=== PATIENT | female | born 1940 | race Caucasian/White ===

== ENCOUNTER 2019-05-05 15:11 | Observation (INO) | payer MEDICARE, SELFPAY ==
[2019-04-01 08:41] VITALS: BP 157/87; PULSE 54; RESP 18; TEMP 36.7; O2SAT 98; BMI 26.6
--- NOTE | 2019-04-07 17:22 | HP_ITS ---
DATE OF SERVICE: HISTORY: The patient is an 79-year-old female who sees Dr. Wall regarding her left knee. The patient has a chronic ongoing history of pain localized left knee. This is due to primary osteoarthritis. The patient has pain with ambulation. She has startup pain, rest pain, and night pain. She gets occasional swelling and mechanical symptoms. Cannot stand or walk for long periods and is limited in her daily activities. Despite conservative measures including cortisone therapy and anti-inflammatories, her symptoms continue. The patient had x-rays which show advanced primary osteoarthritis in the left knee joint. At this point, the patient has discussed further treatment options in detail with Dr. Wall. She would now like to proceed with a total knee arthroplasty, left knee. PAST SURGICAL HISTORY: The patient has undergone a previous hysterectomy in 1970, left breast biopsy in 1972, right leg vein stripping in 1991, hemorrhoidectomy 2009. Varicose vein surgery again in 2018, multiple D and Cs over the years and cholecystectomy 2001. ALLERGIES: PATIENT REPORTS ALLERGIES TO TYLENOL, ADVIL AND ALEVE, WHICH CAUSED TONGUE SWELLING AND THROAT SWELLING. CURRENT MEDICATIONS: Include, 1. Levothyroxine 88 mcg daily. 2. Diazepam 2 mg b.i.d. 3. Triamterene half tab in the morning. 4. Pantoprazole 40 mg daily. 5. PreserVision daily. 6. Atorvastatin once in the evening. 7. Full dose aspirin enteric-coated daily. 8. Calcium with vitamin D daily. 9. Flecainide 100 mg b.i.d. 10. Metoprolol 25 mg daily. 11. [place]-3 fish oil 1000 mg daily. SOCIAL HISTORY: Negative for tobacco or alcohol use. REVIEW OF SYSTEMS: 10-point review of systems otherwise negative. PHYSICAL EXAMINATION: Per Dr. Wall, HEENT: Exam within normal limits. HEART: Regular rate and rhythm. LUNGS: Clear to auscultation. ABDOMEN: Benign. Bowel sounds positive 4 quads. EXTREMITIES: Show the patient's left knee to be painful with manipulation range of motion. The patient has tenderness on the joint lines and pain with extremes of motion with subpatellar crepitation mild effusion and swelling. Hips move well with negative Stinchfield, negative Lisandra. X-rays show advanced primary osteoarthritis in the left knee joint. NEUROVASCULAR: The patient is otherwise intact. SKIN: Intact. CENTRAL NERVOUS SYSTEM exam: Within normal limits. ASSESSMENT AND PLAN: By history and exam, the patient is noted to have advanced primary osteoarthritis, left knee joint. The patient has discussed risks, benefits, limitations, alternatives of surgery in great detail with Dr. Wall. She has noted to proceed with a left total knee arthroplasty. Ms. Oates is scheduled to undergo surgery 04/13/[address] at [facility] with Dr. Wall. Rodrigo I MT: Diogo
--- NOTE | 2019-04-21 15:00 | PCDIET ---
PT STATES ON 04/07/19 HAD EPISOIDE AFIB- SAW DR SCOTT PLACED ON HEART MONITOR AND STARTED ELIQUIS. STATES NO OTHER CHANGE IN HEALTH HX.
--- NOTE | 2019-04-29 12:58 | HP_ITS ---
DATE OF SERVICE: 05/04/2019 HISTORY OF PRESENT ILLNESS: The patient is an 79-year-old female who sees Dr. Wlal regarding her left knee. The patient has a chronic ongoing history of pain, localized left knee. This is due to primary osteoarthritis. The patient has pain with ambulation. She has mechanical symptoms, cannot stand or walk for long period. She has startup pain, rest pain, and night pain. She notes increasingly worsening pain over time despite conservative measures including cortisone therapy and anti-inflammatories. Her symptoms continue to interfere with daily activities. X-rays show advanced primary osteoarthritis in the left knee joint. At this point, the patient has discussed further treatment options in detail with Dr. Wall. She would now like to proceed with left total knee arthroplasty. PAST MEDICAL HISTORY: The patient has undergone a previous hysterectomy in 1970, right leg vein stripping in 1991, left breast biopsy in 1972, hemorrhoidectomy surgery in 2009, varicose vein stripping again in 2018, multiple D and Cs over the years, and a cholecystectomy in 2001. ALLERGIES: THE PATIENT REPORTS ALLERGIES TO TYLENOL, ADVIL, AND ALEVE, WHICH CAUSED TONGUE SWELLING AND THROAT SWELLING. SOCIAL HISTORY: Negative for tobacco or alcohol use. CURRENT MEDICATIONS: Include, 1. Levothyroxine 88 mcg daily. 2. Diazepam 2 mg b.i.d. 3. Triamterene half-tab in the morning. 4. Pantoprazole 40 mg daily. 5. PreserVision daily. 6. Atorvastatin in the evening. 7. Full dose 325 mg aspirin enteric-coated daily. 8. Calcium with vitamin D daily. 9. Flecainide 100 mg b.i.d. 10. Metoprolol 25 mg daily. 11. [place]-3 fish oil 1 g daily. REVIEW OF SYSTEMS: Ten-point review of systems is otherwise negative. PHYSICAL EXAMINATION: Per Dr. Wall, SUSIE EXAM: Within normal limits. HEART: Regular rate and rhythm. LUNGS: Clear to auscultation. Bowel sounds positive 4 quads. EXTREMITIES: Show the patient's left knee to be painful with manipulation, range of motion. She has subpatellar crepitation, pain with extremes of motion with tenderness along joint lines. Mild effusion and swelling. Hips move well with negative Stinchfield. Negative TANNER. Knee joint is otherwise stable. Strength is 5/5. NEUROVASCULARLY: She is intact. SKIN: Intact. CENTRAL NERVOUS SYSTEM: Exam within normal limits. IMAGING DATA: X-rays showed advanced primary osteoarthritis in the left knee joint. ASSESSMENT AND PLAN: By history and exam, the patient is noted to have advanced primary osteoarthritis, left knee joint. The patient has discussed risks, benefits, limitations, and alternatives of surgery in great detail with Dr. Wall. She is noted to proceed with left total knee arthroplasty. The patient is scheduled to go surgery on May 04, 2019 at [facility]. D I MT: Dioog
[2019-05-04] VITALS (15 sets, daily range): BP systolic 128–174; BP diastolic 64–87; PULSE 54–76; RESP 6–20; TEMP 36.1–36.8; O2SAT 94–100
[2019-05-04] MEDS: LACTATED RINGERS 1,000 ML 30 ML IV CONT ×2 (06:50→09:17)
--- NOTE | 2019-05-04 07:04 | WPDANESEPPF ---
Anes - Initial Pre Proc Eval Procedure: Operation Date: 05/04/19 07:30 Proposed Procedures p Left Total Knee Arthroplasty - Solis Wall MD Date/Time: 05/04/19 07:04 Surgeon: Solis Wall MD Pre Op Diagnosis: OA Left Knee Patient Data Age: 79 Gender: F Height: 1.64 m Weight: 71.5 kg Last Vital Signs Temp 36.7 C 04/01/19 08:41 Pulse 54 L 04/01/19 08:41 Resp 18 04/01/19 08:41 BP 157/87 H 04/01/19 08:41 Pulse Ox 98 04/01/19 08:41 Allergies Allergy/AdvReac Type Severity Reaction Status Date / Time acetaminophen [From Tylenol] Allergy Severe Swelling Verified 05/04/19 07:08 NSAIDS (Non-Steroidal Allergy Severe Swelling Verified 05/04/19 07:08 Anti-Inflamma adhesive Allergy Mild Rash Verified 05/04/19 07:08 latex Allergy Mild Rash Verified 05/04/19 07:08 strawberry Allergy Unknown LIP Verified 05/04/19 07:08 SWELLING,RASH influenza virus vaccine tv AdvReac Severe very sick Verified 05/04/19 07:08 2012-(18-49 yrs),rcmb with fever [From Flublok] and myalgia Home Medications Medication Instructions Recorded Confirmed Type ferrous gluconate 324 mg (37.5 mg 324 mg PO DAILY 02/23/19 04/21/19 History iron) tablet flecainide 100 mg tablet 100 mg PO Q12H 02/23/19 04/21/19 History levothyroxine 88 mcg tablet 88 mcg PO DAILY 02/23/19 04/21/19 History metoprolol tartrate 25 mg tablet 25 mg PO BID 02/23/19 04/21/19 History pantoprazole 40 mg tablet,delayed 40 mg PO QAM #30 tablet 03/02/19 04/21/19 Rx release amitriptyline 25 mg PO HS 04/01/19 04/21/19 History atorvastatin 40 mg PO HS 04/01/19 04/21/19 History diazepam 2 mg PO BID PRN 04/01/19 04/21/19 History diclofenac sodium 50 mg PO BID 04/01/19 04/21/19 History omega 9-pix-eow-fish oil [Fish Oil] 1 cap PO DAILY 04/01/19 04/21/19 History vitamin B complex 1 tablet PO DAILY 04/01/19 04/21/19 History vitamins A,C,Y-xzfo-hgbicg 1 tablet PO HS 04/01/19 04/21/19 History [PreserVision AREDS] lisinopril 10 2 tablet PO DAILY #60 tablet 04/04/19 04/21/19 Rx mg-hydrochlorothiazide 12.5 mg tablet apixaban [Eliquis] 5 mg PO BID 04/21/19 04/21/19 History ECG: Date of Service: 04/01/19 Procedure(s): CA 12 lead EKG Accession Number(s): [id number] cc: ~ Measurements Intervals [place] Rate: 53 P: 37 OK: 177 QRS: -7 QRSD: 126 T: -1 QT: 444 QTc: 419 Interpretive Statements SINUS BRADYCARDIA INTRAVENTRICULAR CONDUCTION DELAY POSSIBLE LEFT VENTRICULAR HYPERTROPHY NONSPECIFIC ST & T-WAVE ABNORMALITY- ANT/INF LEADS BASELINE ARTIFACT- I, II, AVR, AVL BORDERLINE ECG Electronically Signed On 04-01-2019 10:11:34 EXTENSION WORK INSTRUCTOR by Ryan De La Vega D.O. Dictated By: Ryan De La Vega DO 04/01/19 0945 Other Studies: cleared by dr gaming 04/13/19 Patient hx anesthesia problems: post op nausea/vomiting Family hx anesthesia problems: none PMFSH Past Medical History Medical History (Updated 05/04/19 @ 07:08 by Kevyn Richardson MD) Anemia Anemia, chronic disease Anxiety Arthritis Atrial fibrillation DX 199004/07/19 EPISOIDE OF AFIB-SAW DR GAMING- PLACED ON HEART MONITOR Essential (primary) hypertension History of postoperative nausea and vomiting HX: benign breast biopsy Hypothyroidism Phobic anxiety disorder, unspecified Unspecified atrial fibrillation Surgical History Surgical History (Updated 05/04/19 @ 07:08 by Kevyn Richardson MD) H/O hemorrhoidectomy H/O: hysterectomy Hx of cardiac catheterization 2014-NEGATIVE Hx of cataract extraction Hx of cholecystectomy Social History Social History Smoking status: Never smoker Alcohol intake: never Anes - Eval Fi
--- NOTE | 2019-05-04 07:08 | WPDHPUPDATE1 ---
History and Physical Update Update Date/Time: 05/04/19 07:08 History and Physical has been reviewed, including an updated exam of the patient. There are NO changes in the patient's condition. Risks, benefits, and alternatives have been discussed and questions answered. Patient agrees to proceed with procedure.
[2019-05-04] MEDS: ceFAZolin 2 GM/D5W 50 ML 2 GM/50 ML BAG IVPB (07:32)
[2019-05-04] MEDS: GENTAMICIN BONE CEMENT REFOBACIN 1 EACH TOPICAL (07:57)
--- NOTE | 2019-05-04 08:43 | P.OP_ITS ---
Procedure Note - Detailed Date of procedure: 05/04/19 Pre-op diagnosis: OA Left Knee Post-op diagnosis: same Procedure performed: [Left] total knee arthroplasty Description of procedure: The patient was brought to the operating room. General anesthetic was administered. Placed on the operating table and sterilely prepped and draped in usual manner. A longitudinal incision was made. Tourniquet inflated to 300 mmHg for a total of [time] minutes. Dissection carried down to the fascia. Medial parapatellar incision was made and the patella subluxated laterally. Patella cut from [23] to [14] mm and sized for a [34] mm button. The tibia cut perpendicular to the long axis and femur cut in 7 degrees of valgus, a [62.5] femur trialed. [67] tibia was felt to fit the best. The soft tissue balanced, hemostasis obtained. All [address], [67] tibia, [62.5] femur, [34] mm patella, and [12] mm poly. Motion was 0-125 degrees with good stablility and flexion and extension. The wound was closed with #2 vicryl, 2-0 Vicryl and tyson. Anesthesia: GETA Surgeon: Solis Wall MD Materials Planner/Production Planner: Juan Skaggs Estimated blood loss (mL): 200 Drains: No Packing: No Pathology: none sent Complications: No immediate complications Condition: stable Disposition: PACU Findings: arthritis
--- NOTE | 2019-05-04 09:32 | SUR.PHASEI ---
0930 radiology at bedside to do xrays of lt knee
--- NOTE | 2019-05-04 10:13 | SUR.PHASEI ---
1013 family updated sbar faxed floor notified
[2019-05-04] MEDS: DIAZEPAM 2 MG TABLET PO (12:16)
[2019-05-04] MEDS: MORPHINE SULFATE 4 MG/ML INJ IV PUSH ×2 (12:27→17:42)
--- NOTE | 2019-05-04 13:56 | PCAUD ---
Attempted to see pt for PT eval. Pt refuses stating she's in 10/10 pain and nauseous. Will try again in the morning.
--- NOTE | 2019-05-04 14:04 | PCPTNOTE ---
Attempted to see pt for PT eval. Pt refuses stating she's in 10/10 pain and nauseous. Will try again tomorrow.
[2019-05-04] MEDS: FERROUS GLUCONATE 324 MG TABLET PO (14:35)
[2019-05-04] MEDS: PANTOPRAZOLE 40 MG TABLET PO (14:35)
[2019-05-04] MEDS: hydroCHLOROthiazide 25 MG TABLET PO (14:39)
[2019-05-04] MEDS: lisinopriL 20 MG TABLET PO (14:40)
[2019-05-04] MEDS: DICLOFENAC SOD 25 MG TABLET.EC 50 MG PO (17:44)
[2019-05-04] MEDS: APIXABAN 5 MG TABLET PO (17:44)
[2019-05-04] MEDS: SODIUM CHLORIDE 0.9% IV 1,000 ML 80 ML IV CONT (18:46)
[2019-05-04] MEDS: ONDANSETRON INJ 4 MG/2 ML VIAL IV PUSH (18:46)
--- NOTE | 2019-05-04 20:33 | ADMGEN ---
This patient, Shantel Oates, was admitted to 3 Med Surg Room 331-01. Patient/family oriented to hospital policies and general routines including ID bracelet, bed and alarms, visiting hours, pain management, procedures, bathroom and other care routines, personal items, smoking policy, room service/diet, and visiting hours. Valuables list has been completed. Information on how to activate the Rapid Response Team has been discussed. Patient/Family are encouraged to report perceived risks to care and to ask questions if they do not understand what they are told or what they should do.
[2019-05-04] MEDS: AMITRIPTYLINE HCL 25 MG TABLET PO (21:09)
[2019-05-04] MEDS: METOPROLOL TARTRATE 25 MG TABLET PO (21:09)
[2019-05-04] MEDS: FLECAINIDE ACETATE 100 MG TABLET PO (21:09)
[2019-05-04] MEDS: ATORVASTATIN 40 MG TABLET PO (21:09)
--- NOTE | 2019-05-04 22:10 | WPDCN ---
Assessment and Plan Assessment and plan (1) Primary osteoarthritis of left knee: Code(s): M17.12 - Unilateral primary osteoarthritis, left knee Status: Acute Assessment and Plan: Wound care and pain control will be deferred to Dr. Wall. DVT prophylaxis also deferred to Dr. Wall. Check baseline labs in a.m. (2) Atrial fibrillation: Code(s): I48.91 - Unspecified atrial fibrillation Status: Acute Assessment and Plan: She has had paroxysmal atrial fibrillation since 1990. Over the past months, she has had increasing frequency of atrial fibrillation and is currently on Holter monitor. That was not reapplied after surgery, thus will monitor on telemetry. Continue flecainide and metoprolol. Resume Eliquis per Dr. Wall. (3) Hypertension: Code(s): I10 - Essential (primary) hypertension Status: Acute Assessment and Plan: Blood pressures were reviewed and they are stable. Continue antihypertensives and monitor closely. (4) Chronic anticoagulation: Code(s): Z79.01 - FPC (current) use of anticoagulants Status: Acute Assessment and Plan: Patient on Eliquis for paroxysmal atrial fibrillation. This will be resumed per Dr. Wall, I believe scheduled for tomorrow. (5) Postoperative nausea and vomiting: Code(s): R11.2 - Nausea with vomiting, unspecified; Z98.890 - Other specified postprocedural states Status: Acute Assessment and Plan: Zofran has not been much help. Will try Phenergan x1. Continue IV fluid rehydration. KUB is been ordered and is pending as bowel sounds are quite hypoactive. HPI Data of Consult Date/Time: 05/04/19 13:22 Requesting Physician: Solis Wall MD Primary Care Provider: Anthony Awad MD Consult Narrative Narrative: Shantel Oates is a 79 year old female whom the hospitalist service has been consulted for postoperative medical management status post left total knee arthroplasty. Her medical history is significant for osteoarthritis, paroxysmal atrial fibrillation, hypothyroidism, hypertension, diet-controlled diabetes, and chronic kidney disease. She is very active for her age, in fact still works 6 days a week. She has had longstanding pain in her left knee, not amenable to conservative outpatient treatment, and thus she elected for replacement today. Her surgery was performed under general anesthesia with no immediate complications documented and an estimated blood loss of 200 milliliters. She is pretty miserable at the time my evaluation, with unrelenting nausea and vomiting. She also complains of significant discomfort behind the knee, extending to the left calf, almost a spasming pain. She has chills but denies fever and sweats. No chest pain or shortness of breath. No paresthesias, skin color, or temperature changes distal to the surgical site. Review of Systems Review of Systems: Narrative: Twelve systems were reviewed with pertinent positives and negatives as per HPI. No recent cold or flu symptoms. She has been having an increase in episodes of atrial fibrillation, and fact is currently on a Holter monitor per Dr. Newby. She states compliance with her flecainide and metoprolol. She is not certain as to what is precipitating this. She has no history of venous thromboembolism. Except as documented, all other systems were reviewed and are negative. [facility] Past Medical History Medical History (Updated 05/04/19 @ 22:32 by Tania Bernard PA-C) Anemia Anxiety Arthritis Atrial fibrillation Chronic anticoagulation Chronic kidney disease, stage 3 Baseline creatinine 1.20. Diet-controlled diabetes mellitus Hemoglobin A1c was 5.5 on March 25, 2019. GERD (gastroesophageal reflux disease) History of Clostridioides difficile infection History of postoperative nausea and vomiting Hyperlipidemia Hypertension Hypothyroidism Brooke
[2019-05-05] VITALS (16 sets, daily range): BP systolic 119–146; BP diastolic 59–65; PULSE 71–88; RESP 16–20; TEMP 36.4–37.1; O2SAT 92–100
--- NOTE | ~2019-05-05 | XR_ITS ---
EXAMINATION: XR knee LT 2V DATE: 05/04/2019 09:31 INDICATION: Total left knee arthroplasty. Postop. TECHNIQUE: 2 views of left knee were obtained. COMPARISON: None. FINDINGS: There is a total left knee arthroplasty in near-anatomic alignment with patellar resurfacin g. No fracture. There is gas in the knee joint and soft tissues, consistent with recent surgery. Ther e are small fragments of heterotopic ossification at the periphery of the joint space. Anterior skin tyson are noted. IMPRESSION: 1. Total left knee arthroplasty in near-anatomic alignment. Reviewed, dictated and finalized at location A. 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
--- NOTE | ~2019-05-05 | US_ITS ---
EXAMINATION: US venous doppler [facility] EXAM DATE: 05/05/2019 14:57 INDICATION: Left leg swelling, pain, redness. TECHNIQUE: Multiple grayscale, color flow and Doppler images of the left lower extremity deep venous system were obtained and reviewed. There is no prior study for comparison. FINDINGS: The left common femoral, femoral and profunda veins demonstrate normal color flow, respirat ory variation, augmentation and compressibility. Compressibility, color flow confirmed within the le ft popliteal, posterior tibial, peroneal, and greater saphenous veins. IMPRESSION: 1. No left lower extremity deep venous thrombosis. Reviewed, dictated and finalized at location B. T CASTER
--- NOTE | ~2019-05-05 | XR_ITS ---
EXAMINATION: XR abdomen obstructive series DATE: 05/07/2019 11:18 INDICATION: Constipation. TECHNIQUE: Upright and supine views of the abdomen on 3 radiographs were obtained. COMPARISON: Abdomen radiograph 05/04/2019, CT abdomen and pelvis 03/25/2012 FINDINGS: There are no dilated loops of bowel. There is a large alignment stool in the colon. No free intraperitoneal gas. Surgical clips in the right upper quadrant are likely from cholecystectomy. The re are phleboliths in the pelvis. IMPRESSION: 1. Nonobstructive bowel gas pattern. Reviewed, dictated and finalized at location A. 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
--- NOTE | ~2019-05-05 | XR_ITS ---
XR abdomen/kub 1V 05/04/2019 22:36 INDICATION: Persistent nausea and vomiting after surgery TECHNIQUE: KUB COMPARISON: None FINDINGS: Bowel gas pattern is nonobstructive. There is a large amount of retained fecal material thr oughout the colon. There is no evidence of free air, mass, organomegaly, ascites or obstruction. Ther e are probable right renal stones. There is scoliosis. IMPRESSION: 1: Fecal impaction of the colon. 2: Probable right nephrolithiasis. Reviewed, dictated and finalized at location A. NG AGENT
[2019-05-05] MEDS: LEVOTHYROXINE SODIUM 88 MCG TABLET PO (05:58)
[2019-05-05] MEDS: SODIUM CHLORIDE 0.9% IV 1,000 ML 80 ML IV CONT ×2 (05:59→18:25)
[2019-05-05 06:27] LABS: Basophils Percent Auto 0.2 % (0.2-1.2); Hematocrit 28.3 % (37.0-47.0); Hemoglobin 9.6 g/dL (12.0-15.0); Immature Granulocyte Absolute 0.03 K/mm3 (0.00-0.031); Immature Granulocyte Percent A 0.3 % (0-0.5); Lymphocytes Absolute Auto 0.75 K/mm3 (0.9-3.2); Lymphocytes Percent Auto 8.5 % (18.3-44.2); Mean Corpuscular HGB Conc 33.9 g/dl (32-36); Mean Corpuscular Hemoglobin 30.7 pg (26-34); Mean Corpuscular Volume 90.4 fl (80-100); Mean Platelet Volume 12.5 fl (7.4-10.4); Monocytes Absolute Auto 1.1 K/mm3 (0.1-0.6); Monocytes Percent Auto 12.5 % (2.6-8.5); Neutrophils Absolute Auto 6.9 K/mm3 (1.3-6.7); Neutrophils Percent Auto 78.5 % (45.5-73.1); Platelet Count Result 169 k/mm3 (150-375); Red Blood Count 3.13 M/mm3 (4.2-5.4); Red Cell Distribution Width 13.2 % (11.5-14.5); White Blood Count 8.8 K/mm3 (4.5-10.0)
[2019-05-05 06:36] LABS: Blood Urea Nitrogen 20 mg/dL (7-17); Calcium 8.5 mg/dL (8.4-10.2); Carbon Dioxide 30 mmol/L (22-30); Chloride 96 mmol/L (98-107); Estimated CRCL calculation 35 ml/min; Estimated Glomerular Filt Rate 53; Glucose 125 mg/dL (65-105); Sodium 132 mmol/L (137-145)
[2019-05-05] MEDS: DICLOFENAC SOD 25 MG TABLET.EC 50 MG PO ×2 (08:52→18:27)
[2019-05-05] MEDS: lisinopriL 20 MG TABLET PO (08:52)
[2019-05-05] MEDS: FLECAINIDE ACETATE 100 MG TABLET PO ×2 (08:52→21:31)
[2019-05-05] MEDS: FERROUS GLUCONATE 324 MG TABLET PO (08:53)
[2019-05-05] MEDS: METOPROLOL TARTRATE 25 MG TABLET PO ×2 (08:54→21:30)
[2019-05-05] MEDS: hydroCHLOROthiazide 25 MG TABLET PO (08:54)
[2019-05-05] MEDS: APIXABAN 5 MG TABLET PO ×2 (08:54→18:28)
[2019-05-05] MEDS: PANTOPRAZOLE 40 MG TABLET PO (08:55)
[2019-05-05] MEDS: LACTULOSE ENEMA 200 GM/1,000 ML ENEMA RECTAL (09:07)
--- NOTE | 2019-05-05 10:10 | P.PNAN_ITS ---
Anes - Prog Note Post-Op Date/Time: 05/05/19 10:10 Vital Signs: Last Vital Signs Temp 98.1 F 05/05/19 06:00 Pulse 80 05/05/19 08:54 Resp 16 05/05/19 06:00 BP 128/59 L 05/05/19 06:00 Pulse Ox 98 05/05/19 06:00 I/O: Intake & Output 05/04/19 05/05/19 05/05/19 23:59 07:59 15:59 Intake Total 650 1350 Output Total 2700 1400 Balance -2049 Laboratory Tests 05/05/19 05:46 05/05/19 05:46 05/05/19 05/05/19 05:46 05:46 WBC 8.8 RBC 3.13 L Hgb 9.6 L Hct 28.3 L MCV 90.4 MCH 30.7 MCHC 33.9 RDW 13.2 Plt Count 169 MPV 12.5 H Immature Gran % (Auto) 0.3 Neut % (Auto) 78.5 H Lymph % (Auto) 8.5 L [place] % (Auto) 12.5 H Eos % (Auto) 0.0 Baso % (Auto) 0.2 Lymph # (Auto) 0.75 L [place] # (Auto) 1.1 H Eos # (Auto) 0.0 Baso # (Auto) 0.0 Abs Immat Gran (auto) 0.03 Absolute Neuts (auto) 6.9 H Absolute Nucleated RBC 0.0 Nucleated RBC % 0.0 Sodium 132 L Potassium 4.0 Chloride 96 L Carbon Dioxide 30 BUN 20 H Creatinine 1.00 Estim Creat Clear Calc 35 Estimated GFR 53 L Glucose 125 H Calcium 8.5 Patient Feedback: Patient satisfied with anesthetic care.
--- NOTE | 2019-05-05 10:19 | P.PNIM_ITS ---
Progress Note: A&P Assessment and Plan (1) Primary osteoarthritis of left knee: Code(s): M17.12 - Unilateral primary osteoarthritis, left knee Status: Acute Assessment and Plan: * Patient is POD#1 s/p left total knee arthroplasty with Dr. Wall. * Wound care, pain control, and DVT prophylaxis per Dr. Wall. * PT/OT. (2) Postoperative nausea and vomiting: Code(s): R11.2 - Nausea with vomiting, unspecified; Z98.890 - Other specified postprocedural states Status: Acute Assessment and Plan: * Improved today. Zofran was not helping much yesterday. She had some relief after Phenergan. * Continue Phenergan PRN. Continue IV hydration she is tolerating more oral intake. (3) Constipation: Qualifiers: Constipation type: unspecified constipation type Qualified Code(s): K59.00 - Constipation, unspecified Code(s): K59.00 - Constipation, unspecified Status: Acute Assessment and Plan: * KUB obtained last evening shows large volume of colonic stool and fecal impaction. * Lactulose enema and MiraLax ordered. Milk of magnesia PRN if no relief from the enema. (4) Urinary retention: Code(s): R33.9 - Retention of urine, unspecified Status: Acute Assessment and Plan: * Patient notes that she has had difficulty urinating for ?months?. She denies burning with urination, but reports voiding small amounts for at least the last several weeks. She tells me she has seen Dr. Mendenhall is office in the past. * She was noted to have large volume of urine in the bladder last evening and Wiggins catheter was placed. * Could either keep Wiggins catheter in or try voiding trial tomorrow. Either way, recommend following up with Dr. Mendenhall after discharge as an outpatient. (5) Atrial fibrillation: Qualifiers: Atrial fibrillation type: paroxysmal Qualified Code(s): I48.0 - Paroxysmal atrial fibrillation Code(s): I48.91 - Unspecified atrial fibrillation Status: Acute Assessment and Plan: * Patient is known to have paroxysmal atrial fibrillation for many years. Over the last few months she has had increasing frequency of AFib and was currently on Holter monitor. She was wearing the Holter monitor up until surgery yest erday and Holter was not reapplied after surgery. * RN contacting [facility] for help in getting her Holter back on. She has seen Dr. Baez. * Telemetry review this morning shows normal sinus rhythm. * Continue flecainide and metoprolol, Eliquis. (6) Hypertension: Qualifiers: Hypertension type: essential hypertension Qualified Code(s): I10 - Essential (primary) hypertension Code(s): I10 - Essential (primary) hypertension Status: Acute Assessment and Plan: * BPs elevated yesterday but stable today. Continue her home antihypertensives and monitor BP. (7) Chronic anticoagulation: Code(s): Z79.01 - intermediate teacher (current) use of anticoagulants Status: Acute Assessment and Plan: * Patient on Eliquis for paroxysmal atrial fibrillation. Additional Plan Thank you for allowing me to participate in this patient's care. Call for any questions. Subjective Date/time seen: 05/05/19 0930 Interval history: Ms. Oates is an 79yo F seen in follow up this morning POD#1 s/p left total knee arthroplasty with Dr Wall. She reports a headache this
--- NOTE | 2019-05-05 10:19 | PM.IMPN ---
Progress Note: A&P Assessment and Plan (1) Primary osteoarthritis of left knee: Code(s): M17.12 - Unilateral primary osteoarthritis, left knee Status: Acute Assessment and Plan: Patient is POD#1 s/p left total knee arthroplasty with Dr. Wall. Wound care, pain control, and DVT prophylaxis per Dr. Wall. PT/OT. (2) Postoperative nausea and vomiting: Code(s): R11.2 - Nausea with vomiting, unspecified; Z98.890 - Other specified postprocedural states Status: Acute Assessment and Plan: Improved today. Zofran was not helping much yesterday. She had some relief after Phenergan. Continue Phenergan PRN. Continue IV hydration she is tolerating more oral intake. (3) Constipation: Qualifiers: Constipation type: unspecified constipation type Qualified Code(s): K59.00 - Constipation, unspecified Code(s): K59.00 - Constipation, unspecified Status: Acute Assessment and Plan: KUB obtained last evening shows large volume of colonic stool and fecal impaction. Lactulose enema and MiraLax ordered. Milk of magnesia PRN if no relief from the enema. (4) Urinary retention: Code(s): R33.9 - Retention of urine, unspecified Status: Acute Assessment and Plan: Patient notes that she has had difficulty urinating for ?months?. She denies burning with urination, but reports voiding small amounts for at least the last several weeks. She tells me she has seen Dr. Mendenhall is office in the past. She was noted to have large volume of urine in the bladder last evening and Wiggins catheter was placed. Could either keep Wiggins catheter in or try voiding trial tomorrow. Either way, recommend following up with Dr. Mendenhall after discharge as an outpatient. (5) Atrial fibrillation: Qualifiers: Atrial fibrillation type: paroxysmal Qualified Code(s): I48.0 - Paroxysmal atrial fibrillation Code(s): I48.91 - Unspecified atrial fibrillation Status: Acute Assessment and Plan: Patient is known to have paroxysmal atrial fibrillation for many years. Over the last few months she has had increasing frequency of AFib and was currently on Holter monitor. She was wearing the Holter monitor up until surgery yesterday and Holter was not reapplied after surgery. RN contacting [facility] for help in getting her Holter back on. She has seen Dr. Baez. Telemetry review this morning shows normal sinus rhythm. Continue flecainide and metoprolol, Eliquis. (6) Hypertension: Qualifiers: Hypertension type: essential hypertension Qualified Code(s): I10 - Essential (primary) hypertension Code(s): I10 - Essential (primary) hypertension Status: Acute Assessment and Plan: BPs elevated yesterday but stable today. Continue her home antihypertensives and monitor BP. (7) Chronic anticoagulation: Code(s): Z79.01 - care home (current) use of anticoagulants Status: Acute Assessment and Plan: Patient on Eliquis for paroxysmal atrial fibrillation. Additional Plan Thank you for allowing me to participate in this patient's care. Call for any questions. Subjective Date/time seen: 05/05/19 0930 Interval history: Ms. Oates is an 79yo F seen in follow up this morning POD#1 s/p left total knee arthroplasty with Dr Wall. She reports a headache this morning and some discomfort behind her left knee. She reports she normally takes benadryl for sinus headaches. She had quite a bit of nausea and vomiting yesterday postoperatively. She denies nausea at time of my exam, however I am notified by nursing shortly after that the patient sat up in bed slightly and became nauseated without emesis so far. KUB from last night shows large volume colonic stool
[2019-05-05] MEDS: PROMETHAZINE HCL 25 MG/ML AMPUL 12.5 MG IV PUSH (10:28)
[2019-05-05] MEDS: DIAZEPAM 2 MG TABLET PO (11:09)
--- NOTE | 2019-05-05 11:12 | PM.PNORT ---
Progress Note: A&P Additional Plan cont PT OT and pain control measures, gettiing tx for urinary retention and fecal impaction, check duplex scan to r/o DVT, likely just post op pain and swelling, will observe for another night, will follow Time Spent With Patient Time with patient: less than 15 minutes Subjective Subjective Date/Time Seen: 05/05/19 11:12 Pt having troubles with N/V, constipation and urinary retention, pain is restricting her participation in PT as well. Has a lundy, KUB shows fecal impaction and this is being treated as well. Some calf tenderness and L LE swelling, will get duplex scan, otherwise stable Exam Narrative: Exam Narrative: VSS afebrile NV intact wound dressing clean and dry left calf tender, mildly swollen Objective Data Vital Signs Vital Signs: Vital Signs - 24 hr 05/04/19 11:20 05/04/19 11:50 05/04/19 12:50 Temperature 36.6 C Pulse Rate 58 L 58 L 70 Respiratory Rate 16 16 16 Blood Pressure 147/79 H 159/76 H 149/64 H Pulse Oximetry 100 99 100 05/04/19 14:00 05/04/19 21:09 05/04/19 22:00 Temperature 36.7 C 36.8 C Pulse Rate 70 70 76 Respiratory Rate 16 20 Blood Pressure 149/64 H 155/70 H Pulse Oximetry 100 94 05/04/19 23:15 05/05/19 00:00 05/05/19 02:20 Temperature 36.4 C Pulse Rate 70 71 84 Respiratory Rate 16 20 Blood Pressure 119/65 Pulse Oximetry 100 96 05/05/19 04:00 05/05/19 06:00 05/05/19 08:52 Temperature 36.7 C Pulse Rate 80 82 88 Respiratory Rate 16 Blood Pressure 128/59 L Pulse Oximetry 98 05/05/19 08:54 05/05/19 10:08 Temperature Pulse Rate 80 Respiratory Rate Blood Pressure Pulse Oximetry 92 Intake/Output Intake/Output: Intake & Output 05/02/19 05/03/19 05/04/19 05/05/19 23:59 23:59 23:59 23:59 Intake Total 1500 1350 Output Total 2700 1400 Balance -1200 -50 Meds/Results Medications: Active Medications Generic Name Dose Route Start Last Admin Trade Name Freq PRN Reason Stop Dose Admin Amitriptyline HCl 25 mg 05/04/19 21:00 05/04/19 21:09 Elavil PO 25 mg HS NICOL Administration Apixaban 5 mg 05/04/19 17:00 05/05/19 08:54 Eliquis PO 5 mg BID NICOL Administration Atorvastatin Calcium 40 mg 05/04/19 21:00 05/04/19 21:09 Lipitor PO 40 mg HS NICOL Administration Diazepam 2 mg 05/04/19 10:58 05/04/19 12:16 Valium Po PO 2 mg BID PRN Administration Anxiety Diclofenac Sodium 50 mg 05/04/19 17:00 05/05/19 08:52 Voltaren Ec Tab PO 50 mg BIDWM NICOL Administration Diphenhydramine HCl 25 mg 05/05/19 08:50 05/05/19 09:17 Benadryl Cap PO 25 mg Q6H PRN Administration Itching Ferrous Gluconate 324 mg 05/04/19 10:58 05/05/19 08:53 Ferrous Gluconate PO 324 mg DAILY@0800 NICOL Administration Flecainide Acetate 100 mg 05/04/19 21:00 05/05/19 08:52 Tambocor PO 100 mg Q12HR NICOL Administration Hydrochlorothiazide 25 mg 05/04/19 09:00 05/05/19 08:54 Hydrochlorothiazide PO 25 mg QAM NICOL Administration Sodium Chloride 1,000 mls @ 100 mls/hr 05/04/19 18:20 05/05/19 05:59 Normal Saline Iv IV CONT 80 mls/hr .Q10H NICOL Administration Levothyroxine Sodium 88 mcg 05/04/19 11:40 05/05/19 05:58 Synthroid PO 88 mcg DAILY@0630 NICOL Administration Lisinopril 20 mg 05/04/19 09:00 05/05/19 08:52 Prinivil PO 20 mg QAM NICOL Administration Magnesium Hydroxide 30 ml 05/05/19 12:00 Milk Of Magnesia PO QAM PRN Constipation Metoprolol Tartrate 25 mg 05/04/19 10:58 05/05/19 08:54 Lopressor PO 25 mg Q12HR NICOL Administration Morphine Sulfate 4 mg 05/04/19 12:01 05/04/19 17:42 Morphine Sulfate Inj IV PUSH 4 mg Q4H PRN Administration Pain Rated 7-10 Oxycodone HCl 5 mg 05/04/19 12:55 Roxicodone Ir Tablet PO Q4H PRN Pain Rated 4-6 Oxycodone HCl 10 mg 05/04/19 12:55 05/04/19 18:46 Roxicodone Ir Tablet PO 10 mg Q4H PRN Administrati
--- NOTE | 2019-05-05 11:33 | PCOTNOTE ---
Pt deferred therapy this AM due to nausea and muscle spasms in surgical leg. Will attempt OT evaluation at later time.
[2019-05-05] MEDS: polyethylene glycoL 3350 17 GM POWD.PACK PO (15:35)
[2019-05-05] MEDS: ATORVASTATIN 40 MG TABLET PO (21:31)
[2019-05-05] MEDS: AMITRIPTYLINE HCL 25 MG TABLET PO (21:31)
[2019-05-06] VITALS (14 sets, daily range): BP systolic 115–134; BP diastolic 53–66; PULSE 62–80; RESP 16–18; TEMP 36.6–37.1; O2SAT 93–100
[2019-05-06] MEDS: SODIUM CHLORIDE 0.9% IV 1,000 ML 80 ML IV CONT (04:48)
[2019-05-06] MEDS: LEVOTHYROXINE SODIUM 88 MCG TABLET PO (06:00)
[2019-05-06 06:08] LABS: Hemoglobin 7.3 g/dL (12.0-15.0); Immature Platelet Fraction Pct 8.3 % (0.9-11.2); Mean Corpuscular HGB Conc 33.2 g/dl (32-36); Mean Corpuscular Hemoglobin 30.3 pg (26-34); Mean Corpuscular Volume 91.3 fl (80-100); Mean Platelet Volume 12.6 fl (7.4-10.4); Platelet Count Result 124 k/mm3 (150-375); Red Blood Count 2.41 M/mm3 (4.2-5.4); Red Cell Distribution Width 13.5 % (11.5-14.5); White Blood Count 6.6 K/mm3 (4.5-10.0)
[2019-05-06] MEDS: PANTOPRAZOLE 40 MG TABLET PO (09:16)
[2019-05-06] MEDS: METOPROLOL TARTRATE 25 MG TABLET PO ×2 (09:16→21:25)
[2019-05-06] MEDS: lisinopriL 20 MG TABLET PO (09:19)
[2019-05-06] MEDS: hydroCHLOROthiazide 25 MG TABLET PO (09:19)
[2019-05-06] MEDS: polyethylene glycoL 3350 17 GM POWD.PACK PO ×2 (09:19→12:37)
[2019-05-06] MEDS: FERROUS GLUCONATE 324 MG TABLET PO (09:19)
[2019-05-06] MEDS: DICLOFENAC SOD 25 MG TABLET.EC 50 MG PO ×2 (09:19→17:23)
[2019-05-06] MEDS: FLECAINIDE ACETATE 100 MG TABLET PO ×2 (09:20→21:24)
[2019-05-06] MEDS: APIXABAN 5 MG TABLET PO ×2 (09:20→17:23)
[2019-05-06] MEDS: TAMSULOSIN HCL 0.4 MG CAPSULE PO (11:31)
[2019-05-06] MEDS: BISACODYL 5 MG TABLET EC PO (12:32)
--- NOTE | 2019-05-06 14:21 | PM.IMPN ---
Progress Note: A&P Assessment and Plan (1) Primary osteoarthritis of left knee: Code(s): M17.12 - Unilateral primary osteoarthritis, left knee Status: Acute Assessment and Plan: Patient is POD#2 s/p left total knee arthroplasty with Dr. Wall. Wound care, pain control, and DVT prophylaxis per Dr. Wall. PT/OT. (2) Postoperative nausea and vomiting: Code(s): R11.2 - Nausea with vomiting, unspecified; Z98.890 - Other specified postprocedural states Status: Acute Assessment and Plan: Resolved. (3) Constipation: Qualifiers: Constipation type: unspecified constipation type Qualified Code(s): K59.00 - Constipation, unspecified Code(s): K59.00 - Constipation, unspecified Status: Acute Assessment and Plan: KUB showed large volume of colonic stool and fecal impaction. Continue bowel regimen and added an additional dose of miralax and dulcolax this afternoon. (4) Urinary retention: Code(s): R33.9 - Retention of urine, unspecified Status: Acute Assessment and Plan: Patient notes that she has had difficulty urinating for ?months?. She denies burning with urination, but reports voiding small amounts for at least the last several weeks. Old note in her chart from 2013 shows an office visit with Dr Stephens for similar symptoms. Started Flomax this morning. Wiggins catheter discontinued this morning. I am notified by nursing late this afternoon that she has not been able to void still. Bladder scan showed around 330mL. Will hold off on straight cath or replacing Wiggins catheter for now and encourage oral intake. If still no void this evening, bladder scan and replace Wiggins if postvoid residual is > 600 mL. Recommend outpatient follow-up with Dr. Kitchen after discharge. (5) Atrial fibrillation: Qualifiers: Atrial fibrillation type: paroxysmal Qualified Code(s): I48.0 - Paroxysmal atrial fibrillation Code(s): I48.91 - Unspecified atrial fibrillation Status: Acute Assessment and Plan: Patient is known to have paroxysmal atrial fibrillation for many years. Over the last few months she has had increasing frequency of AFib and was currently on Holter monitor. She was wearing the Holter monitor up until surgery yesterday and Holter was not reapplied after surgery. RN [facility] for help in getting her Holter back on. Patient says she has seen Dr. Baez for this. Telemetry review this still shows normal sinus rhythm without any events of atrial fibrillation. Continue flecainide and metoprolol, Eliquis. (6) Hypertension: Qualifiers: Hypertension type: essential hypertension Qualified Code(s): I10 - Essential (primary) hypertension Code(s): I10 - Essential (primary) hypertension Status: Acute Assessment and Plan: BPs stable. Continue her home antihypertensives and monitor BP. (7) Chronic anticoagulation: Code(s): Z79.01 - residential (current) use of anticoagulants Status: Acute Assessment and Plan: Patient on Eliquis for paroxysmal atrial fibrillation. Additional Plan Thank you for allowing me to participate in this patient's care. Call for any questions. Subjective Date/time seen: 05/06/19 1200 Interval history: Ms. Oates is an 79yo F seen in follow up this morning POD#2 s/p left total knee arthroplasty with Dr Wall. No nausea or vomiting today and she is tolerating some PO intake. Still no BM today. She is passing flatus. Tells me her abdomen feels a bit bloated, but better than yesterday. left knee pain is reasonably controlled at time of my exam. No chest pain or shortness of breath. Review of Systems Review of Systems: Narrative: Twelve systems
--- NOTE | 2019-05-06 16:15 | PM.PNORT ---
Progress Note: A&P Additional Plan Pt will DC home in am if able to urinate and does well overnight, pt agrees with plan, see orders, looks good otherwise POD #2 Time Spent With Patient Time with patient: 15 - 25 minutes Subjective Subjective Date/Time Seen: 05/06/19 16:15 Pt still having urinary retention, will need another night of observation, may need to reinsert lundy, otherwise did well in PT, pain well controlled and was able to have a BM today Exam Narrative: Exam Narrative: VSS afebrile NV intact wound clean and dry calves benign, some swelling and tenderness on L side but venous duplex was negative Objective Data Vital Signs Vital Signs: Vital Signs - 24 hr 05/05/19 20:00 05/05/19 21:30 05/05/19 21:31 Temperature Pulse Rate 81 79 79 Respiratory Rate Blood Pressure Pulse Oximetry 05/05/19 22:00 05/05/19 22:37 05/06/19 00:31 Temperature 37.1 C Pulse Rate 80 79 80 Respiratory Rate 20 16 Blood Pressure 140/61 Pulse Oximetry 100 92 05/06/19 04:00 05/06/19 07:02 05/06/19 09:16 Temperature 36.6 C Pulse Rate 72 76 71 Respiratory Rate 16 Blood Pressure 129/66 Pulse Oximetry 97 05/06/19 09:20 Temperature Pulse Rate 71 Respiratory Rate Blood Pressure Pulse Oximetry Intake/Output Intake/Output: Intake & Output 05/03/19 05/04/19 05/05/19 05/06/19 23:59 23:59 23:59 23:59 Intake Total 1500 3200 1400 Output Total 2700 2850 1200 Balance -1200 350 200 Meds/Results Medications: Active Medications Generic Name Dose Route Start Last Admin Trade Name Freq PRN Reason Stop Dose Admin Amitriptyline HCl 25 mg 05/04/19 21:00 05/05/19 21:31 Elavil PO 25 mg HS NICOL Administration Apixaban 5 mg 05/04/19 17:00 05/06/19 09:20 Eliquis PO 5 mg BID NICOL Administration Atorvastatin Calcium 40 mg 05/04/19 21:00 05/05/19 21:31 Lipitor PO 40 mg HS NICOL Administration Diazepam 2 mg 05/04/19 10:58 05/05/19 11:09 Valium Po PO 2 mg BID PRN Administration Anxiety Diclofenac Sodium 50 mg 05/04/19 17:00 05/06/19 09:19 Voltaren Ec Tab PO 50 mg BIDWM [facility] Administration Diphenhydramine HCl 25 mg 05/05/19 08:50 05/05/19 18:23 Benadryl Cap PO 25 mg Q6H PRN Administration Itching Ferrous Gluconate 324 mg 05/04/19 10:58 05/06/19 09:19 Ferrous Gluconate PO 324 mg DAILY@0800 [facility] Administration Flecainide Acetate 100 mg 05/04/19 21:00 05/06/19 09:20 Tambocor PO 100 mg Q12HR [facility] Administration Hydrochlorothiazide 25 mg 05/04/19 09:00 05/06/19 09:19 Hydrochlorothiazide PO 25 mg QAM [facility] Administration Levothyroxine Sodium 88 mcg 05/04/19 11:40 05/06/19 06:00 Synthroid PO 88 mcg DAILY@0630 [facility] Administration Lisinopril 20 mg 05/04/19 09:00 05/06/19 09:19 Prinivil PO 20 mg QAM [facility] Administration Magnesium Hydroxide 30 ml 05/05/19 12:00 Milk Of Magnesia PO QAM PRN Constipation Metoprolol Tartrate 25 mg 05/04/19 10:58 05/06/19 09:16 Lopressor PO 25 mg Q12HR [facility] Administration Morphine Sulfate 4 mg 05/04/19 12:01 05/04/19 17:42 Morphine Sulfate Inj IV PUSH 4 mg Q4H PRN Administration Pain Rated 7-10 Oxycodone HCl 5 mg 05/04/19 12:55 05/06/19 11:32 Roxicodone Ir Tablet PO 5 mg Q4H PRN Administration Pain Rated 4-6 Oxycodone HCl 10 mg 05/04/19 12:55 05/05/19 15:34 Roxicodone Ir Tablet PO 10 mg Q4H PRN Administration Pain Rated 7-10 Pantoprazole Sodium 40 mg 05/04/19 10:58 05/06/19 09:16 Protonix PO 40 mg QAM [facility] Administration Polyethylene Glycol 17 gm 05/05/19 09:00 05/06/19 09:19 Miralax PO 17 gm QAM [facility] Administration Promethazine HCl 12.5 mg 05/05/19 09:36 05/05/19 10:28 Phenergan Inj IV PUSH 12.5 mg Q4H PRN Administration Nausea And Vomiting Tamsulosin HCl 0.4 mg 05/06/19 09:30 05/06/19 11:31 Flomax PO 0.4 mg [facility] A
--- NOTE | 2019-05-06 19:06 | DS_ITS ---
DATE OF DISCHARGE: HISTORY: The patient is an 79-year-old female who underwent a left total knee arthroplasty performed by Dr. Wall on 05/04/2019. The patient has some difficulties with urinary retention postoperatively. Wiggins was placed. After this was removed, she still experienced some urinary retention. Urology was consulted. The patient was treated and evaluated. She is going to follow up with the Urology service when she is discharged. In the meantime, the patient was doing well with pain control. Postop day 2, she was up ambulating well in therapy. Vital signs are stable. She is afebrile. Neurovascularly, she is intact. Wound is clean and dry. Calves were benign. However, the left side did have a little swelling and tenderness, so a venous duplex scan was ordered and this demonstrated no evidence of DVT. The patient was then deemed stable for discharge to home. DISCHARGE INSTRUCTIONS: The patient is to be up ambulating independently with a walker, weightbearing as tolerated left lower extremity. She will have outpatient physical therapy beginning early next week for total knee protocol as well. She is instructed to keep the wound dry, change dressing daily, watch for evidence of drainage or infection. Call the office immediately if it appears there is any problem with the wound. She has resumed her outpatient Eliquis for and she will continue with this for DVT prophylaxis. She was also discharged with tramadol 50 mg 1-2 tablets every 4-6 hours p.r.n. severe pain. The patient was to be on a general diet, add fiber or stool softener. She did have a little bit of constipation postoperatively as well. The patient will follow up at 2 weeks postop for staple removal and wound recheck. The patient is instructed to call the office immediately for any problems, difficulties, or questions regarding the treatment course. The patient and daughter voiced understanding and agree with above plan. D I MT: Diogo
[2019-05-06] MEDS: AMITRIPTYLINE HCL 25 MG TABLET PO (21:23)
[2019-05-06] MEDS: ATORVASTATIN 40 MG TABLET PO (21:23)
[2019-05-06] MEDS: DIAZEPAM 2 MG TABLET PO (21:26)
[2019-05-07] VITALS (20 sets, daily range): BP systolic 92–134; BP diastolic 38–76; PULSE 53–76; RESP 16–20; TEMP 36.5–37.5; O2SAT 95–99
[2019-05-07 06:30] LABS: Basophils Percent Auto 0.3 % (0.2-1.2); Eosinophils Absolute Auto 0.6 K/mm3 (0-0.3); Eosinophils Percent Auto 8.4 % (0-4.4); Immature Granulocyte Absolute 0.02 K/mm3 (0.00-0.031); Immature Granulocyte Percent A 0.3 % (0-0.5); Lymphocytes Absolute Auto 0.94 K/mm3 (0.9-3.2); Lymphocytes Percent Auto 14.3 % (18.3-44.2); Mean Corpuscular HGB Conc 33.8 g/dl (32-36); Mean Corpuscular Hemoglobin 30.8 pg (26-34); Mean Corpuscular Volume 91.1 fl (80-100); Mean Platelet Volume 12.4 fl (7.4-10.4); Monocytes Absolute Auto 0.7 K/mm3 (0.1-0.6); Monocytes Percent Auto 10.6 % (2.6-8.5); Neutrophils Absolute Auto 4.4 K/mm3 (1.3-6.7); Neutrophils Percent Auto 66.1 % (45.5-73.1); Platelet Count Result 117 k/mm3 (150-375); Red Blood Count 2.14 M/mm3 (4.2-5.4); Red Cell Distribution Width 13.2 % (11.5-14.5); White Blood Count 6.6 K/mm3 (4.5-10.0)
[2019-05-07 06:37] LABS: Hematocrit 19.5 % (37.0-47.0); Hemoglobin 6.6 g/dL (12.0-15.0)
[2019-05-07 06:46] LABS: Blood Urea Nitrogen 21 mg/dL (7-17); Calcium 7.8 mg/dL (8.4-10.2); Carbon Dioxide 29 mmol/L (22-30); Chloride 93 mmol/L (98-107); Estimated CRCL calculation 32 ml/min; Estimated Glomerular Filt Rate 48; Glucose 95 mg/dL (65-105); Magnesium 1.7 mg/dL (1.6-2.3); Potassium 3.6 mmol/L (3.4-5.0); Sodium 127 mmol/L (137-145)
[2019-05-07] MEDS: LEVOTHYROXINE SODIUM 88 MCG TABLET PO (06:51)
[2019-05-07] MEDS: TAMSULOSIN HCL 0.4 MG CAPSULE PO (07:04)
[2019-05-07] MEDS: PANTOPRAZOLE 40 MG TABLET PO (09:22)
[2019-05-07] MEDS: METOPROLOL TARTRATE 25 MG TABLET PO ×2 (09:22→21:29)
[2019-05-07] MEDS: APIXABAN 5 MG TABLET PO ×2 (09:23→19:07)
[2019-05-07] MEDS: lisinopriL 20 MG TABLET PO (09:23)
[2019-05-07] MEDS: hydroCHLOROthiazide 25 MG TABLET PO (09:23)
[2019-05-07] MEDS: DICLOFENAC SOD 25 MG TABLET.EC 50 MG PO ×2 (09:23→19:06)
[2019-05-07] MEDS: FLECAINIDE ACETATE 100 MG TABLET PO ×2 (09:24→21:29)
[2019-05-07] MEDS: polyethylene glycoL 3350 17 GM POWD.PACK PO ×2 (09:28→13:44)
--- NOTE | 2019-05-07 10:15 | PM.PNORT ---
Subjective Subjective Date/Time Seen: 05/07/19 10:15 Objective Data Vital Signs Vital Signs: Vital Signs - 24 hr 05/06/19 12:00 05/06/19 14:00 05/06/19 16:00 Temperature 37.1 C Pulse Rate 66 62 74 Respiratory Rate 18 Blood Pressure 115/53 L Pulse Oximetry 98 05/06/19 20:00 05/06/19 21:09 05/06/19 21:24 Temperature Pulse Rate 76 78 Respiratory Rate Blood Pressure Pulse Oximetry 93 05/06/19 21:25 05/06/19 22:00 05/07/19 00:00 Temperature 37.1 C Pulse Rate 78 73 73 Respiratory Rate 18 Blood Pressure 134/55 L Pulse Oximetry 100 05/07/19 04:00 05/07/19 06:00 05/07/19 09:22 Temperature 37.5 C Pulse Rate 67 66 66 Respiratory Rate 18 Blood Pressure 100/50 L Pulse Oximetry 95 05/07/19 09:24 Temperature Pulse Rate 66 Respiratory Rate Blood Pressure Pulse Oximetry Intake/Output Intake/Output: Intake & Output 05/04/19 05/05/19 05/06/19 05/07/19 23:59 23:59 23:59 23:59 Intake Total 1500 3200 1880 550 Output Total 2700 2850 1200 200 Balance -1200 350 680 350 Meds/Results Medications: Active Medications Generic Name Dose Route Start Last Admin Trade Name Freq PRN Reason Stop Dose Admin Amitriptyline HCl 25 mg 05/04/19 21:00 05/06/19 21:23 Elavil PO 25 mg HS NICOL Administration Apixaban 5 mg 05/04/19 17:00 05/07/19 09:23 Eliquis PO 5 mg BID NICOL Administration Atorvastatin Calcium 40 mg 05/04/19 21:00 05/06/19 21:23 Lipitor PO 40 mg HS NICOL Administration Diazepam 2 mg 05/04/19 10:58 05/06/19 21:26 Valium Po PO 2 mg BID PRN Administration Anxiety Diclofenac Sodium 50 mg 05/04/19 17:00 05/07/19 09:23 Voltaren Ec Tab PO 50 mg BIDWM NICOL Administration Diphenhydramine HCl 25 mg 05/05/19 08:50 05/05/19 18:23 Benadryl Cap PO 25 mg Q6H PRN Administration Itching Ferrous Gluconate 324 mg 05/04/19 10:58 05/06/19 09:19 Ferrous Gluconate PO 324 mg DAILY@0800 NICOL Administration Flecainide Acetate 100 mg 05/04/19 21:00 05/07/19 09:24 Tambocor PO 100 mg Q12HR NICOL Administration Hydrochlorothiazide 25 mg 05/04/19 09:00 05/07/19 09:23 Hydrochlorothiazide PO 25 mg QAM NICOL Administration Sodium Chloride 250 mls @ 30 mls/hr 05/07/19 06:54 Normal Saline Iv IV CONT 05/07/19 15:13 .Q8H20M STA Sodium Chloride 250 mls @ 30 mls/hr 05/07/19 07:03 Normal Saline Iv IV CONT 05/07/19 15:22 .Q8H20M STA Levothyroxine Sodium 88 mcg 05/04/19 11:40 05/07/19 06:51 Synthroid PO 88 mcg DAILY@0630 NICOL Administration Lisinopril 20 mg 05/04/19 09:00 05/07/19 09:23 Prinivil PO 20 mg QAM NICOL Administration Magnesium Hydroxide 30 ml 05/05/19 12:00 Milk Of Magnesia PO QAM PRN Constipation Metoprolol Tartrate 25 mg 05/04/19 10:58 05/07/19 09:22 Lopressor PO 25 mg Q12HR NICOL Administration Morphine Sulfate 4 mg 05/04/19 12:01 05/04/19 17:42 Morphine Sulfate Inj IV PUSH 4 mg Q4H PRN Administration Pain Rated 7-10 Oxycodone HCl 5 mg 05/04/19 12:55 05/07/19 07:03 Roxicodone Ir Tablet PO 5 mg Q4H PRN Administration Pain Rated 4-6 Oxycodone HCl 10 mg 05/04/19 12:55 05/05/19 15:34 Roxicodone Ir Tablet PO 10 mg Q4H PRN Administration Pain Rated 7-10 Pantoprazole Sodium 40 mg 05/04/19 10:58 05/07/19 09:22 Protonix PO 40 mg QAM NICOL Administration Polyethylene Glycol 17 gm 05/05/19 09:00 05/07/19 09:28 Miralax PO 17 gm QAM NICOL Administration Promethazine HCl 12.5 mg 05/05/19 09:36 05/05/19 10:28 Phenergan Inj IV PUSH 12.5 mg Q4H PRN Administration Nausea And Vomiting Tamsulosin HCl 0.4 mg 05/06/19 09:30 05/07/19 07:04 Flomax PO 0.4 mg QAM NICOL Administration Tramadol HCl 50 mg 05/04/19 11:59 Ultram PO Q4H PRN Pain Rated 4-6 Radiology Results: ITS Impressions Knee X-Ray 05/04/19
[2019-05-07] MEDS: MAGNESIUM HYDROXIDE SUSP 30 ML UDC PO (10:51)
[2019-05-07] MEDS: FERROUS GLUCONATE 324 MG TABLET PO (11:40)
--- NOTE | 2019-05-07 12:41 | PM.IMPN ---
Progress Note: A&P Assessment and Plan (1) Primary osteoarthritis of left knee: Code(s): M17.12 - Unilateral primary osteoarthritis, left knee Status: Acute Assessment and Plan: Patient is POD#3 s/p left total knee arthroplasty with Dr. Wall. Wound care, pain control, and DVT prophylaxis per Dr. Wall. PT/OT. (2) Anemia: Code(s): D64.9 - Anemia, unspecified Status: Acute Assessment and Plan: H&H 6.6, 19.5% and 2 units packed RBC have been ordered. Recheck post transfusion H&H this afternoon. Has been drifting down postoperatively. She tells me she has been on iron supplementation in the past suggesting she may have a history of iron deficiency anemia which is worsening postoperatively. She denies any hematochezia or melena previously or at present. In fact she is constipated postoperatively. Can check stool occult blood with next BM and iron studies with AM labs. She has no evidence of acute bleeding today. Will defer Eliquis dosing to the primary service for DVT prophylaxis. She has no identified source of bleeding at this time and holding the Eliquis would put her at greater risk for VTE given her surgery and AFib. Dr. Wall has requested GI consultation. (3) Constipation: Qualifiers: Constipation type: unspecified constipation type Qualified Code(s): K59.00 - Constipation, unspecified Code(s): K59.00 - Constipation, unspecified Status: Acute Assessment and Plan: KUB showed large volume of colonic stool and fecal impaction. Continue bowel regimen with MiraLax daily and PRN milk of Mag; and added an additional dose of miralax and dulcolax yesterday and can try this again today. Still no BM today. Passing flatus and no N/V, but have ordered for obstructive series XR. Postoperative narcotics may be contributing. Edit: XR shows large amount of stool in colon and no dilated loops of bowel, nonobstructive bowel gas pattern. (4) Postoperative nausea and vomiting: Code(s): R11.2 - Nausea with vomiting, unspecified; Z98.890 - Other specified postprocedural states Status: Acute Assessment and Plan: Resolved. (5) Urinary retention: Code(s): R33.9 - Retention of urine, unspecified Status: Acute Assessment and Plan: Patient notes that she has had difficulty urinating for years She denies burning with urination, but reports voiding small amounts. Old note in her chart from 2013 shows an office visit with Dr Stephens for similar symptoms. Started Flomax yesterday. Failed voiding trial after Wiggins d/c'd yesterday. Urology consulted - appreciate recommendations. (6) Atrial fibrillation: Qualifiers: Atrial fibrillation type: paroxysmal Qualified Code(s): I48.0 - Paroxysmal atrial fibrillation Code(s): I48.91 - Unspecified atrial fibrillation Status: Acute Assessment and Plan: Patient is known to have paroxysmal atrial fibrillation for many years. Over the last few months she has had increasing frequency of AFib and was currently on Holter monitor. She was wearing the Holter monitor up until surgery yesterday and Holter was not reapplied after surgery. RN [facility] for help in getting her Holter back on. Patient says she has seen Dr. Baez for this. Telemetry review this morning still shows normal sinus rhythm without any events of atrial fibrillation. Continue flecainide and metoprolol, Eliquis. (7) Hypertension: Qualifiers: Hypertension type: essential hypertension Qualified Code(s): I10 - Essential (primary) hypertension Code(s): I10 - Essential (primary) hypertension Status: Acute Assessment and Plan: BP on lower end this AM. Monitor. Consider holding
[2019-05-07] MEDS: BISACODYL 5 MG TABLET EC PO (13:44)
--- NOTE | 2019-05-07 14:31 | PCOTNOTE ---
Per RN pt cannot be seen due to blood transfusion
--- NOTE | 2019-05-07 16:29 | WPDGICN ---
Assessment and Plan Additional Plan This is an 79-year-old white female patient seen in evaluation at the request of the hospitalist. Patient underwent left total knee arthroplasty on Thursday. She subsequently has been in the hospital with decreased mobility. She has become somewhat constipated. During this interval of time. Because of constipation she underwent an enema on . She has had no evidence of GI blood loss. She has had no bruises or other sources of bleeding. Postoperatively a decline in her hemoglobin has been identified. On 05/05 hemoglobin 9.1 on, on 05/06 hemoglobin 7.3, this morning hemoglobin 6.6. Patient's past medical history is significant for atrial fibrillation. She recently was changed to Eliquis anticoagulation. Her past medical history is significant for irritable bowel syndrome. She has a previous cholecystectomy. Previous hemorrhoidectomy. Previous hysterectomy. Family history is significant for colon cancer and colon polyps. She also has a family history of breast cancer. Home medications include amitriptyline. Eliquis. Atorvastatin. Diazepam. Diclofenac. Ferrous gluconate. Flecainide. Lisinopril. Levothyroxine. Metoprolol. Pantoprazole. Fish oil. She reports allergies to Tylenol, adhesive, latex, strawberry Physical exam reveals her to be in bed. Vital signs stable. HEENT exam unremarkable. She is anicteric. Lungs are clear to auscultation and percussion. Heart is without murmur or extra sounds. Abdominal exam bowel sounds are present soft nontender with no organomegaly. Rectal reveals no lesions. Left knee is in a brace and bandaged. Laboratory work reveals CBC with a WBC 6.6, hemoglobin 6.6, hematocrit 19.5, MCV 91. Impression 1. Anemia. This may be postoperative. There is no signs of obvious GI blood loss. 2. Eliquis anticoagulation. Concern is that she may bleed easily from various sites. Suggest holding Eliquis until this is clarified. 3. Atrial fibrillation. 4. Status post left total knee arthroplasty. 5. Constipation. Suggest starting a bowel regime. Initially with MiraLax daily and adjust as needed. Plan is to follow hemoglobin. And anticoagulate only with caution. GI Consult Note Consult date/time: 05/07/19 16:29 HPI: Shantel Oates is a 79 year old female [facility] Past Medical History Medical History (Updated 05/07/19 @ 12:49 by Renetta Rehman PA-C) Anemia Anxiety Arthritis Atrial fibrillation Chronic anticoagulation Chronic kidney disease, stage 3 Baseline creatinine 1.20. Diet-controlled diabetes mellitus Hemoglobin A1c was 5.5 on March 25, 2019. GERD (gastroesophageal reflux disease) History of Clostridioides difficile infection History of postoperative nausea and vomiting Hyperlipidemia Hypertension Hypothyroidism Mitral valve prolapse Osteoarthritis Surgical History Surgical History (Updated 05/04/19 @ 14:54 by Tania Bernard PA-C) History of bladder suspension procedure History of varicose vein ligation and stripping Status post arthroscopy of left knee Status post breast biopsy Left breast biopsy with benign histology. Status post cardiac catheterization Coronary angiogram March 2014 showed normal coronary arteries. Status post cataract extraction Status post cholecystectomy Status post hemorrhoidectomy Status post hysterectomy Status post total left knee replacement Family History Family History Father Family history of aortic aneurysm Family history of cardiovascular disease Family history of kidney disease Mother Family history of dementia Diabetes mellitus Family history of Alzheimer's disease Family history of malignant neoplasm of brain Other Carcinoma of colon Colon polyp Family history of malignant neoplasm of breast in first degree relative Social History Social History (Updated 05/04/19 @ 22:30 by Tania
--- NOTE | 2019-05-07 18:45 | PC.NURSE ---
Pt complaining of severe pain in lower abdomen and having bladder spasms. Wiggins removed at this time. Pt states, instant relief.
[2019-05-07] MEDS: DIAZEPAM 2 MG TABLET PO (19:09)
[2019-05-07] MEDS: ATORVASTATIN 40 MG TABLET PO (21:29)
[2019-05-07] MEDS: AMITRIPTYLINE HCL 25 MG TABLET PO (21:29)
[2019-05-07 22:01] LABS: IFOB Positive Control Positive; Immunochemical Fecal Occult Bl Negative (N)
[2019-05-07 23:34] LABS: Hematocrit 27.7 % (37.0-47.0); Hemoglobin 9.4 g/dL (12.0-15.0)
[2019-05-08] VITALS: PULSE 69
[2019-05-08 04:00] VITALS: PULSE 68
[2019-05-08 06:00] VITALS: BP 128/53; PULSE 66; RESP 18; TEMP 36.7; O2SAT 94
[2019-05-08 06:15] LABS: Basophils Percent Auto 0.4 % (0.2-1.2); Eosinophils Absolute Auto 0.5 K/mm3 (0-0.3); Eosinophils Percent Auto 8.5 % (0-4.4); Hematocrit 27.3 % (37.0-47.0); Hemoglobin 9.1 g/dL (12.0-15.0); Immature Granulocyte Absolute 0.02 K/mm3 (0.00-0.031); Immature Granulocyte Percent A 0.4 % (0-0.5); Lymphocytes Absolute Auto 0.81 K/mm3 (0.9-3.2); Lymphocytes Percent Auto 14.4 % (18.3-44.2); Mean Corpuscular HGB Conc 33.3 g/dl (32-36); Mean Corpuscular Hemoglobin 29.9 pg (26-34); Mean Corpuscular Volume 89.8 fl (80-100); Mean Platelet Volume 12.2 fl (7.4-10.4); Monocytes Absolute Auto 0.6 K/mm3 (0.1-0.6); Monocytes Percent Auto 10.5 % (2.6-8.5); Neutrophils Absolute Auto 3.7 K/mm3 (1.3-6.7); Neutrophils Percent Auto 65.8 % (45.5-73.1); Platelet Count Result 132 k/mm3 (150-375); Red Blood Count 3.04 M/mm3 (4.2-5.4); Red Cell Distribution Width 13.8 % (11.5-14.5); White Blood Count 5.6 K/mm3 (4.5-10.0)
[2019-05-08] MEDS: LEVOTHYROXINE SODIUM 88 MCG TABLET PO (06:39)
[2019-05-08 06:44] LABS: Blood Urea Nitrogen 23 mg/dL (7-17); Calcium 7.8 mg/dL (8.4-10.2); Carbon Dioxide 30 mmol/L (22-30); Chloride 95 mmol/L (98-107); Estimated CRCL calculation 29 ml/min; Estimated Glomerular Filt Rate 43; Glucose 93 mg/dL (65-105); Magnesium 2.1 mg/dL (1.6-2.3); Potassium 3.7 mmol/L (3.4-5.0); Sodium 130 mmol/L (137-145)
[2019-05-08 06:48] LABS: Transferrin 180 mg/dL (206-381)
[2019-05-08 07:06] LABS: Iron 31 ug/dL (37-170)
[2019-05-08 07:15] LABS: Percent Iron Saturation 12 % (20-50)
[2019-05-08 08:00] VITALS: PULSE 76
[2019-05-08 08:44] VITALS: PULSE 66
[2019-05-08] MEDS: FLECAINIDE ACETATE 100 MG TABLET PO (08:44)
[2019-05-08] MEDS: DICLOFENAC SOD 25 MG TABLET.EC 50 MG PO (08:44)
[2019-05-08] MEDS: METOPROLOL TARTRATE 25 MG TABLET PO (08:44)
[2019-05-08] MEDS: TAMSULOSIN HCL 0.4 MG CAPSULE PO (08:44)
[2019-05-08] MEDS: FERROUS GLUCONATE 324 MG TABLET PO (08:44)
[2019-05-08] MEDS: APIXABAN 5 MG TABLET PO (08:44)
[2019-05-08] MEDS: PANTOPRAZOLE 40 MG TABLET PO (08:44)
[2019-05-08] MEDS: polyethylene glycoL 3350 17 GM POWD.PACK PO (08:52)
[2019-05-08 12:00] VITALS: PULSE 72
--- NOTE | 2019-05-08 12:02 | PM.IMPN ---
Progress Note: A&P Assessment and Plan (1) Primary osteoarthritis of left knee: Code(s): M17.12 - Unilateral primary osteoarthritis, left knee Status: Acute Assessment and Plan: Patient is POD#4 s/p left total knee arthroplasty with Dr. Wall. Wound care, pain control, and DVT prophylaxis per Dr. Wall. PT/OT. * Patient is medically stable for discharge today from hospitalist standpoint pending possible urology evaluation. If urology is not able to see her today, could consider discharge with Wiggins catheter with teaching from nursing, can switch to leg bag, and follow up with Dr Cisse or Dr Kitchen in the office after discharge, continue Flomax. If urology has plans to see her today, would consider waiting for their evaluation and recommendations. Feel it is reasonable to continue her Eliquis given that she has no signs or symptoms of acute bleeding, GI or elsewhere, and responded well to pRBC but ultimately defer final decision for postoperative DVT prophylaxis to the primary service. (2) Anemia: Code(s): D64.9 - Anemia, unspecified Status: Acute Assessment and Plan: Improved after 2 units pRBC yesterday. The patient has history of iron deficiency anemia which is worsening postoperatively. She denies any hematochezia or melena previously or at present. Stool occult blood is negative. She has no evidence of acute bleeding today. Will defer Eliquis dosing to the primary service for DVT prophylaxis. She has no identified source of bleeding at this time and holding the Eliquis would put her at greater risk for VTE given her surgery and AFib. Dr. Wall has requested GI consultation. Appreciate Dr Russell's input. (3) Constipation: Qualifiers: Constipation type: unspecified constipation type Qualified Code(s): K59.00 - Constipation, unspecified Code(s): K59.00 - Constipation, unspecified Status: Acute Assessment and Plan: Improved, large BM last night. Continue bowel regimen with MiraLax and Dulcolax. (4) Postoperative nausea and vomiting: Code(s): R11.2 - Nausea with vomiting, unspecified; Z98.890 - Other specified postprocedural states Status: Acute Assessment and Plan: Resolved. (5) Urinary retention: Code(s): R33.9 - Retention of urine, unspecified Status: Acute Assessment and Plan: Patient notes that she has had difficulty urinating for years She denies burning with urination, but reports voiding small amounts. Old note in her chart from 2013 shows an office visit with Dr Stephens for similar symptoms. Started Flomax yesterday. Failed voiding trial after Wiggins d/c'd yesterday. Urology consulted - appreciate recommendations. (6) Atrial fibrillation: Qualifiers: Atrial fibrillation type: paroxysmal Qualified Code(s): I48.0 - Paroxysmal atrial fibrillation Code(s): I48.91 - Unspecified atrial fibrillation Status: Acute Assessment and Plan: Patient is known to have paroxysmal atrial fibrillation for many years. Over the last few months she has had increasing frequency of AFib and was currently on Holter monitor. She was wearing the Holter monitor up until surgery yesterday and Holter was not reapplied after surgery. RN contacted [facility] for help in getting her Holter back on. Patient says she has seen Dr. Baez for this. Telemetry review this morning still shows normal sinus rhythm without any events of atrial fibrillation. Continue flecainide and metoprolol, Eliquis. (7) Hypertension: Qualifiers: Hypertension type: essential hypertension Qualified Code(s): I10 - Essential (primary) hypertension Code(s): I10 - Essential (primary) hypertension Status: Acute Ass
--- NOTE | 2019-05-08 14:43 | WPDGIPROGNO ---
Progress Note: A&P Additional Plan Patient alert and comfortable this morning. She states she had a very good bowel movement last evening. No signs of bleeding have been noted. She has much less abdominal pain. Physical exam reveals her to be alert. Vital signs stable. She is anicteric. Lungs are clear. Abdomen is soft nontender with no abdominal distention. No tenderness appreciated. Laboratory tests revealed hemoglobin 9.1 this morning. No signs of GI blood loss have been reported. No other signs of bleeding either. Impression 1. Postoperative anemia. Likely related to recent knee surgery. No evidence for GI blood loss. Plan is to continue laxatives for her constipation. Subjective Date/time seen: 05/08/19 14:43 Objective Data Vital Signs Vital Signs: Vital Signs - 24 hr 05/07/19 14:46 05/07/19 15:46 05/07/19 16:00 Temperature 36.5 C 36.6 C Pulse Rate 62 60 62 Respiratory Rate 18 18 Blood Pressure 92/49 L 96/38 L Pulse Oximetry 97 96 05/07/19 16:46 05/07/19 18:58 05/07/19 19:18 Temperature 36.6 C 36.6 C 36.6 C Pulse Rate 66 69 74 Respiratory Rate 18 20 18 Blood Pressure 124/49 L 112/58 L 134/76 Pulse Oximetry 98 98 97 05/07/19 20:00 05/07/19 20:18 05/07/19 21:24 Temperature 36.7 C 36.7 C Pulse Rate 72 76 73 Respiratory Rate 18 18 Blood Pressure 124/44 L 129/53 L Pulse Oximetry 99 98 05/07/19 21:29 05/07/19 22:00 05/08/19 00:00 Temperature 36.7 C Pulse Rate 73 73 69 Respiratory Rate 18 Blood Pressure 129/53 L Pulse Oximetry 99 05/08/19 04:00 05/08/19 06:00 05/08/19 08:00 Temperature 36.7 C Pulse Rate 68 66 76 Respiratory Rate 18 Blood Pressure 128/53 L Pulse Oximetry 94 05/08/19 08:44 05/08/19 12:00 Temperature Pulse Rate 66 72 Respiratory Rate Blood Pressure Pulse Oximetry Intake/Output Intake/Output: Intake & Output 05/05/19 05/06/19 05/07/19 05/08/19 23:59 23:59 23:59 23:59 Intake Total 3200 1880 1930 670 Output Total 2850 1200 1010 400 Balance 350 680 920 270 Meds/Results Medications: Active Medications Generic Name Dose Route Start Last Admin Trade Name Freq PRN Reason Stop Dose Admin Amitriptyline HCl 25 mg 05/04/19 21:00 05/07/19 21:29 Elavil PO 25 mg HS NICOL Administration Apixaban 5 mg 05/04/19 17:00 05/08/19 08:44 Eliquis PO 5 mg BID NICOL Administration Atorvastatin Calcium 40 mg 05/04/19 21:00 05/07/19 21:29 Lipitor PO 40 mg HS NICOL Administration Diazepam 2 mg 05/04/19 10:58 05/07/19 19:09 Valium Po PO 2 mg BID PRN Administration Anxiety Diclofenac Sodium 50 mg 05/04/19 17:00 05/08/19 08:44 Voltaren Ec Tab PO 50 mg BIDWM NICOL Administration Diphenhydramine HCl 25 mg 05/05/19 08:50 05/07/19 21:30 Benadryl Cap PO 25 mg Q6H PRN Administration Itching Ferrous Gluconate 324 mg 05/04/19 10:58 05/08/19 08:44 Ferrous Gluconate PO 324 mg DAILY@0800 [facility] Administration Flecainide Acetate 100 mg 05/04/19 21:00 05/08/19 08:44 Tambocor PO 100 mg Q12HR NICOL Administration Hydrochlorothiazide 25 mg 05/04/19 09:00 05/07/19 09:23 Hydrochlorothiazide PO 25 mg QAM NICOL Administration Levothyroxine Sodium 88 mcg 05/04/19 11:40 05/08/19 06:39 Synthroid PO 88 mcg DAILY@0630 NICOL Administration Lisinopril 20 mg 05/04/19 09:00 05/07/19 09:23 Prinivil PO 20 mg QAM NICOL Administration Magnesium Hydroxide 30 ml 05/05/19 12:00 05/07/19 10:51 Milk Of Magnesia PO 30 ml QAM PRN Administration Constipation Metoprolol Tartrate 25 mg 05/04/19 10:58 05/08/19 08:44 Lopressor PO 25 mg Q12HR NICOL Administration Morphine Sulfate 4 mg 05/04/19 12:01 05/04/19 17:42 Morphine Sulfate Inj IV PUSH 4 mg Q4H PRN Administration Pain Rated 7-10 Oxycodone HCl 5 mg 05/04/19 12:55 05/07/19 07:03 Roxicodone Ir Tablet PO 5 mg Q4H PRN Administration Pain Rated 4-6
== END 2019-05-08 13:00 | disposition home or self-care (01) ==
LOC: ANHSURGERY 15:47 → ANH3MEDSUR 15:47
PROVIDERS: Physician Assistant; Admitting Provider Orthopaedic Surgery; PCP Family Medicine; Visit Provider Orthopaedic Surgery
PROC: (CPT 27447; principal; 2019-05-04 07:30)
DX: M17.12 Unilateral primary osteoarthritis, left knee (principal); R33.9 Retention of urine, unspecified; K56.41 Fecal impaction; R11.2 Nausea with vomiting, unspecified; Z98.890 Other specified postprocedural states; I48.0 Paroxysmal atrial fibrillation; M79.89 Other specified soft tissue disorders; E11.22 Type 2 diabetes mellitus with diabetic chronic kidney disease; I12.9 Hypertensive chronic kidney disease with stage 1 through stage 4 chronic kidney disease, or unspecified chronic kidney disease; N18.3 Chronic kidney disease, stage 3 (moderate); E78.5 Hyperlipidemia, unspecified; I34.1 Nonrheumatic mitral (valve) prolapse; E03.9 Hypothyroidism, unspecified; F40.9 Phobic anxiety disorder, unspecified; Z79.01 Long term (current) use of anticoagulants; Z79.899 Other long term (current) drug therapy; D64.9 Anemia, unspecified; K58.9 Irritable bowel syndrome, unspecified; Z88.8 Allergy status to other drugs, medicaments and biological substances
CPT/HCPCS: 27447; 36415; 36430; 73560; 74018; 74019; 80048; 82274; 82728; 83540; 83550; 83735; 84466; 85014; 85018; 85025; 85027; 85055; 86850; 86900; 86901; 86923; 93971; 97110; 97116; 97161; 97165; 97530; 97535; A9270; C1713; C1776; C9290; G0378; J0171; J0690; J1100; J2270; J2370; J2405; J2550; J2704; J2795; J3010; J3370; J7030; J7120; P9016

== ENCOUNTER 2019-06-05 18:34 | Inpatient (IN) | payer MEDICARE, SELFPAY ==
--- NOTE | ~2019-06-05 | XR_ITS ---
EXAMINATION: XR hip LT 2V w AP pelvis DATE: 06/05/2019 19:50 INDICATION: Left hip pain and/or rotation of the left leg post fall TECHNIQUE: Anteroposterior view of the pelvis and anteroposterior and cross-table lateral views of th e left hip were obtained. COMPARISON: None. FINDINGS: Transcervical fracture of the proximal left femur. There is approximately 2 cm proximal migration res ulting in mild varus angulation as well as 2.5 cm anterior displacement and slight external rotation. The femoral head remains normally located in the left acetabulum. No other fractures identified. Micheal ateral hip joint spaces are normal and symmetric. Severe lower lumbar spondylosis. Left supra-acetabu lar bone island. Phleboliths in the pelvis. IMPRESSION: 1. Displaced transcervical fracture of the proximal left femur. Reviewed, dictated and finalized at location A. R BUS DRIVER
--- NOTE | ~2019-06-05 | CT_ITS ---
EXAMINATION: CT cervical spine wo con DATE: 06/05/2019 19:20 INDICATION: Neck pain post fall with head injury TECHNIQUE: Computed tomography (CT) of the cervical spine was performed without intravenous contrast. Automated exposure control and iterative reconstruction technique were employed. The dose-length pro duct was 605.33 mGy-cm. COMPARISON: 01/23/2007 FINDINGS: Mild cervical levocurvature. Sagittal alignment is normal. Vertebral body heights are normal. No frac ture. Mild disc height loss at C4-C5 and moderate disc height loss at C5-C6 and C6-C7. Mild atheroscl erotic calcific a cyst along the bilateral carotid bulbs. Cervical soft tissues are otherwise unremar kable. Crazy paving pattern at the bilateral apices with groundglass opacities and intervening smooth septal line thickening consistent with pulmonary edema. The following disc levels are specifically d iscussed: C2-C3: The disc does not extend beyond the endplate margin. There is no uncovertebral joint osteoarth ritis. There is mild bilateral facet joint osteoarthritis. There is no neural foraminal stenosis. The re is no central canal stenosis. C3-C4: Disc is bulging. There is mild left uncovertebral joint osteoarthritis. There is mild bilatera l facet joint osteoarthritis. There is no neural foraminal stenosis. There is mild central canal sten osis. C4-C5: Prominent disc extrusion which extends cephalad to the level of the inferior endplate of C4. T here is mild bilateral uncovertebral joint osteoarthritis. There is altered left and moderate right f acet joint osteoarthritis. There is no neural foraminal stenosis. There is mild to moderate central c anal stenosis. C5-C6: Disc is bulging. There is moderate bilateral uncovertebral joint osteoarthritis. There is mild bilateral facet joint osteoarthritis. There is mild bilateral neural foraminal stenosis. There is mi ld central canal stenosis. C6-C7: Disc is bulging. There is moderate bilateral uncovertebral joint osteoarthritis. There is mild bilateral facet joint osteoarthritis. There is mild bilateral neural foraminal stenosis. There is mi ld central canal stenosis. C7-T1: The disc does not extend beyond the endplate margin. There is no uncovertebral joint osteoarth ritis. There is severe bilateral facet joint osteoarthritis. There is no neural foraminal stenosis. T here is no central canal stenosis. IMPRESSION: 1. Moderate cervical spondylosis. No acute osseous abnormality. 2. Pulmonary edema at the apices of the lungs. Reviewed, dictated and finalized at location A. SUPPLIER
--- NOTE | ~2019-06-05 | XR_ITS ---
EXAMINATION: XR chest 1V portable DATE: 06/05/2019 19:50 INDICATION: Fall. Hypertension. TECHNIQUE: frontal view of the chest was obtained. COMPARISON: Chest radiograph dated 11/14/2016 FINDINGS: Pulmonary vascular congestion and mild increased interstitial pattern consistent with mild pulmonary edema. Streaky bibasilar atelectasis. Small calcified nodule in the right lower lung zone consistent with old granulomatous disease. No pleural effusion or pneumothorax. Cardiomegaly. Cholecystectomy cl ips in the right upper quadrant. Moderate disc height loss at T11-T12. Otherwise mild thoracic spondy losis. IMPRESSION: 1. Likely congestive heart failure with cardiomegaly and mild pulmonary edema. Reviewed, dictated and finalized at location A. BATIC DANCER
--- NOTE | ~2019-06-05 | XR_ITS ---
EXAMINATION: XR surgery orthopedic DATE: 06/06/2019 13:57 INDICATION: Left bipolar hip arthroplasty TECHNIQUE: 2 views left hip FINDINGS: There is a left bipolar hip arthroplasty in expected position. Subcutaneous gas with soft tissue swelling are consistent with recent surgery. IMPRESSION: 1. Recent left bipolar hip arthroplasty. Reviewed, dictated and finalized at location B. RONMENTAL HEALTH AND SAFETY MANAGER
--- NOTE | ~2019-06-05 | CT_ITS ---
EXAMINATION: CT brain wo con DATE: 06/05/2019 19:20 INDICATION: Fall with posterior head injury TECHNIQUE: Computed tomography (CT) of the head was performed without intravenous contrast. Sagittal and coronal reconstructions were performed. The mA was adjusted according to patient size. Iterative reconstruction technique was employed. The dose-length product was 605.33 mGy-cm. COMPARISON: head CT dated 01/23/2007 FINDINGS: No fracture. No acute intracranial hemorrhage, acute infarction or abnormal extra axial fluid collect ion. There is mild scattered white matter hypoattenuation consistent with chronic small vessel ischem ic disease. Symmetric prominence of the sulci and subarachnoid spaces overlying the convexities consi stent with mild to moderate age-appropriate diffuse cerebral volume loss. Ventricles are normal and s ymmetric. No mass/mass effect. Changes of bilateral intraocular lens replacement. The orbits and mast oid air cells are normal. Mucosal thickening in the frontal ethmoidal recesses and bilateral ethmoid air cells. Dependently layering mucus in the left sphenoid sinus. Intracranial calcified cerebral ath erosclerosis is noted. IMPRESSION: 1. No fracture or acute intracranial process. 2. Layering mucus in the left sphenoid sinus. Correlate clinically for acute sinusitis. 3. Age-related changes in the brain including mild to moderate diffuse volume loss and mild scattered white matter hypoattenuation consistent with chronic small vessel ischemic disease. Reviewed, dictated and finalized at location A. D CORNER CUTTER OPERATOR IMPRESSION: 1. No fracture or acute intracranial process. 2. Layering mucus in the left sphenoid sinus. Correlate clinically for acute si nusitis. 3. Age-related changes in the brain including mild to moderate diffuse volume l oss and mild scattered white matter hypoattenuation consistent with chronic sma ll vessel ischemic disease.
--- NOTE | ~2019-06-05 | XR_ITS ---
EXAMINATION: XR knee LT min 4V DATE: 06/05/2019 19:50 INDICATION: Left knee pain post fall TECHNIQUE: Anteroposterior, 2 oblique and crosstable lateral views of the left knee were obtained COMPARISON: 05/04/2019 FINDINGS: Left total knee arthroplasty with patellar resurfacing which remains in near-anatomic alignment. No f racture or periprosthetic lucency to suggest loosening or infection. Moderate-sized left knee joint e ffusion. A small ossific fragment likely related to prior arthroplasty placement which projected jimmy g the superior margin of the femoral component on the prior radiographs has shifted into the more cep halad aspect of the suprapatellar pouch. A second small bone fragment/heterotopic ossicle at the medi al side of the joint line is unchanged. Prepatellar soft tissue swelling. IMPRESSION: 1. Left total knee arthroplasty which remains in near-anatomic alignment with no acute osseous abnorm ality. 2. Moderate sized left knee joint effusion. Reviewed, dictated and finalized at location A. LIST LIBRARIAN IMPRESSION: 1. Left total knee arthroplasty which remains in near-anatomic alignment with n o acute osseous abnormality. 2. Moderate sized left knee joint effusion.
[2019-06-05 18:48] VITALS: BP 199/98; PULSE 81; RESP 18; TEMP 36.8; O2SAT 100
--- NOTE | 2019-06-05 18:52 | WPDEDEXPGENP ---
HPI - General Ped General Chief complaint: Extremity Injury, Lower Stated complaint: fall hip pain deformity Time Seen by Provider: 06/05/19 18:40 Source: RN notes reviewed History of Present Illness HPI narrative: Patient presents emergency department from home for a fall. Patient states just prior to arrival she slipped on a rug falling there is a story about. Patient states she injured her left hip as well as struck her head denies any loss of consciousness. States that she also has some knee pain had knee replacement done approximately [address] Wall. Patient was given fentanyl 25 mcg in route with no relief. She denies any loss of consciousness and denies any blood thinner use. Patient denies any chest pain shortness of breath abdominal pain nausea vomiting or any other symptoms Related Data Home Medications Medication Instructions Recorded Confirmed ferrous gluconate 324 mg (37.5 mg 324 mg PO DAILY 02/23/19 05/04/19 iron) tablet flecainide 100 mg tablet 100 mg PO Q12H 02/23/19 05/04/19 levothyroxine 88 mcg tablet 88 mcg PO DAILY 02/23/19 05/04/19 metoprolol tartrate 25 mg tablet 25 mg PO BID 02/23/19 05/04/19 PreserVision AREDS 1 tablet PO HS 04/01/19 05/04/19 atorvastatin 40 mg PO HS 04/01/19 04/21/19 diazepam 2 mg PO BID PRN 04/01/19 05/04/19 omega 4-[id number]-tnv-fish oil [Fish Oil] 1 cap PO DAILY 04/01/19 05/04/19 vitamin B complex 1 tablet PO DAILY 04/01/19 05/04/19 Eliquis 5 mg PO BID 04/21/19 05/04/19 Allergies Allergy/AdvReac Type Severity Reaction Status Date / Time acetaminophen [From Tylenol] Allergy Severe Swelling Verified 05/10/19 16:08 NSAIDS (Non-Steroidal Allergy Severe Swelling Verified 05/10/19 16:08 Anti-Inflamma adhesive Allergy Mild Rash Verified 05/10/19 16:08 latex Allergy Mild Rash Verified 05/10/19 16:08 strawberry Allergy Unknown LIP Verified 05/10/19 16:08 SWELLING,RASH influenza virus vaccine tv AdvReac Severe very sick Verified 05/10/19 16:08 2012-14(18-49 yrs),[facility] with fever [From Flublok] and myalgia Pediatric Review of Systems : Review of Systems: Gen.: Denies fevers or chills Eyes: Denies eye pain or visual change ENT: Denies congestion Respiratory: Denies shortness of breath or cough CV: Denies chest pain or palpitations GI: Denies abdominal pain nausea, emesis or diarrhea Musculoskeletal: See HPI Neuro: Denies numbness, tingling, weakness or focal weakness Skin: Denies rash Except as documented, all other systems reviewed and negative PMFSH Past Medical History Medical History Anemia Anxiety Arthritis Atrial fibrillation Chronic anticoagulation Chronic kidney disease, stage 3 Baseline creatinine 1.20. Diet-controlled diabetes mellitus Hemoglobin A1c was 5.5 on March 25, 2019. GERD (gastroesophageal reflux disease) History of Clostridioides difficile infection History of postoperative nausea and vomiting Hyperlipidemia Hypertension Hypothyroidism Mitral valve prolapse Osteoarthritis Social History Social History Social History: The patient is [place] outside of [place]. She is a lifelong nonsmoker and denies alcohol and drug use. Children live nearby. She still works 6 days a week at [employer]. She denies alcohol, tobacco, and drug use. Gender identity (if verbalized by the patient): Female Spiritual care concerns: No Agree to blood products: Yes Pediatric Exam Narrative: Physical exam: APPEARANCE: Well appearing, no apparent distress, well-nourished. HEENT: normocephalic atraumtaic. . Oral mucosa moist. No tenderness over bilateral zygomatic arch. Full range of motion of jaw without pain. EYES: PERRL NECK: Supple. No midline tenderness to palpation. Full range of motion without pain RESPIRATORY: No respiratory distress. Clear to auscultation bilaterally CARDIOVASCULAR: Regular rate and
--- NOTE | 2019-06-05 18:53 | ECG_ITS ---
Measurements Intervals [place] Rate: 91 P: 41 SC: 156 QRS: 1 QRSD: 129 T: 55 QT: 371 QTc: 458 Interpretive Statements SINUS RHYTHM VENTRICULAR PREMATURE COMPLEX INTRAVENTRICULAR CONDUCTION DELAY NONSPECIFIC ST & T-WAVE ABNORMALITY- INF/LAT LEADS BASELINE ARTIFACT- I, III, AVR, AVL, AVF, V1 BORDERLINE ECG Electronically Signed On 06-06-2019 6:56:06 [employer]ILROAD CON[employer]CTOR by Ryan De La Vega D.O.
[2019-06-05] MEDS: MORPHINE SULFATE 2 MG/ML INJ IV PUSH ×2 (19:06→19:57)
[2019-06-05 19:58] VITALS: BP 187/78; PULSE 82; RESP 18; O2SAT 98
--- NOTE | 2019-06-05 19:58 | PC.NURSE ---
Feliciano placed at [address] order [address] Copeland. 16FR enedina lundy placed.
[2019-06-05 20:16] LABS: Basophils Percent Auto 0.3 % (0.2-1.2); Eosinophils Absolute Auto 0.3 K/mm3 (0-0.3); Eosinophils Percent Auto 2.8 % (0-4.4); Hematocrit 33.8 % (37.0-47.0); Hemoglobin 11.2 g/dL (12.0-15.0); Immature Granulocyte Absolute 0.07 K/mm3 (0.00-0.031); Immature Granulocyte Percent A 0.7 % (0-0.5); Lymphocytes Absolute Auto 0.82 K/mm3 (0.9-3.2); Lymphocytes Percent Auto 7.8 % (18.3-44.2); Mean Corpuscular HGB Conc 33.1 g/dl (32-36); Mean Corpuscular Hemoglobin 30.1 pg (26-34); Mean Corpuscular Volume 90.9 fl (80-100); Mean Platelet Volume 11.4 fl (7.4-10.4); Monocytes Absolute Auto 0.5 K/mm3 (0.1-0.6); Neutrophils Absolute Auto 8.8 K/mm3 (1.3-6.7); Neutrophils Percent Auto 83.4 % (45.5-73.1); Platelet Count Result 185 k/mm3 (150-375); Red Blood Count 3.72 M/mm3 (4.2-5.4); Red Cell Distribution Width 13.6 % (11.5-14.5); White Blood Count 10.5 K/mm3 (4.5-10.0)
[2019-06-05 20:26] LABS: INR 1.1; Partial Thromboplastin Time 32.9 SECONDS (22.3-36.8); Prothrombin Time 13.9 Seconds (11.1-14.7)
[2019-06-05 20:28] LABS: Alanine Aminotransferase 19 U/L (4-35); Albumin Level 4.3 g/dL (3.5-5.1); Alkaline Phosphatase 116 U/L (38-126); Aspartate Amino Transferase 30 U/L (14-36); Bilirubin,Total 0.3 mg/dL (0.2-1.3); Blood Urea Nitrogen 30 mg/dL (7-17); Calcium 9.3 mg/dL (8.4-10.2); Carbon Dioxide 27 mmol/L (22-30); Chloride 97 mmol/L (98-107); Estimated Glomerular Filt Rate 33; Glucose 117 mg/dL (65-105); Potassium 4.6 mmol/L (3.4-5.0); Sodium 137 mmol/L (137-145)
[2019-06-05 20:32] LABS: Add Urine Microscopic? YES; Appearance Urine Clear (Clear); Bacteria Urine 1+ /hpf; Bilirubin Urine Negative (Negative); Color Urine Yellow (Yellow); Glucose Urine UA Negative (Negative); Ketones Urine Negative (Negative); Leukocyte Esterase Ur Trace LEU/UL (Negative); Mucus Urine Rare /lpf; Nitrate Urine Positive (Negative); Protein Urine 3+ mg/dL (Negative); Specific Grav Ur 1.013 (1.001-1.035); Squamous Epithelial Cell Urine Rare /hpf (Few); Urobilinogen Urine Negative mg/dL (<2.0)
[2019-06-05 20:33] LABS: Blood Urine Negative (Negative)
[2019-06-05 20:40] LABS: NT Pro B Type Natriuretic Pept 714 PG/ML (5-100)
[2019-06-05] MEDS: ONDANSETRON INJ 4 MG/2 ML VIAL (21:08)
--- NOTE | 2019-06-05 21:09 | PC.NURSE ---
Patient's daughter out to desk, states her mother feels like she is going to vomit. 4mg IVP zofran given per verbal order from Dr Copeland. Emesis bag given.
--- NOTE | 2019-06-05 21:26 | PC.NURSE ---
EDP notified of patient's pain, reports she due to age and multiple doses of IV pain medications patient should not have an additional dose at this time.
[2019-06-05 21:35] VITALS: BP 137/61; PULSE 69; RESP 18; O2SAT 97
[2019-06-05 21:40] VITALS: BP 189/86; PULSE 84; RESP 18; TEMP 37.5; O2SAT 98; BMI 28.8
--- NOTE | 2019-06-05 21:41 | ADMGEN ---
This patient, Shantel Oates, was admitted to 3 Med Surg Room 324-01. Patient/family oriented to hospital policies and general routines including ID bracelet, bed and alarms, visiting hours, pain management, procedures, bathroom and other care routines, personal items, smoking policy, room service/diet, and visiting hours. Valuables list has been completed. Information on how to activate the Rapid Response Team has been discussed. Patient/Family are encouraged to report perceived risks to care and to ask questions if they do not understand what they are told or what they should do.
[2019-06-05 22:00] VITALS: BP 189/86; PULSE 84; RESP 18; TEMP 37.5; O2SAT 98
--- NOTE | 2019-06-05 22:02 | PM.IMHP ---
H&P: HPI History of Present Illness Chief complaint: acute fall at home today+ Narrative: This is a pleasant 79 year old female with history of atrial fibrillation on chronic Eliquis therapy, DM, HTN who presented to the hospital [facility] after suffering an acute fall at home today. The patient just recently had a left knee replacement. Tonight the patient was at home and was standing on a rug in the kitchen when she turned to put something on the table and lost her balance and fell. She did hit her head on the door in the kitchen as she fell. She did not lose consciousness. The patient was evaluated in the ER [facility] and found to have a displaced transcervical fracture of the proximal left femur. The patient currently is only complaining of severe left hip pain. She denies any headache, fevers, chills, chest pain, shortness of breath, abdominal pain, dysuria, hematuria, diarrhea or other symptoms. Ortho has been consulted by ER provider. No other complaints. Review of Systems Review of Systems: All systems reviewed & are unremarkable except as noted in HPI and below PMFSH Past Medical History Medical History Anemia Anxiety Arthritis Atrial fibrillation Chronic anticoagulation Chronic kidney disease, stage 3 Baseline creatinine 1.20. Diet-controlled diabetes mellitus Hemoglobin A1c was 5.5 on March 25, 2019. GERD (gastroesophageal reflux disease) History of Clostridioides difficile infection History of postoperative nausea and vomiting Hyperlipidemia Hypertension Hypothyroidism Mitral valve prolapse Osteoarthritis Surgical History Surgical History History of bladder suspension procedure History of varicose vein ligation and stripping Status post arthroscopy of left knee Status post breast biopsy Left breast biopsy with benign histology. Status post cardiac catheterization Coronary angiogram March 2014 showed normal coronary arteries. Status post cataract extraction Status post cholecystectomy Status post hemorrhoidectomy Status post hysterectomy Status post total left knee replacement Family History Family History Father Family history of cardiovascular disease Family history of kidney disease Family history of aortic aneurysm Mother Diabetes mellitus Family history of Alzheimer's disease Family history of malignant neoplasm of brain Grandparent Cerebrovascular accident Social History Social History Social History: The patient is and lives on a farm outside of [place]. She is a lifelong nonsmoker and denies alcohol and drug use. Children live nearby. She still works 6 days a week at [employer]. She denies alcohol, tobacco, and drug use. Smoking status: Never smoker Second hand tobacco smoke exposure: No Alcohol intake: never Substance use: never Gender identity (if verbalized by the patient): Female Spiritual care concerns: No Agree to blood products: Yes Meds Home Medications and Allergies Home Medications Medication Instructions Recorded Confirmed Type ferrous gluconate 324 mg (37.5 mg 324 mg PO HS 02/23/19 06/05/19 History iron) tablet flecainide 100 mg tablet 100 mg PO BID 02/23/19 06/05/19 History levothyroxine 88 mcg tablet 88 mcg PO DAILY 02/23/19 06/05/19 History metoprolol tartrate 25 mg tablet 25 mg PO BID 02/23/19 06/05/19 History PreserVision AREDS 1 tablet PO HS 04/01/19 06/05/19 History atorvastatin 40 mg PO HS 04/01/19 06/05/19 History diazepam 2 mg PO BID 04/01/19 06/05/19 History omega 3-qoe-yag-fish oil [Fish Oil] 1 cap PO DAILY 04/01/19 06/05/19 History Eliquis 5 mg PO BID 04/21/19 06/05/19 History omeprazole 40 mg capsule,delayed 40 mg PO DAILY #30 cap 06/01/19 06/05/19 Rx release amitriptyline 25 mg PO HS 06/05/19
[2019-06-05 22:50] VITALS: BP 177/77
[2019-06-05] MEDS: hydrALAZINE HCL 20 MG/ML VIAL 10 MG IV PUSH (23:14)
[2019-06-06] VITALS (20 sets, daily range): BP systolic 113–180; BP diastolic 47–85; PULSE 64–96; RESP 10–18; TEMP 36.3–37.9; O2SAT 93–100
[2019-06-06 00:07] LABS: Glucose Point of Care 101 (65-105)
[2019-06-06] MEDS: MORPHINE SULFATE 4 MG/ML INJ IV PUSH ×2 (00:11→09:00)
[2019-06-06 05:38] LABS: Glucose Point of Care 137 (65-105)
[2019-06-06 06:22] LABS: Basophils Percent Auto 0.2 % (0.2-1.2); Eosinophils Absolute Auto 0.1 K/mm3 (0-0.3); Eosinophils Percent Auto 0.4 % (0-4.4); Hematocrit 31.8 % (37.0-47.0); Hemoglobin 10.4 g/dL (12.0-15.0); Immature Granulocyte Absolute 0.06 K/mm3 (0.00-0.031); Immature Granulocyte Percent A 0.5 % (0-0.5); Lymphocytes Absolute Auto 0.55 K/mm3 (0.9-3.2); Lymphocytes Percent Auto 4.9 % (18.3-44.2); Mean Corpuscular HGB Conc 32.7 g/dl (32-36); Mean Corpuscular Hemoglobin 29.5 pg (26-34); Mean Corpuscular Volume 90.3 fl (80-100); Mean Platelet Volume 11.7 fl (7.4-10.4); Monocytes Absolute Auto 0.6 K/mm3 (0.1-0.6); Monocytes Percent Auto 5.3 % (2.6-8.5); Neutrophils Absolute Auto 9.9 K/mm3 (1.3-6.7); Neutrophils Percent Auto 88.7 % (45.5-73.1); Platelet Count Result 186 k/mm3 (150-375); Red Blood Count 3.52 M/mm3 (4.2-5.4); Red Cell Distribution Width 13.8 % (11.5-14.5); White Blood Count 11.2 K/mm3 (4.5-10.0)
[2019-06-06 06:35] LABS: Alanine Aminotransferase 24 U/L (4-35); Albumin Level 3.5 g/dL (3.5-5.1); Alkaline Phosphatase 88 U/L (38-126); Aspartate Amino Transferase 35 U/L (14-36); Bilirubin,Total 0.2 mg/dL (0.2-1.3); Blood Urea Nitrogen 27 mg/dL (7-17); Calcium 8.5 mg/dL (8.4-10.2); Carbon Dioxide 27 mmol/L (22-30); Chloride 98 mmol/L (98-107); Estimated CRCL calculation 33 ml/min; Estimated Glomerular Filt Rate 43; Glucose 125 mg/dL (65-105); Potassium 4.1 mmol/L (3.4-5.0); Sodium 136 mmol/L (137-145)
[2019-06-06] MEDS: METOPROLOL TARTRATE 25 MG TABLET PO ×2 (10:16→18:18)
[2019-06-06] MEDS: FLECAINIDE ACETATE 100 MG TABLET PO ×2 (10:16→18:18)
[2019-06-06] MEDS: SODIUM CHLORIDE 0.9% IV 1,000 ML 125 ML IV CONT ×2 (11:15→20:56)
--- NOTE | 2019-06-06 11:47 | PM.IMHP ---
H&P: HPI History of Present Illness Chief complaint: acute fall at home today+ Narrative: Shantel Oates is a 79 year old female who slipped on a rug yesterday suffering an injury to her left hip. She had immediate pain in the left groin and thigh was unable to get up and bear weight. Patient came [facility] where she had x-rays performed. X-rays demonstrated displaced femoral neck fracture of her left hip. Patient denies any other trauma or injury, she has recently undergone a left total hip arthroplasty performed by Dr. Wall about a month ago was doing well with this with no problems until she fell and injured her left hip. Today she denies any neurovascular deficits, had no head trauma or injury did not suffer any loss of consciousness. Patient is now admitted for surgical intervention for her left hip fracture. Review of Systems Review of Systems: All systems reviewed & are unremarkable except as noted in HPI and below PMFSH Past Medical History Medical History Anemia Anxiety Arthritis Atrial fibrillation Chronic anticoagulation Chronic kidney disease, stage 3 Baseline creatinine 1.20. Diet-controlled diabetes mellitus Hemoglobin A1c was 5.5 on March 25, 2019. GERD (gastroesophageal reflux disease) History of Clostridioides difficile infection History of postoperative nausea and vomiting Hyperlipidemia Hypertension Hypothyroidism Mitral valve prolapse Osteoarthritis Surgical History Surgical History History of bladder suspension procedure History of varicose vein ligation and stripping Status post arthroscopy of left knee Status post breast biopsy Left breast biopsy with benign histology. Status post cardiac catheterization Coronary angiogram March 2014 showed normal coronary arteries. Status post cataract extraction Status post cholecystectomy Status post hemorrhoidectomy Status post hysterectomy Status post total left knee replacement Family History Family History Father Family history of cardiovascular disease Family history of kidney disease Family history of aortic aneurysm Mother Diabetes mellitus Family history of Alzheimer's disease Family history of malignant neoplasm of brain Grandparent Cerebrovascular accident Social History Social History Social History: The patient is [place] outside of [place]. She is a lifelong nonsmoker and denies alcohol and drug use. Children live nearby. She still works 6 days a week at [employer]. She denies alcohol, tobacco, and drug use. Smoking status: Never smoker Second hand tobacco smoke exposure: No Alcohol intake: never Substance use: never Gender identity (if verbalized by the patient): Female Spiritual care concerns: No Agree to blood products: Yes Meds Home Medications and Allergies Home Medications Medication Instructions Recorded Confirmed Type ferrous gluconate 324 mg (37.5 mg 324 mg PO HS 02/23/19 06/05/19 History iron) tablet flecainide 100 mg tablet 100 mg PO BID 02/23/19 06/05/19 History levothyroxine 88 mcg tablet 88 mcg PO DAILY 02/23/19 06/05/19 History metoprolol tartrate 25 mg tablet 25 mg PO BID 02/23/19 06/05/19 History PreserVision AREDS 1 tablet PO HS 04/01/19 06/05/19 History atorvastatin 40 mg PO HS 04/01/19 06/05/19 History diazepam 2 mg PO BID 04/01/19 06/05/19 History omega 3-jij-bxy-fish oil [Fish Oil] 1 cap PO DAILY 04/01/19 06/05/19 History Eliquis 5 mg PO BID 04/21/19 06/05/19 History omeprazole 40 mg capsule,delayed 40 mg PO DAILY #30 cap 06/01/19 06/05/19 Rx release amitriptyline 25 mg PO HS 06/05/19 06/05/19 History diclofenac sodium 50 mg PO BID 06/05/19 06/05/19 History lisinopril-hydrochlorothiazide 1 tablet PO BID 06/05/19 06/05/19 Histor
--- NOTE | 2019-06-06 12:02 | PC.NURSE ---
To OR per bed at 1210. Family at bedside.
--- NOTE | 2019-06-06 12:06 | WPDANESEPPF ---
Anes - Initial Pre Proc Eval Procedure: Operation Date: 06/06/19 13:00 Proposed Procedures p Left Bipolar Hip Replacement - Solis Wall MD Date/Time: 06/06/19 12:06 Surgeon: Raimundo Anne MD Pre Op Diagnosis: acute fall at home today+ Patient Data Age: 79 Gender: F Height: 1.63 m Weight: 76.3 kg Last Vital Signs Temp 37.4 C 06/06/19 08:57 Pulse 95 06/06/19 10:16 Resp 16 06/06/19 08:57 BP 141/59 H 06/06/19 08:57 Pulse Ox 95 06/06/19 08:57 Allergies Allergy/AdvReac Type Severity Reaction Status Date / Time acetaminophen [From Tylenol] Allergy Severe Swelling Verified 06/05/19 22:03 ibuprofen Allergy Severe Swelling Verified 06/05/19 22:42 of Lip/Tongue/Throat naproxen [From Aleve] Allergy Severe Swelling Verified 06/05/19 22:42 of Lip/Tongue/Throat strawberry Allergy Severe Swelling Verified 06/05/19 22:03 of Lip/Tongue/Throat adhesive Allergy Mild Rash Verified 06/05/19 22:03 latex Allergy Mild Rash Verified 06/05/19 22:03 influenza virus vaccine tv AdvReac Severe very sick Verified 06/05/19 22:03 2013-14(18-49 yrs),rcmb with fever [From Flublok] and myalgia Home Medications Medication Instructions Recorded Confirmed Type ferrous gluconate 324 mg (37.5 mg 324 mg PO HS 02/23/19 06/05/19 History iron) tablet flecainide 100 mg tablet 100 mg PO BID 02/23/19 06/05/19 History levothyroxine 88 mcg tablet 88 mcg PO DAILY 02/23/19 06/05/19 History metoprolol tartrate 25 mg tablet 25 mg PO BID 02/23/19 06/05/19 History PreserVision AREDS 1 tablet PO HS 04/01/19 06/05/19 History atorvastatin 40 mg PO HS 04/01/19 06/05/19 History diazepam 2 mg PO BID 04/01/19 06/05/19 History omega 9-lbv-qjg-fish oil [Fish Oil] 1 cap PO DAILY 04/01/19 06/05/19 History Eliquis 5 mg PO BID 04/21/19 06/05/19 History omeprazole 40 mg capsule,delayed 40 mg PO DAILY #30 cap 06/01/19 06/05/19 Rx release amitriptyline 25 mg PO HS 06/05/19 06/05/19 History diclofenac sodium 50 mg PO BID 06/05/19 06/05/19 History lisinopril-hydrochlorothiazide 1 tablet PO BID 06/05/19 06/05/19 History Laboratory Tests 06/05/19 06/05/19 06/05/19 20:10 20:10 20:10 WBC 10.5 K/mm3 H K/mm3 (4.5-10.0) RBC 3.72 M/mm3 L M/mm3 (4.2-5.4) Hgb 11.2 g/dL L g/dL (12.0-15.0) Hct 33.8 % L % (37.0-47.0) MCV 90.9 fl fl (80-100) MCH 30.1 pg pg (26-34) MCHC 33.1 g/dl g/dl (32-36) RDW 13.6 % % (11.5-14.5) Plt Count 185 k/mm3 k/mm3 (150-375) MPV 11.4 fl H fl (7.4-10.4) Immature Gran % (Auto) 0.7 % H % (0-0.5) Neut % (Auto) 83.4 % H % (45.5-73.1) Lymph % (Auto) 7.8 % L % (18.3-44.2) Dukes % (Auto) 5.0 % % (2.6-8.5) Eos % (Auto) 2.8 % % (0-4.4) Baso % (Auto) 0.3 % % (0.2-1.2) Lymph # (Auto) 0.82 K/mm3 L K/mm3 (0.9-3.2) Dukes # (Auto) 0.5 K/mm3 K/mm3 (0.1-0.6) Eos # (Auto) 0.3 K/mm3 K/mm3 (0-0.3) Baso # (Auto) 0.0 K/mm3 K/mm3 (0.0-0.1) Abs Immat Gran (auto) 0.07 K/mm3 H K/mm3 (0.00-0.031) Absolute Neuts (auto) 8.8 K/mm3 H K/mm3 (1.3-6.7) Absolute Nucleated RBC 0.0 K/mm3 K/mm3 (0.0-0.012) Nucleated RBC % 0.0 % % (0.0-0.2) PT 13.9 Seconds Seconds (11.1-14.7) INR 1.1 APTT 32.9 SECONDS SECONDS (22.3-36.8) Sodium 137 mmol/L mmol/L (137-145) Potassium 4.6 mmol/L mmol/L (3.4-5.0) Chloride 97 mmol/L L mmol/L (98-107) Carbon Dioxide 27 mmol/L mmol/L (22-30) BUN 30 mg/dL H mg/dL (7-17) Creatinine 1.50 mg/dL H mg/dL (0.7-1.0) Estim Creat Clear Calc Not Reportable Estimated GFR 33 L (59 - ) Glucose 117 mg/dL H mg/dL (65-105) POC Capillary Glucose Calcium 9.3 mg/dL mg/dL (8
--- NOTE | 2019-06-06 12:24 | WPDHPUPDATE1 ---
History and Physical Update Update Date/Time: 06/06/19 12:24 History and Physical has been reviewed, including an updated exam of the patient. There are NO changes in the patient's condition. Risks, benefits, and alternatives have been discussed and questions answered. Patient agrees to proceed with procedure.
--- NOTE | 2019-06-06 13:10 | SUR.OPER ---
BROUGHT TO DR. NEFF'S ATTENTION THAT PT STATES THAT HE IS LATEX ALLERGY AND SHE HAS LATEX BELL INDWELLING
--- NOTE | 2019-06-06 13:57 | P.OP_ITS ---
Procedure Note - Detailed Date of procedure: 06/06/19 Pre-op diagnosis: acute fall at home today+ Post-op diagnosis: same Procedure performed: [Left] Bipolar hip arthroplasty Description of procedure: Patient was brought to the operating room and anesthetic was administered. The patient was placed with the [side] up and steriley prepped and draped in the usual manner. Longitudinal incision was done, dissection carried down to the fascia. A Hardinge type approach was used and the femoral head was dislocated anteriorly. Femoral head was removed a finger breath above the lesser trochanter. The acetabulum was measure witht he femoral head to 43mm. The femur was reamed and broached to accept a [11] component which was impacted into place. A plus [+0] ball and neck with the 43mm Bipolaar were placed and the hip was put through full range of motion. The hip was noted to be stable. The wounds were then closed in a layer fashion using #5 ethibond, 2 vicryl, 2-0 vicryl and tyson. Patient left the operating room in satisfactory condition. Anesthesia: GETA Surgeon: Solis Wall MD Conservation Engineer: Juan Skaggs Estimated blood loss (mL): 600 Drains: No Packing: No Pathology: none sent Complications: No immediate complications Condition: stable Disposition: PACU Findings: Arthritis
--- NOTE | 2019-06-06 14:25 | SUR.OPER ---
EBL:[id number]
[2019-06-06] MEDS: LACTATED RINGERS 1,000 ML 30 ML IV CONT ×2 (14:34)
--- NOTE | 2019-06-06 14:36 | SUR.OPER ---
WHEN DR. NEFF WAS REMINDED AGAIN ABOUT THE LATEX BELL HE INSTRUCTED THE BELL BE LEFT IN AND NOT CHANGED
--- NOTE | 2019-06-06 14:51 | PCCCNOTE ---
On 06/06/19, the student, [Sharri Sandy ], provided care and completed [email or web address] documentation on this patient. I have reviewed the student's documentation and agree with the findings.
[2019-06-06] MEDS: MORPHINE SULFATE 2 MG/ML INJ IV PUSH (16:54)
[2019-06-06 16:58] LABS: Hematocrit 32.7 % (37.0-47.0); Hemoglobin 10.6 g/dL (12.0-15.0)
--- NOTE | 2019-06-06 17:37 | PM.IMPN ---
Progress Note: A&P Assessment and Plan (1) Closed displaced midcervical fracture of femur: Code(s): S72.033A - Displaced midcervical fracture of unspecified femur, initial encounter for closed fracture Status: Acute Assessment and Plan: Status post left total hip today. Eliquis is on hold and follow-up hemoglobin is stable Activity per Ortho (2) Atrial fibrillation: Qualifiers: Atrial fibrillation type: paroxysmal Qualified Code(s): I48.0 - Paroxysmal atrial fibrillation Code(s): I48.91 - Unspecified atrial fibrillation Status: Chronic Assessment and Plan: Paroxysmal. Sinus rhythm at present time will continue flecainide and beta-naya E and hold her Eliquis (3) Diet-controlled diabetes mellitus: Code(s): E11.9 - Type 2 diabetes mellitus without complications Status: Chronic Assessment and Plan: Follow-up with daily blood sugars (4) Hypertension: Qualifiers: Hypertension type: essential hypertension Qualified Code(s): I10 - Essential (primary) hypertension Code(s): I10 - Essential (primary) hypertension Status: Chronic Assessment and Plan: Blood pressure adequate with KAILEY-inhibitor and diuretic on hold initially Continue beta-naya (5) UTI (urinary tract infection): Code(s): N39.0 - Urinary tract infection, site not specified Status: Acute Assessment and Plan: Pyuria on admission giving empiric ceftriaxone pending results of culture (6) DVT prophylaxis: Code(s): Z29.9 - Encounter for prophylactic measures, unspecified Status: Acute Assessment and Plan: Per surgery (7) Anemia: Qualifiers: Anemia type: unspecified type Qualified Code(s): D64.9 - Anemia, unspecified Code(s): D64.9 - Anemia, unspecified Status: Chronic Assessment and Plan: Blood loss secondary to traumatic hip fracture. Continue to monitor with her history of anticoagulation Subjective Date/time seen: 06/06/19 17:37 Interval history: Date of visit 06/05. 79-year-old white female with hypertension and paroxysmal AFib fell and fractured her left hip some 2 months post left total knee replacement surgery.. Did have some head trauma with no loss of consciousness and CT scan was unremarkable. Approximately 36 hours post so last Eliquis dose. Some pain in the hip preop otherwise unremarkable and some headache still Exam Narrative: Exam Narrative: Blood pressure 146/66 pulse 72 Pupils equal reactive light sclera anicteric Lungs clear CV regular rate rhythm no murmurs Abdomen is soft nontender Extremities without edema distal pulse 2 +and symmetrical left leg rotated laterally preop Neuro alert pleasant cooperative no focal deficits Objective Data Vital Signs Vital Signs: Vital Signs - 24 hr 06/05/19 18:48 06/05/19 19:58 06/05/19 21:35 Temperature 36.8 C Pulse Rate 81 82 69 Respiratory Rate 18 18 18 Blood Pressure 199/98 H 187/78 H 137/61 Pulse Oximetry 100 98 97 06/05/19 21:40 06/05/19 22:00 06/05/19 22:50 Temperature 37.5 C 37.5 C Pulse Rate 84 84 Respiratory Rate 18 18 Blood Pressure 189/86 H 189/86 H 177/77 H Pulse Oximetry 98 98 06/06/19 00:03 06/06/19 06:00 06/06/19 08:57 Temperature 37.3 C 37.4 C Pulse Rate 96 95 Respiratory Rate 16 16 Blood Pressure 147/58 H 113/47 L 141/59 H Pulse Oximetry 93 95 06/06/19 10:16 06/06/19 12:15 06/06/19 14:34 Temperature 37.9 C H 36.8 C Pulse Rate 95 77 64 Respiratory Rate 18 11 L Blood Pressure 135/61 124/58 L Pulse Oximetry 95 96 06/06/19 14:45 06/06/19 15:00 06/06/19 15:15 Temperature Pulse Rate 66 68 71 Respiratory Rate 14 16 14 Blood Pressure 151/68 H 172/78 H 180/85 H Pulse Oximetry 100 100 95 06/06/19 15:30 06/06/19 15:45 06/06/19 16:00 Temperature Pulse Rate 67 68 67 Respiratory Rate 10 L 14 13 Blood Pressure 160/77 H 146/65 H 146/72 H Pulse Oximetry 94 95 94 03
[2019-06-06] MEDS: PANTOPRAZOLE 40 MG TABLET PO (18:19)
[2019-06-06] MEDS: DOCUSATE SODIUM 100 MG CAPSULE PO (18:21)
--- NOTE | 2019-06-06 19:56 | PC.NURSE ---
Returned from OR at 1645.
[2019-06-06] MEDS: ATORVASTATIN 40 MG TABLET PO (21:32)
[2019-06-06] MEDS: AMITRIPTYLINE HCL 25 MG TABLET PO (21:32)
[2019-06-06] MEDS: FERROUS GLUCONATE 324 MG TABLET PO (21:32)
[2019-06-06] MEDS: OPTI-GEN TAB 1 TABLET PO (21:32)
[2019-06-07] VITALS (9 sets, daily range): BP systolic 138–161; BP diastolic 53–70; PULSE 80–98; RESP 16–20; TEMP 36.8–39; O2SAT 93–98
[2019-06-07] MEDS: SODIUM CHLORIDE 0.9% IV 1,000 ML 125 ML IV CONT ×2 (01:52→15:48)
[2019-06-07] MEDS: MORPHINE SULFATE 2 MG/ML INJ IV PUSH (01:52)
[2019-06-07] MEDS: LEVOTHYROXINE SODIUM 88 MCG TABLET PO (05:44)
[2019-06-07 06:03] LABS: Basophils Percent Auto 0.3 % (0.2-1.2); Eosinophils Absolute Auto 0.1 K/mm3 (0-0.3); Eosinophils Percent Auto 1.1 % (0-4.4); Hematocrit 27.1 % (37.0-47.0); Hemoglobin 8.9 g/dL (12.0-15.0); Immature Granulocyte Absolute 0.04 K/mm3 (0.00-0.031); Immature Granulocyte Percent A 0.4 % (0-0.5); Lymphocytes Absolute Auto 0.98 K/mm3 (0.9-3.2); Lymphocytes Percent Auto 10.5 % (18.3-44.2); Mean Corpuscular HGB Conc 32.8 g/dl (32-36); Mean Corpuscular Hemoglobin 30.2 pg (26-34); Mean Corpuscular Volume 91.9 fl (80-100); Mean Platelet Volume 12.1 fl (7.4-10.4); Monocytes Absolute Auto 1.1 K/mm3 (0.1-0.6); Monocytes Percent Auto 11.3 % (2.6-8.5); Neutrophils Absolute Auto 7.1 K/mm3 (1.3-6.7); Neutrophils Percent Auto 76.4 % (45.5-73.1); Platelet Count Result 158 k/mm3 (150-375); Red Blood Count 2.95 M/mm3 (4.2-5.4); Red Cell Distribution Width 14.2 % (11.5-14.5); White Blood Count 9.3 K/mm3 (4.5-10.0)
[2019-06-07 06:59] LABS: Blood Urea Nitrogen 18 mg/dL (7-17); Carbon Dioxide 28 mmol/L (22-30); Chloride 100 mmol/L (98-107); Estimated CRCL calculation 49 ml/min; Estimated Glomerular Filt Rate > 60; Glucose 114 mg/dL (65-105); Potassium 3.9 mmol/L (3.4-5.0); Sodium 133 mmol/L (137-145)
--- NOTE | 2019-06-07 07:40 | WPDANESPN ---
Anes - Prog Note Post-Op Date/Time: 06/07/19 07:40 Cardiovascular status: normal Respiratory status: normal Airway patency: baseline Mental status: baseline Post-Op hydration status: normal Vital Signs: Last Vital Signs Temp 37.8 C H 06/07/19 06:48 Pulse 98 06/07/19 06:00 Resp 18 06/07/19 06:00 BP 161/65 H 06/07/19 06:00 Pulse Ox 98 06/07/19 06:00 I/O: Intake & Output 06/06/19 06/06/19 06/07/19 15:59 23:59 07:59 Intake Total 875 237 1976 Output Total 950 750 Balance 400 -550 986 Laboratory Tests 06/07/19 05:44 06/07/19 05:44 06/06/19 06/06/19 06/07/19 06:04 16:53 05:44 WBC 11.2 H 9.3 RBC 3.52 L 2.95 L Hgb 10.4 L 10.6 L 8.9 L Hct 31.8 L 32.7 L 27.1 L MCV 90.3 91.9 MCH 29.5 30.2 MCHC 32.7 32.8 RDW 13.8 14.2 Plt Count 186 158 MPV 11.7 H 12.1 H Immature Gran % (Auto) 0.5 0.4 Neut % (Auto) 88.7 H 76.4 H Lymph % (Auto) 4.9 L 10.5 L Austin % (Auto) 5.3 11.3 H Eos % (Auto) 0.4 1.1 Baso % (Auto) 0.2 0.3 Lymph # (Auto) 0.55 L 0.98 Austin # (Auto) 0.6 1.1 H Eos # (Auto) 0.1 0.1 Baso # (Auto) 0.0 0.0 Abs Immat Gran (auto) 0.06 H 0.04 H Absolute Neuts (auto) 9.9 H 7.1 H Absolute Nucleated RBC 0.0 0.0 Nucleated RBC % 0.0 0.0 Sodium Potassium Chloride Carbon Dioxide BUN Creatinine Estim Creat Clear Calc Estimated GFR Glucose Calcium 06/07/19 05:44 WBC RBC Hgb Hct MCV MCH MCHC RDW Plt Count MPV Immature Gran % (Auto) Neut % (Auto) Lymph % (Auto) Austin % (Auto) Eos % (Auto) Baso % (Auto) Lymph # (Auto) [place] # (Auto) Eos # (Auto) Baso # (Auto) Abs Immat Gran (auto) Absolute Neuts (auto) Absolute Nucleated RBC Nucleated RBC % Sodium 133 L Potassium 3.9 Chloride 100 Carbon Dioxide 28 BUN 18 H Creatinine 0.80 Estim Creat Clear Calc 49 Estimated GFR > 60 Glucose 114 H Calcium 8.0 L Post-procedural complaints: none Patient Feedback: Patient satisfied with anesthetic care.
[2019-06-07] MEDS: PANTOPRAZOLE 40 MG TABLET PO ×2 (08:25→18:06)
[2019-06-07] MEDS: METOPROLOL TARTRATE 25 MG TABLET PO ×2 (08:25→18:06)
[2019-06-07] MEDS: DOCUSATE SODIUM 100 MG CAPSULE PO ×2 (08:25→18:07)
[2019-06-07] MEDS: FLECAINIDE ACETATE 100 MG TABLET PO ×2 (08:26→18:07)
--- NOTE | 2019-06-07 10:16 | PCOTNOTE ---
Unable to see patient this AM for OT evaluation. Patient had just completed PT and refusing to participate in further therapy at this time due to pain, nausea, and fatigue. Will attempt OT evaluation at later time.
--- NOTE | 2019-06-07 11:36 | P.CDI_ITS ---
CDI Query Clarification Request - 3 H&H 11.2/33/8 -EBL 600cc during OR documented -06/06 H&H 8.9/ .1 -Anemia documented and Blood loss secondary to traumatic hip fracture documented. Please further specify acuity of blood loss/ acuity of anemia. * Acute blood loss anemia * Chronic blood loss anemia * Acute blood loss anemia on chronic anemia * Other * Unable to determine
--- NOTE | 2019-06-07 11:36 | WPDCDIQUERY2 ---
CDI Query Clarification Request - 3 H&H 11.2/33/8 -EBL 600cc during OR documented -06/06 H&H 8.9/ 27.1 -Anemia documented and Blood loss secondary to traumatic hip fracture documented. Please further specify acuity of blood loss/ acuity of anemia. Acute blood loss anemia Chronic blood loss anemia Acute blood loss anemia on chronic anemia Other Unable to determine
[2019-06-07] MEDS: MAGNESIUM HYDROXIDE SUSP 30 ML UDC PO (15:48)
--- NOTE | 2019-06-07 16:28 | PM.PNORT ---
Progress Note: A&P Additional Plan Postop day 1 patient is doing well. Hemoglobin postop was 8.9 due to intraoperative blood loss. Will monitor, the patient is asymptomatic. She has some constipation will get her a duplex suppository and encourage fluid intake. She will be up in the chair this evening and start ambulation in therapy tomorrow as tolerated. Will discharge to home when progressing in therapy in medically stable. Patient and daughter voiced understanding with the above plan. Time Spent With Patient Time with patient: less than 15 minutes Subjective Subjective Date/Time Seen: 06/07/19 16:28 Patient doing well postop day 1 status post bipolar hip prosthesis to treat a femoral neck fracture displaced. Pain is fairly well controlled she was able to get up in the chair today has not walked in physical therapy yet. She is complaining of some constipation she tried milk of magnesia this did not work she prefers a Dulcolax suppository will get this for her. Otherwise she states she has got no significant complaints. She is going to start ambulating in therapy tomorrow if tolerated. Exam Narrative: Exam Narrative: Vital signs stable, afebrile. Neurovascular she is intact. Wound dressing is clean and dry and intact. Calves are benign. She has no significant swelling in the left thigh. Objective Data Vital Signs Vital Signs: Vital Signs - 24 hr 06/06/19 16:40 06/06/19 16:44 06/06/19 17:25 Temperature 36.3 C L 36.3 C L 36.7 C Pulse Rate 78 76 80 Respiratory Rate 14 14 16 Blood Pressure 156/75 H 153/72 H 156/69 H Pulse Oximetry 95 94 97 06/06/19 18:18 06/06/19 18:25 06/06/19 22:00 Temperature 36.6 C 37.7 C H Pulse Rate 80 85 79 Respiratory Rate 16 18 Blood Pressure 150/75 H 144/64 H Pulse Oximetry 100 100 06/06/19 22:17 06/07/19 02:00 06/07/19 06:00 Temperature 37.1 C 37.2 C 39.0 C H Pulse Rate 80 98 Respiratory Rate 18 18 Blood Pressure 154/70 H 161/65 H Pulse Oximetry 98 98 06/07/19 06:48 06/07/19 08:25 06/07/19 08:26 Temperature 37.8 C H Pulse Rate 97 97 Respiratory Rate Blood Pressure Pulse Oximetry 06/07/19 09:34 Temperature Pulse Rate Respiratory Rate Blood Pressure Pulse Oximetry 95 Intake/Output Intake/Output: Intake & Output 06/04/19 06/05/19 06/06/19 06/07/19 23:59 23:59 23:59 23:59 Intake Total 50 800 2470 Output Total 2050 750 Balance 50 -1250 1720 Meds/Results Medications: Active Medications Generic Name Dose Route Start Last Admin Trade Name Freq PRN Reason Stop Dose Admin Amitriptyline HCl 25 mg 06/06/19 21:00 06/06/19 21:32 Elavil PO 25 mg HS NICOL Administration Atorvastatin Calcium 40 mg 06/06/19 21:00 06/06/19 21:32 Lipitor PO 40 mg HS NICOL Administration Docusate Sodium 100 mg 06/06/19 17:00 06/07/19 08:25 Colace Capsule PO 100 mg BID NICOL Administration Ferrous Gluconate 324 mg 06/06/19 21:00 06/06/19 21:32 Ferrous Gluconate PO 324 mg HS NICOL Administration Flecainide Acetate 100 mg 06/06/19 09:00 06/07/19 08:26 Tambocor PO 100 mg BID NICOL Administration Ceftriaxone Sodium/Dextrose 1 gm in 50 mls @ 100 mls/hr 06/06/19 21:00 06/06/19 22:01 Rocephin 1 Gm/D5w 50 Ml IVPB Infused Q24H NICOL Infusion Sodium Chloride 1,000 mls @ 125 mls/hr 06/06/19 20:29 06/07/19 15:48 Normal Saline Iv IV CONT 125 mls/hr .Q8H NICOL Administration Levothyroxine Sodium 88 mcg 06/06/19 06:30 06/07/19 05:44 Synthroid PO 88 mcg DAILY@0630 NICOL Administration Magnesium Hydroxide 30 ml 06/06/19 16:29 06/07/19 15:48 Milk Of Magnesia PO 30 ml BID PRN Administration Constipation Metoprolol Tartrate 25 mg 06/06/19 09:00 06/07/19 08:25 Lopressor PO 25 mg BID NICOL Administration Morphine Sulfate 2 mg 06/06/19 16:29 06/07/19 01:52 Morphine Sulfate Inj IV PUSH 2 mg Q3H PRN Administration Pain Rated 7-10 Multivitamins/Minerals
--- NOTE | 2019-06-07 17:29 | PM.IMPN ---
Progress Note: A&P Assessment and Plan (1) Closed displaced midcervical fracture of femur: Qualifiers: Encounter type: subsequent encounter Laterality: left Fracture healing: with routine healing Qualified Code(s): S72.032D - Displaced midcervical fracture of left femur, subsequent encounter for closed fracture with routine healing Code(s): S72.033A - Displaced midcervical fracture of unspecified femur, initial encounter for closed fracture Status: Acute Assessment and Plan: Status post left total hip 3/ Doing well with therapy (2) Atrial fibrillation: Qualifiers: Atrial fibrillation type: paroxysmal Qualified Code(s): I48.0 - Paroxysmal atrial fibrillation Code(s): I48.91 - Unspecified atrial fibrillation Status: Chronic Assessment and Plan: Paroxysmal. Sinus rhythm at present time will continue flecainide and beta-naya E and hold her Eliquis, pending ortho recommendations (3) Diet-controlled diabetes mellitus: Code(s): E11.9 - Type 2 diabetes mellitus without complications Status: Chronic Assessment and Plan: Follow-up with daily blood sugars (4) Hypertension: Qualifiers: Hypertension type: essential hypertension Qualified Code(s): I10 - Essential (primary) hypertension Code(s): I10 - Essential (primary) hypertension Status: Chronic Assessment and Plan: Blood pressure adequate with KAILEY-inhibitor and diuretic on hold initially Continue beta-naya (5) UTI (urinary tract infection): Qualifiers: Urinary tract infection type: site unspecified Hematuria presence: without hematuria Qualified Code(s): N39.0 - Urinary tract infection, site not specified Code(s): N39.0 - Urinary tract infection, site not specified Status: Acute Assessment and Plan: Pyuria on admission Culture with e coli Ceftriaxone day 3 (6) Anemia: Qualifiers: Anemia type: other cause Other causes of anemia: acute posthemorrhagic Qualified Code(s): D62 - Acute posthemorrhagic anemia Code(s): D64.9 - Anemia, unspecified Status: Chronic Assessment and Plan: Blood loss secondary to traumatic hip fracture. / hgb 8.9 f/u lab Subjective Date/time seen: 06/07/19 17:29 Interval history: Tolerated PT/OT. Sat in chair. Ate part of her breakfast and no lunch. No BM yet. Mild incisional pain. No pain elsewhere. No bleeding. Review of Systems Review of Systems: All systems reviewed & are unremarkable except as noted in HPI and below Exam Narrative: Exam Narrative: Pupils equal reactive light sclera anicteric Lungs clear CV regular rate rhythm no murmurs Abdomen is soft nontender Extremities without edema distal pulse 2 +and symmetrical left leg rotated laterally preop Neuro alert pleasant cooperative no focal deficits Objective Data Vital Signs Vital Signs: Vital Signs - 24 hr 06/06/19 18:18 06/06/19 18:25 06/06/19 22:00 Temperature 97.9 F 99.8 F H Pulse Rate 80 85 79 Respiratory Rate 16 18 Blood Pressure 150/75 H 144/64 H Pulse Oximetry 100 100 06/06/19 22:17 06/07/19 02:00 06/07/19 06:00 Temperature 98.8 F 99.0 F 102.2 F H Pulse Rate 80 98 Respiratory Rate 18 18 Blood Pressure 154/70 H 161/65 H Pulse Oximetry 98 98 06/07/19 06:48 06/07/19 08:25 06/07/19 08:26 Temperature 100.1 F H Pulse Rate 97 97 Respiratory Rate Blood Pressure Pulse Oximetry 06/07/19 09:34 Temperature Pulse Rate Respiratory Rate Blood Pressure Pulse Oximetry 95 Intake/Output Intake/Output: Intake & Output 06/04/19 06/05/19 06/06/19 06/07/19 23:59 23:59 23:59 23:59 Intake Total 50 800 2470 Output Total 2050 750 Balance 50 -1250 1720 Meds/Results Medications: Active Medications Generic Name Dose Route Start Last Admin Trade Name Freq PRN Reason Stop Dose Admin Amitriptyline HCl 25 mg 06/06/19 21:00 06/06/19 21:32
[2019-06-07] MEDS: OPTI-GEN TAB 1 TABLET PO (21:20)
[2019-06-07] MEDS: AMITRIPTYLINE HCL 25 MG TABLET PO (21:20)
[2019-06-07] MEDS: FERROUS GLUCONATE 324 MG TABLET PO (21:20)
[2019-06-07] MEDS: ATORVASTATIN 40 MG TABLET PO (21:20)
[2019-06-08] MEDS: SODIUM CHLORIDE 0.9% IV 1,000 ML 125 ML IV CONT ×2 (01:53→12:08)
[2019-06-08 06:00] VITALS: BP 151/62; PULSE 99; RESP 18; TEMP 37.1; O2SAT 94
[2019-06-08 06:12] LABS: Mean Corpuscular HGB Conc 33.3 g/dl (32-36); Mean Corpuscular Hemoglobin 30.1 pg (26-34); Mean Corpuscular Volume 90.2 fl (80-100); Mean Platelet Volume 11.9 fl (7.4-10.4); Platelet Count Result 141 k/mm3 (150-375); Red Blood Count 2.66 M/mm3 (4.2-5.4); Red Cell Distribution Width 14.1 % (11.5-14.5); White Blood Count 9.1 K/mm3 (4.5-10.0)
[2019-06-08] MEDS: LEVOTHYROXINE SODIUM 88 MCG TABLET PO (06:33)
[2019-06-08 06:38] LABS: Blood Urea Nitrogen 13 mg/dL (7-17); Calcium 7.8 mg/dL (8.4-10.2); Carbon Dioxide 29 mmol/L (22-30); Chloride 100 mmol/L (98-107); Estimated CRCL calculation 44 ml/min; Estimated Glomerular Filt Rate 60; Glucose 106 mg/dL (65-105); Potassium 3.2 mmol/L (3.4-5.0); Sodium 132 mmol/L (137-145)
[2019-06-08] MEDS: DOCUSATE SODIUM 100 MG CAPSULE PO ×2 (09:11→16:55)
[2019-06-08] MEDS: PANTOPRAZOLE 40 MG TABLET PO ×2 (09:11→18:06)
[2019-06-08] MEDS: METOPROLOL TARTRATE 25 MG TABLET PO ×2 (09:11→16:58)
[2019-06-08] MEDS: FLECAINIDE ACETATE 100 MG TABLET PO ×2 (09:12→16:58)
[2019-06-08] MEDS: BISACODYL 10 MG SUPPOSITORY RECTAL (12:08)
[2019-06-08] MEDS: POTASSIUM CHLORIDE 20 MEQ TABLET 40 MEQ PO ×2 (12:59→16:10)
--- NOTE | 2019-06-08 13:12 | PM.PNORT ---
Progress Note: A&P Additional Plan Patient is awaiting transfer to rehab for placement. Patient with postoperative anemia hemoglobin is 8.0 today we will monitor and follow this. Patient is otherwise asymptomatic no weakness or dizziness. Patient okay to be transferred to rehab at any time when medically cleared and a bed is available. We will see her back at the office 2 weeks postop for staple removal and wound recheck. The patient voiced understanding agrees above plan. Time Spent With Patient Time with patient: less than 15 minutes Subjective Subjective Date/Time Seen: 06/08/19 13:12 Patient looks good sitting up in a chair today has no significant complaints other than constipation and is awaiting the results of a duplex suppository. Has some postoperative anemia but is asymptomatic, going slowly in therapy was able to walk about 8 ft today in the room with a walker. She is up sitting in the chair now comfortable in no acute distress. Patient is awaiting discharge to rehab. Exam Narrative: Exam Narrative: Vital signs stable afebrile. Neurovascularly she is intact. Left thigh shows [id number] swelling compartments are soft, wound is clean and dry. Calves are benign. Slow to ambulate therapy today. Sitting in a chair and comfortable. Abdomen is benign but reports some constipation. Objective Data Vital Signs Vital Signs: Vital Signs - 24 hr 06/07/19 14:00 06/07/19 18:21 06/07/19 23:40 Temperature 36.8 C 36.8 C 36.9 C Pulse Rate 97 97 84 Respiratory Rate 16 16 20 Blood Pressure 151/67 H 151/67 H 138/53 L Pulse Oximetry 93 93 93 06/08/19 06:00 Temperature 37.1 C Pulse Rate 99 Respiratory Rate 18 Blood Pressure 151/62 H Pulse Oximetry 94 Intake/Output Intake/Output: Intake & Output 06/05/19 06/06/19 06/07/19 06/08/19 23:59 23:59 23:59 23:59 Intake Total 50 800 4340 1220 Output Total 2049 1999 999 Balance 50 -1250 2340 220 Meds/Results Medications: Active Medications Generic Name Dose Route Start Last Admin Trade Name Freq PRN Reason Stop Dose Admin Amitriptyline HCl 25 mg 06/06/19 21:00 06/07/19 21:20 Elavil PO 25 mg HS NICOL Administration Atorvastatin Calcium 40 mg 06/06/19 21:00 06/07/19 21:20 Lipitor PO 40 mg HS [facility] Administration Docusate Sodium 100 mg 06/06/19 17:00 06/08/19 09:11 Colace Capsule PO 100 mg BID NICOL Administration Ferrous Gluconate 324 mg 06/06/19 21:00 06/07/19 21:20 Ferrous Gluconate PO 324 mg HS NICOL Administration Flecainide Acetate 100 mg 06/06/19 09:00 06/08/19 09:12 Tambocor PO 100 mg BID NICOL Administration Ceftriaxone Sodium/Dextrose 1 gm in 50 mls @ 100 mls/hr 06/06/19 21:00 06/07/19 22:35 Rocephin 1 Gm/D5w 50 Ml IVPB Infused Q24H NICOL Infusion Sodium Chloride 1,000 mls @ 125 mls/hr 06/06/19 20:29 06/08/19 12:08 Normal Saline Iv IV CONT 125 mls/hr .Q8H NICOL Administration Levothyroxine Sodium 88 mcg 06/06/19 06:30 06/08/19 06:33 Synthroid PO 88 mcg DAILY@0630 [facility] Administration Magnesium Hydroxide 30 ml 06/06/19 16:29 06/07/19 15:48 Milk Of Magnesia PO 30 ml BID PRN Administration Constipation Metoprolol Tartrate 25 mg 06/06/19 09:00 06/08/19 09:11 Lopressor PO 25 mg BID NICOL Administration Morphine Sulfate 2 mg 06/06/19 16:29 06/07/19 01:52 Morphine Sulfate Inj IV PUSH 2 mg Q3H PRN Administration Pain Rated 7-10 Multivitamins/Minerals 1 tablet 06/06/19 21:00 06/07/19 21:20 Ocuvite PO 1 tablet HS [facility] Administration Naloxone HCl 0.1 mg 06/06/19 16:29 Narcan IV PUSH Q2M PRN Opiate Reversal Ondansetron HCl 4 mg 06/06/19 17:58 Zofran Inj IV PUSH Q4H PRN Nausea And Vomiting Oxycodone HCl 5 mg 06/06/19 20:30 06/07/19 13:41 Roxicodone Ir Tablet PO 5 mg Q4H PRN Administration Pain Rated 7-10 Pantoprazole Sodium 40 mg 06/06/19 09:00 06/08/19 09:11 Protonix
[2019-06-08 14:00] VITALS: BP 107/50; PULSE 90; RESP 16; TEMP 36.7; O2SAT 96
--- NOTE | 2019-06-08 14:27 | PCCCNOTE ---
On 06/08/19, the student, [Sharri Sandy ], provided care and completed [facility] documentation on this patient. I have reviewed the student's documentation and agree with the findings.
--- NOTE | 2019-06-08 15:10 | PM.IMPN ---
Progress Note: A&P Assessment and Plan (1) Closed displaced midcervical fracture of femur: Qualifiers: Encounter type: subsequent encounter Fracture healing: with routine healing Laterality: left Qualified Code(s): S72.032D - Displaced midcervical fracture of left femur, subsequent encounter for closed fracture with routine healing Code(s): S72.033A - Displaced midcervical fracture of unspecified femur, initial encounter for closed fracture Status: Acute Assessment and Plan: Status post left total hip 3/2 Doing well with therapy (2) Atrial fibrillation: Qualifiers: Atrial fibrillation type: paroxysmal Qualified Code(s): I48.0 - Paroxysmal atrial fibrillation Code(s): I48.91 - Unspecified atrial fibrillation Status: Chronic Assessment and Plan: Paroxysmal. Sinus rhythm at present time will continue flecainide and beta-naya 3/4 Resume apixaban (3) Diet-controlled diabetes mellitus: Code(s): E11.9 - Type 2 diabetes mellitus without complications Status: Chronic Assessment and Plan: Follow-up with daily blood sugars (4) Hypertension: Qualifiers: Hypertension type: essential hypertension Qualified Code(s): I10 - Essential (primary) hypertension Code(s): I10 - Essential (primary) hypertension Status: Chronic Assessment and Plan: Blood pressure adequate with KAILEY-inhibitor and diuretic on hold initially Continue beta-naya (5) UTI (urinary tract infection): Qualifiers: Hematuria presence: without hematuria Urinary tract infection type: site unspecified Qualified Code(s): N39.0 - Urinary tract infection, site not specified Code(s): N39.0 - Urinary tract infection, site not specified Status: Acute Assessment and Plan: Culture with sensitive e coli Ceftriaxone day 4 (6) Anemia: Qualifiers: Anemia type: other cause Other causes of anemia: acute posthemorrhagic Qualified Code(s): D62 - Acute posthemorrhagic anemia Code(s): D64.9 - Anemia, unspecified Status: Chronic Assessment and Plan: Blood loss secondary to traumatic hip fracture. 06/06 hgb 8.9 / hgb 8.0 f/u lab Subjective Date/time seen: 06/08/19 15:10 Interval history: Tolerated PT/OT. Sat in chair. Ate better. BM this AM. Mild incisional pain. No pain elsewhere. No bleeding. Review of Systems Review of Systems: All systems reviewed & are unremarkable except as noted in HPI and below Exam Narrative: Exam Narrative: Pupils equal reactive light sclera anicteric Lungs clear CV regular rate rhythm no murmurs Abdomen is soft nontender Extremities without edema distal pulse 2 +and symmetrical left leg rotated laterally preop Neuro alert pleasant cooperative no focal deficits Objective Data Vital Signs Vital Signs: Vital Signs - 24 hr 06/07/19 18:21 06/07/19 23:40 06/08/19 06:00 Temperature 98.3 F 98.4 F 98.7 F Pulse Rate 97 84 99 Respiratory Rate 16 20 18 Blood Pressure 151/67 H 138/53 L 151/62 H Pulse Oximetry 93 93 94 Intake/Output Intake/Output: Intake & Output 06/05/19 06/06/19 06/07/19 06/08/19 23:59 23:59 23:59 23:59 Intake Total 50 800 4340 1220 Output Total 2050 2000 1000 Balance 50 -1250 2340 220 Meds/Results Medications: Active Medications Generic Name Dose Route Start Last Admin Trade Name Henri PRN Reason Stop Dose Admin Amitriptyline HCl 25 mg 06/06/19 21:00 06/07/19 21:20 Elavil PO 25 mg HS NICOL Administration Atorvastatin Calcium 40 mg 06/06/19 21:00 06/07/19 21:20 Lipitor PO 40 mg HS NICOL Administration Docusate Sodium 100 mg 06/06/19 17:00 06/08/19 09:11 Colace Capsule PO 100 mg BID NICOL Administration Ferrous Gluconate 324 mg 06/06/19 21:00 06/07/19 21:20 Ferrous Gluconate PO 324 mg HS NICOL Administration Flecainide Acetate 100 mg 06/06/19 09:00 06/08/19 09:12 Tambocor PO 100 mg
[2019-06-08 16:58] VITALS: PULSE 100
[2019-06-08] MEDS: APIXABAN 5 MG TABLET PO (18:05)
--- NOTE | 2019-06-08 18:52 | PC.NURSE ---
Pt urinated this afternoon but no output this evening. [employer] bladder scanned pt and got 146-150 cc.
[2019-06-08 22:00] VITALS: BP 124/66; PULSE 89; RESP 16; TEMP 37.2; O2SAT 94
[2019-06-08] MEDS: FERROUS GLUCONATE 324 MG TABLET PO (22:22)
[2019-06-08] MEDS: ATORVASTATIN 40 MG TABLET PO (22:22)
[2019-06-08] MEDS: AMITRIPTYLINE HCL 25 MG TABLET PO (22:22)
[2019-06-08] MEDS: OPTI-GEN TAB 1 TABLET PO (22:22)
[2019-06-09 06:00] VITALS: BP 116/64; PULSE 60; RESP 18; TEMP 36.7; O2SAT 98
[2019-06-09] MEDS: LEVOTHYROXINE SODIUM 88 MCG TABLET PO (06:35)
[2019-06-09 06:55] LABS: Hematocrit 22.5 % (37.0-47.0); Hemoglobin 7.5 g/dL (12.0-15.0); Mean Corpuscular HGB Conc 33.3 g/dl (32-36); Mean Corpuscular Hemoglobin 30.6 pg (26-34); Mean Corpuscular Volume 91.8 fl (80-100); Mean Platelet Volume 11.9 fl (7.4-10.4); Platelet Count Result 161 k/mm3 (150-375); Red Blood Count 2.45 M/mm3 (4.2-5.4); Red Cell Distribution Width 14.3 % (11.5-14.5)
[2019-06-09 07:00] LABS: Blood Urea Nitrogen 15 mg/dL (7-17); Calcium 7.6 mg/dL (8.4-10.2); Carbon Dioxide 27 mmol/L (22-30); Chloride 99 mmol/L (98-107); Estimated CRCL calculation 36 ml/min; Estimated Glomerular Filt Rate 48; Glucose 99 mg/dL (65-105); Potassium 3.4 mmol/L (3.4-5.0); Sodium 135 mmol/L (137-145)
[2019-06-09] MEDS: POTASSIUM CHLORIDE 20 MEQ TABLET 40 MEQ PO (08:20)
[2019-06-09 08:22] VITALS: PULSE 60
[2019-06-09] MEDS: PANTOPRAZOLE 40 MG TABLET PO ×2 (08:22→17:44)
[2019-06-09] MEDS: METOPROLOL TARTRATE 25 MG TABLET PO ×2 (08:22→17:45)
[2019-06-09] MEDS: FLECAINIDE ACETATE 100 MG TABLET PO ×2 (08:22→17:45)
[2019-06-09] MEDS: DOCUSATE SODIUM 100 MG CAPSULE PO ×2 (08:23→17:44)
[2019-06-09] MEDS: APIXABAN 5 MG TABLET PO ×2 (08:24→17:44)
[2019-06-09 11:47] LABS: Hematocrit 22.7 % (37.0-47.0); Hemoglobin 7.4 g/dL (12.0-15.0)
--- NOTE | 2019-06-09 12:25 | PM.IMPN ---
Progress Note: A&P Assessment and Plan (1) Closed displaced midcervical fracture of femur: Qualifiers: Encounter type: subsequent encounter Fracture healing: with routine healing Laterality: left Qualified Code(s): S72.032D - Displaced midcervical fracture of left femur, subsequent encounter for closed fracture with routine healing Code(s): S72.033A - Displaced midcervical fracture of unspecified femur, initial encounter for closed fracture Status: Acute Assessment and Plan: Status post left total hip 3/ Doing well with therapy (2) Atrial fibrillation: Qualifiers: Atrial fibrillation type: paroxysmal Qualified Code(s): I48.0 - Paroxysmal atrial fibrillation Code(s): I48.91 - Unspecified atrial fibrillation Status: Chronic Assessment and Plan: Paroxysmal. Sinus rhythm at present time will continue flecainide and beta-naya 3/4 Resumed apixaban (3) Diet-controlled diabetes mellitus: Code(s): E11.9 - Type 2 diabetes mellitus without complications Status: Chronic Assessment and Plan: Follow-up with daily blood sugars (4) Hypertension: Qualifiers: Hypertension type: essential hypertension Qualified Code(s): I10 - Essential (primary) hypertension Code(s): I10 - Essential (primary) hypertension Status: Chronic Assessment and Plan: Blood pressure adequate with KAILEY-inhibitor and diuretic on hold initially Continue beta-naya (5) UTI (urinary tract infection): Qualifiers: Hematuria presence: without hematuria Urinary tract infection type: site unspecified Qualified Code(s): N39.0 - Urinary tract infection, site not specified Code(s): N39.0 - Urinary tract infection, site not specified Status: Acute Assessment and Plan: Culture with sensitive e coli Ceftriaxone day 4 (6) Anemia: Qualifiers: Anemia type: other cause Other causes of anemia: acute posthemorrhagic Qualified Code(s): D62 - Acute posthemorrhagic anemia Code(s): D64.9 - Anemia, unspecified Status: Chronic Assessment and Plan: Blood loss secondary to traumatic hip fracture. 06/06 hgb 8.9 / hgb 8.0 06/08 7.5, 7.4, IV iron sucrose 300mg x 1 f/u lab (7) Acute urinary retention: Code(s): R33.8 - Other retention of urine Status: Acute Assessment and Plan: 3/5 Likely due to narcotics, bedrest 3/5 Bladder scan, straight cath prn Subjective Date/time seen: 06/09/19 12:25 Interval history: Difficulty urinating. Some discomfort. Pain in left hip as well. Mild to moderate. Worse with noted. Tolerating diet. Bowels moved. No chest pain shortness of breath. No fevers or chills. Review of Systems Review of Systems: All systems reviewed & are unremarkable except as noted in HPI and below Exam Narrative: Exam Narrative: Pupils equal reactive light sclera anicteric Lungs clear CV regular rate rhythm no murmurs Abdomen is soft with mild tenderness over distended bladder Extremities without edema distal pulse 2 +and symmetrical Neuro alert pleasant cooperative no focal deficits Objective Data Vital Signs Vital Signs: Vital Signs - 24 hr 06/08/19 14:00 06/08/19 16:58 06/08/19 22:00 Temperature 98.1 F 99 F Pulse Rate 90 100 89 Respiratory Rate 16 16 Blood Pressure 107/50 L 124/66 Pulse Oximetry 96 94 06/09/19 06:00 06/09/19 08:22 Temperature 98.1 F Pulse Rate 60 60 Respiratory Rate 18 Blood Pressure 116/64 Pulse Oximetry 98 Intake/Output Intake/Output: Intake & Output 06/06/19 06/07/19 06/08/19 06/09/19 23:59 23:59 23:59 23:59 Intake Total 800 4340 1980 720 Output Total 2050 2000 1000 400 Balance -1250 2340 980 320 Meds/Results Medications: Active Medications Generic Name Dose Route Start Last Admin Trade Name Freq PRN Reason Stop Dose Admin Amitriptyline HCl 25 mg 06/06/19 21:00 06/08/19 22:22 Elavil PO 25 m
--- NOTE | 2019-06-09 13:44 | PC.NURSE ---
Bladder scan done pts urine volume less than 100mls at this time.
[2019-06-09 14:00] VITALS: BP 117/61; PULSE 89; RESP 17; TEMP 36.9; O2SAT 95
[2019-06-09 17:45] VITALS: PULSE 89
[2019-06-09] MEDS: FERROUS GLUCONATE 324 MG TABLET PO (20:50)
[2019-06-09] MEDS: ATORVASTATIN 40 MG TABLET PO (20:50)
[2019-06-09] MEDS: AMITRIPTYLINE HCL 25 MG TABLET PO (20:50)
[2019-06-09] MEDS: OPTI-GEN TAB 1 TABLET PO (20:50)
[2019-06-09 22:00] VITALS: BP 128/45; PULSE 89; RESP 18; TEMP 37.3; O2SAT 98
[2019-06-10] VITALS (14 sets, daily range): BP systolic 139–182; BP diastolic 55–80; PULSE 77–117; RESP 16–20; TEMP 36.6–37.7; O2SAT 92–100
[2019-06-10] MEDS: LEVOTHYROXINE SODIUM 88 MCG TABLET PO (06:04)
[2019-06-10 08:07] LABS: Hematocrit 21.6 % (37.0-47.0); Hemoglobin 7.1 g/dL (12.0-15.0); Mean Corpuscular HGB Conc 32.9 g/dl (32-36); Mean Corpuscular Hemoglobin 30.2 pg (26-34); Mean Corpuscular Volume 91.9 fl (80-100); Mean Platelet Volume 11.3 fl (7.4-10.4); Platelet Count Result 204 k/mm3 (150-375); Red Blood Count 2.35 M/mm3 (4.2-5.4); Red Cell Distribution Width 14.5 % (11.5-14.5); White Blood Count 7.2 K/mm3 (4.5-10.0)
[2019-06-10] MEDS: DOCUSATE SODIUM 100 MG CAPSULE PO ×2 (08:20→18:35)
[2019-06-10] MEDS: METOPROLOL TARTRATE 25 MG TABLET PO ×2 (08:20→18:35)
[2019-06-10] MEDS: PANTOPRAZOLE 40 MG TABLET PO ×2 (08:20→18:34)
[2019-06-10] MEDS: FLECAINIDE ACETATE 100 MG TABLET PO ×2 (08:20→18:34)
[2019-06-10] MEDS: APIXABAN 5 MG TABLET PO ×2 (08:20→18:36)
[2019-06-10 08:24] LABS: Blood Urea Nitrogen 16 mg/dL (7-17); Calcium 7.9 mg/dL (8.4-10.2); Carbon Dioxide 29 mmol/L (22-30); Chloride 105 mmol/L (98-107); Estimated CRCL calculation 44 ml/min; Estimated Glomerular Filt Rate 60; Glucose 102 mg/dL (65-105); Potassium 3.5 mmol/L (3.4-5.0); Sodium 135 mmol/L (137-145)
--- NOTE | 2019-06-10 08:49 | PC.NURSE ---
Notified phlebotomy of lab orders on this patient for type and screen @1498.
--- NOTE | 2019-06-10 13:39 | PM.DS ---
DS: Diagnosis Admitting Diagnosis Admitting Diagnosis: Displaced midcervical fracture of unspecified femur, initial encounter for closed fracture Discharge Diagnosis (1) Closed displaced midcervical fracture of femur: Qualifiers: Encounter type: subsequent encounter Fracture healing: with routine healing Laterality: left Qualified Code(s): S72.032D - Displaced midcervical fracture of left femur, subsequent encounter for closed fracture with routine healing Code(s): S72.033A - Displaced midcervical fracture of unspecified femur, initial encounter for closed fracture Status: Acute Assessment and Plan: Status post left total hip 3/2 Doing well with therapy TR denied. Home with (2) Atrial fibrillation: Qualifiers: Atrial fibrillation type: paroxysmal Qualified Code(s): I48.0 - Paroxysmal atrial fibrillation Code(s): I48.91 - Unspecified atrial fibrillation Status: Chronic Assessment and Plan: Paroxysmal. Sinus rhythm at present time will continue flecainide and beta-naya 3/4 Resumed apixaban (3) Diet-controlled diabetes mellitus: Code(s): E11.9 - Type 2 diabetes mellitus without complications Status: Chronic Assessment and Plan: Follow-up with daily blood sugars (4) Hypertension: Qualifiers: Hypertension type: essential hypertension Qualified Code(s): I10 - Essential (primary) hypertension Code(s): I10 - Essential (primary) hypertension Status: Chronic Assessment and Plan: Blood pressure adequate with KAILEY-inhibitor and diuretic on hold initially Continue beta-naya (5) UTI (urinary tract infection): Qualifiers: Hematuria presence: without hematuria Urinary tract infection type: site unspecified Qualified Code(s): N39.0 - Urinary tract infection, site not specified Code(s): N39.0 - Urinary tract infection, site not specified Status: Acute Assessment and Plan: Culture with sensitive e coli Ceftriaxone day 5, should be adequate (6) Anemia: Qualifiers: Anemia type: other cause Other causes of anemia: acute posthemorrhagic Qualified Code(s): D62 - Acute posthemorrhagic anemia Code(s): D64.9 - Anemia, unspecified Status: Chronic Assessment and Plan: Blood loss secondary to traumatic hip fracture. 3/3 hgb 8.9 3/4 hgb 8.0 3/5 7.5, 7.4, IV iron sucrose 300mg x 1 3/6 hgb 7.1, 1 U PRBC prior to discharge F/u H/H as outpatient (7) Acute urinary retention: Code(s): R33.8 - Other retention of urine Status: Acute Assessment and Plan: 3/ Likely due to narcotics, bedrest / Bladder scan, straight cath prn / urinating better DS: Summary Hospital Course Reason for hospitalization: Left hip fracture Hospital Course: June 05 at fall from standing height at home resulting left hip fracture. She underwent a left bipolar arthroplasty without incident. She did have slight decrease in H&H postop. Received 1 unit packed red cells on day of discharge. Tolerated therapy well. Tolerated diet well. Received ceftriaxone for 5 days for sensitive E coli urinary tract infection Time Spent with Patient Time attestation: Total time spent providing and/or coordinating discharge services:37 min Exam Narrative: Exam Narrative: Pupils equal reactive light sclera anicteric Lungs clear CV regular rate rhythm no murmurs Abdomen is soft with mild tenderness over distended bladder Extremities without edema distal pulse 2 +and symmetrical Neuro alert pleasant cooperative no focal deficits DS: Data Data Completed and Pending Labs on day of discharge: Labs from last 24 hours 06/10/19 06/10/19 06/10/19 09:48 07:42 07:42 WBC 7.2 RBC 2.35 L Hgb 7.1 L Hct 21.6 L MCV 91.9 MCH 30.2 MCHC 32.9 RDW 14.5 Plt Count 204 MPV 11.3 H Sodium 135 L Potassium 3.5 Chloride 105 Carbon Dioxide 29 BU
[2019-06-10] MEDS: SODIUM CHLORIDE 0.9% IV 250 ML 30 ML IV CONT (14:52)
--- NOTE | 2019-06-10 16:22 | PCPTNOTE ---
Pt did not ambulate this afternoon due to patient receiving blood. IV site for blood is in (L) wrist and occludes when wrist is bent.
[2019-06-10] MEDS: AMITRIPTYLINE HCL 25 MG TABLET PO (20:20)
[2019-06-10] MEDS: ATORVASTATIN 40 MG TABLET PO (20:20)
[2019-06-10] MEDS: FUROSEMIDE INJ 40 MG/4 ML VIAL 10 MG IV PUSH (20:20)
[2019-06-10] MEDS: OPTI-GEN TAB 1 TABLET PO (20:22)
[2019-06-10] MEDS: FERROUS GLUCONATE 324 MG TABLET PO (20:43)
[2019-06-11] MEDS: LEVOTHYROXINE SODIUM 88 MCG TABLET PO (05:57)
[2019-06-11 06:00] VITALS: BP 139/63; PULSE 87; RESP 16; TEMP 37.1; O2SAT 95
--- NOTE | 2019-06-11 08:01 | PM.IMPN ---
Progress Note: A&P Assessment and Plan (1) Closed displaced midcervical fracture of femur: Qualifiers: Encounter type: subsequent encounter Fracture healing: with routine healing Laterality: left Qualified Code(s): S72.032D - Displaced midcervical fracture of left femur, subsequent encounter for closed fracture with routine healing Code(s): S72.033A - Displaced midcervical fracture of unspecified femur, initial encounter for closed fracture Status: Acute Assessment and Plan: Status post left total hip 3/2 Doing well with therapy TRC denied. Home with after transfusion (2) Atrial fibrillation: Qualifiers: Atrial fibrillation type: paroxysmal Qualified Code(s): I48.0 - Paroxysmal atrial fibrillation Code(s): I48.91 - Unspecified atrial fibrillation Status: Chronic Assessment and Plan: Paroxysmal. Sinus rhythm at present time will continue flecainide and beta-naya 3/4 Resumed apixaban (3) Diet-controlled diabetes mellitus: Code(s): E11.9 - Type 2 diabetes mellitus without complications Status: Chronic Assessment and Plan: Follow-up with daily blood sugars (4) Hypertension: Qualifiers: Hypertension type: essential hypertension Qualified Code(s): I10 - Essential (primary) hypertension Code(s): I10 - Essential (primary) hypertension Status: Chronic Assessment and Plan: Blood pressure adequate with KAILEY-inhibitor and diuretic on hold initially Continue beta-naya (5) UTI (urinary tract infection): Qualifiers: Hematuria presence: without hematuria Urinary tract infection type: site unspecified Qualified Code(s): N39.0 - Urinary tract infection, site not specified Code(s): N39.0 - Urinary tract infection, site not specified Status: Acute Assessment and Plan: Culture with sensitive e coli Ceftriaxone day 5, should be adequate (6) Anemia: Qualifiers: Anemia type: other cause Other causes of anemia: acute posthemorrhagic Qualified Code(s): D62 - Acute posthemorrhagic anemia Code(s): D64.9 - Anemia, unspecified Status: Chronic Assessment and Plan: Blood loss secondary to traumatic hip fracture. 3/3 hgb 8.9 3/4 hgb 8.0 3/5 7.5, 7.4, IV iron sucrose 300mg x 1 3/6 hgb 7.1, 1 U PRBC prior to discharge F/u H/H as outpatient (7) Acute urinary retention: Code(s): R33.8 - Other retention of urine Status: Acute Assessment and Plan: 3/5 Likely due to narcotics, bedrest 3/5 Bladder scan, straight cath prn 3/6 urinating better Subjective Date/time seen: 06/10/19 13:15 Interval history: Tired and achy. Tolerated diet. Did better with PT/OT today. Denied TRC and refuses SNF, so wants to go home with home health. However, Dr. Wall would first like to give her 1 U PRBC. Review of Systems Review of Systems: All systems reviewed & are unremarkable except as noted in HPI and below Exam Narrative: Exam Narrative: Pupils equal reactive light sclera anicteric Lungs clear CV regular rate rhythm no murmurs Abdomen is soft with mild tenderness over distended bladder Extremities without edema distal pulse 2 +and symmetrical Neuro alert pleasant cooperative no focal deficits Objective Data Vital Signs Vital Signs: Vital Signs - 24 hr 06/10/19 08:13 06/10/19 08:20 06/10/19 14:00 Temperature 98.3 F Pulse Rate 90 90 95 Respiratory Rate 18 16 Blood Pressure 144/56 H 153/73 H Pulse Oximetry 94 99 06/10/19 14:53 06/10/19 15:11 06/10/19 16:15 Temperature 98.0 F 98.2 F 98.1 F Pulse Rate 100 97 99 Respiratory Rate 18 18 16 Blood Pressure 139/55 L 150/62 H 168/67 H Pulse Oximetry 100 99 100 06/10/19 17:15 06/10/19 18:15 06/10/19 18:34 Temperature 97.8 F 98.3 F Pulse Rate 101 H 108 H 108 H Respiratory Rate 16 16 Blood Pressure 154/63 H 156/74 H Pulse Oximetry 97 95 06/10/19 18:35 06/10/19 20:10
[2019-06-11 08:18] VITALS: BP 166/70; PULSE 91; RESP 18; O2SAT 94
[2019-06-11 08:26] VITALS: PULSE 91
[2019-06-11] MEDS: DOCUSATE SODIUM 100 MG CAPSULE PO (08:26)
[2019-06-11] MEDS: FLECAINIDE ACETATE 100 MG TABLET PO (08:26)
[2019-06-11] MEDS: APIXABAN 5 MG TABLET PO (08:26)
[2019-06-11] MEDS: METOPROLOL TARTRATE 25 MG TABLET PO (08:26)
[2019-06-11] MEDS: PANTOPRAZOLE 40 MG TABLET PO (08:28)
[2019-06-11 08:38] LABS: Hematocrit 24.4 % (37.0-47.0); Hemoglobin 8.3 g/dL (12.0-15.0)
[2019-06-11 08:55] LABS: Blood Urea Nitrogen 11 mg/dL (7-17); Calcium 8.2 mg/dL (8.4-10.2); Carbon Dioxide 28 mmol/L (22-30); Chloride 103 mmol/L (98-107); Estimated CRCL calculation 49 ml/min; Estimated Glomerular Filt Rate > 60; Glucose 99 mg/dL (65-105); Potassium 3.4 mmol/L (3.4-5.0); Sodium 134 mmol/L (137-145)
--- NOTE | 2019-06-11 13:18 | PC.NURSE ---
Patient left via wheel chair and POV with home health. Patient IV line discontinued, dressing supplies sent with patient, the daughter requested that she change the dressing at home since her mother was going to have a bath at home. Discharge papers reviewed and patient verbalized understanding, printed prescription sent with patient.
== END 2019-06-11 12:05 | disposition home health service (06) | DRG 470 ==
LOC: ANHED 21:11 → ANH3MEDSUR 21:25
PROVIDERS: Orthopaedic Surgery; Admitting Provider Family Medicine; Emergency Provider Emergency Medicine; PCP Family Medicine; Visit Provider Internal Medicine
PROC: 0SRS01Z Replacement of Left Hip Joint, Femoral Surface with Metal Synthetic Substitute, Open Approach (ICD-10-PCS; CPT 27125; principal; 2019-06-06 13:00)
DX: S72.032A Displaced midcervical fracture of left femur, initial encounter for closed fracture (principal); N39.0 Urinary tract infection, site not specified; D62 Acute posthemorrhagic anemia; N17.9 Acute kidney failure, unspecified; I48.0 Paroxysmal atrial fibrillation; B96.20 Unspecified Escherichia coli [E. coli] as the cause of diseases classified elsewhere; E11.22 Type 2 diabetes mellitus with diabetic chronic kidney disease; I12.9 Hypertensive chronic kidney disease with stage 1 through stage 4 chronic kidney disease, or unspecified chronic kidney disease; N18.3 Chronic kidney disease, stage 3 (moderate); R33.8 Other retention of urine; T40.605A Adverse effect of unspecified narcotics, initial encounter; W01.198A Fall on same level from slipping, tripping and stumbling with subsequent striking against other object, initial encounter; E78.5 Hyperlipidemia, unspecified; F41.9 Anxiety disorder, unspecified; D64.9 Anemia, unspecified; M19.90 Unspecified osteoarthritis, unspecified site; K21.9 Gastro-esophageal reflux disease without esophagitis; E03.9 Hypothyroidism, unspecified; Z96.652 Presence of left artificial knee joint; Z79.01 Long term (current) use of anticoagulants; Z98.42 Cataract extraction status, left eye; Z98.41 Cataract extraction status, right eye; Z90.49 Acquired absence of other specified parts of digestive tract; Z90.710 Acquired absence of both cervix and uterus
CPT/HCPCS: 36415; 36430; 70450; 71045; 72125; 73502; 73521; 73564; 80048; 80053; 81001; 83880; 85014; 85018; 85025; 85027; 85610; 85730; 86850; 86900; 86901; 86923; 87077; 87086; 87088; 87186; 93005; 96365; 96375; 96376; 97110; 97116; 97162; 97165; 97530; 97535; 99285; A9270; C1776; G0378; J0171; J0360; J0690; J0696; J1100; J1170; J1756; J1940; J2270; J2405; J2704; J2710; J3010; J7030; J7050; J7120; P9016

== ENCOUNTER 2020-01-12 08:10 | Outpatient (CLI) | payer MEDICARE, SELFPAY ==
--- NOTE | ~2020-01-12 | MM_ITS ---
EXAMINATION: MM screening feliberto BI w rafal HISTORY: Screening TECHNIQUE: Craniocaudal and mediolateral oblique 3-D tomosynthesis images were obtained and synthetic 2-D images were generated. CAD analysis was submitted and interpreted. COMPARISON: Comparison to multiple prior studies sequentially, with oldest reviewed study dated 07/2012. BREAST PARENCHYMAL COMPOSITION: There are scattered areas of fibroglandular density. FINDINGS: There is no evidence of suspicious mass, calcification, or architectural distortion to sugg est malignancy in either breast. There has been no suspicious interval change. IMPRESSION: 1. No mammographic evidence of malignancy. 2. Recommend routine screening mammography in one year. BI-RADS Category 1: Negative Reviewed, dictated and finalized at location A.
== END 2020-01-12 08:11 | disposition home or self-care (01) ==
PROVIDERS: PCP Family Medicine; Visit Provider Family Medicine
DX: Z12.31 Encounter for screening mammogram for malignant neoplasm of breast (principal)
CPT/HCPCS: 77063; 77067

== ENCOUNTER 2020-03-09 10:55 | Observation (INO) | payer MEDICARE, SELFPAY ==
[2020-03-09] VITALS (8 sets, daily range): BP systolic 134–187; BP diastolic 63–88; PULSE 58–78; RESP 14–20; TEMP 36.4–37.2; O2SAT 98–100; BMI 25.7
--- NOTE | ~2020-03-09 | CT_ITS ---
EXAMINATION: CT chest abdomen pelvis wo con DATE: 03/09/2020 14:49 INDICATION: Vomiting. Diarrhea. Blood in stool. TECHNIQUE: Computed tomography (CT) of the chest, abdomen, and pelvis was performed without intraveno us contrast. Automated exposure control and iterative reconstruction technique were employed. The dos e-length product was 523.57 mGy-cm. COMPARISON: Chest CT 11/15/2016, CT abdomen and pelvis 03/25/2012 FINDINGS: CHEST CT: The lung volumes are small. There is septal thickening with groundglass opacities throughout the lung s with a peripheral predominance. No bronchiectasis or honeycombing. No pleural effusion. Cardiomegal y is noted. No pericardial effusion. The central pulmonary arteries are enlarged, consistent with pul monary arterial hypertension. There is thoracolumbar levoscoliosis and severe spondylosis. ABDOMEN/PELVIS CT: There is an 8 mm cyst in the liver. There are changes of cholecystectomy. The spleen, pancreas, and a drenal glands are normal. There is a 13 mm mass of right kidney upper pole measuring soft tissue atte nuation. There is a 6.7 cm cyst in left kidney. There is no urolithiasis. There are no dilated loops of bowel. There is wall thickening of descending colon. The appendix is not visualized. There are no pathologically enlarged lymph nodes. There is no free intraperitoneal fluid. There are bilateral ingu inal hernias containing fat. There is a left hip arthroplasty. There is severe lumbar spondylosis. IMPRESSION: 1. Wall thickening of descending colon, consistent with colitis. 2. Diffuse lung disease, likely chronic interstitial lung disease in a pattern of nonspecific interst itial pneumonia (NSIP). 3. 13 mm right kidney mass which may be a hemorrhagic cyst or solid neoplasm. Abdomen CT without and with contrast is recommended. Reviewed, dictated and finalized at location A. STARTER IMPRESSION: 1. Wall thickening of descending colon, consistent with colitis. 2. Diffuse lung disease, likely chronic interstitial lung disease in a pattern of nonspecific interstitial pneumonia (NSIP). 3. 13 mm right kidney mass which may be a hemorrhagic cyst or solid neoplasm. A bdomen CT without and with contrast is recommended.
--- NOTE | ~2020-03-09 | US_ITS ---
US renal BI 03/10/2020 10:34 Procedure: Realtime transabdominal ultrasound of the kidneys and bladder. Indication: Hemorrhagic cysts Comparison: CT dated 03/09/2020 Findings: At the upper pole of the right kidney there is a complex hypoechoic mass measuring 13 mm wi th internal septation and low-level internal echoes. There is a left renal cyst measuring 7.2 x 5.7 x 6 cm. No hydronephrosis or stone identified. The right kidney measures 9.6 cm and left kidney measur es 11.4 cm. Bladder within normal limits. Impression: 1: Complex hypoechoic right renal mass measuring 13 mm maximum dimension. This cannot be definitively characterized as a cyst. Further evaluation with contrast-enhanced CT or MRI is commended. Reviewed, dictated and finalized at location A. UGRAPH OPERATOR Impression: 1: Complex hypoechoic right renal mass measuring 13 mm maximum dimension. This cannot be definitively characterized as a cyst. Further evaluation with contras t-enhanced CT or MRI is commended.
--- NOTE | ~2020-03-09 | CT_ITS ---
EXAMINATION: CT brain wo con DATE: 03/12/2020 12:29 INDICATION: Headache. TECHNIQUE: Computed tomography (CT) of the head was performed without intravenous contrast. The mA wa s adjusted according to patient size. Iterative reconstruction technique was employed. The dose-lengt h product was 529.67 mGy-cm. COMPARISON: Chest CT 06/05/2019 FINDINGS: There is diffuse brain volume loss. There are scattered areas of low attenuation in the cer ebral white matter. There is no intracranial hemorrhage, acute infarction, or abnormal intracranial m ass lesion. The ventricles are normal in size. There is mucosal thickening in the paranasal sinuses. There are likely changes of ocular lens replacement surgeries. The mastoid air cells are normal. IMPRESSION: 1. Stable mild nonspecific cerebral white matter disease, which likely represents chronic small vesse l ischemic disease. Reviewed, dictated and finalized at location B. EGNATING HELPER IMPRESSION: 1. Stable mild nonspecific cerebral white matter disease, which likely represen ts chronic small vessel ischemic disease.
[2020-03-09 11:36] LABS: Basophils Percent Auto 0.4 % (0.2-1.2); Eosinophils Absolute Auto 0.2 K/mm3 (0-0.3); Eosinophils Percent Auto 1.6 % (0-4.4); Hematocrit 32.2 % (37.0-47.0); Immature Granulocyte Absolute 0.03 K/mm3 (0.00-0.031); Immature Granulocyte Percent A 0.3 % (0-0.5); Lymphocytes Absolute Auto 0.51 K/mm3 (0.9-3.2); Lymphocytes Percent Auto 4.9 % (18.3-44.2); Mean Corpuscular HGB Conc 34.2 g/dl (32-36); Mean Corpuscular Hemoglobin 31.9 pg (26-34); Mean Corpuscular Volume 93.3 fl (80-100); Mean Platelet Volume 11.5 fl (7.4-10.4); Monocytes Absolute Auto 0.7 K/mm3 (0.1-0.6); Monocytes Percent Auto 6.3 % (2.6-8.5); Neutrophils Absolute Auto 9.1 K/mm3 (1.3-6.7); Neutrophils Percent Auto 86.5 % (45.5-73.1); Platelet Count Result 198 k/mm3 (150-375); Red Blood Count 3.45 M/mm3 (4.2-5.4); White Blood Count 10.5 K/mm3 (4.5-10.0)
[2020-03-09 11:48] LABS: Alanine Aminotransferase 35 U/L (4-35); Albumin Level 3.7 g/dL (3.5-5.1); Alkaline Phosphatase 129 U/L (38-126); Anion Gap 7 mmol/L (8-16); Aspartate Amino Transferase 53 U/L (14-36); Bilirubin,Total 0.5 mg/dL (0.2-1.3); Blood Urea Nitrogen 46 mg/dL (7-17); Calcium 9.4 mg/dL (8.4-10.2); Carbon Dioxide 28 mmol/L (22-30); Chloride 102 mmol/L (98-107); Estimated CRCL calculation 16 ml/min; Estimated Glomerular Filt Rate 21; Glucose 106 mg/dL (65-105); Lipase 96 U/L (23-300); Potassium 4.3 mmol/L (3.4-5.0); Sodium 137 mmol/L (137-145)
--- NOTE | 2020-03-09 12:28 | ED.NAVMDI ---
HPI - Nausea/Vomiting/Diarrhea General Chief complaint: Nausea/Vomiting/Diarrhea Stated complaint: diarrhea, blood in stool, sent for Covid test Time Seen by Provider: 03/09/20 12:16 Source: patient Mode of arrival: ambulatory Limitations: no limitations History of Present Illness HPI Narrative: Patient is a 80-year-old female complaining of nausea vomiting diarrhea that started early this morning. Patient describes her vomitus as nonbilious nonbloody. Patient states that her diarrhea is loose watery with blood. Patient denies any abdominal pain, hematemesis, fever or chills. Patient denies any chest pain or shortness of breath Related Data Home Medications Medication Instructions Recorded Confirmed ferrous gluconate 324 mg (37.5 mg 324 mg PO HS 02/23/19 02/17/20 iron) tablet PreserVision AREDS 1 tablet PO HS 04/01/19 02/17/20 atorvastatin 40 mg PO HS 04/01/19 02/17/20 biotin 5 mg tablet 5 mg PO DAILY tablet 06/24/19 02/17/20 calcium citrate-ergocalciferol 2 tablet PO .qd tablet 06/24/19 02/17/20 (vitamin D2) 315 mg-200 unit tablet vitamin B complex 1 tablet PO DAILY 06/24/19 02/17/20 diclofenac sodium 50 mg 50 mg PO DAILY 08/22/19 02/17/20 tablet,delayed release Allergies Allergy/AdvReac Type Severity Reaction Status Date / Time acetaminophen [From Tylenol] Allergy Severe Swelling Verified 03/09/20 12:17 ibuprofen Allergy Severe Swelling Verified 03/09/20 12:17 of Lip/Tongue/Throat naproxen [From Aleve] Allergy Severe Swelling Verified 03/09/20 12:17 of Lip/Tongue/Throat strawberry Allergy Severe Swelling Verified 03/09/20 12:17 of Lip/Tongue/Throat adhesive Allergy Mild Rash Verified 03/09/20 12:17 latex Allergy Mild Rash Verified 03/09/20 12:17 influenza virus vaccine tv AdvReac Severe very sick Verified 03/09/20 12:17 2012-(18-49 yrs),rcmb with fever [From Flublok] and myalgia Review of Systems Review of Systems: All systems reviewed & are unremarkable except as noted in HPI and below Constitutional: Constitutional: Denies body ache(s), Denies chills, Denies excessive sweating, Denies fatigue, Denies fever(s), Denies headache(s), Denies lethargy, Denies malaise, Denies weakness and Denies weight loss Eyes: Eyes: Denies blurry vision, Denies change in vision and Denies loss of vision ENT: Denies dizziness, Denies ear discharge, Denies headache(s), Denies lip swelling, Denies epistaxis, Denies nasal congestion, Denies neck pain, Denies throat swelling and Denies tongue swelling Cardiovascular: Cardiovascular: Denies chest pain, Denies chest pain at rest, Denies chest pain with activity, Denies diaphoresis, Denies rapid heart rate, Denies edema, Denies irregular heart rhythm, Denies lightheadedness, Denies palpitations, Denies dyspnea and Denies dyspnea on exertion Respiratory: Respiratory: Denies chest congestion, Denies cough, Denies hemoptysis, Denies dyspnea and Denies dyspnea on exertion Gastrointestinal: Gastrointestinal: Denies abdominal pain and Denies hematemesis Musculoskeletal: Musculoskeletal: Denies abnormal gait, Denies deformity, Denies joint swelling, Denies limited range of motion, Denies neck pain and Denies numbness Neurologic: Denies Abnormal speech present, Denies abnormal gait, Denies confusion, Denies dizziness, Denies headache(s), Denies focal weakness, Denies loss of vision, Denies numbness, Denies Other visual disturbances, Denies Sensory deficit (Neuro) and Denies weakness Psychiatric: Psychiatric: Denies confusion, Denies depression, Denies auditory hallucinations, Denies homicidal ideation and Denies suicidal ideation Endocrine: Endocrine: Denies cold intolerance, Denies excessive sweating, Denies fatigue, Denies heat intolerance and Denies palpitations Hematologic/Lymphatic: Hematologic/Lymphatic: Denies easy bleeding and Denies easy bruising Allergic/Immunologic: Allergic/Immunologic: Denies lip swelling, Denies throat swelling and Denies
[2020-03-09 12:41] LABS: Add Urine Microscopic? YES; Appearance Urine Clear (Clear); Bacteria Urine Trace /hpf; Bilirubin Urine Negative (Negative); Blood Urine Negative (Negative); Color Urine Yellow (Yellow); Glucose Urine UA Negative (Negative); Ketones Urine Negative (Negative); Leukocyte Esterase Ur Negative LEU/UL (Negative); Mucus Urine Rare /lpf; Nitrate Urine Negative (Negative); Protein Urine 2+ mg/dL (Negative); RBC Urine 0-2 /hpf (0-2); Specific Grav Ur 1.017 (1.001-1.035); Squamous Epithelial Cell Urine Rare /hpf (Few); Urobilinogen Urine Negative mg/dL (<2.0); WBC Urine 0-3 /hpf
[2020-03-09] MEDS: SODIUM CHLORIDE 0.9% IV 1,000 ML 999 ML IV CONT (12:52)
[2020-03-09 14:05] LABS: INR 1.4; Prothrombin Time 18.2 Seconds (11.1-14.7)
[2020-03-09 14:06] LABS: Partial Thromboplastin Time 36.5 SECONDS (22.3-36.8)
--- NOTE | 2020-03-09 16:07 | PC.NURSE ---
pt reports having a BM, spoke of blood in her stool reported to provider.
[2020-03-09] MEDS: metroNIDAZOLE 500 MG/ISO 100ML 500 MG/100 ML BAG 100 MG IVPB ×2 (17:50→23:21)
[2020-03-09] MEDS: LACTATED RINGERS 1,000 ML 100 ML IV CONT (19:14)
--- NOTE | 2020-03-09 19:32 | ADMGEN ---
This patient, Shantel Oates, was admitted to [facility]. Patient/family oriented to hospital policies and general routines including ID bracelet, bed and alarms, visiting hours, pain management, procedures, bathroom and other care routines, personal items, smoking policy, room service/diet, and visiting hours. Information on how to activate the Rapid Response Team has been discussed. Patient/Family are encouraged to report perceived risks to care and to ask questions if they do not understand what they are told or what they should do.
--- NOTE | 2020-03-09 21:47 | PM.IMHP ---
H&P: HPI History of Present Illness Date/Time: 03/09/20 21:47 Chief complaint: gi bleed,acute colitis Narrative: Shantel Oates is a 80 year old female who has a history of atrial fibrillation and has been on Eliquis for the last several months. The patient does not take any NSAIDs and has not changed anything in her medication. 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 She stated that she ate a regular meal and then in the mill a night she woke up and was nauseated. The patient stated that she vomited several times but never noticed any blood in it. She said she was not turning on the lights when she was going to the bathroom. She said from 7:00 to 9:00 a.m. she was having loose stools at least 4 of them and they were all bloody at that time. She has had 2 loose stools since she has been here on the floor. She has bright red blood. Patient stated she had colonoscopy many years ago and had hemorrhoids removed which was probably about 10 years ago performed by Dr. Russell. She denies having any polyps. She has not had any GI problems until last night. She is complaining of having some abdominal cramping. She did notice any blood in her emesis. She has not recently been on any antibiotics. She did call her primary care doctor this morning who told her to go to the emergency room to be evaluated. The patient stated that she feels like she has a stomach bug. The patient lives with her daughter. The patient has had a blood transfusion in the past when she had her hip replaced other than that she has not had any blood transfusions. H&H was noted to be 11.0 in 32.2. Previous H&H from last month was 11.5 and 34.7. The patient is not short of breath and is on room air. She denies any dizziness. It was noted that Dr. Russell had been consulted. Patient tolerated a clear liquid diet tonight. Patient's CT scan was was read as wall thickening of descending colon, consistent with colitis. The patient was started on Rocephin and Flagyl. Diffuse lung disease likely chronic interstitial lung disease. 13 mm right kidney mass which may be a hemorrhagic cyst or solid neoplasm. I did discuss this with the patient and she stated that she was aware that she has a renal cyst. She did not follow up because it was not causing her any problems. Patient was admitted into observation status on the date of service 03/09/2020. Review of Systems Review of Systems: All systems reviewed & are unremarkable except as noted in HPI and below Constitutional: Constitutional: Reports as per HPI and Reports no additional constitutional complaints Eyes: Eyes: Reports as per HPI and Reports no additional eye complaints ENT: Reports system reviewed and no additional complaints, except as documented and Reports Normal hearing present Cardiovascular: Cardiovascular: Reports no additional cardiovascular complaints Respiratory: Respiratory: Reports no additional respiratory complaints and Reports no additional respiratory complaints Gastrointestinal: Gastrointestinal: Reports as per HPI and Reports no additional gastrointestinal complaints Musculoskeletal: Musculoskeletal: Reports no additional musculoskeletal complaints Integumentary/Breasts: Skin/Breast: Reports system reviewed and no additional complaints, except as docu and Reports as per HPI Neurologic: Reports system reviewed and no additional complaints, except as documented, Reports as per HPI and Reports Normal hearing present Psychiatric: Psychiatric: Reports no additional psychiatric complaints and Reports as per HPI Endocrine: Endocrine: Reports no additional endocrine complaints Hematologic/Lymphatic: Hematologic/Lymphatic: Reports no additional hematologic/lymphatic complaints Allergic/Immunologic: Allergic/Immunologic: Reports no additional allergic/immunologic complaints [facility] Past Medical History Medical History (Updated
[2020-03-09 21:59] LABS: Hematocrit 29.5 % (37.0-47.0); Hemoglobin 10.1 g/dL (12.0-15.0)
[2020-03-09] MEDS: PANTOPRAZOLE SODIUM IV 40 MG VIAL IV PUSH (23:20)
[2020-03-09] MEDS: METOPROLOL TARTRATE 25 MG TABLET PO (23:22)
[2020-03-09] MEDS: ATORVASTATIN 40 MG TABLET PO (23:22)
[2020-03-09] MEDS: FLECAINIDE ACETATE 100 MG TABLET PO (23:22)
[2020-03-09] MEDS: AMITRIPTYLINE HCL 25 MG TABLET PO (23:23)
[2020-03-09] MEDS: FERROUS GLUCONATE 324 MG TABLET PO (23:23)
[2020-03-09] MEDS: diazePAM (*CRX) 2 MG TABLET PO (23:24)
[2020-03-10 03:31] LABS: Basophils Percent Auto 0.4 % (0.2-1.2); Eosinophils Absolute Auto 0.5 K/mm3 (0-0.3); Eosinophils Percent Auto 4.9 % (0-4.4); Hematocrit 28.4 % (37.0-47.0); Hemoglobin 9.8 g/dL (12.0-15.0); Immature Granulocyte Absolute 0.03 K/mm3 (0.00-0.031); Immature Granulocyte Percent A 0.3 % (0-0.5); Lymphocytes Absolute Auto 0.96 K/mm3 (0.9-3.2); Lymphocytes Percent Auto 10.1 % (18.3-44.2); Mean Corpuscular HGB Conc 34.5 g/dl (32-36); Mean Corpuscular Hemoglobin 31.9 pg (26-34); Mean Corpuscular Volume 92.5 fl (80-100); Mean Platelet Volume 11.6 fl (7.4-10.4); Monocytes Absolute Auto 0.8 K/mm3 (0.1-0.6); Monocytes Percent Auto 8.3 % (2.6-8.5); Neutrophils Absolute Auto 7.3 K/mm3 (1.3-6.7); Platelet Count Result 155 k/mm3 (150-375); Red Blood Count 3.07 M/mm3 (4.2-5.4); Red Cell Distribution Width 13.1 % (11.5-14.5); White Blood Count 9.6 K/mm3 (4.5-10.0)
[2020-03-10 04:04] LABS: Alanine Aminotransferase 26 U/L (4-35); Albumin Level 2.8 g/dL (3.5-5.1); Alkaline Phosphatase 93 U/L (38-126); Anion Gap 3 mmol/L (8-16); Aspartate Amino Transferase 38 U/L (14-36); Bilirubin,Total 0.4 mg/dL (0.2-1.3); Blood Urea Nitrogen 30 mg/dL (7-17); CRP 3.2 mg/dL (<1.0); Calcium 8.7 mg/dL (8.4-10.2); Carbon Dioxide 27 mmol/L (22-30); Chloride 106 mmol/L (98-107); Estimated CRCL calculation 22 ml/min; Estimated Glomerular Filt Rate 31; Glucose 100 mg/dL (65-105); Lactate Dehydrogenase 497 U/L (313-618); Lipase 57 U/L (23-300); Magnesium 1.6 mg/dL (1.6-2.3); Potassium 3.4 mmol/L (3.4-5.0); Sodium 136 mmol/L (137-145)
[2020-03-10 04:32] LABS: Lactic Acid Reflex < 0.5 mmol/L (0.7-2.1)
[2020-03-10 05:30] LABS: Thyroid Stimulating Hormone Reflex 0.323 uIU/mL (0.465-4.68)
[2020-03-10] MEDS: LEVOTHYROXINE SODIUM 88 MCG TABLET PO (05:51)
[2020-03-10] MEDS: metroNIDAZOLE 500 MG/ISO 100ML 500 MG/100 ML BAG 100 MG IVPB ×3 (05:52→17:48)
[2020-03-10] MEDS: LACTATED RINGERS 1,000 ML 100 ML IV CONT ×2 (05:52→17:48)
[2020-03-10 05:59] VITALS: BP 172/76; PULSE 74; RESP 18; TEMP 37.5; O2SAT 95
[2020-03-10 08:17] VITALS: BP 165/73; PULSE 74; RESP 18; TEMP 37; O2SAT 100
[2020-03-10 08:19] VITALS: PULSE 74
[2020-03-10] MEDS: OPTI-GEN TAB 1 TABLET PO (08:19)
[2020-03-10] MEDS: PANTOPRAZOLE SODIUM IV 40 MG VIAL IV PUSH ×2 (08:19→20:13)
[2020-03-10] MEDS: FLECAINIDE ACETATE 100 MG TABLET PO ×2 (08:19→20:13)
[2020-03-10] MEDS: METOPROLOL TARTRATE 25 MG TABLET PO ×2 (08:19→20:13)
[2020-03-10] MEDS: VITAMIN B COMPLEX CAPSULE 1 CAP PO (08:19)
[2020-03-10 09:10] LABS: Hematocrit 29.9 % (37.0-47.0); Hemoglobin 10.2 g/dL (12.0-15.0)
[2020-03-10 10:30] LABS: Free T4 Free Thyroxine Reflex 1.26 ng/dL (0.78-2.19)
[2020-03-10] MEDS: MAGNESIUM SULF 2 GM/WATER 50ML 2 GM/50 ML BAG IVPB (10:45)
--- NOTE | 2020-03-10 11:55 | WPDURCON ---
Assessment and Plan Assessment and plan (1) Renal cyst: Code(s): N28.1 - Cyst of kidney, acquired Status: Chronic Assessment and Plan: 80 yo female admitted with GI bleed found to have an incidental renal mass on imaging Plan to watch serial Cr and obtain CT renal mass protocol when Cr stabilizes/allows. pt understands risk of underlying kidney cyst vs cancer and need for further evaluation. Thank you for the consultation, if any questions or concerns arise please don't hesitate to contact me. Urology Consult Note HPI Date Seen: 03/10/20 Requesting Physician: Fuad Perez MD Primary Care Provider: Calvin Awad MD Consult Narrative Narrative: Shantel Oates is a 80 year old female admitted for GI bleed. She was found to have an incidental complex renal cyst 13mm. She denies hematuria or dysuria. She has had 2 UTI in past 1 year. Denies smoking history. She had seen a urologist years ago for kidney stones. She is being seen by GI for her GI complaints. Review of Systems Review of Systems: All systems reviewed & are unremarkable except as noted in HPI and below Constitutional: Constitutional: Reports as per HPI Eyes: Eyes: Reports no additional eye complaints Cardiovascular: Cardiovascular: Reports no additional cardiovascular complaints Gastrointestinal: Gastrointestinal: Reports change in bowel habits and Reports change in stool character Musculoskeletal: Musculoskeletal: Reports no additional musculoskeletal complaints Integumentary/Breasts: Skin/Breast: Reports as per HPI Psychiatric: Psychiatric: Reports no additional psychiatric complaints Endocrine: Endocrine: Reports no additional endocrine complaints Hematologic/Lymphatic: Hematologic/Lymphatic: Reports no additional hematologic/lymphatic complaints Allergic/Immunologic: Allergic/Immunologic: Reports no additional allergic/immunologic complaints [facility] Past Medical History Medical History Anemia Anxiety Arthritis Atrial fibrillation Paroxysmal Chronic anticoagulation Chronic kidney disease, stage 3 Baseline creatinine 1.20. Diet-controlled diabetes mellitus Hemoglobin A1c was 5.5 on March 25, 2019. GERD (gastroesophageal reflux disease) History of Clostridioides difficile infection History of postoperative nausea and vomiting Hyperlipidemia Hypertension Hypothyroidism Mitral valve prolapse Osteoarthritis Renal cyst Surgical History Surgical History H/O hemorrhoidectomy History of bladder suspension procedure History of hip replacement (~06/06/19) left History of varicose vein ligation and stripping (~1991) right leg Status post arthroscopy of left knee (~05/04/19) Status post breast biopsy (~1972) Left breast biopsy with benign histology. Status post cardiac catheterization Coronary angiogram March 2014 showed normal coronary arteries. Status post cataract extraction (~05/20/16) right Status post cholecystectomy (~2001) Status post hemorrhoidectomy (~1999) Status post hysterectomy (~1970) Status post total left knee replacement (~05/04/19) Family History Family History Father Family history of cardiovascular disease Family history of kidney disease Family history of aortic aneurysm Mother Diabetes mellitus Family history of Alzheimer's disease Family history of malignant neoplasm of brain Grandparent Cerebrovascular accident Social History Social History Social History: The patient is and [place] outside of [place]. She is a lifelong nonsmoker and denies alcohol and drug use. Children live nearby. She still works 6 days a week at [employer]. She denies alcohol, tobacco, and drug use. The patient's daughter lives with her now. She has 3 children.
--- NOTE | 2020-03-10 12:26 | PM.IMPN ---
Progress Note: A&P Assessment and Plan (1) Colitis: Code(s): K52.9 - Noninfective gastroenteritis and colitis, unspecified Status: Acute Assessment and Plan: Patient presents with vomiting and bloody diarrhea. CT demonstrates wall thickening of descending colon, consistent with colitis. Continue IV antibiotics with flagyl and rocephin. Stool studies are ordered. Advance diet. GI following - appreciate recommendations. (2) Acute GI bleeding: Code(s): K92.2 - Gastrointestinal hemorrhage, unspecified Status: Acute Assessment and Plan: Suspect secondary to colitis noted on imaging. GI following - appreciate input. Continue PPI and treatment for colitis. Hgb low but stable today, last 11.3. Monitor H&H and transfuse as needed. (3) Acute on chronic renal failure: Qualifiers: Acute renal failure type: unspecified Chronic kidney disease stage: unspecified stage Qualified Code(s): N17.9 - Acute kidney failure, unspecified; N18.9 - Chronic kidney disease, unspecified Code(s): N17.9 - Acute kidney failure, unspecified; N18.9 - Chronic kidney disease, unspecified Status: Acute Assessment and Plan: Cr improved to 1.6 from 2.2 yesterday. Continue IV fluids and monitor urine output, renal function. Avoid nephrotoxic agents. (4) Renal cyst: Code(s): N28.1 - Cyst of kidney, acquired Status: Chronic Assessment and Plan: CT demonstrated 6.7 cm cyst in the left kidney, she was aware of this. So demonstrated 13 mm mass of right kidney upper pole cyst vs. Neoplasm. Urology was consulted in this setting. Radiology recommends abdomen CT with and without contrast for further evaluation, however ideally this could be deferred until her renal function is improved. Discussed that she may need to follow-up with her PCP to get this study on an outpatient basis. (5) Atrial fibrillation: Qualifiers: Atrial fibrillation type: paroxysmal Qualified Code(s): I48.0 - Paroxysmal atrial fibrillation Code(s): I48.91 - Unspecified atrial fibrillation Status: Chronic Assessment and Plan: Rate controlled on her home metoprolol. On long-term anticoagulation with Eliquis which is on hold secondary to GI bleeding. (6) Hypertension: Qualifiers: Hypertension type: essential hypertension Qualified Code(s): I10 - Essential (primary) hypertension Code(s): I10 - Essential (primary) hypertension Status: Chronic Assessment and Plan: Blood pressures are elevated, may be secondary to pain. She is maintained on her home Lopressor, flecainide. Monitor BP and adjust treatment as needed. (7) Hypothyroidism: Qualifiers: Hypothyroidism type: unspecified Qualified Code(s): E03.9 - Hypothyroidism, unspecified Code(s): E03.9 - Hypothyroidism, unspecified Status: Chronic Assessment and Plan: Maintained on home levothyroxine. (8) Anxiety: Code(s): F41.9 - Anxiety disorder, unspecified Status: Acute Assessment and Plan: Stable. Continue home medications. Subjective Date/time seen: 03/10/20 1130 Interval history: Ms. Oates is an 80yo F admitted for GI bleeding and colitis. Her abdominal pain is a little improved. She has had one very small dark red bowel movement so far this morning. She denies nausea or vomiting. Review of Systems Review of Systems: All systems reviewed & are unremarkable except as noted in HPI and below Exam Narrative: Exam Narrative: General: Female resting comfortably supine in bed in no acute distress.
[2020-03-10 12:53] LABS: Total Triiodothyronine (T3) 0.86 NG/ML (0.97-1.69)
--- NOTE | 2020-03-10 13:46 | WPDGIPROGNO ---
Progress Note: A&P Additional Plan [facility] ABLA, hematochezia, abnormal imaging Observe for now #[id number] AB Oleg [phone] Subjective Date/time seen: 03/10/20 13:46 Objective Data Vital Signs Vital Signs: Vital Signs - 24 hr 03/09/20 15:40 03/09/20 19:23 03/09/20 21:55 Temperature 36.6 C 37.2 C Pulse Rate 63 74 78 Respiratory Rate 14 14 20 Blood Pressure 136/88 187/84 H 172/78 H Pulse Oximetry 98 100 100 03/09/20 23:22 03/10/20 05:59 03/10/20 08:17 Temperature 37.5 C 37.0 C Pulse Rate 78 74 74 Respiratory Rate 18 18 Blood Pressure 172/76 H 165/73 H Pulse Oximetry 95 100 03/10/20 08:19 Temperature Pulse Rate 74 Respiratory Rate Blood Pressure Pulse Oximetry Intake/Output Intake/Output: Intake & Output 03/07/20 03/08/20 03/09/20 03/10/20 23:59 23:59 23:59 23:59 Intake Total 1150 1550 Balance 1150 1550 Meds/Results Medications: Active Medications Generic Name Dose Route Start Last Admin Trade Name Freq PRN Reason Stop Dose Admin Amitriptyline HCl 25 mg 03/09/20 22:55 03/09/20 23:23 Amitriptyline Hcl 25 Mg Tablet PO 25 mg HS NICOL Administration Atorvastatin Calcium 40 mg 03/09/20 23:00 03/09/20 23:22 Atorvastatin 40 Mg Tablet PO 40 mg HS NICOL Administration Diazepam 2 mg 03/09/20 22:10 03/09/20 23:24 Diazepam (*Crx) 2 Mg Tablet PO 2 mg BID PRN Administration muscle spasm Ferrous Gluconate 324 mg 03/09/20 23:00 03/09/20 23:23 Ferrous Gluconate 324 Mg Tablet PO 324 mg HS NICOL Administration Flecainide Acetate 100 mg 03/09/20 23:00 03/10/20 08:19 Flecainide Acetate 100 Mg Tablet PO 100 mg Q12HR NICOL Administration Lactated Ringer's 1,000 mls @ 100 mls/hr 03/09/20 16:30 03/10/20 05:52 Lr - Lactated Ringers Iv IV CONT 100 mls/hr .Q10H NICOL Administration Metronidazole 500 mg in 100 mls @ 100 mls/hr 03/10/20 00:00 03/10/20 12:06 Flagyl 500 Mg/Iso Soln 100 Ml IVPB 100 mls/hr Q6H NICOL Administration Ceftriaxone Sodium/Dextrose 1 gm in 50 mls @ 100 mls/hr 03/10/20 17:00 Rocephin 1 Gm/D5w 50 Ml IVPB Q24H NICOL Levothyroxine Sodium 88 mcg 03/10/20 06:30 03/10/20 05:51 Levothyroxine Sodium 88 Mcg Tablet PO 88 mcg DAILY@0630 NICOL Administration Metoprolol Tartrate 25 mg 03/09/20 23:00 03/10/20 08:19 Metoprolol Tartrate 25 Mg Tablet PO 25 mg Q12HR NICOL Administration Multivitamins/Minerals 1 tablet 03/09/20 23:00 03/10/20 08:19 Opti-Gen Tab PO 04/09/20 23:01 1 tablet DAILY NICOL Administration Pantoprazole Sodium 40 mg 03/09/20 23:00 03/10/20 08:19 Pantoprazole Sodium Iv 40 Mg Vial IV PUSH 40 mg Q12HR NICOL Administration Vitamin B Complex 1 cap 03/10/20 09:00 03/10/20 08:19 Vitamin B Complex Capsule PO 1 cap DAILY NICOL Administration Radiology Results: ITS Impressions Chest/Abdomen/Pelvis CT 03/09/20 14:55 IMPRESSION: 1. Wall thickening of descending colon, consistent with colitis. 2. Diffuse lung disease, likely chronic interstitial lung disease in a pattern of nonspecific interstitial pneumonia (NSIP). 3. 13 mm right kidney mass which may be a hemorrhagic cyst or solid neoplasm. Abdomen CT without and with contrast is recommended. Renal Ultrasound 03/10/20 10:37 Impression: 1: Complex hypoechoic right renal mass measuring 13 mm maximum dimension. This cannot be definitively characterized as a cyst. Further evaluation with contrast-enhanced CT or MRI is commended. Labs Labs: Laboratory Results - last 24 hr 03/09/20 03/09/20 03/09/20 11:29 16:36 21:49 WBC RBC Hgb 10.1 L Hct 29.5 L MCV MCH MCHC RDW Plt Count MPV Immature Gran % (Auto) Neut % (Auto) Lymph % (Auto) [place] % (Auto) Eos % (Auto) Baso % (Auto) Lymph # (Auto) [place] # (Auto) Eos # (Auto) Baso # (Auto) Abs Immat Gran (auto) Absolute Neuts (auto)
[2020-03-10 16:15] LABS: Hematocrit 33.7 % (37.0-47.0); Hemoglobin 11.3 g/dL (12.0-15.0)
[2020-03-10 16:16] VITALS: BP 152/84; PULSE 64; RESP 18; TEMP 36.7; O2SAT 100
[2020-03-10 20:13] VITALS: PULSE 70
[2020-03-10] MEDS: AMITRIPTYLINE HCL 25 MG TABLET PO (20:14)
[2020-03-10] MEDS: FERROUS GLUCONATE 324 MG TABLET PO (20:14)
[2020-03-10] MEDS: ATORVASTATIN 40 MG TABLET PO (20:14)
[2020-03-10] MEDS: diazePAM (*CRX) 2 MG TABLET PO (20:19)
[2020-03-10 21:45] VITALS: BP 184/81; PULSE 70; RESP 18; TEMP 36.9; O2SAT 99
[2020-03-10] MEDS: hydrALAZINE HCL 20 MG/ML VIAL 10 MG IV PUSH (22:15)
[2020-03-11] VITALS (9 sets, daily range): BP systolic 130–195; BP diastolic 60–93; PULSE 67–85; RESP 16–20; TEMP 36.6–37.5; O2SAT 95–100
[2020-03-11] MEDS: metroNIDAZOLE 500 MG/ISO 100ML 500 MG/100 ML BAG 100 MG IVPB ×5 (00:01→23:15)
[2020-03-11] MEDS: LACTATED RINGERS 1,000 ML 100 ML IV CONT (05:27)
[2020-03-11] MEDS: LEVOTHYROXINE SODIUM 88 MCG TABLET PO (05:27)
[2020-03-11 06:25] LABS: Basophils Percent Auto 0.4 % (0.2-1.2); Eosinophils Absolute Auto 0.5 K/mm3 (0-0.3); Eosinophils Percent Auto 6.2 % (0-4.4); Hematocrit 29.8 % (37.0-47.0); Hemoglobin 10.1 g/dL (12.0-15.0); Immature Granulocyte Absolute 0.02 K/mm3 (0.00-0.031); Immature Granulocyte Percent A 0.3 % (0-0.5); Lymphocytes Percent Auto 15.2 % (18.3-44.2); Mean Corpuscular HGB Conc 33.9 g/dl (32-36); Mean Corpuscular Hemoglobin 30.6 pg (26-34); Mean Corpuscular Volume 90.3 fl (80-100); Mean Platelet Volume 11.9 fl (7.4-10.4); Monocytes Absolute Auto 0.9 K/mm3 (0.1-0.6); Monocytes Percent Auto 11.3 % (2.6-8.5); Neutrophils Absolute Auto 5.3 K/mm3 (1.3-6.7); Neutrophils Percent Auto 66.6 % (45.5-73.1); Platelet Count Result 173 k/mm3 (150-375); Red Cell Distribution Width 12.9 % (11.5-14.5); White Blood Count 7.9 K/mm3 (4.5-10.0)
[2020-03-11 06:52] LABS: Alanine Aminotransferase 23 U/L (4-35); Alkaline Phosphatase 84 U/L (38-126); Anion Gap 3 mmol/L (8-16); Aspartate Amino Transferase 38 U/L (14-36); Bilirubin,Total 0.5 mg/dL (0.2-1.3); Blood Urea Nitrogen 17 mg/dL (7-17); Calcium 9.1 mg/dL (8.4-10.2); Carbon Dioxide 29 mmol/L (22-30); Chloride 105 mmol/L (98-107); Estimated CRCL calculation 28 ml/min; Estimated Glomerular Filt Rate 43; Glucose 109 mg/dL (65-105); Magnesium 1.6 mg/dL (1.6-2.3); Potassium 3.5 mmol/L (3.4-5.0); Sodium 137 mmol/L (137-145)
[2020-03-11] MEDS: MAGNESIUM SULF 2 GM/WATER 50ML 2 GM/50 ML BAG IVPB (09:33)
[2020-03-11] MEDS: METOPROLOL TARTRATE 25 MG TABLET PO (09:34)
[2020-03-11] MEDS: OPTI-GEN TAB 1 TABLET PO (09:34)
[2020-03-11] MEDS: VITAMIN B COMPLEX CAPSULE 1 CAP PO (09:34)
[2020-03-11] MEDS: FLECAINIDE ACETATE 100 MG TABLET PO ×2 (09:34→21:13)
--- NOTE | 2020-03-11 09:37 | PM.IMPN ---
Progress Note: A&P Assessment and Plan (1) Colitis: Code(s): K52.9 - Noninfective gastroenteritis and colitis, unspecified Status: Acute Assessment and Plan: Patient presents with vomiting and bloody diarrhea. CT demonstrates wall thickening of descending colon, consistent with colitis. Continue IV antibiotics with flagyl and rocephin. Stool studies sent today; C diff negative. Advance diet. GI following - appreciate recommendations. (2) Acute GI bleeding: Code(s): K92.2 - Gastrointestinal hemorrhage, unspecified Status: Acute Assessment and Plan: Improved; Suspect secondary to colitis noted on imaging. GI following - appreciate input. Continue PPI and treatment for colitis. Hgb low but stable today. Monitor H&H and transfuse as needed. (3) Acute on chronic renal failure: Qualifiers: Acute renal failure type: unspecified Chronic kidney disease stage: unspecified stage Qualified Code(s): N17.9 - Acute kidney failure, unspecified; N18.9 - Chronic kidney disease, unspecified Code(s): N17.9 - Acute kidney failure, unspecified; N18.9 - Chronic kidney disease, unspecified Status: Acute Assessment and Plan: Cr improved to 1.2 from 2.2 on arrival. Stop IV fluids and monitor urine output, renal function. Avoid nephrotoxic agents. (4) Renal cyst: Code(s): N28.1 - Cyst of kidney, acquired Status: Chronic Assessment and Plan: CT demonstrated 6.7 cm cyst in the left kidney, she was aware of this. So demonstrated 13 mm mass of right kidney upper pole cyst vs. Neoplasm. Urology was consulted in this setting. Radiology recommends abdomen CT with and without contrast for further evaluation, however ideally this could be deferred until her renal function is improved. Discussed that she may need to follow-up with her PCP to get this study on an outpatient basis. (5) Atrial fibrillation: Qualifiers: Atrial fibrillation type: paroxysmal Qualified Code(s): I48.0 - Paroxysmal atrial fibrillation Code(s): I48.91 - Unspecified atrial fibrillation Status: Chronic Assessment and Plan: Rate controlled on her home metoprolol. On long-term anticoagulation with Eliquis which is on hold secondary to GI bleeding. (6) Hypertension: Qualifiers: Hypertension type: essential hypertension Qualified Code(s): I10 - Essential (primary) hypertension Code(s): I10 - Essential (primary) hypertension Status: Chronic Assessment and Plan: Blood pressures are elevated, may be related to pain and due to the fact her lisinopril-HCTZ is held secondary to renal function. She is maintained on her home Lopressor, flecainide. PRN hydralazine added. Monitor BP and adjust treatment as needed. (7) Hypothyroidism: Qualifiers: Hypothyroidism type: unspecified Qualified Code(s): E03.9 - Hypothyroidism, unspecified Code(s): E03.9 - Hypothyroidism, unspecified Status: Chronic Assessment and Plan: Maintained on home levothyroxine. (8) Anxiety: Code(s): F41.9 - Anxiety disorder, unspecified Status: Acute Assessment and Plan: Stable. Continue home medications. Subjective Date/time seen: 03/11/20 09:30 Interval history: Ms. Oates is an 80yo F admitted for GI bleeding and colitis. She reports a headache this morning and is feeling unwell. She does report her abdominal pain is improved though. A couple small BMs this morning that were nonbloody. She has tolerated meals without nausea or vomiting. Review of Systems Review of Sys
[2020-03-11] MEDS: diphenhydrAMINE HCl INJ 50 MG/ML VIAL 25 MG IV PUSH ×2 (10:40→17:51)
[2020-03-11] MEDS: hydrALAZINE HCL 20 MG/ML VIAL 10 MG IV PUSH ×2 (10:43→17:05)
[2020-03-11] MEDS: PANTOPRAZOLE SODIUM IV 40 MG VIAL IV PUSH ×2 (10:45→21:13)
--- NOTE | 2020-03-11 11:07 | WPDGIPROGNO ---
Progress Note: A&P Additional Plan GI Esther for Drew 11 Mar 2020 No bleeding. Some abdominal pain. No N/V. Sandro clears VSS soft/NT Hct 30. TBili 0.5, A/P 84, AST 38, ALT 23 A/P A. ABLA, hematochezia, abnormal imaging: - Likely colitis; ? ischemic vs infectious - Improving - Continue ABx - Advance diet as sanrdo - Consider colonoscopy as OP per Dr. Drew Del [place] Abnormal LFT: likely due to illness; observe. Further recommendations per Dr. Russell. Thanks, [facility] [phone] Subjective Date/time seen: 03/11/20 11:07 Objective Data Vital Signs Vital Signs: Vital Signs - 24 hr 03/10/20 16:16 03/10/20 20:13 03/10/20 21:45 Temperature 36.7 C 36.9 C Pulse Rate 64 70 70 Respiratory Rate 18 18 Blood Pressure 152/84 H 184/81 H Pulse Oximetry 100 99 03/11/20 00:02 03/11/20 06:00 03/11/20 09:22 Temperature 36.9 C 36.6 C 37.3 C Pulse Rate 76 85 78 Respiratory Rate 16 16 20 Blood Pressure 153/72 H 158/60 H 195/93 H Pulse Oximetry 97 95 100 03/11/20 09:34 Temperature Pulse Rate 70 Respiratory Rate Blood Pressure Pulse Oximetry Intake/Output Intake/Output: Intake & Output 03/08/20 03/09/20 03/10/20 03/11/20 23:59 23:59 23:59 23:59 Intake Total 1150 3390 1700 Balance 1150 3390 1700 Meds/Results Medications: Active Medications Generic Name Dose Route Start Last Admin Trade Name Freq PRN Reason Stop Dose Admin Amitriptyline HCl 25 mg 03/09/20 22:55 03/10/20 20:14 Amitriptyline Hcl 25 Mg Tablet PO 25 mg HS NICOL Administration Atorvastatin Calcium 40 mg 03/09/20 23:00 03/10/20 20:14 Atorvastatin 40 Mg Tablet PO 40 mg HS NICOL Administration Diazepam 2 mg 03/09/20 22:10 03/10/20 20:19 Diazepam (*Crx) 2 Mg Tablet PO 2 mg BID PRN Administration muscle spasm Diphenhydramine HCl 25 mg 03/11/20 09:40 03/11/20 10:40 Diphenhydramine Hcl Inj 50 Mg/Ml Vial IV PUSH 25 mg Q4H PRN Administration Headache or Itching Ferrous Gluconate 324 mg 03/09/20 23:00 03/10/20 20:14 Ferrous Gluconate 324 Mg Tablet PO 324 mg HS NICOL Administration Flecainide Acetate 100 mg 03/09/20 23:00 03/11/20 09:34 Flecainide Acetate 100 Mg Tablet PO 100 mg Q12HR NICOL Administration Hydralazine HCl 10 mg 03/10/20 21:50 03/11/20 10:43 Hydralazine Hcl 20 Mg/Ml Vial IV PUSH 03/12/20 07:00 10 mg Q8H PRN Administration see comment Metronidazole 500 mg in 100 mls @ 100 mls/hr 03/10/20 00:00 03/11/20 06:27 Flagyl 500 Mg/Iso Soln 100 Ml IVPB Infused Q6H NICOL Infusion Ceftriaxone Sodium/Dextrose 1 gm in 50 mls @ 100 mls/hr 03/10/20 17:00 03/10/20 17:28 Rocephin 1 Gm/D5w 50 Ml IVPB Infused Q24H NICOL Infusion Levothyroxine Sodium 88 mcg 03/10/20 06:30 03/11/20 05:27 Levothyroxine Sodium 88 Mcg Tablet PO 88 mcg DAILY@0630 NICOL Administration Metoprolol Tartrate 50 mg 03/11/20 21:00 Metoprolol Tartrate 50 Mg Tab PO Q12HR NICOL Multivitamins/Minerals 1 tablet 03/09/20 23:00 03/11/20 09:34 Opti-Gen Tab PO 04/09/20 23:01 1 tablet DAILY NICOL Administration Pantoprazole Sodium 40 mg 03/09/20 23:00 03/11/20 10:45 Pantoprazole Sodium Iv 40 Mg Vial IV PUSH 40 mg Q12HR NICOL Administration Vitamin B Complex 1 cap 03/10/20 09:00 03/11/20 09:34 Vitamin B Complex Capsule PO 1 cap DAILY NICOL Administration Radiology Results: ITS Impressions Chest/Abdomen/Pelvis CT 03/09/20 14:55 IMPRESSION: 1. Wall thickening of descending colon, consistent with colitis. 2. Diffuse lung disease, likely chronic interstitial lung disease in a pattern of nonspecific interstitial pneumonia (NSIP). 3. 13 mm right kidney mass which may be a hemorrhagic cyst or solid neoplasm. Abdomen CT without and with contrast is recommended. Renal Ultrasound 03/10/20 10:37 Impression: 1: Complex hypoechoic right renal mass measuring 13 mm maximum dimension. This cannot be definitively characterized as a cyst. Fu
--- NOTE | 2020-03-11 12:55 | CONS_ITS ---
DATE OF CONSULTATION: 03/09/2020 HISTORY OF PRESENT ILLNESS: An 80-year-old female with history of atrial fibrillation on Eliquis with history of anxiety, osteoarthritis, chronic kidney disease stage 3, type 2 diabetes, diet controlled, GERD, hypertension, hyperlipidemia, hypothyroidism with history of C. diff, mitral valve prolapse, hemorrhoidectomy, bladder suspension, left total hip replacement, varicose vein surgery, left knee surgery, cataract extraction, and cholecystectomy, whom I am asked to provide GI evaluation at the request of the hospitalist service for acute blood loss anemia and GI bleed. The patient's primary care provideris Dr. Calvin Awad and primary coordinator mining products, Dr. Kwesi Russell. The patient states that prior to admission, she began having crampy generalized abdominal pain that improved with bowel movement. She had nausea and vomiting without coffee-ground or hematemesis. She had loose stool mixed with hematochezia. This has resolved and she is not having any further significant GI bleed. The patient was seen by Dr. Russell, May 07, 2019 for anemia. No scope was done. It appears her last colonoscopy was approximately 10 years ago. In general, she denies abdominal pain, nausea, vomiting, or diarrhea. She further denies problems with heartburn on medication, trouble swallowing, loss of appetite or weight, constipation, melena, fever, jaundice, scleral icterus, dark urine, light stools, itching, hot or cold intolerance, chest pain, shortness of breath at rest, hematuria, dysuria, new cough or visual changes, easy bruising, tingling of the skin, bone pain, or tremors. No history of endocarditis, rheumatic fever, heart valve surgery, bleeding disorder. She has a joint replacement. ALLERGIES: SEE LIST. MEDICATIONS: See list, but includes Eliquis, diclofenac, and omeprazole. SOCIAL HISTORY: Nonsmoker, nondrinker. FAMILY HISTORY: Nephew with colon cancer. No first-degree relatives with colon cancer. Last colonoscopy approximately 10 years ago. PHYSICAL EXAMINATION: GENERAL: Well-developed, well-nourished female, lying in bed, no apparent distress. She has no lower extremity edema, jaundice, spider angioma, or palmar erythema. HEENT: Skull is normocephalic, atraumatic. Pupils nonicteric. Oropharynx clear. NECK: Soft without thyromegaly. LUNGS: Clear to auscultation. HEART: Rate and rhythm regular, S1, S2 normal. ABDOMEN: Bowel sounds soft, nontender, nonrigid, nondistended without hepatosplenomegaly or masses. RECTAL: Deferred. NEUROLOGIC: Conscious and alert x3. LABORATORY DATA: Today, hemoglobin 10, hematocrit 30, T bilirubin 0.4, alkaline phosphatase 93, AST 38, ALT is 26, lipase 57. TSH 0.3, free T4 is 1.3. Hematocrit 32, white count of 11, platelets 198, MCV 93. INR is 1.4, creatinine 2.2, T bilirubin 0.5, alkaline phosphatase 129, AST 53, ALT 35, lipase 96. CT scan of the chest, abdomen and pelvis shows wall thickening of the descending colon and a 13 mm renal lesion. ASSESSMENT AND PLAN: 1. The patient with abdominal pain, nausea, vomiting, and diarrhea with acute blood loss anemia, hematochezia and abnormal imaging of the digestive tract with CT scan showing wall thickening in the descending colon. Certainly concern for colitis that could be related to infection versus ischemia. Less likely inflammatory bowel disease. Unlikely to be neoplasm. At this point, patient appears to be improving and does not have active bleeding. We will follow H and H and transfuse as needed. Avoid aspirin, nonsteroidals and anticoagulants, especially diclofenac. She may also have a nonsteroidal induced colitis. Her bleeding is likely worsened by Eliquis, which should be held for now. Would consider colonoscopy at some p
[2020-03-11] MEDS: ONDANSETRON INJ 4 MG/2 ML VIAL IV PUSH (19:00)
[2020-03-11] MEDS: AMITRIPTYLINE HCL 25 MG TABLET PO (21:13)
[2020-03-11] MEDS: METOPROLOL TARTRATE 50 MG TAB PO (21:13)
[2020-03-11] MEDS: FERROUS GLUCONATE 324 MG TABLET PO (21:13)
[2020-03-11] MEDS: ATORVASTATIN 40 MG TABLET PO (21:13)
[2020-03-11] MEDS: diazePAM (*CRX) 2 MG TABLET PO (21:19)
[2020-03-12 04:48] LABS: Basophils Percent Auto 0.2 % (0.2-1.2); Eosinophils Absolute Auto 0.2 K/mm3 (0-0.3); Eosinophils Percent Auto 2.6 % (0-4.4); Hematocrit 29.6 % (37.0-47.0); Hemoglobin 10.1 g/dL (12.0-15.0); Immature Granulocyte Absolute 0.02 K/mm3 (0.00-0.031); Immature Granulocyte Percent A 0.2 % (0-0.5); Lymphocytes Absolute Auto 0.79 K/mm3 (0.9-3.2); Lymphocytes Percent Auto 9.6 % (18.3-44.2); Mean Corpuscular HGB Conc 34.1 g/dl (32-36); Mean Corpuscular Hemoglobin 31.5 pg (26-34); Mean Corpuscular Volume 92.2 fl (80-100); Mean Platelet Volume 11.4 fl (7.4-10.4); Monocytes Absolute Auto 0.7 K/mm3 (0.1-0.6); Monocytes Percent Auto 8.9 % (2.6-8.5); Neutrophils Absolute Auto 6.5 K/mm3 (1.3-6.7); Neutrophils Percent Auto 78.5 % (45.5-73.1); Platelet Count Result 178 k/mm3 (150-375); Red Blood Count 3.21 M/mm3 (4.2-5.4); White Blood Count 8.2 K/mm3 (4.5-10.0)
[2020-03-12 05:04] LABS: Alanine Aminotransferase 20 U/L (4-35); Albumin Level 2.7 g/dL (3.5-5.1); Alkaline Phosphatase 66 U/L (38-126); Anion Gap 3 mmol/L (8-16); Aspartate Amino Transferase 37 U/L (14-36); Bilirubin,Total 0.4 mg/dL (0.2-1.3); Blood Urea Nitrogen 13 mg/dL (7-17); Calcium 8.5 mg/dL (8.4-10.2); Carbon Dioxide 30 mmol/L (22-30); Chloride 102 mmol/L (98-107); Estimated CRCL calculation 28 ml/min; Estimated Glomerular Filt Rate 43; Glucose 112 mg/dL (65-105); Magnesium 1.8 mg/dL (1.6-2.3); Phosphorus 3.6 mg/dL (2.5-4.5); Potassium 3.3 mmol/L (3.4-5.0); Sodium 135 mmol/L (137-145)
[2020-03-12] MEDS: metroNIDAZOLE 500 MG/ISO 100ML 500 MG/100 ML BAG 100 MG IVPB ×3 (05:14→17:20)
[2020-03-12] MEDS: LEVOTHYROXINE SODIUM 88 MCG TABLET PO (05:14)
[2020-03-12 05:17] VITALS: BP 146/70; PULSE 74; RESP 16; TEMP 37.2; O2SAT 94
[2020-03-12] MEDS: ONDANSETRON INJ 4 MG/2 ML VIAL IV PUSH (08:31)
[2020-03-12] MEDS: diphenhydrAMINE HCl INJ 50 MG/ML VIAL 25 MG IV PUSH (08:32)
[2020-03-12] MEDS: PANTOPRAZOLE SODIUM IV 40 MG VIAL IV PUSH (08:34)
[2020-03-12 09:40] VITALS: BP 184/89; PULSE 78; RESP 18; TEMP 37; O2SAT 96
[2020-03-12 09:43] VITALS: PULSE 78
[2020-03-12] MEDS: FLECAINIDE ACETATE 100 MG TABLET PO (09:43)
[2020-03-12 09:44] VITALS: PULSE 78
[2020-03-12] MEDS: lisinopriL 10 MG TABLET PO (09:44)
[2020-03-12] MEDS: METOPROLOL TARTRATE 50 MG TAB PO (09:44)
[2020-03-12] MEDS: OPTI-GEN TAB 1 TABLET PO (10:26)
[2020-03-12] MEDS: VITAMIN B COMPLEX CAPSULE 1 CAP PO (10:27)
[2020-03-12] MEDS: POTASSIUM CHLORIDE 20 MEQ TABLET 40 MEQ PO (10:27)
[2020-03-12 11:23] VITALS: BP 151/80; PULSE 76; RESP 18; TEMP 37.1; O2SAT 98
--- NOTE | 2020-03-12 11:42 | WPDGIPROGNO ---
Progress Note: A&P Additional Plan Patient still complains of abdominal pain but less so today. Diarrhea is minimal at this point. No active bleeding described. Physical exam reveals Vital Signs to be stable. Abdomen is soft bowel sounds are present mild diffuse tenderness remains. Impression 1. Colitis. Evidence on CT scan. Infectious or ischemia is likely. Because of bleeding I would suggest holding Eliquis for the time being. Elective outpatient colonoscopy can be arranged as an outpatient. Continue IV antibiotics 1 more day. Discharge with oral antibiotics for 1 week ultimately. Advance diet if tolerated. 2. Atrial fibrillation. Patient was on Eliquis. This should be held because of bleeding. May need to be held until outpatient colonoscopy accomplished. Subjective Date/time seen: 03/12/20 11:42 Objective Data Vital Signs Vital Signs: Vital Signs - 24 hr 03/11/20 14:00 03/11/20 18:34 03/11/20 21:09 Temperature 99 F 98.9 F 99.5 F Pulse Rate 79 78 84 Respiratory Rate 18 20 16 Blood Pressure 174/86 H 164/81 H 176/83 H Pulse Oximetry 98 100 96 03/11/20 21:13 03/11/20 23:15 03/12/20 05:17 Temperature 99.5 F 98.9 F Pulse Rate 84 67 74 Respiratory Rate 16 16 Blood Pressure 130/66 146/70 H Pulse Oximetry 95 94 03/12/20 09:40 03/12/20 09:43 03/12/20 09:44 Temperature 98.6 F Pulse Rate 78 78 78 Respiratory Rate 18 Blood Pressure 184/89 H Pulse Oximetry 96 03/12/20 11:23 Temperature 98.8 F Pulse Rate 76 Respiratory Rate 18 Blood Pressure 151/80 H Pulse Oximetry 98 Intake/Output Intake/Output: Intake & Output 03/09/20 03/10/20 03/11/20 03/12/20 23:59 23:59 23:59 23:59 Intake Total 1150 3390 3050 1540 Balance 1150 3390 3050 1540 Meds/Results Medications: Active Medications Generic Name Dose Route Start Last Admin Trade Name Freq PRN Reason Stop Dose Admin Amitriptyline HCl 25 mg 03/09/20 22:55 03/11/20 21:13 Amitriptyline Hcl 25 Mg Tablet PO 25 mg HS NICOL Administration Atorvastatin Calcium 40 mg 03/09/20 23:00 03/11/20 21:13 Atorvastatin 40 Mg Tablet PO 40 mg HS NICOL Administration Diazepam 2 mg 03/09/20 22:10 03/11/20 21:19 Diazepam (*Crx) 2 Mg Tablet PO 2 mg BID PRN Administration muscle spasm Diphenhydramine HCl 25 mg 03/11/20 09:40 03/12/20 08:32 Diphenhydramine Hcl Inj 50 Mg/Ml Vial IV PUSH 25 mg Q4H PRN Administration Headache or Itching Ferrous Gluconate 324 mg 03/09/20 23:00 03/11/20 21:13 Ferrous Gluconate 324 Mg Tablet PO 324 mg HS NICOL Administration Flecainide Acetate 100 mg 03/09/20 23:00 03/12/20 09:43 Flecainide Acetate 100 Mg Tablet PO 100 mg Q12HR NICOL Administration Metronidazole 500 mg in 100 mls @ 100 mls/hr 03/10/20 00:00 03/12/20 06:14 Flagyl 500 Mg/Iso Soln 100 Ml IVPB Infused Q6H NICOL Infusion Ceftriaxone Sodium/Dextrose 1 gm in 50 mls @ 100 mls/hr 03/10/20 17:00 03/11/20 17:47 Rocephin 1 Gm/D5w 50 Ml IVPB Infused Q24H NICOL Infusion Levothyroxine Sodium 88 mcg 03/10/20 06:30 03/12/20 05:14 Levothyroxine Sodium 88 Mcg Tablet PO 88 mcg DAILY@0630 NICOL Administration Lisinopril 10 mg 03/12/20 09:25 03/12/20 09:44 Lisinopril 10 Mg Tablet PO 10 mg DAILY NICOL Administration Metoprolol Tartrate 50 mg 03/11/20 21:00 03/12/20 09:44 Metoprolol Tartrate 50 Mg Tab PO 50 mg Q12HR NICOL Administration Multivitamins/Minerals 1 tablet 03/09/20 23:00 03/12/20 10:26 Opti-Gen Tab PO 04/09/20 23:01 1 tablet DAILY NICOL Administration Ondansetron HCl 4 mg 03/11/20 18:43 03/12/20 08:31 Ondansetron Inj 4 Mg/2 Ml Vial IV PUSH 4 mg Q6H PRN Administration Nausea And Vomiting Pantoprazole Sodium 40 mg 03/09/20 23:00 03/12/20 08:34 Pantoprazole Sodium Iv 40 Mg Vial IV PUSH 40 mg Q12HR NICOL Administration Vitamin B Complex 1 cap 03/10/20 09:00 03/12/20 10:27 Vitamin B Complex Capsule PO 1 ca
[2020-03-12 13:52] VITALS: BP 134/65; PULSE 61; RESP 16; TEMP 37; O2SAT 97
--- NOTE | 2020-03-12 17:16 | PM.DS ---
DS: Admitting Diagnosis Admitting Diagnosis Admitting Diagnosis: gi bleed,acute colitis DS: Discharge Diagnosis Discharge Diagnosis (1) Colitis: Code(s): K52.9 - Noninfective gastroenteritis and colitis, unspecified Status: Acute Assessment and Plan: Date of Admission 03/09/20 Date of Discharge/DOS 03/12/20 Ms. Oates is a pleasant 80yo F with history of hypertension, hypothyroidism, atrial fibrillation, and chronic kidney disease who presented to the ED for evaluation of abdominal pain with blood in stool. CT abdomen demonstrated evidence of colitis. C diff toxins were negative. She was evaluated by GI, Dr. Santana and Dr Russell. She was started on IV antibiotics with rocephin and flagyl for treatment of colitis. Blood in stool was felt to be related to colitis and resolved during admission. Cr was elevated above her baseline, acute on chronic renal failure was felt to be related to GI losses and dehydration. Cr improved prior to discharge. Lisinopril/HCTZ was held during admission due to renal function and blood pressures were elevated. Overall she was improved after treatment with IV antibiotics and diet was gradually advanced. She was tolerating oral intake/solid foods day of discharge without abdominal pain, nausea or vomiting. She was hemodynamically stable for discharge on 03/12/20 with instructions to follow up with Dr Russell for outpatient colonoscopy as well as PCP. Hold eliquis (which she takes for A fib) x 1 week. She was noted to have a left renal cyst as well as a smaller right renal mass. It is recommended she have CT with and without contrast for further evaluation though this was deferred at this time due to her acute renal failure. She was seen by urology here and can follow up with them outpatient as detailed below. Recommend outpatient CT abd/pel with/without contrast once renal function is stable. Patient presents with vomiting and bloody diarrhea. CT demonstrates wall thickening of descending colon, consistent with colitis. Continue IV antibiotics with flagyl and rocephin. Stool studies sent; C diff negative. Advance diet. GI followed - see Dr Russell in follow up for outpatient colonoscopy. (2) Acute GI bleeding: Code(s): K92.2 - Gastrointestinal hemorrhage, unspecified Status: Acute Assessment and Plan: Resolved; Suspect secondary to colitis noted on imaging. Continue PPI and treatment for colitis. Hgb low but stable. (3) Acute on chronic renal failure: Qualifiers: Acute renal failure type: unspecified Chronic kidney disease stage: unspecified stage Qualified Code(s): N17.9 - Acute kidney failure, unspecified; N18.9 - Chronic kidney disease, unspecified Code(s): N17.9 - Acute kidney failure, unspecified; N18.9 - Chronic kidney disease, unspecified Status: Acute Assessment and Plan: Cr improved to 1.2 from 2.2 on arrival. (4) Renal cyst: Code(s): N28.1 - Cyst of kidney, acquired Status: Chronic Assessment and Plan: CT demonstrated 6.7 cm cyst in the left kidney, she was aware of this. Also demonstrated 13 mm mass of right kidney upper pole cyst vs. neoplasm. Urology was consulted in this setting. Radiology recommends abdomen CT with and without contrast for further evaluation, however ideally this could be deferred until her renal function is improved. Discussed that she should follow-up with her PCP to get this study on an outpatient basis. (5) Atrial fibrillation: Qualifiers: Atrial fibrillation type: paroxysmal Qualified Code(s): I48.0 - Paroxysmal atrial fibrillation Code(s): I48.91 - Unspecified atrial fibrillation Status: Chronic Assessment and Plan: Rate controlled on her
--- NOTE | 2020-03-20 14:30 | PC.NURSE ---
Stool cx is negative.
== END 2020-03-12 18:53 | disposition home or self-care (01) ==
LOC: ANHED 16:28 → ANHCPC 17:49
PROVIDERS: Emergency Medicine; Nurse Practitioner; Admitting Provider Internal Medicine; Emergency Provider Emergency Medicine; PCP Family Medicine; Visit Provider Physician Assistant
DX: K52.9 Noninfective gastroenteritis and colitis, unspecified (principal); D64.9 Anemia, unspecified; D62 Acute posthemorrhagic anemia; E11.22 Type 2 diabetes mellitus with diabetic chronic kidney disease; E03.9 Hypothyroidism, unspecified; E78.2 Mixed hyperlipidemia; F41.9 Anxiety disorder, unspecified; I48.0 Paroxysmal atrial fibrillation; I12.9 Hypertensive chronic kidney disease with stage 1 through stage 4 chronic kidney disease, or unspecified chronic kidney disease; K21.9 Gastro-esophageal reflux disease without esophagitis; N28.1 Cyst of kidney, acquired; N18.30 Chronic kidney disease, stage 3 unspecified; N17.9 Acute kidney failure, unspecified; R51.9 Headache, unspecified; Z79.01 Long term (current) use of anticoagulants; Z96.642 Presence of left artificial hip joint; Z96.652 Presence of left artificial knee joint
CPT/HCPCS: 36415; 70450; 71250; 74176; 76775; 80053; 81001; 82728; 83605; 83615; 83690; 83735; 84100; 84439; 84443; 84480; 85014; 85018; 85025; 85610; 85730; 86140; 86850; 86900; 86901; 87015; 87045; 87046; 87269; 87272; 87324; 87427; 89055; 96361; 96365; 96366; 96367; 96375; 96376; 99285; A9270; C9113; G0378; J0360; J0696; J1200; J2405; J3475; J7030; J7120

== ENCOUNTER 2020-04-10 09:15 | Outpatient (CLI) | payer MEDICARE, SELFPAY ==
[2020-04-10 09:42] LABS: Basophils Percent Auto 0.7 % (0.2-1.2); Eosinophils Absolute Auto 0.4 K/mm3 (0-0.3); Eosinophils Percent Auto 7.1 % (0-4.4); Hematocrit 32.3 % (37.0-47.0); Hemoglobin 10.9 g/dL (12.0-15.0); Immature Granulocyte Absolute 0.02 K/mm3 (0.00-0.031); Immature Granulocyte Percent A 0.3 % (0-0.5); Lymphocytes Absolute Auto 1.04 K/mm3 (0.9-3.2); Lymphocytes Percent Auto 17.9 % (18.3-44.2); Mean Corpuscular HGB Conc 33.7 g/dl (32-36); Mean Corpuscular Hemoglobin 30.9 pg (26-34); Mean Corpuscular Volume 91.5 fl (80-100); Mean Platelet Volume 10.6 fl (7.4-10.4); Monocytes Absolute Auto 0.5 K/mm3 (0.1-0.6); Monocytes Percent Auto 8.6 % (2.6-8.5); Neutrophils Absolute Auto 3.8 K/mm3 (1.3-6.7); Neutrophils Percent Auto 65.4 % (45.5-73.1); Platelet Count Result 213 k/mm3 (150-375); Red Blood Count 3.53 M/mm3 (4.2-5.4); Red Cell Distribution Width 12.7 % (11.5-14.5); White Blood Count 5.8 K/mm3 (4.5-10.0)
== END 2020-04-10 09:16 | disposition home or self-care (01) ==
PROVIDERS: PCP Family Medicine; Visit Provider Physician Assistant
DX: D64.9 Anemia, unspecified (principal)
CPT/HCPCS: 36415; 85025

== ENCOUNTER → 2020-04-18 08:09 | Outpatient (CLI) | payer MEDICARE, SELFPAY ==
--- NOTE | ~2020-04-18 | CT_ITS ---
EXAMINATION: CT abdomen pelvis wo/w con EXAM DATE: 04/18/2020 08:41 INDICATION: R10.31 - Right lower quadrant pain. Right renal 1.3 cm mass TECHNIQUE: Spiral CT of the abdomen without contrast followed by both abdomen and pelvis with 100 cc intravenous Omnipaque 350. Axial, coronal and sagittal images were reviewed. The dose-length produc t (DLP) for this examination was 850.63 mGy-cm. The exposure was tailored according to patient size (auto mA exposure control), and iterative reconstruction (ASIR) was used as additional dose reduction technique. Comparison is made to prior examination from 03/09/2020. FINDINGS: The liver, spleen, adrenal glands and pancreas are unremarkable. There are cholecystectomy clips. Portal and splenic veins are patent. Kidneys enhance symmetrically. There is no hydronephr osis. There is an enhancing 1.3 cm mass at the superior pole of the right kidney statistically most likely renal cell cancer. There is a 7 cm left renal cyst. The uterus is not identified and has likel y been surgically resected. The bladder is unremarkable. There is no retroperitoneal or pelvic lymp hadenopathy. There is mild scattered arteriosclerotic disease. There are surgical changes consistent with appendectomy. There is small sliding gastroesophageal hi atal hernia. There is moderate amount of colonic stool. No free intraperitoneal gas. The heart i s normal in size. There are no pericardial or pleural effusions. The lung bases are unremarkable. There are no osteoblastic or osteolytic lesions identified. There is moderate lumbar scoliosis and ad vanced spondylosis. There is a left hip replacement. IMPRESSION: 1. Small enhancing mass superior pole right kidney statistically most likely renal cell cancer. 2. Moderate colonic stool. 3. Small hiatal hernia. 4. Surgical changes. Reviewed, dictated and finalized at [facility] IMPRESSION: 1. Small enhancing mass superior pole right kidney statistically most likely r enal cell cancer. 2. Moderate colonic stool. 3. Small hiatal hernia. 4. Surgical changes.
[2020-04-18 08:28] LABS: Estimated Glomerular Filt Rate 43
== END ==
PROVIDERS: PCP Family Medicine; Visit Provider Surgery
DX: R10.31 Right lower quadrant pain (principal); K44.9 Diaphragmatic hernia without obstruction or gangrene
CPT/HCPCS: 74178; Q9967

== ENCOUNTER → 2020-05-14 01:02 | Outpatient (CLI) | payer MEDICARE, SELFPAY ==
[2020-05-14 18:28] LABS: SARS-CoV-2 RNA PCR Negative
== END ==
PROVIDERS: PCP Family Medicine; Visit Provider Internal Medicine Gastroenterology
DX: Z01.812 Encounter for preprocedural laboratory examination (principal); Z20.822 Contact with and (suspected) exposure to COVID-19
CPT/HCPCS: C9803; U0003; U0005

== ENCOUNTER 2020-05-17 00:06 | Day surgery (SDC) | payer MEDICARE, SELFPAY ==
[2020-04-26 13:32] VITALS: BMI 26.4
[2020-05-17 06:40] VITALS: BP 128/70; PULSE 70; RESP 20; TEMP 36.7; O2SAT 98
[2020-05-17] MEDS: LACTATED RINGERS 1,000 ML 150 ML IV CONT (06:57)
--- NOTE | 2020-05-17 07:47 | WPDANESEPPF ---
Anes - Initial Pre Proc Eval Procedure: Operation Date: 05/17/20 08:00 Proposed Procedures p Colonoscopy - Kwesi Corley DO Date/Time: 05/17/20 07:47 Surgeon: Kwesi Corley DO Pre Op Diagnosis: GI hemorrhage Patient Data Age: 80 Gender: F Height: 1.63 m Weight: 72.9 kg Last Vital Signs Temp 36.7 C 05/17/20 06:40 Pulse 70 05/17/20 06:40 Resp 20 05/17/20 06:40 BP 128/70 05/17/20 06:40 Pulse Ox 98 05/17/20 06:40 Allergies Allergy/AdvReac Type Severity Reaction Status Date / Time acetaminophen [From Tylenol] Allergy Severe Swelling Verified 05/17/20 06:38 ibuprofen Allergy Severe Swelling Verified 05/17/20 06:38 of Lip/Tongue/Throat naproxen [From Aleve] Allergy Severe Swelling Verified 05/17/20 06:38 of Lip/Tongue/Throat strawberry Allergy Severe Swelling Verified 05/17/20 06:38 of Lip/Tongue/Throat adhesive Allergy Mild Rash Verified 05/17/20 06:38 latex Allergy Mild Rash Verified 05/17/20 06:38 influenza virus vaccine tv AdvReac Severe very sick Verified 05/17/20 06:38 2012-(18-49 yrs),rcmb with fever [From Flublok] and myalgia Home Medications Medication Instructions Recorded Confirmed Type ferrous gluconate 324 mg (37.5 mg 324 mg PO HS 02/23/19 04/26/20 History iron) tablet PreserVision AREDS 1 tablet PO DAILY 04/01/19 04/26/20 History amitriptyline 25 mg tablet 25 mg PO HS #90 tablet 06/17/19 04/26/20 Rx biotin 5 mg tablet 5 mg PO DAILY tablet 06/24/19 04/26/20 History calcium citrate-ergocalciferol 2 tablet PO DAILY tablet 06/24/19 04/26/20 History (vitamin D2) 315 mg-200 unit tablet vitamin B complex 1 tablet PO DAILY 06/24/19 04/26/20 History omeprazole 40 mg capsule,delayed 40 mg PO DAILY #90 cap 10/03/19 04/26/20 Rx release flecainide 100 mg tablet 100 mg PO BID 90 Days #180 tablet 01/02/20 04/26/20 Rx levothyroxine 88 mcg PO DAILY 03/09/20 04/26/20 History lisinopril-hydrochlorothiazide 1 tablet PO QAM #60 tablet 03/12/20 04/26/20 Rx atorvastatin 40 mg tablet See Rx Instructions .ROUTE 03/15/20 04/26/20 Rx .COMPLEX #90 each diazepam 2 mg tablet 2 mg PO BID PRN #60 tablet 04/02/20 04/26/20 Rx L. acidophilus-L. rhamnosus 1 cap PO DAILY 04/26/20 04/26/20 History [Probiotic] metoprolol tartrate 25 mg tablet See Rx Instructions .ROUTE 05/10/20 Rx .COMPLEX #90 each Patient hx anesthesia problems: none Family hx anesthesia problems: none [facility] Past Medical History Medical History (Updated 04/03/20 @ 11:39 by Miriam Mccord) Anemia Anxiety Arthritis Atrial fibrillation Paroxysmal Chronic anticoagulation Chronic kidney disease, stage 3 Baseline creatinine 1.20. Diet-controlled diabetes mellitus Hemoglobin A1c was 5.5 on March 25, 2019. GERD (gastroesophageal reflux disease) History of Clostridioides difficile infection History of postoperative nausea and vomiting Hyperlipidemia Hypertension Hypothyroidism Mitral valve prolapse Osteoarthritis Renal cyst Surgical History Surgical History H/O hemorrhoidectomy History of bladder suspension procedure History of hip replacement (~06/06/19) left History of varicose vein ligation and stripping (~1991) right leg Status post arthroscopy of left knee (~05/04/19) Status post breast biopsy (~1972) Left breast biopsy with benign histology. Status post cardiac catheterization Coronary angiogram March 2014 showed normal coronary arteries. Status post cataract extraction (~05/20/16) right Status post cholecystectomy (~2001) Status post hysterectomy (~1970) Status post total left knee replacement (~05/04/19) Family History Family History Father Family history of cardiovascular disease Family history of kidney disease Family history of aortic aneurysm Mother Diabetes mellitus Family history of Alzheimer's disease Family history of m
--- NOTE | 2020-05-17 07:53 | WPDGICN ---
GI Consult Note Consult date/time: 05/17/20 07:53 HPI: Reason for visit is colonoscopy. This very pleasant lady seen in consultation at the request Of the primary physician. Impression: This very pleasant lady with rectal bleeding. Underlying inflammatory or neoplastic disease should be excluded. She does have a family history of colorectal cancer. Remote history of peptic ulcer disease. GERD. History of C diff colitis in the past. Renal cell carcinoma. HLD. HTN. AFib. Anxiety/depression. Hypothyroidism. CKD. Recommendation: Colonoscopy. History: This very pleasant lady back in March had 24 hours of bloody stools. She denied any constipation, diarrhea, hematochezia, melena or acholic stools. Fever, chills, night sweats and weight loss for tonight. Nausea, vomiting, hematemesis, dysphagia, odynophagia and heartburn or tonight. She does remote history of peptic ulcer disease and reflux. This seems to be asymptomatic at this time. She does have family history of colorectal cancer. Patient also was noted to have a previous history of C diff colitis. Patient is here for colonoscopy. Physical examination: General: very pleasant patient in no acute distress. HEENT: Head was normocephalic sclerae is clear mouth without masses neck was supple. Heart: Rate rhythm regular without S3 or S4. Lungs: CTA. Abdomen: Soft with no guarding or rigidity. Bowel sounds were active. Neurologic: Cranial nerves 2 through 12 intact. No focal defects. No clonus. Musculoskeletal system: Revealed no joint tenderness or swelling no muscle atrophy. Extremities: Reveal no significant edema. Skin: Warm and dry with normal turgor. Mental status: intact. Patient is alert and oriented. Review of Systems Review of Systems: All systems reviewed & are unremarkable except as noted in HPI and below [facility] Past Medical History Medical History (Updated 04/03/20 @ 11:39 by Miriam Mccord) Anemia Anxiety Arthritis Atrial fibrillation Paroxysmal Chronic anticoagulation Chronic kidney disease, stage 3 Baseline creatinine 1.20. Diet-controlled diabetes mellitus Hemoglobin A1c was 5.5 on March 25, 2019. GERD (gastroesophageal reflux disease) History of Clostridioides difficile infection History of postoperative nausea and vomiting Hyperlipidemia Hypertension Hypothyroidism Mitral valve prolapse Osteoarthritis Renal cyst Surgical History Surgical History H/O hemorrhoidectomy History of bladder suspension procedure History of hip replacement (~06/06/19) left History of varicose vein ligation and stripping (~1991) right leg Status post arthroscopy of left knee (~05/04/19) Status post breast biopsy (~1972) Left breast biopsy with benign histology. Status post cardiac catheterization Coronary angiogram March 2014 showed normal coronary arteries. Status post cataract extraction (~05/20/16) right Status post cholecystectomy (~2001) Status post hysterectomy (~1970) Status post total left knee replacement (~05/04/19) Family History Family History Father Family history of cardiovascular disease Family history of kidney disease Family history of aortic aneurysm Mother Diabetes mellitus Family history of Alzheimer's disease Family history of malignant neoplasm of brain Grandparent Cerebrovascular accident Other Breast cancer Eye cancer Social History Social History Social History: The patient is and [place] on [place] farm outside of [place]. She is a lifelong nonsmoker and denies alcohol and drug use. Children live nearby. She still works 6 days a week at [employer]. She denies alcohol, tobacco, and drug use. The patient's daughter lives with her now. She has 3 children. She is . She is a full code.
[2020-05-17 08:39] VITALS: BP 122/69; PULSE 64; RESP 16; O2SAT 100
[2020-05-17 08:49] VITALS: BP 140/79; PULSE 63; RESP 14; O2SAT 100
[2020-05-17 08:59] VITALS: BP 149/79; PULSE 62; RESP 13; O2SAT 98
== END 2020-05-17 09:22 | disposition home or self-care (01) ==
PROVIDERS: Family Provider Family Medicine; PCP Family Medicine; Visit Provider Internal Medicine Gastroenterology
PROC: 0DJD8ZZ Inspection of Lower Intestinal Tract, Via Natural or Artificial Opening Endoscopic (ICD-10-PCS; CPT 45378; principal; 2020-05-17 08:00)
DX: K62.5 Hemorrhage of anus and rectum (principal); K63.5 Polyp of colon; K62.1 Rectal polyp; K64.8 Other hemorrhoids; Z80.0 Family history of malignant neoplasm of digestive organs; Z87.19 Personal history of other diseases of the digestive system; K21.9 Gastro-esophageal reflux disease without esophagitis; I12.9 Hypertensive chronic kidney disease with stage 1 through stage 4 chronic kidney disease, or unspecified chronic kidney disease; N18.30 Chronic kidney disease, stage 3 unspecified; I48.0 Paroxysmal atrial fibrillation; E11.22 Type 2 diabetes mellitus with diabetic chronic kidney disease; D64.9 Anemia, unspecified; I34.1 Nonrheumatic mitral (valve) prolapse; E78.5 Hyperlipidemia, unspecified; E03.9 Hypothyroidism, unspecified; F41.8 Other specified anxiety disorders
CPT/HCPCS: 45380; 45385; 88305; C9803; J2704; J7120; U0003; U0005

== ENCOUNTER → 2020-05-21 01:28 | Outpatient (CLI) | payer MEDICARE, SELFPAY ==
[2020-05-21 19:35] LABS: SARS-CoV-2 RNA PCR Negative
== END ==
PROVIDERS: PCP Family Medicine; Visit Provider Internal Medicine Gastroenterology
DX: Z01.812 Encounter for preprocedural laboratory examination (principal); Z20.822 Contact with and (suspected) exposure to COVID-19
CPT/HCPCS: C9803; U0003; U0005

== ENCOUNTER 2020-05-24 00:21 | Day surgery (SDC) | payer MEDICARE, SELFPAY ==
[2020-05-24 06:50] VITALS: BMI 27.8
[2020-05-24 07:11] VITALS: BP 139/67; PULSE 61; RESP 18; TEMP 36.8; O2SAT 98
[2020-05-24] MEDS: LACTATED RINGERS 1,000 ML 150 ML IV CONT (07:11)
--- NOTE | 2020-05-24 07:28 | WPDHPUPDATE1 ---
History and Physical Update Update Date/Time: 05/24/20 07:28 History and Physical has been reviewed, including an updated exam of the patient. There are NO changes in the patient's condition. Risks, benefits, and alternatives have been discussed and questions answered. Patient agrees to proceed with procedure.
--- NOTE | 2020-05-24 07:29 | WPDGICN ---
GI Consult Note Consult date/time: 05/24/20 07:29 HPI: Shantel Oates is a 80 year old female [facility] Past Medical History Medical History (Updated 05/24/20 @ 07:28 by Kwesi Corley DO) Adenomatous colon polyp Anemia Anxiety Arthritis Atrial fibrillation Paroxysmal Chronic anticoagulation Chronic kidney disease, stage 3 Baseline creatinine 1.20. Diet-controlled diabetes mellitus Hemoglobin A1c was 5.5 on March 25, 2019. GERD (gastroesophageal reflux disease) History of Clostridioides difficile infection History of postoperative nausea and vomiting Hyperlipidemia Hypertension Hypothyroidism Mitral valve prolapse Osteoarthritis Renal cyst Surgical History Surgical History (Updated 05/24/20 @ 07:27 by Kwesi Corley DO) H/O hemorrhoidectomy History of bladder suspension procedure History of hip replacement (~06/06/19) left History of varicose vein ligation and stripping (~1991) right leg Hx of colonoscopy Status post arthroscopy of left knee (~05/04/19) Status post breast biopsy (~1972) Left breast biopsy with benign histology. Status post cardiac catheterization Coronary angiogram March 2014 showed normal coronary arteries. Status post cataract extraction (~05/20/16) right Status post cholecystectomy (~2001) Status post hysterectomy (~1970) Status post total left knee replacement (~05/04/19) Family History Family History Father Family history of cardiovascular disease Family history of kidney disease Family history of aortic aneurysm Mother Diabetes mellitus Family history of Alzheimer's disease Family history of malignant neoplasm of brain Grandparent Cerebrovascular accident Other Breast cancer Eye cancer Social History Social History Social History: The patient is and lives on a farm outside of [place]. She is a lifelong nonsmoker and denies alcohol and drug use. Children live nearby. She still works 6 days a week at [employer]. She denies alcohol, tobacco, and drug use. The patient's daughter lives with her now. She has 3 children. She is . She is a full code. Her daughter this living with her is a durable power document review attorney for healthcare. Smoking status: Never smoker Second hand tobacco smoke exposure: Yes Alcohol intake: never Substance use: never Substance use type: does not use Additional occupation/education comments: [employer] Gender identity (if verbalized by the patient): Female Spiritual care concerns: No Agree to blood products: Yes Meds Home Medications and Allergies Home Medications Medication Instructions Recorded Confirmed Type ferrous gluconate 324 mg (37.5 mg 324 mg PO HS 02/23/19 04/26/20 History iron) tablet PreserVision AREDS 1 tablet PO DAILY 04/01/19 04/26/20 History amitriptyline 25 mg tablet 25 mg PO HS #90 tablet 06/17/19 04/26/20 Rx biotin 5 mg tablet 5 mg PO DAILY tablet 06/24/19 04/26/20 History calcium citrate-ergocalciferol 2 tablet PO DAILY tablet 06/24/19 04/26/20 History (vitamin D2) 315 mg-200 unit tablet vitamin B complex 1 tablet PO DAILY 06/24/19 04/26/20 History omeprazole 40 mg capsule,delayed 40 mg PO DAILY #90 cap 10/03/19 04/26/20 Rx release flecainide 100 mg tablet 100 mg PO BID 90 Days #180 tablet 01/02/20 04/26/20 Rx levothyroxine 88 mcg PO DAILY 03/09/20 04/26/20 History lisinopril-hydrochlorothiazide 1 tablet PO QAM #60 tablet 03/12/20 04/26/20 Rx atorvastatin 40 mg tablet See Rx Instructions .ROUTE 03/15/20 04/26/20 Rx .COMPLEX #90 each diazepam 2 mg tablet 2 mg PO BID PRN #60 tablet 04/02/20 04/26/20 Rx L. acidophilus-L. rhamnosus 1 cap PO DAILY 04/26/20 04/26/20 History [Probiotic] metoprolol tartrate 25 mg tablet See Rx Instructions .ROUTE 05/10/20 Rx .COMPLEX #90 each Allergies Allergy/AdvReac Type Severity Reaction Status Date / Time lila
--- NOTE | 2020-05-24 07:43 | WPDANESEPPF ---
Anes - Initial Pre Proc Eval Procedure: Operation Date: 05/24/20 08:00 Proposed Procedures p Esophagogastroduodenoscopy - Kwesi Corley DO Date/Time: 05/24/20 07:43 Surgeon: Kwesi Corley DO Pre Op Diagnosis: esophageal reflux Patient Data Age: 80 Gender: F Height: 5 ft 4 in Weight: 73.6 kg Last Vital Signs Temp 36.8 C 05/24/20 07:11 Pulse 61 05/24/20 07:11 Resp 18 05/24/20 07:11 BP 139/67 05/24/20 07:11 Pulse Ox 98 05/24/20 07:11 Allergies Allergy/AdvReac Type Severity Reaction Status Date / Time acetaminophen [From Tylenol] Allergy Severe Swelling Verified 05/24/20 06:48 ibuprofen Allergy Severe Swelling Verified 05/24/20 06:48 of Lip/Tongue/Throat naproxen [From Aleve] Allergy Severe Swelling Verified 05/24/20 06:48 of Lip/Tongue/Throat strawberry Allergy Severe Swelling Verified 05/24/20 06:48 of Lip/Tongue/Throat adhesive Allergy Mild Rash Verified 05/24/20 06:48 latex Allergy Mild Rash Verified 05/24/20 06:48 influenza virus vaccine tv AdvReac Severe very sick Verified 05/24/20 06:48 2012-(18-49 yrs),rcmb with fever [From Flublok] and myalgia Home Medications Medication Instructions Recorded Confirmed Type ferrous gluconate 324 mg (37.5 mg 324 mg PO HS 02/23/19 04/26/20 History iron) tablet PreserVision AREDS 1 tablet PO DAILY 04/01/19 04/26/20 History amitriptyline 25 mg tablet 25 mg PO HS #90 tablet 06/17/19 04/26/20 Rx biotin 5 mg tablet 5 mg PO DAILY tablet 06/24/19 04/26/20 History calcium citrate-ergocalciferol 2 tablet PO DAILY tablet 06/24/19 04/26/20 History (vitamin D2) 315 mg-200 unit tablet vitamin B complex 1 tablet PO DAILY 06/24/19 04/26/20 History omeprazole 40 mg capsule,delayed 40 mg PO DAILY #90 cap 10/03/19 04/26/20 Rx release flecainide 100 mg tablet 100 mg PO BID 90 Days #180 tablet 01/02/20 04/26/20 Rx levothyroxine 88 mcg PO DAILY 03/09/20 04/26/20 History lisinopril-hydrochlorothiazide 1 tablet PO QAM #60 tablet 03/12/20 04/26/20 Rx atorvastatin 40 mg tablet See Rx Instructions .ROUTE 03/15/20 04/26/20 Rx .COMPLEX #90 each diazepam 2 mg tablet 2 mg PO BID PRN #60 tablet 04/02/20 04/26/20 Rx L. acidophilus-L. rhamnosus 1 cap PO DAILY 04/26/20 04/26/20 History [Probiotic] metoprolol tartrate 25 mg tablet See Rx Instructions .ROUTE 05/10/20 Rx .COMPLEX #90 each Patient hx anesthesia problems: none Family hx anesthesia problems: none [facility] Past Medical History Medical History Adenomatous colon polyp Anemia Anxiety Arthritis Atrial fibrillation Paroxysmal Chronic anticoagulation Chronic kidney disease, stage 3 Baseline creatinine 1.20. Diet-controlled diabetes mellitus Hemoglobin A1c was 5.5 on March 25, 2019. GERD (gastroesophageal reflux disease) History of Clostridioides difficile infection History of postoperative nausea and vomiting Hyperlipidemia Hypertension Hypothyroidism Mitral valve prolapse Osteoarthritis Renal cyst Surgical History Surgical History H/O hemorrhoidectomy History of bladder suspension procedure History of hip replacement (~06/06/19) left History of varicose vein ligation and stripping (~1991) right leg Hx of colonoscopy Status post arthroscopy of left knee (~05/04/19) Status post breast biopsy (~1972) Left breast biopsy with benign histology. Status post cardiac catheterization Coronary angiogram March 2014 showed normal coronary arteries. Status post cataract extraction (~05/20/16) right Status post cholecystectomy (~2001) Status post hysterectomy (~1970) Status post total left knee replacement (~05/04/19) Family History Family History Father Family history of cardiovascular disease Family history of kidney disease Family history of aortic aneurysm Mother Diabetes
[2020-05-24 08:15] VITALS: BP 112/65; PULSE 54; RESP 16; O2SAT 95
[2020-05-24 08:25] VITALS: BP 121/71; PULSE 52; RESP 16; O2SAT 97
[2020-05-24 08:35] VITALS: BP 145/77; PULSE 54; RESP 15; O2SAT 96
[2020-05-24 08:45] VITALS: BP 151/73; PULSE 53; RESP 19; O2SAT 97
== END 2020-05-24 09:02 | disposition home or self-care (01) ==
PROVIDERS: PCP Family Medicine; Visit Provider Internal Medicine Gastroenterology
PROC: 0DJ08ZZ Inspection of Upper Intestinal Tract, Via Natural or Artificial Opening Endoscopic (ICD-10-PCS; CPT 43235; principal; 2020-05-24 08:00)
DX: K21.9 Gastro-esophageal reflux disease without esophagitis (principal); D64.9 Anemia, unspecified; K31.819 Angiodysplasia of stomach and duodenum without bleeding; K31.7 Polyp of stomach and duodenum; I48.0 Paroxysmal atrial fibrillation; I12.9 Hypertensive chronic kidney disease with stage 1 through stage 4 chronic kidney disease, or unspecified chronic kidney disease; N18.30 Chronic kidney disease, stage 3 unspecified; E11.22 Type 2 diabetes mellitus with diabetic chronic kidney disease; F41.9 Anxiety disorder, unspecified; E78.5 Hyperlipidemia, unspecified; E03.9 Hypothyroidism, unspecified; I34.1 Nonrheumatic mitral (valve) prolapse
CPT/HCPCS: 43239; 43270; 87081; 88305; C9803; J2704; J7120; U0003; U0005

== ENCOUNTER 2020-06-14 08:51 | Outpatient (CLI) | payer MEDICARE, SELFPAY ==
[2020-06-14 09:14] LABS: Basophils Percent Auto 0.7 % (0.2-1.2); Eosinophils Absolute Auto 0.7 K/mm3 (0-0.3); Eosinophils Percent Auto 12.4 % (0-4.4); Hematocrit 33.8 % (37.0-47.0); Hemoglobin 11.2 g/dL (12.0-15.0); Immature Granulocyte Absolute 0.03 K/mm3 (0.00-0.031); Immature Granulocyte Percent A 0.5 % (0-0.5); Lymphocytes Absolute Auto 1.09 K/mm3 (0.9-3.2); Lymphocytes Percent Auto 19.9 % (18.3-44.2); Mean Corpuscular HGB Conc 33.1 g/dl (32-36); Mean Corpuscular Hemoglobin 30.4 pg (26-34); Mean Corpuscular Volume 91.6 fl (80-100); Mean Platelet Volume 11.5 fl (7.4-10.4); Monocytes Absolute Auto 0.4 K/mm3 (0.1-0.6); Monocytes Percent Auto 7.5 % (2.6-8.5); Neutrophils Absolute Auto 3.2 K/mm3 (1.3-6.7); Platelet Count Result 179 k/mm3 (150-375); Red Blood Count 3.69 M/mm3 (4.2-5.4); Red Cell Distribution Width 12.8 % (11.5-14.5); White Blood Count 5.5 K/mm3 (4.5-10.0)
== END 2020-06-14 08:52 | disposition home or self-care (01) ==
PROVIDERS: PCP Family Medicine; Visit Provider Internal Medicine Gastroenterology
DX: D64.9 Anemia, unspecified (principal)
CPT/HCPCS: 36415; 85025

== ENCOUNTER → 2020-07-26 08:06 | Outpatient (CLI) | payer MEDICARE, SELFPAY ==
--- NOTE | ~2020-07-26 | CT_ITS ---
EXAMINATION: CT abdomen wo/w con DATE: 07/26/2020 08:44 INDICATION: Renal mass TECHNIQUE: Computed tomography (CT) of the abdomen was performed without and subsequently with 100 cc Omnipaque 350 intravenous contrast. Automated exposure control and iterative reconstruction techniqu e were employed. Exam dose: 626.68 mGy-cm total exam DLP. COMPARISON: 04/18/2020 CT abdomen pelvis without and with IV contrast material FINDINGS: Bilateral basilar atelectasis and/or scarring. Cardiomegaly. No pericardial or pleural effusion. Bibasilar lung atelectasis and/or scarring. Small sliding hiatal hernia. Status post cholecystectomy. No bile duct or pancreatic duct dilatation. 9 mm medial segment left hepatic cyst. The liver, spleen, pancreas and adrenal glands are otherwise unremarkable. No bile duct or pancreati c duct dilatation. Stable subtle hypoenhancing 1.2 cm upper pole right renal indeterminate lesion. Approximately 6.4 x 7 cm upper pole left renal cyst. Indeterminate ill-defined hypoenhancing 9 x 15 mm left lower pole renal lesion, most likely a cyst ba sed upon comparison with 04/18/2020 examination. No abdominal aortic aneurysm. No intraperitoneal or retroperitoneal mass lesion or lymphadenopathy. Small fat containing umbilical hernia. Advanced degenerative disc disease in the examination: 2, L3-4, L4-5 and moderately severe degenerati ve disease at L2-3, moderate degenerative disc disease at L5-S1. Degenerative change at the apophysea l joints of the lumbar spine. No spondylolysis or spondylolisthesis. IMPRESSION: Stable 1.2 cm upper pole right renal indeterminate lesion Left renal cysts 9 mm left hepatic cysts Small sliding hiatal hernia Status post cholecystectomy Reviewed, dictated and finalized at [facility]. Reviewed, dictated and finalized at [facility].
[2020-07-26 08:31] LABS: Estimated Glomerular Filt Rate 31
== END ==
PROVIDERS: PCP Family Medicine; Visit Provider Urology
DX: N28.89 Other specified disorders of kidney and ureter (principal); N28.1 Cyst of kidney, acquired; K76.89 Other specified diseases of liver; K44.9 Diaphragmatic hernia without obstruction or gangrene; Z90.49 Acquired absence of other specified parts of digestive tract
CPT/HCPCS: 74170; Q9967

== ENCOUNTER 2020-11-07 09:35 | Emergency (ER) | payer MEDICARE, SELFPAY ==
--- NOTE | ~2020-11-07 | CT_ITS ---
EXAMINATION: CT cervical spine wo con DATE: 11/07/2020 10:18 INDICATION: Neck pain post fall with head injury TECHNIQUE: Computed tomography (CT) of the cervical spine was performed without intravenous contrast. Automated exposure control and iterative reconstruction technique were employed. The dose-length pro duct was 182.58 mGy-cm. COMPARISON: None FINDINGS: Minimal cervical levocurvature. Sagittal alignment is normal. Vertebral body heights are normal. Mode rate disc height loss at C5-C6 and C6-C7 and mild disc height loss at C4-C5. Again seen is a prominen t disc extrusion resulting in mild to moderate central canal stenosis at C4-C5. No significant interv al change in multilevel facet and uncovertebral osteoarthritis and additional disc bulges/disc osteop hyte complexes contributing to additional multilevel mild central canal and bilateral neural foramina l stenosis. See prior report for level by level analysis. Atherosclerotic calcifications at the bilat eral carotid bulbs. Mosaic attenuation at the apices of the lungs consistent with small airway diseas e and subsegmental air trapping. IMPRESSION: 1. Moderate cervical spondylosis. No acute osseous abnormality. Reviewed, dictated and finalized at location A.
--- NOTE | ~2020-11-07 | CT_ITS ---
EXAMINATION: CT brain wo con DATE: 11/07/2020 10:18 INDICATION: Right-sided head injury post fall TECHNIQUE: Computed tomography (CT) of the head was performed without intravenous contrast. Sagittal and coronal reconstructions were performed. The mA was adjusted according to patient size. Iterative reconstruction technique was employed. The dose-length product was 529.67 mGy-cm. COMPARISON: head CT dated 03/12/2020 FINDINGS: No fracture. No acute intracranial hemorrhage, acute infarction or abnormal extra axial fluid collect ion. There is mild scattered white matter hypoattenuation consistent with chronic small vessel ischem ic disease. Symmetric prominence of the sulci and subarachnoid spaces overlying the convexities consi stent with mild age-appropriate diffuse cerebral volume loss. Ventricles are normal and symmetric. N o mass/mass effect. Changes of bilateral intraocular lens replacement. The orbits and mastoid air eladia ls are normal. Mild mucosal thickening in the right ethmoid sinus. Mild intracranial calcified cerebr al atherosclerosis is noted at the carotid siphons. IMPRESSION: 1. No fracture or acute intracranial process. 2. Stable age-related changes including mild diffuse volume loss and mild scattered white matter hypo attenuation consistent with chronic small vessel ischemic disease. Reviewed, dictated and finalized at location A. IMPRESSION: 1. No fracture or acute intracranial process. 2. Stable age-related changes including mild diffuse volume loss and mild scatt ered white matter hypoattenuation consistent with chronic small vessel ischemic disease.
[2020-11-07 09:46] VITALS: BP 170/87; PULSE 61; RESP 16; TEMP 36.2; O2SAT 100
--- NOTE | 2020-11-07 10:04 | ED.FALL ---
HPI - Fall General Chief Complaint: Fall <Kenisha Hung PA-C - Last Filed: 11/07/20 11:19> Stated Complaint: fall/head injury <Kenisha Hung PA-C - Last Filed: 11/07/20 11:19> Time Seen by Provider: 11/07/20 09:49 <Kenisha Hung PA-C - Last Filed: 11/07/20 11:19> Source: patient <MATT Cheney Last Filed: 11/07/20 11:19> Mode of arrival: ambulatory <MATT Cheney Last Filed: 11/07/20 11:19> Limitations: no limitations <Kenisha Hung PA-C - Last Filed: 11/07/20 11:19> History of Present Illness HPI Narrative: This is an 80-year-old female that presents to the emergency department after a fall last night with a head injury. Reports she was going to sleep. She turned off the light in her room and then went to walk to her bed. Reports she did not see her TV stand and hit her head on it and fell to the floor. Denies loss of consciousness. Reports since she fell she has had a headache. She takes an aspirin daily. She has not taken anything for her headache and would not like anything right now. Denies fever, vision changes, vomiting, prodromal symptoms, numbness, or weakness. <Kenisha Hung PA-C - Last Filed: 11/07/20 11:19> Related Data Home Medications: Home Medications Medication Instructions Recorded Confirmed ferrous gluconate 324 mg (37.5 mg 324 mg PO HS 02/23/19 08/20/20 iron) tablet PreserVision AREDS 1 tablet PO DAILY 04/01/19 08/20/20 biotin 5 mg tablet 5 mg PO DAILY tablet 06/24/19 08/20/20 calcium citrate-ergocalciferol 2 tablet PO DAILY tablet 06/24/19 08/20/20 (vitamin D2) 315 mg-200 unit tablet vitamin B complex 1 tablet PO DAILY 06/24/19 08/20/20 levothyroxine 88 mcg PO DAILY 03/09/20 08/20/20 aspirin 325 mg PO DAILY 11/07/20 <Kenisha Hung PA-C - Last Filed: 11/07/20 11:19> Allergies/Adverse Reactions: Allergies Allergy/AdvReac Type Severity Reaction Status Date / Time acetaminophen [From Tylenol] Allergy Severe Swelling Verified 11/07/20 09:51 ibuprofen Allergy Severe Swelling Verified 11/07/20 09:51 of Lip/Tongue/Throat naproxen [From Aleve] Allergy Severe Swelling Verified 11/07/20 09:51 of Lip/Tongue/Throat strawberry Allergy Severe Swelling Verified 11/07/20 09:51 of Lip/Tongue/Throat adhesive Allergy Mild Rash Verified 11/07/20 09:51 latex Allergy Mild Rash Verified 11/07/20 09:51 influenza virus vaccine tv AdvReac Severe very sick Verified 11/07/20 09:51 2012-14(18-49 yrs),rcmb with fever [From Flublok] and myalgia <Kenisha Hung PA-C - Last Filed: 11/07/20 11:19> Review of Systems Review of Systems: CONSTITUTIONAL: Denies fever EYES: Denies visual changes CARDIOVASCULAR: Denies chest pain RESPIRATORY: Denies dyspnea. GASTROINTESTINAL: Denies vomiting MUSCULOSKELETAL: Reports joint pain, and myalgia. NEUROLOGIC: Reports headache. Denies numbness, or weakness. <Kenisha Hung PA-C - Last Filed: 11/07/20 11:19> All systems reviewed & are unremarkable except as noted in HPI and below <Kenisha Hung PA-C - Last Filed: 11/07/20 11:19> [facility] Past Medical History Medical History: Medical History Adenomatous colon polyp Anemia Anxiety Arthritis Atrial fibrillation Paroxysmal Chronic anticoagulation Chronic kidney disease, stage 3 Baseline creatinine 1.20. Diet-controlled diabetes mellitus Hemoglobin A1c was 5.5 on March 25, 2019. Gastric AVM GERD (gastroesophageal reflux disease) History of Clostridioides difficile infection History of postoperative nausea and vomiting Hyperlipidemia Hypertension Hypothyroidism Mitral valve prolapse Osteoarthritis Renal cyst <MATT Cheney Last Filed: 11/07/20 11:19> Surgical History Surgical History: Surgical History H/O hemorrhoidectomy History of bladder suspe
[2020-11-07 11:31] VITALS: BP 144/66; PULSE 88; RESP 16; O2SAT 100
== END 2020-11-07 11:33 | disposition home or self-care (01) ==
PROVIDERS: Emergency Provider General Practice; PCP Family Medicine
DX: S09.90XA Unspecified injury of head, initial encounter (principal); I48.0 Paroxysmal atrial fibrillation; E11.22 Type 2 diabetes mellitus with diabetic chronic kidney disease; I12.9 Hypertensive chronic kidney disease with stage 1 through stage 4 chronic kidney disease, or unspecified chronic kidney disease; N18.30 Chronic kidney disease, stage 3 unspecified; K21.9 Gastro-esophageal reflux disease without esophagitis; E78.5 Hyperlipidemia, unspecified; E03.9 Hypothyroidism, unspecified; I34.1 Nonrheumatic mitral (valve) prolapse; M19.90 Unspecified osteoarthritis, unspecified site; D64.9 Anemia, unspecified; Z86.010 Personal history of colon polyps; Z98.41 Cataract extraction status, right eye; Z96.652 Presence of left artificial knee joint; Z77.22 Contact with and (suspected) exposure to environmental tobacco smoke (acute) (chronic); Z79.82 Long term (current) use of aspirin; M47.812 Spondylosis without myelopathy or radiculopathy, cervical region; W18.09XA Striking against other object with subsequent fall, initial encounter
CPT/HCPCS: 70450; 72125; 99284; L0140

== ENCOUNTER → 2021-06-24 08:53 | Outpatient (CLI) | payer MEDICARE, SELFPAY ==
--- NOTE | ~2021-06-24 | US_ITS ---
US renal BI 06/24/2021 09:56 Procedure: Realtime transabdominal ultrasound of the kidneys and bladder. Indication: Chronic kidney disease stage III Comparison: Ultrasound dated 03/10/2020 Findings: Renal echotexture is normal bilaterally without hydronephrosis, solid contour deforming mas s or renal calculus. There are bilateral renal cysts, largest in the left kidney measuring 7.6 cm gre atest dimension. The right kidney measures 8.3 cm and left kidney measures 10.9 cm. Bladder within n ormal limits. Impression: 1: Bilateral renal cysts. Reviewed, dictated and finalized at location A. Impression: 1: Bilateral renal cysts.
== END ==
PROVIDERS: PCP Family Medicine; Visit Provider Family Medicine
DX: N18.30 Chronic kidney disease, stage 3 unspecified (principal); N28.1 Cyst of kidney, acquired
CPT/HCPCS: 76775

== ENCOUNTER → 2021-10-10 11:14 | Outpatient (CLI) | payer MEDICARE, SELFPAY ==
--- NOTE | ~2021-10-10 | CT_ITS ---
EXAMINATION: CT abdomen wo con DATE: 10/10/2021 11:58 INDICATION: Renal mass. Bilateral flank pain. TECHNIQUE: Computed tomography (CT) of the abdomen was performed without intravenous contrast. Automa uli exposure control and iterative reconstruction technique were employed. Exam dose: 341.83 mGy-cm total exam DLP. COMPARISON: 06/24/2021 bilateral renal ultrasound examination 07/26/2020 CT abdomen pelvis FINDINGS: Bilateral peripheral septal soft tissue thickening of the lower lungs, likely due to chroni c interstitial changes. Heart size is within normal range. No pericardial or pleural effusion. Small sliding hiatal hernia. Stable approximate 7 mm medial segment left hepatic cyst. No other hepatic space-occupying mass lesio n is evident on this limited noncontrast examination. Status post cholecystectomy. No bile duct or pancreatic duct dilatation. No pancreatic mass lesion or calcification is evident. Normal splenic size. Normal morphology of the adrenal glands. Approximately 6.2 x 6.5 x 6.7 cm upper pole left renal cyst is again noted. Approximately 12 mm probable lower pole left renal cyst, stable since 07/26/2020. Stable 1.2 cm lesion at upper pole of right kidney. No interval or enlarging space-occupying mass lesion of either kidney is noted otherwise. No urinary tract calculus or hydroureteronephrosis. There is atherosclerotic calcification of the abdominal aorta and prominent calcification at the orig in of the renal arteries. No abdominal aortic aneurysm. No intraperitoneal or retroperitoneal mass le jose or adenopathy or ascites is detected. Levoscoliosis and prominent multilevel degenerative disc disease of the lumbar spine. No suspicious o steolytic or osteoblastic lesions are noted. IMPRESSION: No significant change since 07/26/2020 Reviewed, dictated and finalized at Location A. Reviewed, dictated and finalized at location A.
[2021-10-10 11:36] LABS: Estimated Glomerular Filt Rate 25
== END ==
PROVIDERS: PCP Urology; Visit Provider Urology
DX: N28.89 Other specified disorders of kidney and ureter (principal)
CPT/HCPCS: 74150

== ENCOUNTER 2021-12-02 09:52 | Emergency (ER) | payer MEDICARE, SELFPAY ==
--- NOTE | ~2021-12-02 | XR_ITS ---
EXAMINATION: XR hand RT min 3V, XR wrist RT min 3V DATE: 12/02/2021 10:30 INDICATION: Radial sided right hand and wrist pain post fall TECHNIQUE: 1. Posteroanterior, ulnar deviation, oblique, and lateral views of the right wrist were obtained. 2. Dorsal palmar, oblique and lateral views of the right hand were obtained. COMPARISON: None. FINDINGS: Alignment of the right hand and wrist are normal. No fracture identified. Polyarticular osteoarthrit is, severe at the first carpometacarpal, first metacarpophalangeal, first interphalangeal, third prox imal interphalangeal and each of the distal interphalangeal joints. Moderate osteoarthritis at the tr iscaphe and remaining interphalangeal joints. Small degenerative loose bodies versus heterotopic ossi christian near the tip of the ulnar styloid process. Mild soft tissue swelling at the base of the right clara mb and mild periarticular soft tissue swelling at several of the interphalangeal joints. IMPRESSION: 1. Moderate to severe polyarticular osteoarthritis. No acute osseous abnormality at the right hand or wrist. Reviewed, dictated and finalized at location A. IMPRESSION: 1. Moderate to severe polyarticular osteoarthritis. No acute osseous abnormalit y at the right hand or wrist.
[2021-12-02 10:13] VITALS: BP 196/73; PULSE 83; RESP 20; TEMP 36.3; O2SAT 100
--- NOTE | 2021-12-02 11:16 | ED.GENADULT ---
HPI - General Adult General Chief complaint: Fall Stated complaint: Fall Injury on Right side of body Time Seen by Provider: 12/02/21 11:16 Source: patient, RN notes reviewed and old records reviewed Mode of arrival: ambulatory Limitations: no limitations History of Present Illness HPI narrative: 81-year-old female presents to the [facility] with right thumb pain after she fell stool last night and caught herself with her right hand. Bruising and tenderness to the dorsal aspect first and second metacarpal. Pain to the first finger. Decreased range of motion secondary to swelling and pain of fingers 1 and 2. Patient states that she is allergic to acetaminophen and ibuprofen. Has taken just plain aspirin, 2 last night and been icing it. Denies any pain to the back shoulder or elbow. Denies hitting head. No loss of consciousness. Related Data Home Medications Medication Instructions Recorded Confirmed vitamins A,C,P-dnge-uujcfy 2,148 1 tablet PO DAILY 04/01/19 12/02/21 mcg-113 mg-45 mg-17.4 mg tablet (PreserVision AREDS) biotin 5 mg tablet 5 mg PO DAILY 06/24/19 12/02/21 vitamin B complex 1 tablet PO DAILY 06/24/19 12/02/21 calcium citrate-ergocalciferol 1 tablet PO DAILY 08/29/21 12/02/21 (vitamin D2) 315 mg-200 unit tablet diphenhydramine HCl 25 mg capsule 25 mg PO DAILY PRN Anxiety 08/29/21 12/02/21 (Benadryl) ferrous sulfate 325 mg (65 mg 325 mg PO DAILY 08/29/21 12/02/21 iron) tablet diazepam 2 mg tablet 2 mg PO BID PRN Anxiety 11/21/21 12/02/21 flecainide 100 mg tablet 100 mg PO Q12H 11/21/21 12/02/21 Allergies Allergy/AdvReac Type Severity Reaction Status Date / Time acetaminophen [From Tylenol] Allergy Severe Swelling Verified 11/21/21 14:07 ibuprofen Allergy Severe Swelling Verified 11/21/21 14:07 of Lip/Tongue/Throat naproxen [From Aleve] Allergy Severe Swelling Verified 11/21/21 14:07 of Lip/Tongue/Throat strawberry Allergy Severe Swelling Verified 11/21/21 14:07 of Lip/Tongue/Throat adhesive Allergy Mild Rash Verified 11/21/21 14:07 latex Allergy Mild Rash Verified 11/21/21 14:07 influenza virus vaccine tv AdvReac Severe very sick Verified 11/21/21 14:07 2013-14(18-49 yrs),rcmb with fever [From Flublok] and myalgia Review of Systems Review of Systems: All systems reviewed & are unremarkable except as noted in HPI and below Constitutional: Constitutional: Reports no additional constitutional complaints, Denies chills and Denies fever(s) Eyes: Eyes: Reports no additional eye complaints ENT: Reports system reviewed and no additional complaints, except as documented Cardiovascular: Cardiovascular: Reports no additional cardiovascular complaints Respiratory: Respiratory: Reports no additional respiratory complaints Gastrointestinal: Gastrointestinal: Reports no additional gastrointestinal complaints Musculoskeletal: Musculoskeletal: Reports as per HPI, Reports arthralgias and Reports joint swelling Integumentary/Breasts: Skin/Breast: Reports system reviewed and no additional complaints, except as docu Neurologic: Reports system reviewed and no additional complaints, except as documented Psychiatric: Psychiatric: Reports no additional psychiatric complaints Allergic/Immunologic: Allergic/Immunologic: Reports no additional allergic/immunologic complaints [facility] Past Medical History Medical History Adenomatous colon polyp Anemia Anxiety Arthritis Atrial fibrillation Paroxysmal Chronic anticoagulation Chronic kidney disease, stage 3 Baseline creatinine 1.20. Diet-controlled diabetes mellitus Hemoglobin A1c was 5.5 on March 25, 2019. Gastric AVM GERD (gastroesophageal reflux disease) History of Clostridioides difficile infection History of postoperative nausea and vomiting Hyperlipidemia Hypertension Hypothyroidism Mitral valve prolapse Osteoarthritis Renal cyst Surgical History
[2021-12-02 11:42] VITALS: BP 182/87; PULSE 60; O2SAT 100
== END 2021-12-02 11:53 | disposition home or self-care (01) ==
PROVIDERS: Emergency Provider Nurse Practitioner; PCP Emergency Medicine
DX: S60.221A Contusion of right hand, initial encounter (principal); S60.011A Contusion of right thumb without damage to nail, initial encounter; W17.89XA Other fall from one level to another, initial encounter; M19.90 Unspecified osteoarthritis, unspecified site; I48.0 Paroxysmal atrial fibrillation; I12.9 Hypertensive chronic kidney disease with stage 1 through stage 4 chronic kidney disease, or unspecified chronic kidney disease; E11.22 Type 2 diabetes mellitus with diabetic chronic kidney disease; N18.30 Chronic kidney disease, stage 3 unspecified; K21.9 Gastro-esophageal reflux disease without esophagitis; E78.5 Hyperlipidemia, unspecified; E03.9 Hypothyroidism, unspecified; I34.1 Nonrheumatic mitral (valve) prolapse; D64.9 Anemia, unspecified; Z86.19 Personal history of other infectious and parasitic diseases; Z96.642 Presence of left artificial hip joint; Z96.652 Presence of left artificial knee joint; Z98.41 Cataract extraction status, right eye
CPT/HCPCS: 73110; 73130; 99213; G0463

== ENCOUNTER → 2021-12-05 12:01 | Outpatient (CLI) | payer MEDICARE, SELFPAY ==
--- NOTE | ~2021-12-05 | XR_ITS ---
XR hip RT min 3V w AP pelvis DATE: 12/05/2021 12:30 INDICATION: Fall 4 nights ago. Right hip pain TECHNIQUE: AP pelvis. AP and lateral views of right hip COMPARISON: None FINDINGS: Prominent degenerative disc disease at L4-5 and L5-S1. Mild osteitis pubis. The sacroiliac joints are intact, with mild degenerative change. No pelvic fracture or bone destruction is detected. Left bipolar hip prosthesis. No fracture, dislocation, avascular necrosis or bone destruction of the right hip. Mild right hip ost eoarthritis. IMPRESSION: No pelvic or right hip fracture or dislocation Left bipolar hip prosthesis Severe degenerative disc disease at L4-5 and L5-S1 Reviewed, dictated and finalized at location B.
--- NOTE | ~2021-12-05 | XR_ITS ---
XR lumbar spine 2-3V DATE: 12/05/2021 12:30 INDICATION: Fall 4 nights ago; lumbar and posterior right hip pain TECHNIQUE: AP, lateral, coned lateral lumbosacral views COMPARISON: 12/09/2016 lumbar spine FINDINGS: There is osteopenia. There is prominent rotatory levoscoliosis of the thoracolumbar spine, measuring approximately 37 degr ees from T10 to L3. There are 6 functional lumbar vertebrae. There is severe degenerative disc disease throughout the lumbar and lumbosacral spine, including loss of disc space height, degenerative spurring, eburnation and vacuum phenomenon. Leftward translation is again noted at L2-3 and L3-4. The sacroiliac joints are intact, with degenerative change. Status post cholecystectomy. IMPRESSION: Approximately 37 degrees rotatory levoscoliosis measured from T10 to L3 Severe degenerative disc disease lumbar spine, leftward translation at L3-4, L2-3 No fracture or bone destruction is evident Degenerative change at the sacroiliac joints Osteopenia Reviewed, dictated and finalized at location B. IMPRESSION: Approximately 37 degrees rotatory levoscoliosis measured from T10 t o L3 Severe degenerative disc disease lumbar spine, leftward translation at L3-4, L2 -3 No fracture or bone destruction is evident Degenerative change at the sacroiliac joints Osteopenia
== END ==
PROVIDERS: PCP Physician Assistant; Visit Provider Physician Assistant
DX: M47.817 Spondylosis without myelopathy or radiculopathy, lumbosacral region (principal); M47.898 Other spondylosis, sacral and sacrococcygeal region; Z96.642 Presence of left artificial hip joint
CPT/HCPCS: 72100; 73502

== ENCOUNTER → 2021-12-10 11:29 | Outpatient (CLI) | payer MEDICARE, SELFPAY ==
--- NOTE | ~2021-12-10 | XR_ITS ---
EXAM: XR wrist RT w scaphoid, XR finger 1st RT min 2V DATE: 12/10/2021 12:04 HISTORY: M79.646 - Pain in unspecified finger(s), THUMB PAIN AFTER FA . COMPARISON: None available. FINDINGS: Decreased mineralization. No fracture or dislocation. No lytic or blastic lesion. Moderate degenerative changes at the triscaphe joint, trapeziometacarpal joint, first MTP joint, thumb interp halangeal joint, and the second DIP joint. Old ulnar styloid fracture. No erosion or periosteal ornelas e. Soft tissues within normal limits. IMPRESSION: No acute osseous finding in the right wrist or right thumb. Reviewed, dictated and finalized at location K. IMPRESSION: No acute osseous finding in the right wrist or right thumb.
== END ==
PROVIDERS: PCP Physician Assistant; Visit Provider Physician Assistant
DX: M19.031 Primary osteoarthritis, right wrist (principal); M18.11 Unilateral primary osteoarthritis of first carpometacarpal joint, right hand; M19.041 Primary osteoarthritis, right hand
CPT/HCPCS: 73110; 73140

== ENCOUNTER 2022-01-01 13:13 | Emergency (ER) | payer MEDICARE, SELFPAY ==
--- NOTE | ~2022-01-01 | CT_ITS ---
EXAMINATION: CT brain wo con INDICATION: Head injury COMPARISON: 11/07/2020 TECHNIQUE: Standard unenhanced head CT. The dose-length product (DLP) was 605.33 mGy-cm. The mA was a djusted according to patient size. Iterative reconstruction technique was employed. FINDINGS: There is no acute intraparenchymal hemorrhage. No evidence of mass lesion. No evidence of a cute infarction. There are small areas of prior infarction in the bilateral basal ganglia. There is m ild periventricular and subcortical hypodensity probably related to small vessel ischemic disease. Th ere is mild prominence of the sulci and ventricles related to cerebral atrophy. Intracranial calcifie d cerebral atherosclerosis is noted. There are no extra-axial collections. There is no mass effect or midline shift. Changes in the globes are likely from ocular lens surgery. There is mild mucosal thic kening of the paranasal sinuses. IMPRESSION: 1. No acute intracranial abnormality. 2. Age related findings. Reviewed, dictated and finalized at location A.
[2022-01-01 13:11] VITALS: BP 132/61; PULSE 60; RESP 16; TEMP 37; O2SAT 96
[2022-01-01 14:32] VITALS: PULSE 60; RESP 12; O2SAT 96
--- NOTE | 2022-01-01 15:02 | ED.GENADULT ---
HPI - General Adult General Chief complaint: Head Injury Stated complaint: ground level fall, head pain Source: RN notes reviewed History of Present Illness HPI narrative: Patient presents emergency department from work via EMS for a fall. 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 [employer] states that her toe headache got stubbed on the concrete and caused her to fall forward striking her head states she did hit her head but did not have any loss of consciousness states she does take a baby aspirin daily she notes a small abrasion over the left side of her face patient states that she is allergic to tetanus vaccinations and cannot have a tetanus shot she denies any facial pain or neck pain she denies chest pain shortness of breath denies any numbness or tingling Related Data Home Medications Medication Instructions Recorded Confirmed vitamins A,C,E-nitc-ivvplq 2,148 1 tablet PO DAILY 04/01/19 12/13/21 mcg-113 mg-45 mg-17.4 mg tablet (PreserVision AREDS) biotin 5 mg tablet 5 mg PO DAILY 06/24/19 12/13/21 vitamin B complex 1 tablet PO DAILY 06/24/19 12/13/21 calcium citrate-ergocalciferol 1 tablet PO DAILY 08/29/21 12/13/21 (vitamin D2) 315 mg-200 unit tablet diphenhydramine HCl 25 mg capsule 25 mg PO DAILY PRN Anxiety 08/29/21 12/13/21 (Benadryl) ferrous sulfate 325 mg (65 mg 325 mg PO DAILY 08/29/21 12/13/21 iron) tablet diazepam 2 mg tablet 2 mg PO BID PRN Anxiety 11/21/21 12/13/21 flecainide 100 mg tablet 100 mg PO Q12H 11/21/21 12/13/21 Allergies Allergy/AdvReac Type Severity Reaction Status Date / Time acetaminophen [From Tylenol] Allergy Severe Swelling Verified 12/10/21 10:50 ibuprofen Allergy Severe Swelling Verified 12/10/21 10:50 of Lip/Tongue/Throat naproxen [From Aleve] Allergy Severe Swelling Verified 12/10/21 10:50 of Lip/Tongue/Throat strawberry Allergy Severe Swelling Verified 12/10/21 10:50 of Lip/Tongue/Throat adhesive Allergy Mild Rash Verified 12/10/21 10:50 latex Allergy Mild Rash Verified 12/10/21 10:50 influenza virus vaccine tv AdvReac Severe very sick Verified 12/10/21 10:50 2013-14(18-49 yrs),rcmb with fever [From Flublok] and myalgia Review of Systems Review of Systems: Gen.: Denies fevers or chills Eyes: Denies eye pain or visual change ENT: See HPI Respiratory: Denies shortness of breath or cough CV: Denies chest pain GI: Denies abdominal pain nausea, emesis Musculoskeletal: Denies back pain or muscle pain Neuro: Denies headache or numbness Skin: D reports abrasion over left side of face Except as documented, all other systems reviewed and negative [facility] Past Medical History Medical History Adenomatous colon polyp Anemia Anxiety Arthritis Atrial fibrillation Paroxysmal Chronic anticoagulation Chronic kidney disease, stage 3 Baseline creatinine 1.20. Diet-controlled diabetes mellitus Hemoglobin A1c was 5.5 on March 25, 2019. Gastric AVM GERD (gastroesophageal reflux disease) History of Clostridioides difficile infection History of postoperative nausea and vomiting Hyperlipidemia Hypertension Hypothyroidism Mitral valve prolapse Osteoarthritis Renal cyst Surgical History Surgical History H/O dilation and curettage x4 H/O hemorrhoidectomy History of bladder suspension procedure History of hip replacement (~06/06/19) left History of varicose vein ligation and stripping (~1991) right leg Hx of colonoscopy Status post arthroscopy of left knee (~05/04/19) Status post breast biopsy (~1972) Left breast biopsy with benign histology. Status post cardiac catheterization Coronary angiogram March 2014 showed normal coronary arteries. Status post cataract extraction (~05/20/16) right Status post cholecystectomy (~2001) Status post hysterectomy (~1970) Status post total le
[2022-01-01 15:04] VITALS: BP 128/86; PULSE 59; RESP 12; O2SAT 96
== END 2022-01-01 15:19 | disposition home or self-care (01) ==
PROVIDERS: Emergency Provider Emergency Medicine; PCP Physician Assistant
DX: S00.93XA Contusion of unspecified part of head, initial encounter (principal); W18.09XA Striking against other object with subsequent fall, initial encounter; M19.90 Unspecified osteoarthritis, unspecified site; I48.0 Paroxysmal atrial fibrillation; Z79.01 Long term (current) use of anticoagulants; I12.9 Hypertensive chronic kidney disease with stage 1 through stage 4 chronic kidney disease, or unspecified chronic kidney disease; E11.22 Type 2 diabetes mellitus with diabetic chronic kidney disease; N18.30 Chronic kidney disease, stage 3 unspecified; K21.9 Gastro-esophageal reflux disease without esophagitis; Z86.19 Personal history of other infectious and parasitic diseases; E78.5 Hyperlipidemia, unspecified; E03.9 Hypothyroidism, unspecified; I34.1 Nonrheumatic mitral (valve) prolapse; Z96.652 Presence of left artificial knee joint; Z96.642 Presence of left artificial hip joint; Z98.41 Cataract extraction status, right eye
CPT/HCPCS: 70450; 99284

== ENCOUNTER 2022-01-23 08:03 | Outpatient (CLI) | payer MEDICARE, SELFPAY ==
--- NOTE | ~2022-01-23 | MM_ITS ---
EXAMINATION: MM screening feliberto BI w rafal HISTORY: Screening TECHNIQUE: Craniocaudal and mediolateral oblique 3-D tomosynthesis images were obtained and synthetic 2-D images were generated. CAD analysis was submitted and interpreted. COMPARISON: Comparison to multiple prior studies sequentially, with oldest reviewed study dated 04/18. BREAST PARENCHYMAL COMPOSITION: There are scattered areas of fibroglandular density. FINDINGS: There is no evidence of suspicious mass, calcification, or architectural distortion to sugg est malignancy in either breast. There has been no suspicious interval change. IMPRESSION: 1. No mammographic evidence of malignancy. 2. Recommend routine screening mammography in one year. BI-RADS Category 1: Negative Reviewed, dictated and finalized at location A.
== END 2022-01-23 08:04 | disposition home or self-care (01) ==
PROVIDERS: PCP Emergency Medicine; Visit Provider Physician Assistant
DX: Z12.31 Encounter for screening mammogram for malignant neoplasm of breast (principal)
CPT/HCPCS: 77063; 77067

== ENCOUNTER → 2022-02-06 13:27 | Outpatient (CLI) | payer MEDICARE, SELFPAY ==
--- NOTE | ~2022-02-06 | CT_ITS ---
EXAMINATION: CT abdomen pelvis wo con DATE: 02/06/2022 13:41 INDICATION: Right-sided abdominal pain. History of kidney cancer. TECHNIQUE: Computed tomography (CT) of the abdomen and pelvis was performed without intravenous contr ast. Automated exposure control and iterative reconstruction technique were employed. Exam dose: 634 .61 mGy-cm total exam DLP. COMPARISON: 10/10/2021 CT abdomen without contrast material FINDINGS: 3.8 mm middle lobe opacity with attenuation up to 140 Hounsfield units, likely a calcified benign granuloma (series 4 image 2). There is a serpiginous tubular opacity in the anterior basilar left lower lobe (images 6-10), with so me attenuation up to 180 Hounsfield units, possibly calcified granulomatous area. There is mild bilateral dependent lower lobe mild atelectasis. No consolidation at the lung bases. Cardiomegaly. No pericardial or pleural effusion. Approximately 7.5 mm anterior medial segment left hepatic cyst. Status post cholecystectomy. No bile duct or pancreatic duct dilatation. No pancreatic mass lesion or calcification. Normal splenic size. Normal morphology of the adrenal glands. Exophytic up to 6.6 cm upper pole left renal cyst. The kidneys are otherwise unremarkable. No urinary tract calculus or hydroureteronephrosis. The urinary bladder appears unremarkable to the extent that this is not obscured by extensive streak artifact from left hip prosthesis. The uterus is likely jenni gically absent. There is atherosclerotic calcification of the abdominal aorta and origins of the renal arteries. No a bdominal aortic aneurysm. Bilateral iliac and femoral artery calcification. No intraperitoneal or retroperitoneal or pelvic mass lesion or adenopathy or ascites is noted. Small sliding hiatal hernia. No bowel obstruction, bowel wall thickening, pneumatosis or intraperitoneal free air. The appendix is not visualized. No CT evidence of inflammatory change in the right lower quadrant to suggest appendi citis. Small fat-containing umbilical hernia. There is very severe degenerative disease throughout the lumbar and lumbosacral spine. Otherwise ther e is osteopenia. No suspicious osteolytic or osteoblastic lesions are noted. Left bipolar hip replacement. IMPRESSION: Probable old pulmonary granulomatous disease Mild bilateral dependent lower lobe atelectasis Cardiomegaly 7.5 mm hepatic cyst Status post cholecystectomy Exophytic 6.6 cm upper pole left renal cyst Small sliding hiatal hernia Reviewed, dictated and finalized at [facility]. Reviewed, dictated and finalized at location [facility].
== END ==
PROVIDERS: PCP Emergency Medicine; Visit Provider Emergency Medicine
DX: R10.31 Right lower quadrant pain (principal); J98.11 Atelectasis; I51.7 Cardiomegaly; K76.89 Other specified diseases of liver; Z90.49 Acquired absence of other specified parts of digestive tract; N28.1 Cyst of kidney, acquired; K44.9 Diaphragmatic hernia without obstruction or gangrene
CPT/HCPCS: 74176

== ENCOUNTER 2022-02-10 12:34 | Inpatient (IN) | payer MEDICARE, SELFPAY ==
[2022-02-10] VITALS (30 sets, daily range): BP systolic 146–224; BP diastolic 66–99; PULSE 53–79; RESP 13–28; TEMP 36.8–36.9; O2SAT 94–100; BMI 26.6
--- NOTE | ~2022-02-10 | CT_ITS ---
EXAMINATION: CT brain wo con DATE: 02/11/2022 20:04 INDICATION: paresthesia, headache . TECHNIQUE: Computed tomography (CT) of the head was performed without intravenous contrast. The mA wa s adjusted according to patient size. Iterative reconstruction technique was employed. The dose-lengt h product was 605.33 mGy-cm. COMPARISON: 12/24/2021 FINDINGS: No acute intracranial hemorrhage or extra-axial fluid collection. No hydrocephalus, mass, or herniation. No acute ischemic infarct. Unremarkable dural venous sinus attenuation. No acute osseous abnormality. Mucosal thickening and aerated secretions in the right frontal, right anterior ethmoid air cells, and right maxillary sinus, with mucosal thickening. 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 The remaining aerated spaces are clear. Mild atrophy and chronic white matter change. Atherosclerotic intracranial calcification. Bilateral l ens replacements. IMPRESSION: No acute intracranial process. Paranasal sinus findings may reflect acute sinusitis in the appropriat e clinical context. Reviewed, dictated and finalized at location [facility]. P SALES REPRESENTATIVE IMPRESSION: No acute intracranial process. Paranasal sinus findings may reflect acute sinus itis in the appropriate clinical context.
--- NOTE | ~2022-02-10 | XR_ITS ---
EXAMINATION: XR chest 2V DATE: 02/10/2022 13:13 INDICATION: Shortness of breath TECHNIQUE: AP and lateral views of the chest are obtained. COMPARISON: 06/05/2019 FINDINGS: There are minimal airspace opacities of the left mid and lower lung zones. No pleural effus ion or pneumothorax. The cardiomediastinal silhouette is normal. There is severe thoracic spondylosis . IMPRESSION: 1. Minimal airspace opacities of the left mid and lower lung zones, consistent with atelectasis versu s pneumonia. Reviewed, dictated and finalized at location [facility]. BORE HELPER IMPRESSION: 1. Minimal airspace opacities of the left mid and lower lung zones, consistent with atelectasis versus pneumonia.
--- NOTE | ~2022-02-10 | US_ITS ---
EXAMINATION: US retroperitoneal duplex ltd DATE: 02/13/2022 10:25 INDICATION: Hypertension. TECHNIQUE: Multiple grayscale, color Doppler, and pulsed Doppler images of the kidneys and renal rosio gurwinder were obtained. COMPARISON: CT abdomen 07/26/20 FINDINGS: The right renal artery peak systolic velocity is 80 cm/s in the proximal segment, 59 cm/s in the mid segment, and 75 cm/s in the distal segment. The left renal artery peak systolic velocity is 89 cm/s i n the proximal segment, 84 cm/s in the mid segment, and 72 cm/s in the distal segment. IMPRESSION: 1. No Doppler evidence of renal artery stenosis. Reviewed, dictated and finalized at location A. PROCESSING SCIENTIST
--- NOTE | 2022-02-10 12:40 | ECG_ITS ---
Measurements Intervals [place] Rate: 53 P: 27 MO: 194 QRS: -4 QRSD: 141 T: 6 QT: 436 QTc: 411 Interpretive Statements SINUS BRADYCARDIA INTRAVENTRICULAR CONDUCTION DELAY DELAYED PRECORDIAL R/S TRANSITION LEFT VENTRICULAR HYPERTROPHY BORDERLINE ST ABNORMALITY- ANTEROLATERAL LEADS BASELINE ARTIFACT- I, III, AVR, AVL, AVF BORDERLINE ECG COMPARED TO ECG 06/05/2019 19:49:00 SINUS BRADYCARDIA NOW PRESENT Electronically Signed On 02-10-2022 12:54:20 DOLL WIG MAKER by Ryan De La Vega D.O.
[2022-02-10 13:09] LABS: Alanine Aminotransferase 26 U/L (6-35); Albumin Level 3.8 g/dL (3.5-5.1); Alkaline Phosphatase 68 U/L (38-126); Anion Gap 11 mmol/L (8-16); Aspartate Amino Transferase 38 U/L (14-36); Bilirubin,Total 0.3 mg/dL (0.2-1.3); Blood Urea Nitrogen 26 mg/dL (7-17); Calcium 9.1 mg/dL (8.4-10.2); Carbon Dioxide 24 mmol/L (22-30); Chloride 95 mmol/L (98-107); Estimated CRCL calculation 19 ml/min; Estimated Glomerular Filt Rate 27; Glucose 91 mg/dL (65-110); Potassium 3.6 mmol/L (3.4-5.0); Sodium 130 mmol/L (137-145)
[2022-02-10 13:25] LABS: Basophils Percent Auto 0.4 % (0.2-1.2); Eosinophils Absolute Auto 0.6 K/mm3 (0-0.3); Eosinophils Percent Auto 7.9 % (0-4.4); Hematocrit 32.6 % (37.0-47.0); Hemoglobin 11.1 g/dL (12.0-15.0); Immature Granulocyte Absolute 0.02 K/mm3 (0.00-0.031); Immature Granulocyte Percent A 0.3 % (0-0.5); Lymphocytes Absolute Auto 1.25 K/mm3 (0.9-3.2); Lymphocytes Percent Auto 17.4 % (18.3-44.2); Mean Corpuscular Hemoglobin 30.7 pg (26-34); Mean Corpuscular Volume 90.3 fl (80-100); Mean Platelet Volume 11.1 fl (7.4-10.4); Monocytes Absolute Auto 0.7 K/mm3 (0.1-0.6); Monocytes Percent Auto 9.2 % (2.6-8.5); Neutrophils Absolute Auto 4.7 K/mm3 (1.3-6.7); Neutrophils Percent Auto 64.8 % (45.5-73.1); Platelet Count Result 231 k/mm3 (150-375); Red Blood Count 3.61 M/mm3 (4.2-5.4); Red Cell Distribution Width 12.7 % (11.5-14.5); White Blood Count 7.2 K/mm3 (4.5-10.0)
--- NOTE | 2022-02-10 15:21 | ED.GENADULT ---
HPI - General Adult General Chief complaint: Dizziness <Tomeka Larose PA-C - Last Filed: 02/10/22 20:07> Stated complaint: dizzy sob <Tomeka Larose PA-C - Last Filed: 02/10/22 20:07> Time Seen by Provider: 02/10/22 15:06 <Tomeka Larose PA-C - Last Filed: 02/10/22 20:07> Source: patient <Tomeka Larose PA-C - Last Filed: 02/10/22 20:07> Mode of arrival: ambulatory <MATT Couch Last Filed: 02/10/22 20:07> Limitations: no limitations <Tomeka Laroes PA-C - Last Filed: 02/10/22 20:07> History of Present Illness HPI narrative: Patient is an 81 y/o female who presents to the ED with report of lightheadedness. Patient reports she has been sick over the last few days with allergies, sore throat, congestion, cough. 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 She then decided to come to the ED. No room spinning sensation. She does mention having 1 prior episode of lightheadedness earlier this week. Denies any vision changes, focal weakness, numbness/tingling, chest pain, BLE pain or edema, abdominal pain, nausea, vomiting, fevers. <Tomeka Larose PA-C - Last Filed: 02/10/22 20:07> Related Data Home medications: Home Medications Medication Instructions Recorded Confirmed vitamins A,C,R-cqzo-hcqyhp 2,148 1 tablet PO DAILY 04/01/19 01/02/22 mcg-113 mg-45 mg-17.4 mg tablet (PreserVision AREDS) biotin 5 mg tablet 5 mg PO DAILY 06/24/19 01/02/22 vitamin B complex 1 tablet PO DAILY 06/24/19 01/02/22 calcium citrate-ergocalciferol 1 tablet PO DAILY 08/29/21 01/02/22 (vitamin D2) 315 mg-200 unit tablet diphenhydramine HCl 25 mg capsule 25 mg PO DAILY PRN Anxiety 08/29/21 01/02/22 (Benadryl) flecainide 100 mg tablet 100 mg PO Q12H 11/21/21 01/02/22 diazepam 5 mg/mL oral concentrate 1 mg PO BID-TID PRN 01/28/22 <Tomeka Larose PA-C - Last Filed: 02/10/22 20:07> Allergies/adverse reactions: Allergies Allergy/AdvReac Type Severity Reaction Status Date / Time acetaminophen [From Tylenol] Allergy Severe Swelling Verified 02/10/22 12:39 ibuprofen Allergy Severe Swelling Verified 02/10/22 12:39 of Lip/Tongue/Throat naproxen [From Aleve] Allergy Severe Swelling Verified 02/10/22 12:39 of Lip/Tongue/Throat strawberry Allergy Severe Swelling Verified 02/10/22 12:39 of Lip/Tongue/Throat adhesive Allergy Mild Rash Verified 02/10/22 12:39 latex Allergy Mild Rash Verified 02/10/22 12:39 influenza virus vaccine tv AdvReac Severe very sick Verified 02/10/22 12:39 2013-14(18-49 yrs),rcmb with fever [From Flublok] and myalgia <Tomeka Larose PA-C - Last Filed: 02/10/22 20:07> Review of Systems Review of Systems: CONSTITUTIONAL: Denies fever, chills, or sweats. EYES: Denies visual changes. ENT: Reports rhinorrhea, congestion, sore throat. CARDIOVASCULAR: Denies chest pain, BLE edema. RESPIRATORY: Reports shortness of breath, cough. GASTROINTESTINAL: Denies abdominal pain, nausea, vomiting, or diarrhea. MUSCULOSKELETAL: Denies BLE pain. NEUROLOGIC: Reports lightheadedness. Denies headache, numbness, or focal weakness. <Tomeka Larose PA-C - Last Filed: 02/10/22 20:07> All systems reviewed & are unremarkable except as noted in HPI and below <Tomeka Larose PA-C - Last Filed: 02/10/22 20:07> [facility] Past Medical History Medical History: Medical History Adenomatous colon polyp Anxiety Chronic anticoagulation Chronic kidney disease, stage 3 Baseline creatinine 1.20. Diet-controlled diabetes mellitus Hemoglobin A1c was 5.5 on March 25, 2019. Gastric AVM GERD (gastroesophageal reflux disease) History of Clostridioides difficile infection History of postoperative nausea and vomiting Hyperlipidemia Hypothyroidism Mitral valve prolapse
[2022-02-10 16:10] LABS: NT Pro B Type Natriuretic Pept 280 pg/mL (5-100); Troponin I < 0.012 ng/mL (0.000-0.034)
[2022-02-10] MEDS: SODIUM CHLORIDE 0.9% IV 1,000 ML 999 ML IV CONT (16:22)
[2022-02-10 16:28] LABS: Influenza A QL RT-PCR Negative (Negative); Influenza B QL RT-PCR Negative (Negative); SARS-CoV-2 RNA PCR Positive
[2022-02-10] MEDS: hydrALAZINE HCL 20 MG/ML VIAL 10 MG IV PUSH (17:32)
[2022-02-10 19:08] LABS: Appearance Urine Clear (Clear); Bilirubin Urine Negative (Negative); Blood Urine Negative (Negative); Color Urine Yellow (Yellow); Glucose Urine UA Negative (Negative); Ketones Urine Negative (Negative); Leukocyte Esterase Ur Trace LEU/UL (Negative); Nitrate Urine Negative (Negative); Protein Urine 3+ mg/dL (Negative); Urobilinogen Urine 0.2 mg/dL (<2.0)
[2022-02-10 19:16] LABS: Mucus Urine Rare /lpf; RBC Urine 0-2 /hpf (0-2); Squamous Epithelial Cell Urine Rare /hpf (Few)
[2022-02-10 19:17] LABS: Add Urine Microscopic? YES
--- NOTE | 2022-02-10 20:19 | PM.IMHP ---
H&P: HPI History of Present Illness Date/Time: 02/10/22 20:19 Chief Complaint: dizziness Narrative: This is an 81-year-old female with past medical history significant for hypertension, chronic kidney disease, patient presents to the emergency room after having episode of lightheadedness and shortness of breath while at work. Patient denies any vertigo or spinning sensation, no near syncope, no syncope, no chest pain, no palpitations, no epigastric pain, no nausea, no vomiting, no diarrhea. Preliminary workup was significant for a systolic blood pressure in the 200s, chest tested positive for COVID, a chest x-ray showed opacities. Patient is being admitted for further evaluation management and treatment. Review of Systems Review of Systems: lightheadedness, shortness of breath. Constitutional: Constitutional: Denies body ache(s), Denies chills, Denies fatigue, Denies fever(s), Denies lethargy, Denies malaise, Denies night sweats, Denies poor appetite and Denies weakness Eyes: Eyes: Denies change in vision ENT: Denies dysphagia, Denies vertigo, Denies dizziness and Denies odynophagia Cardiovascular: Cardiovascular: Denies chest pain, Denies syncope, Denies leg edema, Reports lightheadedness and Reports dyspnea Respiratory: Respiratory: Denies cough Gastrointestinal: Gastrointestinal: Denies abdominal pain, Denies dyspepsia, Denies heartburn, Denies diarrhea, Denies nausea and Denies vomiting Genitourinary: Genitourinary: Denies dysuria Musculoskeletal: Musculoskeletal: Denies arthralgias and Denies muscle weakness Integumentary/Breasts: Skin/Breast: Denies rash Neurologic: Denies focal weakness and Denies Sensory deficit (Neuro) Psychiatric: Psychiatric: Reports no additional psychiatric complaints and Reports as per HPI Endocrine: Endocrine: Denies cold intolerance, Denies flushing, Denies heat intolerance, Denies polyphagia, Denies polydipsia and Denies palpitations Hematologic/Lymphatic: Hematologic/Lymphatic: Reports no additional hematologic/lymphatic complaints and Reports as per HPI Allergic/Immunologic: Allergic/Immunologic: Reports no additional allergic/immunologic complaints and Reports as per HPI [facility] Past Medical History Medical History (Updated 02/11/22 @ 01:23 by Josefina Valencia MD) Adenomatous colon polyp Anxiety Chronic anticoagulation Chronic kidney disease, stage 3 Baseline creatinine 1.20. Diet-controlled diabetes mellitus Hemoglobin A1c was 5.5 on March 25, 2019. Gastric AVM GERD (gastroesophageal reflux disease) History of Clostridioides difficile infection History of postoperative nausea and vomiting Hyperlipidemia Hypothyroidism Mitral valve prolapse Osteoarthritis Renal cyst Surgical History Surgical History H/O dilation and curettage x4 H/O hemorrhoidectomy History of bladder suspension procedure History of hip replacement (~06/06/19) left History of varicose vein ligation and stripping (~1991) right leg Hx of colonoscopy Status post arthroscopy of left knee (~05/04/19) Status post breast biopsy (~1972) Left breast biopsy with benign histology. Status post cardiac catheterization Coronary angiogram March 2014 showed normal coronary arteries. Status post cataract extraction (~05/20/16) right Status post cholecystectomy (~2001) Status post hysterectomy (~1970) Status post total left knee replacement (~05/04/19) Family History Family History Father Family history of cardiovascular disease Family history of kidney disease Family history of aortic aneurysm Mother Diabetes mellitus Family history of Alzheimer's disease Family history of malignant neoplasm of brain Grandparent Cerebrovascular accident Other Breast cancer Eye cancer Social History Social History Social His
[2022-02-11] VITALS (12 sets, daily range): BP systolic 114–175; BP diastolic 44–78; PULSE 60–88; RESP 16–20; TEMP 36.1–36.6; O2SAT 97–100
--- NOTE | 2022-02-11 | ECHO_ITS ---
Patient Info Name: Shantel Oates Age: 81 years : 1940 Gender: Female Ht: 64 in Wt: 155 lbs BSA: 1.80 m2 HR: 88 bpm BP: 164 / 78 mmHg Heart Rhythm: Sinus Rhythm Technical Quality: Fair Exam Date: 02/11/2022 10:35 AM Exam Location: [facility] Patient Status: Outpatient Admit Date: 02/10/2022 Staff Ordering Physician: Josefina Valencia MD Valet Runner: Carolynn Light RDCS Attending Provider: Josefina Valencia MD Referring Physician: Erik MARTI; Exam Type: CA echo doppler color flow Study Info Indications - uncontrolled htn Complete two-dimensional, color flow and Doppler transthoracic echocardiogram is performed. Summary 1. Complete two-dimensional, color flow and Doppler transthoracic echocardiogram is performed. 2. Left ventricular systolic function is normal, estimated at 60-65%. 3. The left ventricular diastolic function is grade I diastolic dysfunction. 4. Right ventricular systolic function is normal. 5. Left atrial chamber dimension is severely enlarged. 6. There is moderate mitral valve regurgitation. 7. There is moderate tricuspid valve regurgitation. 8. There is mild pulmonic regurgitation. Left Ventricle Basal septal hypertrophy is present. Left ventricular chamber dimension is normal. Left ventricular systolic function is normal, estimated at 60-65%. There is no increased left ventricular wall thickness. The left ventricular diastolic function is grade I diastolic dysfunction. Right Ventricle Right ventricular chamber dimension is normal. Right ventricular systolic function is normal. Left Atria Left atrial chamber dimension is severely enlarged. Right Atria Right atrial chamber dimension is normal. Atrial Septum Intact interatrial septum visualized by color flow imaging. Aortic Valve The aortic valve is trileaflet. There is mild aortic valve sclerosis. There is no aortic valve stenosis. There is no aortic valve regurgitation. Pulmonic Valve The pulmonic valve is not well visualized. There is mild pulmonic regurgitation. Mitral Valve The mitral valve has normal leaflets. There is no mitral valve stenosis. There is moderate mitral valve regurgitation. Tricuspid Valve The tricuspid valve leaflets are normal. There is no significant tricuspid valve stenosis. There is moderate tricuspid valve regurgitation. Pericardium/Pleural There is no pericardial effusion. Inferior Vena Cava Normal inferior vena cava with >50% collapse upon inspiration consistent with normal right atrial pressure, 3 mmHg. Aorta The aortic root size at the sinus of Valsalva is normal. Left Ventricular Outflow Tract Name Value Normal LVOT 2D LVOT Diameter 2.0 cm LVOT Doppler LVOT Peak Gradient 4 mmHg LVOT Mean Gradient 2 mmHg LVOT VTI 22 cm LVOT VTI/AV VTI Ratio 0.6 LVOT Stroke Volume 73 ml LVOT CO 4.2 l/min LVOT CI 2.3 l/min
--- NOTE | 2022-02-11 02:37 | ADMGEN ---
This patient, Shantel Oates, was admitted to 3 Med Surg Room 311-01. Patient/family oriented to hospital policies and general routines including ID bracelet, bed and alarms, visiting hours, pain management, procedures, bathroom and other care routines, personal items, smoking policy, room service/diet, and visiting hours. Information on how to activate the Rapid Response Team has been discussed. Patient/Family are encouraged to report perceived risks to care and to ask questions if they do not understand what they are told or what they should do.
[2022-02-11] MEDS: cefTRIAXone 2 GM in SODIUM CHLORIDE 0.9% IV 100 ML 200 ML IVPB (05:23)
[2022-02-11] MEDS: OPTI-GEN TAB 1 TABLET PO (08:43)
[2022-02-11] MEDS: PANTOPRAZOLE 40 MG TABLET PO (08:44)
[2022-02-11] MEDS: LEVOTHYROXINE SODIUM 88 MCG TABLET BY MOUTH (08:44)
[2022-02-11] MEDS: METOPROLOL TARTRATE 25 MG TABLET BY MOUTH ×2 (08:44→20:27)
[2022-02-11] MEDS: lisinopriL 20 MG TABLET PO ×2 (08:44→16:58)
[2022-02-11] MEDS: FLECAINIDE ACETATE 100 MG TABLET PO ×2 (08:44→20:23)
[2022-02-11] MEDS: ATORVASTATIN 40 MG TABLET BY MOUTH (08:44)
[2022-02-11] MEDS: hydroCHLOROthiazide 12.5 MG CAPSULE PO ×2 (08:44→16:58)
[2022-02-11] MEDS: ASPIRIN 325 MG ENTERIC TABLET PO (08:45)
--- NOTE | 2022-02-11 10:21 | PM.IMPN ---
Progress Note: A&P Assessment and Plan (1) COVID-19: Code(s): U07.1 - COVID-19 Status: Acute (2) Hypertensive urgency: Code(s): I16.0 - Hypertensive urgency Status: Acute (3) CKD (chronic kidney disease) stage 4, GFR 15-29 ml/min: Code(s): N18.4 - Chronic kidney disease, stage 4 (severe) Status: Acute (4) GERD (gastroesophageal reflux disease): Code(s): K21.9 - Gastro-esophageal reflux disease without esophagitis Status: Acute (5) Hypothyroidism: Qualifiers: Hypothyroidism type: unspecified Qualified Code(s): E03.9 - Hypothyroidism, unspecified Code(s): E03.9 - Hypothyroidism, unspecified Status: Chronic (6) Anxiety: Code(s): F41.9 - Anxiety disorder, unspecified Status: Acute (7) Anemia, chronic disease: Code(s): D63.8 - Anemia in other chronic diseases classified elsewhere Status: Acute (8) Essential (primary) hypertension: Code(s): I10 - Essential (primary) hypertension Status: Acute (9) Mixed hyperlipidemia: Code(s): E78.2 - Mixed hyperlipidemia Status: Acute (10) Paroxysmal A-fib: Code(s): I48.0 - Paroxysmal atrial fibrillation Status: Acute (11) Insomnia, unspecified: Code(s): G47.00 - Insomnia, unspecified Status: Acute Plan 02/10/22 ?placed in observation ?restart home meds ?continue to monitor ?BUN and creatinine at patient's baseline ?continue to monitor ?daily BMP ?daily intake and output ?rate controlled ?continue PPI 02/11/22 COVID + on RA BP not at goal POC reviewed w RN will give all meds and record new BP into Remotemedical hydralazine PRN flonase loratadine unclear if home meds sufficient will wait to change meds and cover w PRN med at this time metoprolol extra dose given to pt x 1 for elevated BP and HR in 80s anticipate dc home tomorrow if remains stable candidate for paxlovid renal dose adjusted at dc Subjective Date/time seen: 02/11/22 10:21 pt w elevated BP RN bedside and advises me that pt vomited shortly after receiving am meds hydralazine ordered and extra one time dose of metoprolol ordered pt also complains of RAMOS and PND and congestion usually take benadyrl Review of Systems Review of Systems: All systems reviewed & are unremarkable except as noted in HPI and below Exam Narrative: GEN: NAD, AAOx3, cooperative HEENT: NCAT, MMM, EOMI Neck: no JVD Heart: S1S2 RRR Lungs: CTA B/l Abd: soft, NT, ND, bowel sounds normoactive Ext: moves all, no cyanosis, no clubbing, no edema Objective Data Vital Signs Vital Signs: Vital Signs - 24 hr 02/10/22 12:36 02/10/22 15:09 02/10/22 15:16 Temperature 98.2 F Pulse Rate 53 L 59 L 54 L Respiratory Rate 16 15 Blood Pressure 146/76 H Pulse Oximetry 100 Oxygen Delivery 02/10/22 15:30 02/10/22 15:45 02/10/22 16:00 Temperature Pulse Rate 54 L 54 L 56 L Respiratory Rate 15 14 15 Blood Pressure Pulse Oximetry 98 99 Oxygen Delivery 02/10/22 16:15 02/10/22 16:30 02/10/22 16:58 Temperature Pulse Rate 55 L 58 L 62 Respiratory Rate 15 14 Blood Pressure 205/73 H Pulse Oximetry 96 97 Oxygen Delivery 02/10/22 16:59 02/10/22 17:02 02/10/22 16:55 Temperature Pulse Rate 70 66 61 Respiratory Rate 13 Blood Pressure 217/99 H 216/94 H Pulse Oximetry 100 Oxygen Delivery 02/10/22 16:59 02/10/22 17:00 02/10/22 17:01 Temperature Pulse Rate 62 63 63 Respiratory Rate 16 17 28 H Blood Pressure 205/73 H 210/87 H Pulse Oximetry 99 99 100 Oxygen Delivery 02/10/22 17:03 02/10/22 17:05 02/10/22 17:08 Temperature Pulse Rate 65 79 76 Respiratory Rate 25 H 27 H 17 Blood Pressure 217/99 H 216/94 H 224/95 H Pulse Oximetry 100 97 94 Oxygen Delivery 02/10/22 17:15 02/10/22 17:30 02/10/22 17:45 Temperature Pulse Rate 67 63 68 Respiratory Rate 24 H 15 15 Blood Pressure 172/79 H Pulse Oximetry 97
[2022-02-11] MEDS: FLUTICASONE PROPIONATE 0.05% NA SPR 16 GM BTL (*BKC) 1 SPRAY NASAL (14:00)
[2022-02-11] MEDS: LORATADINE 10 MG TABLET PO (14:00)
[2022-02-11] MEDS: METOPROLOL TARTRATE 25 MG TABLET PO (14:00)
[2022-02-11] MEDS: hydrALAZINE HCL 20 MG/ML VIAL 10 MG IV PUSH (16:58)
--- NOTE | 2022-02-11 18:16 | ECG_ITS ---
Measurements Intervals [place] Rate: 70 P: 44 [place]: 187 QRS: -20 QRSD: 130 T: 2 QT: 454 QTc: 491 Interpretive Statements SINUS RHYTHM INTRAVENTRICULAR CONDUCTION DELAY LEFT VENTRICULAR HYPERTROPHY AND ST-T CHANGE BORDERLINE ST-T WAVE ABNORMALITY- ANT/INF LEADS BORDERLINE ECG COMPARED TO ECG 02/10/2022 12:45:11 SINUS RHYTHM NOW PRESENT Electronically Signed On 02-11-2022 19:26:08 HEALTH EDUCATION COORDINATOR by Ryan De La Vega D.O.
[2022-02-11] MEDS: SODIUM CHLORIDE 0.9% IV 500 ML 75 ML IV CONT (18:25)
--- NOTE | 2022-02-11 19:29 | PC.NURSE ---
at 1855 Dr. Donovan assessed patient and is going to place orders for ct scan and labs. patient c/o headache at this time as well. stated to call standard machine stitcher with CT scan results
[2022-02-11 20:21] LABS: Basophils Percent Auto 0.4 % (0.2-1.2); Eosinophils Absolute Auto 0.2 K/mm3 (0-0.3); Eosinophils Percent Auto 3.1 % (0-4.4); Hematocrit 34.4 % (37.0-47.0); Hemoglobin 11.8 g/dL (12.0-15.0); Immature Granulocyte Absolute 0.03 K/mm3 (0.00-0.031); Immature Granulocyte Percent A 0.4 % (0-0.5); Lymphocytes Absolute Auto 1.07 K/mm3 (0.9-3.2); Lymphocytes Percent Auto 15.2 % (18.3-44.2); Mean Corpuscular HGB Conc 34.3 g/dl (32-36); Mean Corpuscular Hemoglobin 30.9 pg (26-34); Mean Corpuscular Volume 90.1 fl (80-100); Mean Platelet Volume 10.9 fl (7.4-10.4); Monocytes Absolute Auto 0.7 K/mm3 (0.1-0.6); Monocytes Percent Auto 9.6 % (2.6-8.5); Neutrophils Percent Auto 71.3 % (45.5-73.1); Platelet Count Result 264 k/mm3 (150-375); Red Blood Count 3.82 M/mm3 (4.2-5.4); Red Cell Distribution Width 12.8 % (11.5-14.5); White Blood Count 7.1 K/mm3 (4.5-10.0)
[2022-02-11] MEDS: MELATONIN 5 MG TABLET PO (20:22)
[2022-02-11 20:35] LABS: Alanine Aminotransferase 24 U/L (6-35); Albumin Level 3.4 g/dL (3.5-5.1); Alkaline Phosphatase 72 U/L (38-126); Anion Gap 9 mmol/L (8-16); Aspartate Amino Transferase 51 U/L (14-36); Bilirubin,Total 0.5 mg/dL (0.2-1.3); Blood Urea Nitrogen 20 mg/dL (7-17); Calcium 8.5 mg/dL (8.4-10.2); Carbon Dioxide 24 mmol/L (22-30); Chloride 97 mmol/L (98-107); Estimated CRCL calculation 26 ml/min; Estimated Glomerular Filt Rate 39; Glucose 107 mg/dL (65-110); Magnesium 1.8 mg/dL (1.6-2.3); Potassium 2.9 mmol/L (3.4-5.0); Sodium 130 mmol/L (137-145)
[2022-02-12] VITALS (11 sets, daily range): BP systolic 104–178; BP diastolic 49–92; PULSE 55–70; RESP 16–20; TEMP 36.1–36.7; O2SAT 96–100
--- NOTE | 2022-02-12 00:13 | PC.NURSE ---
Pt is still experiencing nausea and spitting up mucous. Pt has been having spells of dizziness. Pt blood pressure dropped with change in position. Provider notified and order modified. Provider notified of CT results. Pt resting in bed. Pt tolerating ice chips. Pt participated and contributed to plan of care for the shift. Pt has no complaints of pain other than her headache. Pt verbalizes no needs at this time. Will continue to monitor pt.
[2022-02-12] MEDS: cefTRIAXone 2 GM in SODIUM CHLORIDE 0.9% IV 100 ML 200 ML IVPB (01:02)
[2022-02-12 06:39] LABS: Hematocrit 34.5 % (37.0-47.0); Hemoglobin 11.6 g/dL (12.0-15.0); Mean Corpuscular HGB Conc 33.6 g/dl (32-36); Mean Corpuscular Hemoglobin 30.6 pg (26-34); Mean Platelet Volume 11.2 fl (7.4-10.4); Platelet Count Result 263 k/mm3 (150-375); Red Blood Count 3.79 M/mm3 (4.2-5.4); Red Cell Distribution Width 12.8 % (11.5-14.5)
[2022-02-12 06:53] LABS: Anion Gap 11 mmol/L (8-16); Blood Urea Nitrogen 17 mg/dL (7-17); Calcium 8.1 mg/dL (8.4-10.2); Carbon Dioxide 23 mmol/L (22-30); Chloride 96 mmol/L (98-107); Estimated CRCL calculation 26 ml/min; Estimated Glomerular Filt Rate 39; Glucose 109 mg/dL (65-110); Magnesium 1.7 mg/dL (1.6-2.3); Potassium 2.9 mmol/L (3.4-5.0); Sodium 130 mmol/L (137-145)
[2022-02-12] MEDS: ONDANSETRON INJ 4 MG/2 ML VIAL IV PUSH (10:26)
[2022-02-12] MEDS: POTASSIUM CHLORIDE 20 MEQ TABLET 40 MEQ PO ×2 (11:42→23:14)
[2022-02-12] MEDS: FLECAINIDE ACETATE 100 MG TABLET PO ×2 (11:43→20:30)
[2022-02-12] MEDS: amLODIPine BESYLATE 5 MG TABLET PO (11:44)
[2022-02-12] MEDS: lisinopriL 20 MG TABLET PO (11:45)
[2022-02-12] MEDS: LORATADINE 10 MG TABLET PO (11:45)
[2022-02-12] MEDS: METOPROLOL TARTRATE 25 MG TABLET BY MOUTH ×2 (11:46→20:30)
[2022-02-12] MEDS: ATORVASTATIN 40 MG TABLET BY MOUTH (11:46)
[2022-02-12] MEDS: ASPIRIN 325 MG ENTERIC TABLET PO (11:46)
[2022-02-12] MEDS: ENOXAPARIN 30 MG/0.3 ML SYRINGE SUB-Q (11:46)
--- NOTE | 2022-02-12 16:17 | PM.IMPN ---
Progress Note: A&P Assessment and Plan (1) Hypokalemia: Code(s): E87.6 - Hypokalemia Status: Acute (2) Hyponatremia: Code(s): E87.1 - Hypo-osmolality and hyponatremia Status: Acute (3) COVID-19: Code(s): U07.1 - COVID-19 Status: Acute (4) Hypertensive urgency: Code(s): I16.0 - Hypertensive urgency Status: Acute (5) CKD (chronic kidney disease) stage 4, GFR 15-29 ml/min: Code(s): N18.4 - Chronic kidney disease, stage 4 (severe) Status: Acute (6) Anemia, chronic disease: Code(s): D63.8 - Anemia in other chronic diseases classified elsewhere Status: Acute (7) Essential (primary) hypertension: Code(s): I10 - Essential (primary) hypertension Status: Acute (8) Paroxysmal A-fib: Code(s): I48.0 - Paroxysmal atrial fibrillation Status: Acute (9) Hypothyroidism: Qualifiers: Hypothyroidism type: unspecified Qualified Code(s): E03.9 - Hypothyroidism, unspecified Code(s): E03.9 - Hypothyroidism, unspecified Status: Chronic Plan 02/10/22 ?placed in observation ?restart home meds ?continue to monitor ?BUN and creatinine at patient's baseline ?continue to monitor ?daily BMP ?daily intake and output ?rate controlled ?continue PPI 02/11/22 COVID + on RA BP not at goal POC reviewed w RN will give all meds and record [facility] hydralazine PRN flonase loratadine unclear if home meds sufficient will wait to change meds and cover w PRN med at this time metoprolol extra dose given to pt x 1 for elevated BP and HR in 80s anticipate dc home tomorrow if remains stable candidate for paxlovid renal dose adjusted at dc 02/12/22 Sodium at 130. She has had low sodium in the past. Probably related to her hydrochlorothiazide. TSH is low as well but free T4 is normal. Will defer to her primary care doctor to repeat these values when she is well to see if she has persistent low TSH. Will stop her hydrochlorothiazide and add Norvasc. Replace potassium. Low-potassium probably also related to hydrochlorothiazide. Consider also SIADH for the hyponatremia with her recent COVID infection. Blood pressure still not at goal so will advance Norvasc as needed. Chart review shows poorly controlled blood pressure over the years. Check urine studies. Check renal doppler (she has calcifications of the abdominal aorta and origins of the renal arteries noted by recent CT scan). Remains on room air. Paxlovid being considered. Subjective Date/time seen: 02/12/22 16:17 Interval history: 81yo female with HTN, DM and pAFib here for SOB and lightheadedness and found to have COVID. Assuming care. Chart reviewed. Patient denies any chest pain shortness of breath or cough. She does have a headache related to sinus symptoms which is not uncommon for her and she feels unrelated to COVID. She had emesis this morning but has been able eat since that time. She denies any nausea, diarrhea or abdominal pain. Exam Narrative: AF 97.6 177/79 59 18 99% ra Gen - NARD Chest -few basilar inspiratory crackles. Normal respiratory rate CV - RRR S1/S2. Telemetry showing PVCs and interventricular conduction delay Abd - Soft, NT/ND, Positive BS Ext - No pedal edema Neuro - Alert and oriented. Nonfocal exam. Psych - Nml mood and affect Skin - Warm and dry Objective Data Vital Signs Vital Signs: Vital Signs - 24 hr 02/11/22 18:07 02/11/22 18:50 02/11/22 18:55 Temperature 97.9 F Pulse Rate 74 Respiratory Rate 20 Blood Pressure 114/44 L 141/56 H 146/63 H Pulse Oximetry 100 Oxygen Delivery 02/11/22 19:23 02/11/22 18:25 02/11/22 20:23 Temperature 97.9 F Pulse Rate 75 66 Respiratory Rate 20 Blood Pressure 166/61 H 114/44 L Pulse Oximetry 100 Oxygen Delivery Room Air 02/11/22 20:27 02/11/22 20:00 02/11/22 20:23 Temperature 97.1 F L Pulse Rate 66 66 67 Respiratory Rate
[2022-02-12 18:05] LABS: Creatinine Urine 80.7 mg/dL; Sodium Urine Random 54 meq/L
[2022-02-12 18:26] LABS: Potassium 3.4 mmol/L (3.4-5.0)
[2022-02-12] MEDS: MELATONIN 5 MG TABLET PO (20:30)
[2022-02-13] VITALS (7 sets, daily range): BP systolic 118–173; BP diastolic 52–89; PULSE 54–62; RESP 14–22; TEMP 36.3–36.4; O2SAT 97–100
[2022-02-13] MEDS: cefTRIAXone 2 GM in SODIUM CHLORIDE 0.9% IV 100 ML 200 ML IVPB (00:48)
[2022-02-13] MEDS: LEVOTHYROXINE SODIUM 88 MCG TABLET BY MOUTH (05:46)
[2022-02-13 06:49] LABS: Albumin Level 3.2 g/dL (3.5-5.1); Anion Gap 9 mmol/L (8-16); Blood Urea Nitrogen 22 mg/dL (7-17); Calcium 8.1 mg/dL (8.4-10.2); Carbon Dioxide 24 mmol/L (22-30); Chloride 97 mmol/L (98-107); Estimated CRCL calculation 20 ml/min; Estimated Glomerular Filt Rate 29; Glucose 96 mg/dL (65-110); Phosphorus 2.8 mg/dL (2.5-4.5); Potassium 3.5 mmol/L (3.4-5.0); Sodium 130 mmol/L (137-145)
[2022-02-13] MEDS: ASPIRIN 325 MG ENTERIC TABLET PO (09:59)
[2022-02-13] MEDS: OPTI-GEN TAB 1 TABLET PO (10:00)
[2022-02-13] MEDS: ENOXAPARIN 30 MG/0.3 ML SYRINGE SUB-Q (10:00)
[2022-02-13] MEDS: METOPROLOL TARTRATE 25 MG TABLET BY MOUTH (10:00)
[2022-02-13] MEDS: lisinopriL 20 MG TABLET PO (10:00)
[2022-02-13] MEDS: FLECAINIDE ACETATE 100 MG TABLET PO (10:00)
[2022-02-13] MEDS: amLODIPine BESYLATE 5 MG TABLET PO (10:01)
[2022-02-13] MEDS: LORATADINE 10 MG TABLET PO (10:01)
[2022-02-13] MEDS: PANTOPRAZOLE 40 MG TABLET PO (10:01)
[2022-02-13] MEDS: ATORVASTATIN 40 MG TABLET BY MOUTH (10:01)
[2022-02-13] MEDS: VITAMIN B COMPLEX CAPSULE 1 CAP PO (13:17)
--- NOTE | 2022-02-13 13:23 | PM.DS ---
DS: Admitting Diagnosis Discharge Date 02/13/22 Admitting Diagnosis SOB DS: Discharge Diagnosis Discharge Diagnosis (1) Hypokalemia: Code(s): E87.6 - Hypokalemia Status: Acute (2) Hyponatremia: Code(s): E87.1 - Hypo-osmolality and hyponatremia Status: Acute (3) COVID-19: Code(s): U07.1 - COVID-19 Status: Acute (4) Hypertensive urgency: Code(s): I16.0 - Hypertensive urgency Status: Acute (5) CKD (chronic kidney disease) stage 4, GFR 15-29 ml/min: Code(s): N18.4 - Chronic kidney disease, stage 4 (severe) Status: Acute (6) Anemia, chronic disease: Code(s): D63.8 - Anemia in other chronic diseases classified elsewhere Status: Acute (7) Essential (primary) hypertension: Code(s): I10 - Essential (primary) hypertension Status: Acute (8) Paroxysmal A-fib: Code(s): I48.0 - Paroxysmal atrial fibrillation Status: Acute (9) Hypothyroidism: Qualifiers: Hypothyroidism type: unspecified Qualified Code(s): E03.9 - Hypothyroidism, unspecified Code(s): E03.9 - Hypothyroidism, unspecified Status: Chronic DS: Summary Hospital Course Reason for hospitalization: 81yo female with HTN, DM and pAFib here for SOB and lightheadedness and found to have COVID. Please see H&P for details Hospital Course: Patient presents to emergency room with complaints of lightheadedness and shortness of breath. EKG showed sinus bradycardia rate of 53, IVCD and LVH. No significant change from prior EKG. White count was normal. Sodium was low at 130 but that remained stable. [place] related to her hydrochlorothiazide. Hers potassium dropped to 2.9 again fell related to her hydrochlorothiazide. Hydrochlorothiazide was stopped and Norvasc was started. Potassium was replaced. She has CKD and creatinine was 1.8 on admission. This improved initially to 1.3 before climbing back up to 1.7. Overall was felt that she was within her baseline renal values. Urinalysis did show 3+ protein which has been noted in the past. Her urine sodium was 54 probably related to the diuretic therapy. Influenza was negative. COVID test was positive. She did not require oxygen so we proceeded with supportive care at this time. Chest x-ray showed minimal airspace opacity in left mid and lower lung zones consistent with atelectasis versus pneumonia. She was on antibiotics but felt less likely that this was bacterial pneumonia. Blood pressure was markedly elevated early in her hospital course to 224/95. She has a history of elevated blood pressure periodically. She did have calcifications along her aorta possibly involving the renal arteries but a CT scan. Renal duplex however was negative for renal artery stenosis. Her hydrochlorothiazide was stopped and we added Norvasc. Blood pressure improved but still with significant divergence with blood pressure 115/56 up to 173/73. She was asymptomatic. She was not orthostatic. Further titration of blood pressure medications per primary care doctor as they see fit. Patient overall did well was able be discharged home on 02/13/2022. Status at Discharge Cognitive/behavioral status at discharge: Stable Time Spent with Patient Time attestation: Total time spent providing and/or coordinating discharge services: 34 minutes Time spent: Greater than 30 minutes Exam Narrative: AF ? 97.3 144/89 56 14 99% ra Gen - NARD Chest - CTA bilaterally, nmlRR CV - RRR S1/S2.? Telemetry showing no alarms Abd - Soft, NT/ND, Positive BS Ext - No pedal edema Psych - Nml mood and affect Skin - Warm and dry DS: Data Data Completed and Pending Labs on day of discharge: Labs from last 24 hours 02/13/22 02/12/22 02/12/22 06:15 18:07 17:44 Sodium 130 L Potassium 3.5 3.4 Chloride 97 L Carbon Dioxide 24 Anion Gap 9 BUN 22 H Creatinine 1.70 H Estim Creat Clear Calc 20 Estimat
== END 2022-02-13 16:45 | disposition home or self-care (01) | DRG 178 ==
LOC: ANHED 20:03 → ANH3MEDSUR 21:05
PROVIDERS: Hospitalist; Internal Medicine; Physician Assistant; Admitting Provider Internal Medicine; Emergency Provider Emergency Medicine; PCP Emergency Medicine; Visit Provider Internal Medicine
DX: U07.1 COVID-19 (principal); E87.1 Hypo-osmolality and hyponatremia; N18.4 Chronic kidney disease, stage 4 (severe); E87.6 Hypokalemia; I16.0 Hypertensive urgency; I12.9 Hypertensive chronic kidney disease with stage 1 through stage 4 chronic kidney disease, or unspecified chronic kidney disease; D63.1 Anemia in chronic kidney disease; I48.0 Paroxysmal atrial fibrillation; E03.9 Hypothyroidism, unspecified; F41.9 Anxiety disorder, unspecified; K21.9 Gastro-esophageal reflux disease without esophagitis; E78.2 Mixed hyperlipidemia; G47.00 Insomnia, unspecified; Z96.642 Presence of left artificial hip joint; Z96.652 Presence of left artificial knee joint; Z82.49 Family history of ischemic heart disease and other diseases of the circulatory system; Z80.8 Family history of malignant neoplasm of other organs or systems; Z79.899 Other long term (current) drug therapy; Z88.8 Allergy status to other drugs, medicaments and biological substances; Z91.048 Other nonmedicinal substance allergy status
CPT/HCPCS: 36415; 70450; 71046; 80048; 80053; 80069; 81001; 82570; 83735; 83880; 84132; 84300; 84484; 85025; 85027; 87636; 93005; 93306; 93976; 96361; 96365; 96366; 96367; 96372; 96375; 96376; 99285; A9270; G0378; J0360; J0456; J0696; J1650; J2405; J7030; J7040

== ENCOUNTER 2022-03-09 23:47 | Emergency (ER) | payer MEDICARE, SELFPAY ==
--- NOTE | ~2022-03-09 | XR_ITS ---
XR chest 2V 03/10/2022 01:11 Indication: Chest pain. A. fib. Procedure: PA and lateral views of the chest Comparison: 02/10/2022 Findings: Borderline heart size. There are interstitial infiltrates of the mid and lower lungs. No ac [place] focal pneumonia, edema or effusion. Heart size normal. No pneumothorax. No acute osseous abnormal ity. Impression: 1: Chronic interstitial infiltrates peripherally of the mid and lower lungs, possibly chronic fibrosi s. Reviewed, dictated and finalized at location A. FOREMAN Impression: 1: Chronic interstitial infiltrates peripherally of the mid and lower lungs, po ssibly chronic fibrosis.
[2022-03-09 23:44] VITALS: BP 168/95; PULSE 72; RESP 13; TEMP 36.4; O2SAT 99
--- NOTE | 2022-03-09 23:52 | ECG_ITS ---
Measurements Intervals [place] Rate: 71 P: 31 MD: 158 QRS: -10 QRSD: 118 T: 25 QT: 415 QTc: 453 Interpretive Statements SINUS RHYTHM MODERATE INTRAVENTRICULAR CONDUCTION DELAY [105+ ms QRS DURATION, 80+ ms Q/S IN V1/V2, NO Q AND 60+ ms R IN I/aVL/V5/V6] LEFT VENTRICULAR HYPERTROPHY WITH REPOLARIZATION ABNORMALITIES MODERATE ST DEPRESSION [0.05+ mV ST DEPRESSION] NO SIGNIFICANT CHANGES Electronically Signed On 03-10-2022 11:21:07 PELLET PREPARATION OPERATOR by Taj Alvarez M.D.
[2022-03-10] VITALS (12 sets, daily range): PULSE 65–75; RESP 14–18; O2SAT 90–100
[2022-03-10 00:36] LABS: Basophils Percent Auto 0.4 % (0.2-1.2); Eosinophils Absolute Auto 0.6 K/mm3 (0-0.3); Eosinophils Percent Auto 7.4 % (0-4.4); Hematocrit 32.1 % (37.0-47.0); Hemoglobin 10.8 g/dL (12.0-15.0); Immature Granulocyte Absolute 0.03 K/mm3 (0.00-0.031); Immature Granulocyte Percent A 0.4 % (0-0.5); Lymphocytes Absolute Auto 1.33 K/mm3 (0.9-3.2); Lymphocytes Percent Auto 17.9 % (18.3-44.2); Mean Corpuscular HGB Conc 33.6 g/dl (32-36); Mean Corpuscular Volume 92.2 fl (80-100); Mean Platelet Volume 10.5 fl (7.4-10.4); Monocytes Absolute Auto 0.7 K/mm3 (0.1-0.6); Monocytes Percent Auto 8.9 % (2.6-8.5); Neutrophils Absolute Auto 4.9 K/mm3 (1.3-6.7); Platelet Count Result 184 k/mm3 (150-375); Red Blood Count 3.48 M/mm3 (4.2-5.4); Red Cell Distribution Width 13.8 % (11.5-14.5); White Blood Count 7.5 K/mm3 (4.5-10.0)
[2022-03-10 00:46] LABS: Alanine Aminotransferase 31 U/L (6-35); Albumin Level 3.6 g/dL (3.5-5.1); Alkaline Phosphatase 91 U/L (38-126); Anion Gap 7 mmol/L (8-16); Aspartate Amino Transferase 58 U/L (14-36); Bilirubin,Total 0.4 mg/dL (0.2-1.3); Blood Urea Nitrogen 27 mg/dL (7-17); Calcium 8.8 mg/dL (8.4-10.2); Carbon Dioxide 25 mmol/L (22-30); Chloride 106 mmol/L (98-107); Estimated CRCL calculation 22 ml/min; Estimated Glomerular Filt Rate 29; Glucose 104 mg/dL (65-110); Lipase 153 U/L (23-300); Potassium 3.3 mmol/L (3.4-5.0); Sodium 138 mmol/L (137-145)
[2022-03-10 00:56] LABS: Prothrombin Time 13.1 Seconds (11.1-14.7)
[2022-03-10 00:58] LABS: Troponin I < 0.012 ng/mL (0.000-0.034)
[2022-03-10] MEDS: ASPIRIN 81 MG CHEWABLE TABLET 324 MG PO (00:59)
--- NOTE | 2022-03-10 01:04 | PC.NURSE ---
Patient ambulated to the restroom with steady gate
--- NOTE | 2022-03-10 01:40 | PC.NURSE ---
Patient denies chest pain at this time and does not want nitro
--- NOTE | 2022-03-10 01:50 | ED.GENADULT ---
HPI - General Adult General Chief complaint: Chest Pain Stated complaint: SOB, chest tightness Time Seen by Provider: 03/10/22 00:10 History of Present Illness HPI narrative: Patient is a 82-year-old female who presents to Emergency Department with a chief complaint of palpitations. Patient reports that she has history of atrial fibrillation that has been intermittent and reports that this evening she had an episode where she felt as though her heart was beating fast and irregular. The patient states that she had some tightness when this happened and her chest and reports that after the palpitations subsided she still was having a little bit of just tightness in her chest. Patient states that essentially it is resolved by this point and is feeling much better. Related Data Home Medications Medication Instructions Recorded Confirmed vitamins A,C,C-zvlm-lyjxtt 2,148 1 tablet PO DAILY 04/01/19 03/05/22 mcg-113 mg-45 mg-17.4 mg tablet (PreserVision AREDS) biotin 5 mg tablet 5 mg PO DAILY 06/24/19 03/05/22 vitamin B complex 1 tablet PO DAILY 06/24/19 03/05/22 calcium citrate-ergocalciferol 1 tablet PO DAILY 08/29/21 03/05/22 (vitamin D2) 315 mg-200 unit tablet flecainide 100 mg tablet 100 mg PO Q12H 11/21/21 03/05/22 amitriptyline 25 mg tablet 25 mg PO QHS 03/05/22 03/05/22 Allergies Allergy/AdvReac Type Severity Reaction Status Date / Time acetaminophen [From Tylenol] Allergy Severe Swelling Verified 02/24/22 09:28 ibuprofen Allergy Severe Swelling Verified 02/24/22 09:28 of Lip/Tongue/Throat naproxen [From Aleve] Allergy Severe Swelling Verified 02/24/22 09:28 of Lip/Tongue/Throat strawberry Allergy Severe Swelling Verified 02/24/22 09:28 of Lip/Tongue/Throat adhesive Allergy Mild Rash Verified 02/24/22 09:28 latex Allergy Mild Rash Verified 02/24/22 09:28 influenza virus vaccine tv AdvReac Severe very sick Verified 02/24/22 09:28 2012-14(18-49 yrs),rcmb with fever [From Flublok] and myalgia Review of Systems Review of Systems: A 10 system review of systems was completed on the patient and is negative except for what is stated in the HPI. Nursing and ancillary documentation was reviewed. [facility] Past Medical History Medical History Adenomatous colon polyp Anxiety Chronic anticoagulation Diet-controlled diabetes mellitus Hemoglobin A1c was 5.5 on March 25, 2019. Gastric AVM GERD (gastroesophageal reflux disease) History of Clostridioides difficile infection History of postoperative nausea and vomiting Hyperlipidemia Hypothyroidism Mitral valve prolapse Osteoarthritis Renal cyst Surgical History Surgical History H/O dilation and curettage x4 H/O hemorrhoidectomy History of bladder suspension procedure History of hip replacement (~06/06/19) left History of varicose vein ligation and stripping (~1991) right leg Hx of colonoscopy Status post arthroscopy of left knee (~05/04/19) Status post breast biopsy (~1972) Left breast biopsy with benign histology. Status post cardiac catheterization Coronary angiogram March 2014 showed normal coronary arteries. Status post cataract extraction (~05/20/16) right Status post cholecystectomy (~2001) Status post hysterectomy (~1970) Status post total left knee replacement (~05/04/19) Family History Family History Father Family history of cardiovascular disease Family history of kidney disease Family history of aortic aneurysm Mother Diabetes mellitus Family history of Alzheimer's disease Family history of malignant neoplasm of brain Grandparent Cerebrovascular accident Other Breast cancer Eye cancer Social History Social History Social History: The patient i
[2022-03-10 04:28] LABS: Troponin I < 0.012 ng/mL (0.000-0.034)
== END 2022-03-10 04:45 | disposition home or self-care (01) ==
PROVIDERS: Emergency Provider Emergency Medicine; PCP Emergency Medicine
DX: R00.2 Palpitations (principal); I48.91 Unspecified atrial fibrillation; E11.9 Type 2 diabetes mellitus without complications; E78.5 Hyperlipidemia, unspecified; E03.9 Hypothyroidism, unspecified; I34.1 Nonrheumatic mitral (valve) prolapse; F41.9 Anxiety disorder, unspecified; K21.9 Gastro-esophageal reflux disease without esophagitis; M19.90 Unspecified osteoarthritis, unspecified site; Z86.010 Personal history of colon polyps; Z96.642 Presence of left artificial hip joint; Z96.652 Presence of left artificial knee joint; Z98.41 Cataract extraction status, right eye; Z90.710 Acquired absence of both cervix and uterus; I45.9 Conduction disorder, unspecified; I51.7 Cardiomegaly
CPT/HCPCS: 36415; 71046; 80053; 83690; 84484; 85025; 85610; 85730; 93005; 99284; A9270

== ENCOUNTER 2022-07-03 10:26 | Outpatient (CLI) | payer MEDICARE, SELFPAY ==
[2022-07-03 13:14] LABS: INR 1.1; Prothrombin Time 13.8 Seconds (11.1-14.7)
[2022-07-03 13:15] LABS: Partial Thromboplastin Time 31.2 SECONDS (22.3-36.8)
[2022-07-03 13:16] LABS: Anion Gap 5 mmol/L (8-16); Blood Urea Nitrogen 27 mg/dL (7-17); Calcium 9.4 mg/dL (8.4-10.2); Carbon Dioxide 28 mmol/L (22-30); Chloride 105 mmol/L (98-107); Estimated Glomerular Filt Rate 33; Glucose 84 mg/dL (65-110); Potassium 4.3 mmol/L (3.4-5.0); Sodium 138 mmol/L (137-145)
== END 2022-07-03 10:27 | disposition home or self-care (01) ==
PROVIDERS: Anesthesiology; PCP Emergency Medicine; Visit Provider Surgery
DX: Z01.818 Encounter for other preprocedural examination (principal); N18.4 Chronic kidney disease, stage 4 (severe); I10 Essential (primary) hypertension; K43.2 Incisional hernia without obstruction or gangrene
CPT/HCPCS: 36415; 80048; 85610; 85730; 86850; 86900; 86901

== ENCOUNTER 2022-07-10 01:42 | Day surgery (SDC) | payer MEDICARE, SELFPAY ==
--- NOTE | 2022-06-30 10:52 | PC.NURSE ---
Report to the Outpatient Waiting Room, entrance under the green pavilion located off [address], at time __1200____ on date 07/10/22 . Planned Procedure Time: ___1400 . Time changes happen often and if your time is changed the preop area will call you the afternoon before. - You and your visitor will be asked to self-screen and do not enter if you have any COVID symptoms. - Only one visitor is requested with a max of two and NO children visitors are allowed at this time. - The patient visitor may be requested to leave or wait in car when not with patient due to distancing restrictions. - A mask is optional within the hospital at this time. Patients may have clear liquids (water, carbonated beverages, clear teas, apple juice) until 3 hours prior to surgery with a maximum of 20 ounces. - No food from midnight until time of surgery - Infants may have breast milk until 4 hours before surgery, infant formula 6 hours prior to surgery. - Children will be allowed to drink immediately following surgery. If applicable, please bring a bottle or sippy cup to assist with drinking. Juice, water, soda, and popsicles are readily available. For infants on formula, please bring formula the day of surgery. Pacifiers are allowed. Take the following medications with a SIP of water the morning of surgery: __AMLODIPINE,FLECAINIDE.LEVOTHYROXINE_,METOPROLOL DO NOT STOP ANY OF YOUR OTHER PRESCRIPTION MEDICATIONS PRIOR TO SURGERY ?EXCEPT THE FOLLOWING Medications to discontinue per physician ___ELIQUIS 5 DAYS PRE OP PER DR KIRAN AND DR CASTRO .LAST DOSE 07/04/22 ALL VITAMINS/SUPPLEMENTS 3 DAYS PRE OP .LAST DOSE 07/06/22 HIBICLENS SHOWER MORNING OF SURGERY Please no make-up, nail mongolian, hairspray, perfume, deodorant, or body powder the day of surgery. No jewelry (including any body piercings) or valuables the day of surgery, leave them at home. Please take a shower or bath the night before, or the morning of, surgery with an antibacterial soap. Wear comfortable, loose fitting clothing. Children are encouraged to wear pajamas. - Jewelry must be removed prior to entering the operating room. Rings and piercings that are not removed may be cut off. - The hospital will not accept responsibility for valuables. - Please leave all valuables, including medications, at home the day of surgery. If you are going home after surgery, a licensed stage driver must drive you home. - NO public transportation without another adult if you receive anesthesia. - We recommend that an adult stay with you for 24 hours following discharge. - We also recommend that you do not drive, make important decision, drink alcoholic beverages, or take any drugs that were not prescribed by your health care provider for at least 24 hours after your discharge time. F Follow any additional instructions given to you from your surgeon. If you or anyone in your household have experienced Covid symptoms in the past week, please notify your surgeon or the nurse liaison at the phone number below for possible testing. Telephone instructions given to __PATIENT and asked if any additional questions and then verbalized understanding. Patient advised to call surgeon office or pre surgery nurse liaison [phone] if any additional questions.
[2022-06-30 11:20] VITALS: BMI 26.6
[2022-07-10] VITALS (15 sets, daily range): BP systolic 110–159; BP diastolic 54–102; PULSE 55–73; RESP 12–20; TEMP 36.1–36.9; O2SAT 91–100
--- NOTE | 2022-07-10 13:50 | WPDANESEPPF ---
Anes - Initial Pre Proc Eval Procedure: Operation Date: 07/10/22 14:00 Proposed Procedures p Robotic Assisted Laparoscopic Incisional Hernia Repair with Mesh - Meli Bee MD Date/Time: 07/10/22 13:50 Surgeon: Meli Bee MD Pre Op Diagnosis: Inc Hernia Patient Data Age: 82 Gender: F Height: 1.63 m Weight: 70.35 kg Allergies Allergy/AdvReac Type Severity Reaction Status Date / Time acetaminophen [From Tylenol] Allergy Severe Swelling Verified 07/10/22 12:51 ibuprofen Allergy Severe Swelling Verified 07/10/22 12:51 of Lip/Tongue/Throat naproxen [From Aleve] Allergy Severe Swelling Verified 07/10/22 12:51 of Lip/Tongue/Throat strawberry Allergy Severe Swelling Verified 07/10/22 12:51 of Lip/Tongue/Throat adhesive Allergy Mild Rash Verified 07/10/22 12:51 latex Allergy Mild Rash Verified 07/10/22 12:51 influenza virus vaccine tv AdvReac Severe very sick Verified 07/10/22 12:51 2012-(18-49 yrs),rcmb with fever [From Flublok] and myalgia Home Medications Medication Instructions Recorded Confirmed Type vitamins A,C,T-xltm-uosjvj 2,148 1 tablet PO DAILY 04/01/19 07/10/22 History mcg-113 mg-45 mg-17.4 mg tablet (PreserVision AREDS) biotin 5 mg tablet 5 mg PO DAILY 06/24/19 07/10/22 History vitamin B complex 1 tablet PO DAILY 06/24/19 07/10/22 History atorvastatin 40 mg tablet See Rx Instructions .Route 08/16/21 07/10/22 Rx .COMPLEX #90 tabs levothyroxine 88 mcg tablet See Rx Instructions .Route 08/16/21 07/10/22 Rx .COMPLEX #90 tabs calcium citrate-ergocalciferol 1 tablet PO DAILY 08/29/21 07/10/22 History (vitamin D2) 315 mg-200 unit tablet flecainide 100 mg tablet 100 mg PO Q12H 11/21/21 07/10/22 History pantoprazole 40 mg tablet,delayed 40 mg PO QAM #90 tabs 01/23/22 07/10/22 Rx release amitriptyline 25 mg tablet 25 mg PO QHS 03/05/22 07/10/22 History lisinopril 20 1 tablet PO BID #120 tabs 03/20/22 07/10/22 Rx mg-hydrochlorothiazide 12.5 mg tablet amlodipine 5 mg tablet 5 mg PO DAILY #90 tabs 04/22/22 07/10/22 Rx apixaban 2.5 mg tablet (Eliquis) 2.5 mg PO BID #60 tabs 04/29/22 07/10/22 Rx metoprolol tartrate 25 mg tablet 25 mg PO BID #180 tabs 05/22/22 07/10/22 Rx Patient hx anesthesia problems: post op nausea/vomiting Family hx anesthesia problems: post op nausea/vomiting Results Review: All pre-operative results and documents have been reviewed as part of the pre-operative evaluation. [facility] Past Medical History Medical History Adenomatous colon polyp Anxiety Chronic anticoagulation Diet-controlled diabetes mellitus Hemoglobin A1c was 5.5 on March 25, 2019. Gastric AVM GERD (gastroesophageal reflux disease) History of Clostridioides difficile infection History of postoperative nausea and vomiting Hyperlipidemia Hypothyroidism Mitral valve prolapse Osteoarthritis Renal cyst Surgical History Surgical History H/O dilation and curettage x4 H/O hemorrhoidectomy History of bladder suspension procedure History of hip replacement (~06/06/19) left History of varicose vein ligation and stripping (~1991) right leg Hx of colonoscopy Status post arthroscopy of left knee (~05/04/19) Status post breast biopsy (~1972) Left breast biopsy with benign histology. Status post cardiac catheterization Coronary angiogram March 2014 showed normal coronary arteries. Status post cataract extraction (~05/20/16) right Status post cholecystectomy (~2001) Status post hysterectomy (~1970) Status post total left knee replacement (~05/04/19) Family History Family History Father Family history of cardiovascular disease Family history of kidney disease Family history of aortic aneurysm Mother Diabetes mellitus Family history of Alzheimer's disease
--- NOTE | 2022-07-10 14:05 | WPDHPUPDATE1 ---
History and Physical Update Update Date/Time: 07/10/22 14:05 History and Physical has been reviewed, including an updated exam of the patient. There are NO changes in the patient's condition. Risks, benefits, and alternatives have been discussed and questions answered. Patient agrees to proceed with procedure.
[2022-07-10] MEDS: ceFAZolin 2 GM/D5W 50 ML 2 GM/50 ML BAG IVPB (14:42)
[2022-07-10] MEDS: BUPIVACAINE/EPINEPHRINE 0.5% 50 ML VIAL 30 ML INFILTRATE (15:33)
--- NOTE | 2022-07-10 16:15 | W.PM.PROC2 ---
Procedure Note - Detailed Date of Procedure 07/10/22 Pre-op Diagnosis periumbilical incisional hernia measuring 3 cm Post-op Diagnosis Same Procedure Performed Robotic assisted repair periumbilical incisional hernia with mesh Surgeon Meli Bee MD Anesthesia General Indications 82-year-old female presenting with periumbilical incisional hernia Findings periumbilical incisional hernia measuring approximately 3 cm Description of Procedure The patient was taken the operating room placed in the supine position. After adequate induction of general anesthesia, the patient was prepped and draped in normal sterile fashion. A time-out was then done to verify the patient's identity as well as the procedure being performed. I began by making a 5 mm incision in the left upper quadrant. Through this, a Veress needle was placed into the peritoneal cavity and CO2 gas was insufflated. After adequate pneumoperitoneum was achieved, a 5 mm trocar was placed through this incision. I then placed the laparoscope through this trocar site and under direct visualization I placed a 8 mm port in the left mid abdomen as well as an additional 8 mm port in the left lower abdomen. I then moved the camera to the lower port and replaced the 5 mm port with a 12 mm airport. The robot was then docked to the 3 port sites. I then went to the robotic console. I began by identifying the hernia. A moderate-sized incarcerated hernia was noted in the periumbilical region. Using graspers, I was able to reduce this hernia. The hernia was noted to contain a large amount of preperitoneal fat. Once reduced, I also reduced and dissected out the hernia sac. I then closed the approximately 3 cm defect with 0 strata fix suture. I then placed a [address] mesh into the abdominal cavity. The positional stitch was placed in the middle of the mesh and brought up centering the mesh over the defect. Once this was done, I used 2 0 V lock suture x 2 to circumferentially suture the mesh to the abdominal. Once the mesh was completely sutured in, I was happy with our tension-free repair. The mesh was noted to have good overlap of the defect. I then removed the positioning device. At this point, the robot was undocked and all ports were removed. I then closed the 12 mm port site with an 0 Vicryl [id number]-[id number] suture at the fascial level. All port sites were then closed with 4 O Monocryl subcuticular suture. The patient tolerated the procedure well, is extubated in the operating room postoperative, and will be transferred to the recovery room in stable condition. Implants [address] mesh Estimated Blood Loss 10 Drains No Packing No Pathology None sent Complications No immediate complications Condition Stable Disposition PACU [facility] Billing Surgery - Charge Forward: Surgery Billing
[2022-07-10] MEDS: LACTATED RINGERS 1,000 ML 30 ML IV CONT ×2 (16:30)
[2022-07-10] MEDS: fentaNYL CITRATE INJ (*CRX) 100 MCG/2 ML VIAL 25 MCG IV PUSH ×9 (16:49→17:44)
[2022-07-10] MEDS: ONDANSETRON INJ 4 MG/2 ML VIAL IV PUSH (16:58)
[2022-07-10] MEDS: HYDROmorphone HCL INJ (*CRX) 1 MG/ML SYR 0.25 MG IV PUSH ×5 (17:59→18:31)
--- NOTE | 2022-07-10 18:54 | ADMGEN ---
This patient, Shantel Oates, was admitted to Medical Room 341-01. Patient/family oriented to hospital policies and general routines including ID bracelet, bed and alarms, visiting hours, pain management, procedures, bathroom and other care routines, personal items, smoking policy, room service/diet, and visiting hours. Information on how to activate the Rapid Response Team has been discussed. Patient/Family are encouraged to report perceived risks to care and to ask questions if they do not understand what they are told or what they should do.
[2022-07-10] MEDS: FLECAINIDE ACETATE 100 MG TABLET PO (21:16)
[2022-07-10] MEDS: METOPROLOL TARTRATE 25 MG TABLET PO (21:16)
[2022-07-10] MEDS: hydroCHLOROthiazide 12.5 MG CAPSULE PO (21:16)
[2022-07-10] MEDS: lisinopriL 20 MG TABLET PO (21:17)
[2022-07-10] MEDS: AMITRIPTYLINE HCL 25 MG TABLET PO (21:17)
[2022-07-11] MEDS: oxyCODONE HCL (*CRX) 5 MG TAB IR PO ×3 (00:09→13:22)
[2022-07-11] MEDS: MORPHINE SULFATE (*CRX) 4 MG/ML INJ IV PUSH (02:43)
[2022-07-11] MEDS: diphenhydrAMINE HCl INJ 50 MG/ML VIAL 25 MG IV PUSH (02:46)
[2022-07-11 03:53] VITALS: BP 156/69; PULSE 69; RESP 18; TEMP 36.9; O2SAT 95
[2022-07-11] MEDS: LEVOTHYROXINE SODIUM 88 MCG TABLET PO (06:29)
[2022-07-11 06:35] LABS: Hematocrit 35.3 % (37.0-47.0); Hemoglobin 11.5 g/dL (12.0-15.0); Mean Corpuscular HGB Conc 32.6 g/dl (32-36); Mean Corpuscular Hemoglobin 30.7 pg (26-34); Mean Corpuscular Volume 94.1 fl (80-100); Mean Platelet Volume 11.9 fl (7.4-10.4); Platelet Count Result 185 k/mm3 (150-375); Red Blood Count 3.75 M/mm3 (4.2-5.4); Red Cell Distribution Width 12.6 % (11.5-14.5); White Blood Count 9.9 K/mm3 (4.5-10.0)
[2022-07-11 06:43] LABS: Anion Gap 9 mmol/L (8-16); Blood Urea Nitrogen 34 mg/dL (7-17); Carbon Dioxide 26 mmol/L (22-30); Chloride 100 mmol/L (98-107); Estimated CRCL calculation 20 ml/min; Estimated Glomerular Filt Rate 29; Glucose 122 mg/dL (65-110); Potassium 4.9 mmol/L (3.4-5.0); Sodium 135 mmol/L (137-145)
[2022-07-11] MEDS: ENOXAPARIN 40 MG/0.4 ML SYRINGE SUB-Q (08:27)
[2022-07-11 08:28] VITALS: BP 141/74; PULSE 75; RESP 20; TEMP 36.6; O2SAT 97
[2022-07-11] MEDS: ATORVASTATIN 40 MG TABLET PO (08:29)
[2022-07-11 08:30] VITALS: PULSE 70
[2022-07-11] MEDS: OPTI-GEN TAB 1 TABLET PO (08:30)
[2022-07-11] MEDS: METOPROLOL TARTRATE 25 MG TABLET PO (08:30)
[2022-07-11 08:32] VITALS: PULSE 70
[2022-07-11] MEDS: FLECAINIDE ACETATE 100 MG TABLET PO (08:32)
[2022-07-11] MEDS: lisinopriL 20 MG TABLET PO (08:32)
[2022-07-11] MEDS: amLODIPine BESYLATE 5 MG TABLET PO (08:32)
[2022-07-11] MEDS: PANTOPRAZOLE 40 MG TABLET PO (08:32)
[2022-07-11] MEDS: hydroCHLOROthiazide 12.5 MG CAPSULE PO (08:33)
[2022-07-11 12:28] VITALS: BP 132/70; PULSE 66; RESP 20; TEMP 36.6; O2SAT 100
--- NOTE | 2022-07-11 13:18 | PM.DS ---
DS: Admitting Diagnosis Discharge Date 07/11/22 Admitting Diagnosis Incisional hernia Mitral valve prolapse Chronic anticoagulation DS: Discharge Diagnosis Discharge Diagnosis (1) Incisional hernia: Code(s): K43.2 - Incisional hernia without obstruction or gangrene Status: Acute (2) Chronic anticoagulation: Code(s): Z79.01 - supervisor particleboard (current) use of anticoagulants Status: Acute (3) Mitral valve prolapse: Code(s): I34.1 - Nonrheumatic mitral (valve) prolapse Status: Acute DS: Summary Hospital Course Reason for hospitalization: This is an 82 year old female who presented to Dr. Breaux is an outpatient for evaluation of a periumbilical incisional hernia. She has had a painful bulge for about a year with progressively worsening symptoms. After discussing this as an outpatient, the decision was made to proceed with robotic assisted repair, which she presented for yesterday. Hospital Course: Patient presented and underwent robotic assisted repair periumbilical incisional hernia with mesh by Dr. Bee on 07/10/2022. She was having issues with pain control postoperatively in the recovery room. Therefore, she was admitted overnight for monitoring. Her pain has been well controlled overnight and this morning with oral analgesics. She has been advanced to a solid diet and is tolerating this well. No nausea or vomiting. She is tolerating activity. She is voiding without any difficulty. The patient is stable for discharge this afternoon. Follow-up with Dr. Bee is scheduled in 2 weeks. Status at Discharge Functional status at discharge: independent ambulation Overall status at discharge: patient is progressing back to baseline Time Spent with Patient Time attestation: Total time spent providing and/or coordinating discharge services: DS: Data Data Completed and Pending Labs on day of discharge: Labs from last 24 hours 07/11/22 07/11/22 05:55 05:55 WBC 9.9 RBC 3.75 L Hgb 11.5 L Hct 35.3 L MCV 94.1 MCH 30.7 MCHC 32.6 RDW 12.6 Plt Count 185 MPV 11.9 H Sodium 135 L Potassium 4.9 Chloride 100 Carbon Dioxide 26 Anion Gap 9 BUN 34 H Creatinine 1.70 H Estim Creat Clear Calc 20 Estimated GFR 29 L Glucose 122 H Calcium 9.0 Procedures/Treatments: Procedures Operation Date: 07/10/22 14:00 Actual Procedure Side Surgeon p Robotic Assisted Laparoscopic Incisional Hernia Repair with Mesh Not Applicable Meli Bee MD Discharge Plan Discharge Patient Disposition: Home, Self-Care Discharge Instructions: DISCHARGE INSTRUCTION SHEET FOR HERNIA, GALLBLADDER AND APPENDIX SURGERIES DR. BEE PATIENT TO TAKE HOME 1. May shower in 24 hours, no soaking in bath x 2weeks. 2. Call office for: Wound increasingly painful or bleeding Vomiting Fever of greater than 101 degrees 3. If no bowel movement for three days, take 1 oz. (30 ml) Milk of Magnesia or MiraLax 17g 1 to 2 times daily. 4. No heavy lifting > 10-15 pounds x 6 weeks for hernia repairs and 2 weeks for laparoscopic cholecystectomy or appendectomy. 5. No driving for 3 days or while taking narcotic pain medications. 6. Ice to surgical site for 48 hours (30 min on, then 30 min off). 7. Up walking 10-30 minutes three times per day. 8. Resume previous home medications. 9. Follow-up 10-14 days in office for wound check or as previously scheduled. ([phone]) 10. Oral pain medications prescription to be sent to pharmacy. Take Tylenol 500mg every 6 hours and Ibuprofen 600mg every 6 hours for the first 2 days, then as needed. 11. NUTRITION: Start out by drinking fluids and increase your diet as tolerated. If you experience nausea, try dry toast, crackers, and 7-UP. If nausea or vomiting persists, contact your surgeon?s office. 12. Abdominal Hernias-if sent home with abdominal binder, wear for the f
== END 2022-07-11 13:37 | disposition home or self-care (01) ==
LOC: ANHSURGERY 17:17 → ANH3MED 18:45
PROVIDERS: PCP Emergency Medicine; Visit Provider Surgery
PROC: (CPT 49593; principal; 2022-07-10 14:00)
DX: K43.2 Incisional hernia without obstruction or gangrene (principal); E11.9 Type 2 diabetes mellitus without complications; K21.9 Gastro-esophageal reflux disease without esophagitis; E78.5 Hyperlipidemia, unspecified; E03.9 Hypothyroidism, unspecified; I34.1 Nonrheumatic mitral (valve) prolapse; F41.9 Anxiety disorder, unspecified; M19.90 Unspecified osteoarthritis, unspecified site; Z79.01 Long term (current) use of anticoagulants
CPT/HCPCS: 49593; S2900; 36415; 80048; 85027; 85610; 85730; 86850; 86900; 86901; A9270; C1781; J0690; J1100; J1170; J1200; J1650; J2270; J2405; J2704; J2710; J3010; J7120

== ENCOUNTER 2022-07-14 10:35 | Inpatient (IN) | payer MEDICARE, SELFPAY ==
[2022-07-14] VITALS (20 sets, daily range): BP systolic 100–138; BP diastolic 59–67; PULSE 94–117; RESP 16–30; TEMP 35.8–37.1; O2SAT 83–97; BMI 28.5
--- NOTE | ~2022-07-14 | XR_ITS ---
Supine portable view of the abdomen Clinical history: Small bowel obstruction COMPARISON: 07/14/2022 Findings: Distal portion of NG tube probably partially imaged. Dilated small bowel loops are compatib le with small bowel obstruction, with some oral contrast in large bowel. Stable degenerative change a nd scoliosis of the lumbar spine. Left hip arthroplasty present. No abnormal mass lesion or calcifica tion is seen. Impression: Small bowel obstruction, as detailed above. Probable NG tube partially imaged. Reviewed, dictated and finalized at location M. Impression: Small bowel obstruction, as detailed above. Probable NG tube partially imaged.
--- NOTE | ~2022-07-14 | XR_ITS ---
XR chest 2V 07/17/2022 09:34 Indication: Cough Procedure: AP and lateral views of the chest Comparison: Comparison to multiple prior studies sequentially, with oldest reviewed study dated 08/2021. Findings: Heart size normal. There is left basilar infiltrates which may represent atelectasis or dev eloping pneumonia. Shallow inspiration. No pleural effusion or pneumothorax. No acute osseous abnorma lity. There is scoliosis. Impression: 1: Left basilar infiltrates may represent atelectasis or pneumonia. Reviewed, dictated and finalized at location L. Impression: 1: Left basilar infiltrates may represent atelectasis or pneumonia.
--- NOTE | ~2022-07-14 | CT_ITS ---
Non-contrast CT scan of the Abdomen and Pelvis Clinical indication: Abdominal pain, status post recent hernia repair Technique: 2.5 mm axial scans were obtained through the abdomen and pelvis without intravenous or or al contrast. Dose reduction technique was used on this scan by utilizing automated exposure control a nd iterative reconstruction technique. The dose-length product (DLP) was 408.51 mGy-cm. COMPARISON: 02/06/2022 Findings: Images through the lung bases reveal mild bibasilar chronic interstitial change. Minimal r ight pleural effusion present. The liver, spleen, pancreas, kidneys, and adrenals appear normal., Cystectomy clips present. There is no aortic aneurysm. Multiple dilated loops of small bowel are present proximally. Distal small bowel is decompressed. Tra nsition point likely near the anterior left abdominal wall region. Images through the pelvis are degraded by streak artifact from left hip arthroplasty. There is no kenneth dence of ascites or lymphadenopathy. Urinary bladder unremarkable. No pelvic mass identified. Impression: Small bowel obstruction, as detailed above. Minimal right pleural effusion. Reviewed, dictated and finalized at location . Impression: Small bowel obstruction, as detailed above. Minimal right pleural effusion.
--- NOTE | ~2022-07-14 | XR_ITS ---
EXAM: XR sm bowel follow through [facility] DATE: 07/14/2022 18:58 HISTORY: hx hernia repair 1 week ago, naus/vomit X4days . COMPARISON: None available. FINDINGS: Cholecystectomy clips. Decreased mineralization. No fracture or dislocation. No lytic or b lastic lesion. Severe lumbar scoliosis and degenerative change. Partially visualized left hip arthrop lasty. 15 minute, 30 minute, 45 minute, 1 hour, 1 hour and 30 minute, 2 hour 30 minute, and 4 hour vi ews of the abdomen were obtained following contrast ingestion. There are multiple loops of severely d ilated small bowel in the left abdomen, measuring up to 5.1 cm in maximum diameter. Contrast fills se veral jejunal loops, but progresses no further at the conclusion of the examination. IMPRESSION: Contrast failed to progress beyond proximal loops of jejunum in 4 hours. This finding may represent complete or partial obstruction. Complete obstruction is favored given these findings and the prior CT findings. Consider follow-up abdominal radiograph, 24 hours post contrast administration (approximately 2:30 PM on 07/15/2022). Reviewed, dictated and finalized at location K. IMPRESSION: Contrast failed to progress beyond proximal loops of jejunum in 4 h ours. This finding may represent complete or partial obstruction. Complete obst ruction is favored given these findings and the prior CT findings. Consider fol low-up abdominal radiograph, 24 hours post contrast administration (approximate ly 2:30 PM on 07/15/2022).
--- NOTE | ~2022-07-14 | XR_ITS ---
EXAMINATION: XR abdomen NG/feed tube insert DATE: 07/14/2022 12:37 INDICATION: Nasogastric tube placement. TECHNIQUE: An upright view of the abdomen was obtained. COMPARISON: CT abdomen and pelvis 07/14/2022 FINDINGS: The lower abdomen is excluded. There are dilated loops of small bowel. The nasogastric tube tip is in the stomach. Surgical clips in the right upper quadrant are likely from cholecystectomy. IMPRESSION: 1. Nasogastric tube tip in the stomach. 2. Dilated small bowel, consistent with small bowel obstruction. Reviewed, dictated and finalized at location A.
[2022-07-14 10:58] LABS: Basophils Percent Auto 0.1 % (0.2-1.2); Eosinophils Absolute Auto 0.2 K/mm3 (0-0.3); Eosinophils Percent Auto 1.7 % (0-4.4); Hematocrit 36.2 % (37.0-47.0); Hemoglobin 12.5 g/dL (12.0-15.0); Immature Granulocyte Absolute 0.07 K/mm3 (0.00-0.031); Immature Granulocyte Percent A 0.5 % (0-0.5); Lymphocytes Absolute Auto 0.94 K/mm3 (0.9-3.2); Mean Corpuscular HGB Conc 34.5 g/dl (32-36); Mean Corpuscular Hemoglobin 30.9 pg (26-34); Mean Corpuscular Volume 89.6 fl (80-100); Mean Platelet Volume 11.8 fl (7.4-10.4); Monocytes Absolute Auto 1.7 K/mm3 (0.1-0.6); Monocytes Percent Auto 12.3 % (2.6-8.5); Neutrophils Absolute Auto 10.5 K/mm3 (1.3-6.7); Neutrophils Percent Auto 78.4 % (45.5-73.1); Platelet Count Result 257 k/mm3 (150-375); Red Blood Count 4.04 M/mm3 (4.2-5.4); Red Cell Distribution Width 12.3 % (11.5-14.5); White Blood Count 13.4 K/mm3 (4.5-10.0)
[2022-07-14 11:20] LABS: Alanine Aminotransferase 23 U/L (6-35); Albumin Level 3.7 g/dL (3.5-5.1); Alkaline Phosphatase 77 U/L (38-126); Aspartate Amino Transferase 49 U/L (14-36); Blood Urea Nitrogen 53 mg/dL (7-17); Calcium 9.2 mg/dL (8.4-10.2); Carbon Dioxide > 40 mmol/L (22-30); Chloride 82 mmol/L (98-107); Estimated CRCL calculation 15 ml/min; Estimated Glomerular Filt Rate 21; Glucose 137 mg/dL (65-110); Lipase 52 U/L (23-300); Potassium 3.1 mmol/L (3.4-5.0); Sodium 128 mmol/L (137-145)
[2022-07-14] MEDS: SODIUM CHLORIDE 0.9% IV 1,000 ML 999 ML IV CONT (12:07)
[2022-07-14] MEDS: POTASSIUM CHLORIDE INJ 40 MEQ in SODIUM CHLORIDE 0.9% IV 500 ML 130 MEQ IVPB (12:07)
--- NOTE | 2022-07-14 12:10 | ED.GENADULT ---
HPI - General Adult General Chief complaint: Nausea/Vomiting/Diarrhea Stated complaint: n/v Time Seen by Provider: 07/14/22 10:37 Source: RN notes reviewed History of Present Illness HPI narrative: Patient presents emergency department from home for nausea and vomiting. States patient had a hernia repair by Dr. Bee 07/10/22. States that she returned home and has been having persistent nausea vomiting since that time is not been able to keep anything down. States has been associated with abdominal pain that is diffuse throughout the abdomen described as cramping in nature. She denies any fevers or chills chest pain shortness of breath denies any diarrhea. States she has not been able to keep any fluids down to call Dr. Bee this morning as recommended come the ER for further evaluation Related Data Home Medications Medication Instructions Recorded Confirmed vitamins A,C,I-rfew-qekgzb 2,148 1 tablet PO DAILY 04/01/19 07/10/22 mcg-113 mg-45 mg-17.4 mg tablet (PreserVision AREDS) biotin 5 mg tablet 5 mg PO DAILY 06/24/19 07/10/22 vitamin B complex 1 tablet PO DAILY 06/24/19 07/10/22 calcium citrate-ergocalciferol 1 tablet PO DAILY 08/29/21 07/10/22 (vitamin D2) 315 mg-200 unit tablet flecainide 100 mg tablet 100 mg PO Q12H 11/21/21 07/10/22 amitriptyline 25 mg tablet 25 mg PO QHS 03/05/22 07/10/22 Allergies Allergy/AdvReac Type Severity Reaction Status Date / Time acetaminophen [From Tylenol] Allergy Severe Swelling Verified 07/14/22 10:46 ibuprofen Allergy Severe Swelling Verified 07/14/22 10:46 of Lip/Tongue/Throat naproxen [From Aleve] Allergy Severe Swelling Verified 07/14/22 10:46 of Lip/Tongue/Throat strawberry Allergy Severe Swelling Verified 07/14/22 10:46 of Lip/Tongue/Throat adhesive Allergy Mild Rash Verified 07/14/22 10:46 latex Allergy Mild Rash Verified 07/14/22 10:46 influenza virus vaccine tv AdvReac Severe very sick Verified 07/14/22 10:46 2013-14(18-49 yrs),rcmb with fever [From Flublok] and myalgia Review of Systems Review of Systems: Gen.: Denies fevers or chills ENT: Denies congestion Respiratory: Denies shortness of breath or cough CV: Denies chest pain or palpitations GI: HPI denies burning, urgency, frequency or hematuria Musculoskeletal: Denies back pain or muscle pain Neuro: Denies numbness, tingling, weakness or focal weakness Skin: Denies rash Except as documented, all other systems reviewed and negative [facility] Past Medical History Medical History Adenomatous colon polyp Anxiety Chronic anticoagulation Diet-controlled diabetes mellitus Hemoglobin A1c was 5.5 on March 25, 2019. Gastric AVM GERD (gastroesophageal reflux disease) History of Clostridioides difficile infection History of postoperative nausea and vomiting Hyperlipidemia Hypothyroidism Mitral valve prolapse Osteoarthritis Renal cyst Surgical History Surgical History H/O dilation and curettage x4 H/O hemorrhoidectomy History of bladder suspension procedure History of hip replacement (~06/06/19) left History of varicose vein ligation and stripping (~1991) right leg Hx of colonoscopy Status post arthroscopy of left knee (~05/04/19) Status post breast biopsy (~1972) Left breast biopsy with benign histology. Status post cardiac catheterization Coronary angiogram March 2014 showed normal coronary arteries. Status post cataract extraction (~05/20/16) right Status post cholecystectomy (~2001) Status post hysterectomy (~1970) Status post total left knee replacement (~05/04/19) Family History Family History Father Family history of cardiovascular disease Family history of kidney disease Family history of aortic aneurysm Mother Diabetes mellitus Family history of Alzheimer's disease Fam
[2022-07-14] MEDS: SODIUM CHLORIDE 0.9% IV 1,000 ML 100 ML IV CONT ×2 (13:08→22:00)
--- NOTE | 2022-07-14 14:10 | PM.IMHP ---
H&P: HPI History of Present Illness Date/Time: 07/14/22 14:10 Chief Complaint: Abdominal pain, nausea and vomiting Narrative: The patient is a 82-year-old female presenting to the emergency department complaining of crampy abdominal pain, persistent nausea and vomiting. The patient had an incisional hernia repair on for 07/10, please see operative report for details of the procedure. The patient was discharged the following day. Patient reports that since being discharged she has progressively become more nauseous. The patient reports that she started with emesis over the last few days, to the point where she really unable to keep much down. The patient reports that she has some mild incisional pain, however has started with crampy more diffuse abdominal pain. Workup in the emergency department, including imaging, is significant for small bowel obstruction. Review of Systems Constitutional: Constitutional: Reports as per HPI, Reports anorexia, Denies chills, Reports fatigue, Denies fever(s), Reports lethargy, Reports malaise, Reports poor appetite, Reports weakness, Denies weight gain and Denies weight loss Eyes: Eyes: Reports no additional eye complaints ENT: Reports system reviewed and no additional complaints, except as documented Cardiovascular: Cardiovascular: Reports no additional cardiovascular complaints Respiratory: Respiratory: Reports no additional respiratory complaints Gastrointestinal: Gastrointestinal: Reports as per HPI, Reports abdominal pain, Reports bloating, Reports constipation, Reports early satiety, Reports nausea and Reports vomiting Genitourinary: Genitourinary: Reports no additional female genitourinary complaints Musculoskeletal: Musculoskeletal: Reports no additional musculoskeletal complaints Integumentary/Breasts: Skin/Breast: Reports system reviewed and no additional complaints, except as docu Neurologic: Reports system reviewed and no additional complaints, except as documented Psychiatric: Psychiatric: Reports no additional psychiatric complaints Endocrine: Endocrine: Reports no additional endocrine complaints Hematologic/Lymphatic: Hematologic/Lymphatic: Reports no additional hematologic/lymphatic complaints Allergic/Immunologic: Allergic/Immunologic: Reports no additional allergic/immunologic complaints [facility] Past Medical History Medical History Adenomatous colon polyp Anxiety Chronic anticoagulation Diet-controlled diabetes mellitus Hemoglobin A1c was 5.5 on March 25, 2019. Gastric AVM GERD (gastroesophageal reflux disease) History of Clostridioides difficile infection History of postoperative nausea and vomiting Hyperlipidemia Hypothyroidism Mitral valve prolapse Osteoarthritis Renal cyst Surgical History Surgical History H/O dilation and curettage x4 H/O hemorrhoidectomy History of bladder suspension procedure History of hip replacement (~06/06/19) left History of varicose vein ligation and stripping (~1991) right leg Hx of colonoscopy Status post arthroscopy of left knee (~05/04/19) Status post breast biopsy (~1972) Left breast biopsy with benign histology. Status post cardiac catheterization Coronary angiogram March 2014 showed normal coronary arteries. Status post cataract extraction (~05/20/16) right Status post cholecystectomy (~2001) Status post hysterectomy (~1970) Status post total left knee replacement (~05/04/19) Family History Family History Father Family history of cardiovascular disease Family history of kidney disease Family history of aortic aneurysm Mother Diabetes mellitus Family history of Alzheimer's disease Family history of malignant neoplasm of brain Grandparent Cerebrovascular accident Other Breast cancer Eye cancer Social History Social History (Reviewe
[2022-07-14 14:39] LABS: Appearance Urine Clear (Clear); Bacteria Urine None Seen /hpf; Bilirubin Urine Negative (Negative); Blood Urine Negative (Negative); Color Urine Yellow (Yellow); Glucose Urine UA Negative (Negative); Hyaline Casts Urine Present /lpf; Ketones Urine Trace mg/dL (Negative); Leukocyte Esterase Ur Negative LEU/UL (Negative); Nitrate Urine Negative (Negative); Protein Urine 3+ mg/dL (Negative); RBC Urine 0-2 /hpf (0-2); Specific Grav Ur 1.018 (1.001-1.035); Squamous Epithelial Cell Urine None seen /hpf (Few); Urobilinogen Urine 0.2 mg/dL (<2.0); WBC Urine 0-5 /hpf
[2022-07-14 14:41] LABS: Add Urine Microscopic? YES
--- NOTE | 2022-07-14 17:54 | ADMGEN ---
This patient, Shantel Oates, was admitted to 3 Med Surg Room 313-01. Patient/family oriented to hospital policies and general routines including ID bracelet, bed and alarms, visiting hours, pain management, procedures, bathroom and other care routines, personal items, smoking policy, room service/diet, and visiting hours. Information on how to activate the Rapid Response Team has been discussed. Patient/Family are encouraged to report perceived risks to care and to ask questions if they do not understand what they are told or what they should do.
[2022-07-15] VITALS (19 sets, daily range): BP systolic 108–153; BP diastolic 58–77; PULSE 80–114; RESP 12–19; TEMP 36.1–37.4; O2SAT 96–100
[2022-07-15 07:10] LABS: Basophils Percent Auto 0.2 % (0.2-1.2); Eosinophils Absolute Auto 0.7 K/mm3 (0-0.3); Eosinophils Percent Auto 6.3 % (0-4.4); Hematocrit 36.7 % (37.0-47.0); Immature Granulocyte Absolute 0.03 K/mm3 (0.00-0.031); Immature Granulocyte Percent A 0.3 % (0-0.5); Lymphocytes Absolute Auto 0.92 K/mm3 (0.9-3.2); Lymphocytes Percent Auto 8.9 % (18.3-44.2); Mean Corpuscular HGB Conc 32.7 g/dl (32-36); Mean Corpuscular Hemoglobin 30.6 pg (26-34); Mean Corpuscular Volume 93.6 fl (80-100); Mean Platelet Volume 11.3 fl (7.4-10.4); Monocytes Absolute Auto 1.5 K/mm3 (0.1-0.6); Monocytes Percent Auto 14.2 % (2.6-8.5); Neutrophils Absolute Auto 7.2 K/mm3 (1.3-6.7); Neutrophils Percent Auto 70.1 % (45.5-73.1); Platelet Count Result 231 k/mm3 (150-375); Red Blood Count 3.92 M/mm3 (4.2-5.4); Red Cell Distribution Width 12.6 % (11.5-14.5); White Blood Count 10.3 K/mm3 (4.5-10.0)
[2022-07-15 07:31] LABS: Alanine Aminotransferase 21 U/L (6-35); Albumin Level 3.5 g/dL (3.5-5.1); Alkaline Phosphatase 73 U/L (38-126); Aspartate Amino Transferase 43 U/L (14-36); Bilirubin,Total 0.7 mg/dL (0.2-1.3); Blood Urea Nitrogen 53 mg/dL (7-17); Calcium 8.9 mg/dL (8.4-10.2); Carbon Dioxide > 40 mmol/L (22-30); Chloride 90 mmol/L (98-107); Estimated CRCL calculation 19 ml/min; Estimated Glomerular Filt Rate 24; Glucose 102 mg/dL (65-110); Potassium 2.5 mmol/L (3.4-5.0); Sodium 141 mmol/L (137-145)
--- NOTE | 2022-07-15 07:37 | WPDHPUPDATE1 ---
History and Physical Update Update Date/Time: 07/15/22 07:37 History and Physical has been reviewed, including an updated exam of the patient. There are NO changes in the patient's condition. Risks, benefits, and alternatives have been discussed and questions answered. Patient agrees to proceed with procedure. no improvement and SBS shows complete SBO, will plan OR today for exploratory laparoscopy, possible bowel resection
[2022-07-15] MEDS: SODIUM CHLORIDE 0.9% IV 1,000 ML 100 ML IV CONT ×2 (08:47→23:19)
[2022-07-15] MEDS: POTASSIUM CHLORIDE INJ 40 MEQ in SODIUM CHLORIDE 0.9% IV 500 ML 130 MEQ IVPB (08:47)
[2022-07-15] MEDS: ONDANSETRON INJ 4 MG/2 ML VIAL IV PUSH (09:03)
--- NOTE | 2022-07-15 10:59 | PM.IMCN ---
Assessment and Plan Assessment and plan (1) SBO (small bowel obstruction): Code(s): K56.609 - Unspecified intestinal obstruction, unspecified as to partial versus complete obstruction Status: Acute Assessment and Plan: admit, NPO, NG decompression, will get SBS, exam largely benign (2) Chronic kidney disease: Code(s): N18.9 - Chronic kidney disease, unspecified Status: Acute Assessment and Plan: rehydrate c IVF (3) PAF (paroxysmal atrial fibrillation): Code(s): I48.0 - Paroxysmal atrial fibrillation Status: Acute Assessment and Plan: Heart rate is slightly elevated. Able to currently take her medications. IV metoprolol as needed. Will also resume anticoagulation once taking p.o. and after surgery (4) GERD (gastroesophageal reflux disease): Code(s): K21.9 - Gastro-esophageal reflux disease without esophagitis Status: Acute Assessment and Plan: Will resume home medications once taking p.o. (5) Mixed hyperlipidemia: Code(s): E78.2 - Mixed hyperlipidemia Status: Acute Assessment and Plan: Will resume home medications once taking p.o. (6) Hypothyroidism: Qualifiers: Hypothyroidism type: unspecified Qualified Code(s): E03.9 - Hypothyroidism, unspecified Code(s): E03.9 - Hypothyroidism, unspecified Status: Chronic Assessment and Plan: Resume medications once taking p.o. (7) Anxiety: Code(s): F41.9 - Anxiety disorder, unspecified Status: Acute Assessment and Plan: Will resume medications once taking p.o. HPI Data of Consult Consult date: 07/15/22 Requesting Physician: Meli Bee MD Primary Care Provider: Abhijit Erazo MD Consult Narrative Narrative: Shantel Oates is a 82 year old female [facility] Past Medical History Medical History Adenomatous colon polyp Anxiety Chronic anticoagulation Diet-controlled diabetes mellitus Hemoglobin A1c was 5.5 on March 25, 2019. Gastric AVM GERD (gastroesophageal reflux disease) History of Clostridioides difficile infection History of postoperative nausea and vomiting Hyperlipidemia Hypothyroidism Mitral valve prolapse Osteoarthritis Renal cyst Surgical History Surgical History H/O dilation and curettage x4 H/O hemorrhoidectomy History of bladder suspension procedure History of hip replacement (~06/06/19) left History of varicose vein ligation and stripping (~1991) right leg Hx of colonoscopy Status post arthroscopy of left knee (~05/04/19) Status post breast biopsy (~1972) Left breast biopsy with benign histology. Status post cardiac catheterization Coronary angiogram March 2014 showed normal coronary arteries. Status post cataract extraction (~05/20/16) right Status post cholecystectomy (~2001) Status post hysterectomy (~1970) Status post total left knee replacement (~05/04/19) Family History Family History Father Family history of cardiovascular disease Family history of kidney disease Family history of aortic aneurysm Mother Diabetes mellitus Family history of Alzheimer's disease Family history of malignant neoplasm of brain Grandparent Cerebrovascular accident Other Breast cancer Eye cancer Social History Social History Social History: The [place]. She is a lifelong nonsmoker and denies alcohol and drug use. Children live nearby. She still works 6 days a week at [employer]. She denies alcohol, tobacco, and drug use. The patient's daughter lives with her now. She has 3 children. She is . She is a full code. Her daughter this living with her is a durable power assistant attorney general for healthcare. Smoking
[2022-07-15] MEDS: METOPROLOL TARTRATE INJ 5 MG/5 ML VIAL IV PUSH ×3 (11:58→23:19)
--- NOTE | 2022-07-15 13:23 | PC.NURSE ---
To OR per bed at, IV saline locked. Report given to WALE Marlwo.
[2022-07-15] MEDS: fentaNYL CITRATE INJ (*CRX) 100 MCG/2 ML VIAL 25 MCG IV PUSH ×3 (13:25→14:36)
[2022-07-15] MEDS: LACTATED RINGERS 1,000 ML 30 ML IV CONT (13:25)
[2022-07-15 13:43] LABS: Potassium 3.3 mmol/L (3.4-5.0)
--- NOTE | 2022-07-15 13:57 | WPDANESEPPF ---
Anes - Initial Pre Proc Eval Procedure: Operation Date: 07/15/22 13:30 Proposed Procedures p Exploratory Laparoscopy for Small Bowel Obstruction - Meli Bee MD Date/Time: 07/15/22 13:57 Surgeon: Meli Bee MD Pre Op Diagnosis: Small Bowel Obstruction/Hypokalemia/Renal Insuffic Patient Data Age: 82 Gender: F Height: 1.63 m Weight: 75.6 kg Last Vital Signs Temp 36.2 C L 07/15/22 13:11 Pulse 95 07/15/22 13:11 Resp 16 07/15/22 13:11 BP 108/60 07/15/22 13:11 Pulse Ox 96 07/15/22 13:11 O2 Del Method Nasal Cannula 07/15/22 13:11 O2 Flow Rate 2 07/15/22 13:11 Allergies Allergy/AdvReac Type Severity Reaction Status Date / Time acetaminophen [From Tylenol] Allergy Severe Swelling Verified 07/14/22 10:46 ibuprofen Allergy Severe Swelling Verified 07/14/22 10:46 of Lip/Tongue/Throat naproxen [From Aleve] Allergy Severe Swelling Verified 07/14/22 10:46 of Lip/Tongue/Throat strawberry Allergy Severe Swelling Verified 07/14/22 10:46 of Lip/Tongue/Throat adhesive Allergy Mild Rash Verified 07/14/22 10:46 latex Allergy Mild Rash Verified 07/14/22 10:46 influenza virus vaccine tv AdvReac Severe very sick Verified 07/14/22 10:46 2012-(18-49 yrs),rcmb with fever [From Flublok] and myalgia Home Medications Medication Instructions Recorded Confirmed Type vitamins A,C,L-uvdu-eidjsp 2,148 1 tablet PO DAILY 04/01/19 07/14/22 History mcg-113 mg-45 mg-17.4 mg tablet (PreserVision AREDS) biotin 5 mg tablet 5 mg PO DAILY 06/24/19 07/14/22 History vitamin B complex 1 tablet PO DAILY 06/24/19 07/14/22 History atorvastatin 40 mg tablet See Rx Instructions .Route 08/16/21 07/14/22 Rx .COMPLEX #90 tabs levothyroxine 88 mcg tablet See Rx Instructions .Route 08/16/21 07/14/22 Rx .COMPLEX #90 tabs calcium citrate-ergocalciferol 1 tablet PO DAILY 08/29/21 07/14/22 History (vitamin D2) 315 mg-200 unit tablet flecainide 100 mg tablet 100 mg PO Q12H 11/21/21 07/14/22 History pantoprazole 40 mg tablet,delayed 40 mg PO QAM #90 tabs 01/23/22 07/14/22 Rx release amitriptyline 25 mg tablet 25 mg PO QHS 03/05/22 07/14/22 History lisinopril 20 1 tablet PO BID #120 tabs 03/20/22 07/14/22 Rx mg-hydrochlorothiazide 12.5 mg tablet amlodipine 5 mg tablet 5 mg PO DAILY #90 tabs 04/22/22 07/14/22 Rx apixaban 2.5 mg tablet (Eliquis) 2.5 mg PO BID #60 tabs 04/29/22 07/14/22 Rx metoprolol tartrate 25 mg tablet 25 mg PO BID #180 tabs 05/22/22 07/14/22 Rx docusate sodium 100 mg capsule 100 mg PO BID #30 caps 07/10/22 07/14/22 Rx (Colace) oxycodone 5 mg tablet 5 mg PO Q6H PRN pain #20 tabs 07/11/22 07/14/22 Rx Laboratory Tests 07/14/22 07/15/22 07/15/22 14:16 06:55 06:55 WBC 10.3 K/mm3 H K/mm3 (4.5-10.0) RBC 3.92 M/mm3 L M/mm3 (4.2-5.4) Hgb 12.0 g/dL g/dL (12.0-15.0) Hct 36.7 % L % (37.0-47.0) MCV 93.6 fl fl (80-100) MCH 30.6 pg pg (26-34) MCHC 32.7 g/dl g/dl (32-36) RDW 12.6 % % (11.5-14.5) Plt Count 231 k/mm3 k/mm3 (150-375) MPV 11.3 fl H fl (7.4-10.4) Immature Gran % (Auto) 0.3 % % (0-0.5) Neut % (Auto) 70.1 % % (45.5-73.1) Lymph % (Auto) 8.9 % L % (18.3-44.2) [place] % (Auto) 14.2 % H % (2.6-8.5) Eos % (Auto) 6.3 % H % (0-4.4) Baso % (Auto) 0.2 % % (0.2-1.2) Lymph # (Auto) 0.92 K/mm3 K/mm3 (0.9-3.2) [place] # (Auto) 1.5 K/mm3 H K/mm3 (0.1-0.6) Eos # (Auto) 0.7 K/mm3 H K/mm3 (0-0.3) Baso # (Auto) 0.0 K/mm3 K/mm3 (0.0-0.1) Abs Immat Gran (auto) 0.03 K/mm3 K/mm3 (0.00-0.031) Absolute Neuts (auto) 7.2 K/mm3 H K/mm3 (1.3-6.7) Absolute Nucleated RBC 0.0 K/mm3 K/mm3 (0.0-0.012) Nucleated RBC % 0.0 % % (0.0-0.2) Sodium 141 mmol/L mmol/L (137-145) Potassium
[2022-07-15] MEDS: ceFAZolin 2 GM/D5W 50 ML 2 GM/50 ML BAG IVPB (14:46)
[2022-07-15] MEDS: BUPIVACAINE/EPINEPHRINE 0.5% 50 ML VIAL 30 ML INFILTRATE (15:30)
--- NOTE | 2022-07-15 15:36 | W.PM.PROC2 ---
Procedure Note - Detailed Date of Procedure 07/15/22 Pre-op Diagnosis small-bowel obstruction Post-op Diagnosis Same Procedure Performed exploratory laparoscopy, lysis of adhesion Surgeon Meli Bee MD Anesthesia General Indications 82-year-old female status post robotic assisted incisional hernia repair presenting with complete small bowel obstruction Findings adhesion to the previously placed mesh causing a complete bowel obstruction in the mid jejunum Description of Procedure The patient was taken to the operating room and placed in the supine position. After adequate induction of general anesthesia, the patient was prepped and draped in the normal sterile fashion. A time-out was then done to verify the patient's identity, as well as the procedure being performed. I began by making a 5 mm incision through the previous incision in the left mid abdomen. Through this a Veress needle was placed in the peritoneal cavity and CO2 gas was insufflated. After adequate pneumoperitoneum was achieved, the Veress needle was removed and a 5 mm Optiview trocar was placed through this incision. I then placed a laparoscopic through this incision and a further 5 mm port was placed in the left upper abdomen. There was noted to be a loop of mid jejunum adhesed to the previously placed mesh. This was the site of obstruction as this adhesion had completely twisted this loop of jejunum. Using very gentle dissection, I was able to free this adhesion. Once this was done, I was able to run the entirety of the small bowel and no other pathology was noted. The small bowel was viable and healthy. I then placed omentum over the small intestine. The mesh was examined and noted to be in good position. At this point the abdomen was desufflated and all ports were removed. Both incisions were closed with 4-0 Monocryl subcuticular suture. Dermabond was placed on the wounds. The patient tolerated the procedure well and was extubated postoperatively. She will be transferred to the recovery room in stable condition. Estimated Blood Loss 5 Pathology None sent Complications No immediate complications Condition Stable Disposition PACU [facility] Billing Surgery - Charge Forward: Surgery Billing
[2022-07-15] MEDS: MORPHINE SULFATE (*CRX) 4 MG/ML INJ IV PUSH (17:43)
--- NOTE | 2022-07-15 18:33 | PC.NURSE ---
Returned from OR per bed at 1715. Report received from WALE Scott.
[2022-07-15] MEDS: PHENOL/SOD PHENO SPRAY CHERRY (*BKC) 1 SPRAY MUCOUS MEM (18:53)
[2022-07-16] VITALS (7 sets, daily range): BP systolic 109–156; BP diastolic 57–74; PULSE 67–86; RESP 16–18; TEMP 36.1–36.4; O2SAT 96–100
[2022-07-16] MEDS: MORPHINE SULFATE (*CRX) 4 MG/ML INJ IV PUSH (06:05)
[2022-07-16] MEDS: METOPROLOL TARTRATE INJ 5 MG/5 ML VIAL IV PUSH ×3 (06:05→18:38)
[2022-07-16 06:47] LABS: Basophils Percent Auto 0.2 % (0.2-1.2); Eosinophils Percent Auto 0.3 % (0-4.4); Hematocrit 33.6 % (37.0-47.0); Hemoglobin 10.8 g/dL (12.0-15.0); Immature Granulocyte Absolute 0.04 K/mm3 (0.00-0.031); Immature Granulocyte Percent A 0.5 % (0-0.5); Lymphocytes Absolute Auto 0.54 K/mm3 (0.9-3.2); Lymphocytes Percent Auto 6.1 % (18.3-44.2); Mean Corpuscular HGB Conc 32.1 g/dl (32-36); Mean Corpuscular Hemoglobin 30.5 pg (26-34); Mean Corpuscular Volume 94.9 fl (80-100); Mean Platelet Volume 11.2 fl (7.4-10.4); Monocytes Percent Auto 11.5 % (2.6-8.5); Neutrophils Absolute Auto 7.2 K/mm3 (1.3-6.7); Neutrophils Percent Auto 81.4 % (45.5-73.1); Platelet Count Result 228 k/mm3 (150-375); Red Blood Count 3.54 M/mm3 (4.2-5.4); Red Cell Distribution Width 12.3 % (11.5-14.5); White Blood Count 8.8 K/mm3 (4.5-10.0)
[2022-07-16 06:59] LABS: Anion Gap 7 mmol/L (8-16); Blood Urea Nitrogen 57 mg/dL (7-17); Calcium 8.1 mg/dL (8.4-10.2); Carbon Dioxide 39 mmol/L (22-30); Chloride 99 mmol/L (98-107); Estimated CRCL calculation 20 ml/min; Estimated Glomerular Filt Rate 25; Glucose 103 mg/dL (65-110); Potassium 3.1 mmol/L (3.4-5.0); Sodium 145 mmol/L (137-145)
--- NOTE | 2022-07-16 11:54 | PC.NURSE ---
NGT clamped per provider order.
--- NOTE | 2022-07-16 12:02 | PM.PNGS ---
Progress Note: A&P Assessment and Plan (1) SBO (small bowel obstruction): Code(s): K56.609 - Unspecified intestinal obstruction, unspecified as to partial versus complete obstruction Status: Acute Assessment and Plan: will clamp NG, if no recurrent issues will dc later today and start clears, fleets enema, OOB/IS Subjective Subjective Date/Time Seen: 07/16/22 12:02 feels much better, no abd pain, +flatus, no N/V Review of Systems Review of Systems: All systems reviewed & are unremarkable except as noted in HPI and below Exam Const: General: cooperative, comfortable and no acute distress Resp: Auscultation: clear to auscultation bilaterally Cardio: Rate: regular rate Rhythm: regular rhythm GI: Inspection: normal to inspection, non-distended and incision GI Palp: No abdominal tenderness, Yes Soft to palpation, No Tenderness to palpation present (GI), No Guarding due to palpation present (GI) and No Rigid due to palpation Objective Data Vital Signs Vital Signs: Vital Signs - 24 hr 07/15/22 13:11 07/15/22 15:42 07/15/22 15:45 Temperature 36.2 C L 37.4 C Pulse Rate 95 107 H 100 Respiratory Rate 16 12 15 Blood Pressure 108/60 151/77 H 146/73 H Pulse Oximetry 96 100 100 Oxygen Delivery Nasal Cannula Simple Face Mask Simple Face Mask Oxygen Flow Rate 2 10 10 07/15/22 16:00 07/15/22 16:15 07/15/22 16:30 Temperature Pulse Rate 97 93 91 Respiratory Rate 16 18 19 Blood Pressure 146/68 H 134/66 128/63 Pulse Oximetry 100 100 98 Oxygen Delivery Room Air Nasal Cannula Nasal Cannula Oxygen Flow Rate 2 2 07/15/22 16:45 07/15/22 17:00 07/15/22 17:30 Temperature 36.7 C Pulse Rate 92 91 91 Respiratory Rate 17 16 16 Blood Pressure 129/64 119/58 L 125/63 Pulse Oximetry 98 97 98 Oxygen Delivery Nasal Cannula Nasal Cannula Oxygen Flow Rate 2 2 07/15/22 17:48 07/15/22 15:45 07/15/22 17:45 Temperature 36.4 C 36.4 C Pulse Rate 90 89 89 Respiratory Rate 16 16 Blood Pressure 134/68 134/68 Pulse Oximetry 100 100 Oxygen Delivery Oxygen Flow Rate 07/15/22 18:38 07/15/22 20:30 07/15/22 20:00 Temperature 36.6 C 36.1 C L Pulse Rate 80 82 82 Respiratory Rate 18 16 16 Blood Pressure 122/62 129/58 L Pulse Oximetry 98 97 97 Oxygen Delivery Nasal Cannula Oxygen Flow Rate 2 07/15/22 23:19 07/15/22 23:31 07/16/22 06:03 Temperature 36.1 C L 36.1 C L Pulse Rate 80 80 67 Respiratory Rate 16 16 Blood Pressure 153/76 H 137/57 L Pulse Oximetry 100 96 Oxygen Delivery Oxygen Flow Rate 07/16/22 06:05 07/16/22 08:00 Temperature Pulse Rate 67 Respiratory Rate Blood Pressure Pulse Oximetry 96 Oxygen Delivery Nasal Cannula Oxygen Flow Rate 2 Intake/Output Intake/Output: Intake & Output 07/13/22 07/14/22 07/15/22 07/16/22 23:59 23:59 23:59 23:59 Intake Total 1999 2150 Output Total 1200 2460 1350 Balance 800 -310 -1350 Meds/Results Medications: Active Medications Generic Name Dose Route Start Last Admin Trade Name Freq PRN Reason Stop Dose Admin Diphenhydramine HCl 25 mg 07/15/22 17:01 Diphenhydramine Hcl Inj 50 Mg/Ml Vial IV PUSH Q6H PRN Itching Enoxaparin Sodium 40 mg 07/16/22 09:00 Enoxaparin 40 Mg/0.4 Ml Syringe SUB-Q DAILY [facility] Sodium Chloride 1,000 mls @ 100 mls/hr 07/14/22 12:00 07/16/22 09:21 Normal Saline Iv IV CONT Not Given .Q10H [facility] Metoprolol Tartrate 5 mg 07/15/22 12:00 07/16/22 06:05 Metoprolol Tartrate Inj 5 Mg/5 Ml Vial IV PUSH 5 mg Q6HR NICOL Administration Miscellaneous Information 0 each 07/15/22 00:01 Recommend Lovenox 30mg Daily For Crcl Of 19 Ml/Min XX 08/14/22 00:00 CLARIFY NICOL Morphine Sulfate 2 mg 07/15/22 17:01 Morphine Sulfate (*Crx) 2 Mg/Ml Inj IV PUSH Q2H PRN Pain Rated 4-6 Morphine Sulfate 4 mg 07/15/22 17:01 04/12/23 06:05 Morphine Sulfate (*Crx) 4 Mg/Ml Inj IV PUSH 4 mg Q2H PRN Administration Kai
--- NOTE | 2022-07-16 13:24 | PM.IMPN ---
Progress Note: A&P Assessment and Plan (1) SBO (small bowel obstruction): Code(s): K56.609 - Unspecified intestinal obstruction, unspecified as to partial versus complete obstruction Status: Acute Assessment and Plan: cont NG decompression, ?sp exploratory laparoscopy, lysis of adhesion (2) Chronic kidney disease: Code(s): N18.9 - Chronic kidney disease, unspecified Status: Acute Assessment and Plan: rehydrate c IVF (3) PAF (paroxysmal atrial fibrillation): Code(s): I48.0 - Paroxysmal atrial fibrillation Status: Acute Assessment and Plan: Heart rate is slightly elevated. Able to currently take her medications. IV metoprolol as needed. Restart Anti coagulation (4) GERD (gastroesophageal reflux disease): Code(s): K21.9 - Gastro-esophageal reflux disease without esophagitis Status: Acute Assessment and Plan: Will resume home medications once taking p.o. (5) Mixed hyperlipidemia: Code(s): E78.2 - Mixed hyperlipidemia Status: Acute Assessment and Plan: Will resume home medications once taking p.o. (6) Hypothyroidism: Qualifiers: Hypothyroidism type: unspecified Qualified Code(s): E03.9 - Hypothyroidism, unspecified Code(s): E03.9 - Hypothyroidism, unspecified Status: Chronic Assessment and Plan: Resume medications once taking p.o. (7) Anxiety: Code(s): F41.9 - Anxiety disorder, unspecified Status: Acute Assessment and Plan: Will resume medications once taking p.o. Subjective Date/time seen: 07/16/22 13:24 ?82-year-old female presenting to the emergency department complaining of crampy abdominal pain, persistent nausea and vomiting.? The patient had an incisional hernia repair on for 07/10, please see operative report for details of the procedure.? The patient was discharged the following day.? Patient reports that since being discharged she has progressively become more nauseous. Pt is pod day 1, ?exploratory laparoscopy, lysis of adhesion, pt complains of of constipation issues today Review of Systems Review of Systems: Constipation and some throat pain Exam Narrative: General: alert and oriented, NG tube in situ Psych: appropriate mood and affect Neck: Trachea midline, no new lesions Skin: no changes Lungs: CTA Cardiac: Normal S1,S2, no MGR ABDO: ?sp exploratory laparoscopy, lysis of adhesion soft some TTP difusely Ext: no new lesions Vasc: Pulses intact Objective Data Vital Signs Vital Signs: Vital Signs - 24 hr 07/15/22 15:42 07/15/22 15:45 07/15/22 16:00 Temperature 37.4 C Pulse Rate 107 H 100 97 Respiratory Rate 12 15 16 Blood Pressure 151/77 H 146/73 H 146/68 H Pulse Oximetry 100 100 100 Oxygen Delivery Simple Face Mask Simple Face Mask Room Air Oxygen Flow Rate 10 10 07/15/22 16:15 07/15/22 16:30 07/15/22 16:45 Temperature Pulse Rate 93 91 92 Respiratory Rate 18 19 17 Blood Pressure 134/66 128/63 129/64 Pulse Oximetry 100 98 98 Oxygen Delivery Nasal Cannula Nasal Cannula Nasal Cannula Oxygen Flow Rate 2 2 2 07/15/22 17:00 07/15/22 17:30 07/15/22 17:48 Temperature 36.7 C Pulse Rate 91 91 90 Respiratory Rate 16 16 Blood Pressure 119/58 L 125/63 Pulse Oximetry 97 98 Oxygen Delivery Nasal Cannula Oxygen Flow Rate 2 07/15/22 15:45 07/15/22 17:45 07/15/22 18:38 Temperature 36.4 C 36.4 C 36.6 C Pulse Rate 89 89 80 Respiratory Rate 16 16 18 Blood Pressure 134/68 134/68 122/62 Pulse Oximetry 100 100 98 Oxygen Delivery Oxygen Flow Rate 07/15/22 20:30 07/15/22 20:00 07/15/22 23:19 Temperature 36.1 C L Pulse Rate 82 82 80 Respiratory Rate 16 16 Blood Pressure 129/58 L Pulse Oximetry 97 97 Oxygen Delivery Nasal Cannula Oxygen Flow Rate 2 07/15/22 23:31 07/16/22 06:03 07/16/22 06:05 Temperature 36.1 C L 36.1 C L Pulse Rate 80 67 67 Respiratory Rate 16 16 Blood Pressure 153/76 H 1
--- NOTE | 2022-07-16 14:27 | WPDANESPN ---
Anes - Prog Note Post-Op Date/Time: 07/16/22 14:27 Cardiovascular status: normal Respiratory status: normal Airway patency: baseline Mental status: baseline Post-Op hydration status: normal Vital Signs: Last Vital Signs Temp 97 F L 07/16/22 06:03 Pulse 67 07/16/22 06:05 Resp 16 07/16/22 06:03 BP 137/57 L 07/16/22 06:03 Pulse Ox 96 07/16/22 08:00 O2 Del Method Nasal Cannula 07/16/22 08:00 O2 Flow Rate 2 07/16/22 08:00 Pain Score (VAS): 3 I/O: Intake & Output 07/15/22 07/16/22 07/16/22 23:59 07:59 15:59 Intake Total 1100 Output Total 1460 500 850 Balance -360 -500 -850 Laboratory Tests 07/16/22 06:23 07/16/22 06:23 07/16/22 07/16/22 06:23 06:23 WBC 8.8 RBC 3.54 L Hgb 10.8 L Hct 33.6 L MCV 94.9 MCH 30.5 MCHC 32.1 RDW 12.3 Plt Count 228 MPV 11.2 H Immature Gran % (Auto) 0.5 Neut % (Auto) 81.4 H Lymph % (Auto) 6.1 L [place] % (Auto) 11.5 H Eos % (Auto) 0.3 Baso % (Auto) 0.2 Lymph # (Auto) 0.54 L [place] # (Auto) 1.0 H Eos # (Auto) 0.0 Baso # (Auto) 0.0 Abs Immat Gran (auto) 0.04 H Absolute Neuts (auto) 7.2 H Absolute Nucleated RBC 0.0 Nucleated RBC % 0.0 Sodium 145 Potassium 3.1 L Chloride 99 Carbon Dioxide 39 H Anion Gap 7 L BUN 57 H Creatinine 1.90 H Estim Creat Clear Calc 20 Estimated GFR 25 L Glucose 103 Calcium 8.1 L Post-procedural complaints: none Patient Feedback: Patient satisfied with anesthetic care.
--- NOTE | 2022-07-16 15:19 | PC.NURSE ---
Maddie lowry given per provider order.
--- NOTE | 2022-07-16 16:26 | PC.NURSE ---
NGT clamped x 4 hours. Pt tolerated well. Offers no complaints other than constipation. Fleets enema given per provider order with moderate results. Denies nausea. NGT removed and clear liquids initiated.
[2022-07-16] MEDS: lisinopriL 20 MG TABLET PO (18:38)
[2022-07-16] MEDS: hydroCHLOROthiazide 12.5 MG CAPSULE PO (18:38)
[2022-07-16] MEDS: SODIUM CHLORIDE 0.9% IV 1,000 ML 100 ML IV CONT (18:41)
[2022-07-16] MEDS: FLECAINIDE ACETATE 100 MG TABLET PO (21:13)
[2022-07-16] MEDS: APIXABAN 2.5 MG TABLET PO (21:13)
[2022-07-16] MEDS: METOPROLOL TARTRATE 25 MG TABLET PO (21:15)
[2022-07-16] MEDS: diphenhydrAMINE HCl INJ 50 MG/ML VIAL 25 MG IV PUSH (21:19)
[2022-07-17] VITALS (9 sets, daily range): BP systolic 134–162; BP diastolic 61–79; PULSE 73–104; RESP 16–20; TEMP 36.1–36.9; O2SAT 92–98
--- NOTE | 2022-07-17 06:01 | PM.DS ---
DS: Admitting Diagnosis Discharge Date 07/17/22 Admitting Diagnosis Small-bowel obstruction DS: Discharge Diagnosis Discharge Diagnosis (1) SBO (small bowel obstruction): Code(s): K56.609 - Unspecified intestinal obstruction, unspecified as to partial versus complete obstruction Status: Acute Assessment and Plan: status post exploratory laparoscopy and lysis of adhesions, continue routine postoperative care, having normal bowel function and tolerating diet, follow-up 2 weeks (2) Chronic kidney disease: Code(s): N18.9 - Chronic kidney disease, unspecified Status: Acute Assessment and Plan: back to baseline appreciate hospitalist input (3) Incisional hernia: Code(s): K43.2 - Incisional hernia without obstruction or gangrene Status: Acute Assessment and Plan: continue routine postoperative care, follow-up 2 weeks DS: Summary Hospital Course Reason for hospitalization: small-bowel obstruction Hospital Course: The patient is a 82-year-old female presenting with a small-bowel obstruction status post robotic incisional hernia repair. The patient was admitted to the Surgical Service then upon evaluation, including imaging, the patient was noted to have a complete small-bowel obstruction. Given this, the patient was taken urgently to the operating room and exploratory laparoscopy, lysis of adhesions was performed, please see full operative report for details of the procedure. The patient was also noted to have acute on chronic renal failure and the Medical Service was consulted for management. Postoperatively, the patient did well and reported immediate relief of her pain and nausea. On postoperative day 1. , we were able to get her NG tube out and she was started on a clear liquid diet. Her renal function was back at baseline at this point. By postoperative day 2. , the patient was having bowel function and her exam was completely benign. She was able to tolerate a regular diet and will be discharged home at this time. She will follow-up with me in 2 weeks. Status at Discharge Functional status at discharge: independent ambulation Overall status at discharge: patient is progressing back to baseline Time Spent with Patient Time attestation: Total time spent providing and/or coordinating discharge services: Time spent: Less than 30 minutes Exam Const: General: cooperative, comfortable and no acute distress Resp: Auscultation: clear to auscultation bilaterally Cardio: Rate: regular rate Rhythm: regular rhythm GI: Inspection: normal to inspection, non-distended and incision GI Palp: Yes abdominal tenderness, Yes Soft to palpation, Yes Tenderness to palpation present (GI), No Guarding due to palpation present (GI) and No Rigid due to palpation DS: Data Data Completed and Pending Labs on day of discharge: Labs from last 24 hours 07/16/22 07/16/22 06:23 06:23 WBC 8.8 RBC 3.54 L Hgb 10.8 L Hct 33.6 L MCV 94.9 MCH 30.5 MCHC 32.1 RDW 12.3 Plt Count 228 MPV 11.2 H Immature Gran % (Auto) 0.5 Neut % (Auto) 81.4 H Lymph % (Auto) 6.[address] [place] % (Auto) 11.5 H Eos % (Auto) 0.3 Baso % (Auto) 0.2 Lymph # (Auto) 0.[address] [place] # (Auto) 1.0 H Eos # (Auto) 0.0 Baso # (Auto) 0.0 Abs Immat Gran (auto) 0.04 H Absolute Neuts (auto) 7.2 H Absolute Nucleated RBC 0.0 Nucleated RBC % 0.0 Sodium 145 Potassium 3.1 L Chloride 99 Carbon Dioxide 39 H Anion Gap 7 L BUN 57 H Creatinine 1.90 H Estim Creat Clear Calc 20 Estimated GFR 25 L Glucose 103 Calcium 8.1 L Discharge Plan Discharge Attending physician on discharge: Mlei Bee Consulting providers: Peterson Donovan Discharging Clinician: Meli Bee Anticipated Discharge Date/Time: 07/17/22 13:00 Patient Disposition: Home, Self-Care Activity: other - see discharge instructions Diet: as tolerated Wound Care Instruc
[2022-07-17] MEDS: FLECAINIDE ACETATE 100 MG TABLET PO ×2 (09:12→20:43)
[2022-07-17] MEDS: lisinopriL 20 MG TABLET PO ×2 (09:12→16:30)
[2022-07-17] MEDS: hydroCHLOROthiazide 12.5 MG CAPSULE PO ×2 (09:12→16:30)
[2022-07-17] MEDS: PANTOPRAZOLE 40 MG TABLET PO (09:12)
[2022-07-17] MEDS: METOPROLOL TARTRATE 25 MG TABLET PO ×2 (09:12→20:42)
[2022-07-17] MEDS: APIXABAN 2.5 MG TABLET PO ×2 (09:12→20:43)
[2022-07-17] MEDS: amLODIPine BESYLATE 5 MG TABLET PO (09:13)
--- NOTE | 2022-07-17 11:20 | PM.IMPN ---
Progress Note: A&P Assessment and Plan (1) Pneumonia: Code(s): J18.9 - Pneumonia, unspecified organism Status: Acute Assessment and Plan: Patient has cough with yellow sputum. She is afebrile but feels tired. Chest x-ray suggestive of left lower lobe infiltrate. Will start patient on oral Augmentin. Hold discharge until tomorrow (2) SBO (small bowel obstruction): Code(s): K56.609 - Unspecified intestinal obstruction, unspecified as to partial versus complete obstruction Status: Acute Assessment and Plan: sp exploratory laparoscopy, lysis of adhesion (3) Chronic kidney disease: Code(s): N18.9 - Chronic kidney disease, unspecified Status: Acute (4) PAF (paroxysmal atrial fibrillation): Code(s): I48.0 - Paroxysmal atrial fibrillation Status: Acute Assessment and Plan: Restart Anti coagulation (5) GERD (gastroesophageal reflux disease): Code(s): K21.9 - Gastro-esophageal reflux disease without esophagitis Status: Acute Assessment and Plan: Will resume home medications (6) Mixed hyperlipidemia: Code(s): E78.2 - Mixed hyperlipidemia Status: Acute Assessment and Plan: Will resume home medications (7) Hypothyroidism: Qualifiers: Hypothyroidism type: unspecified Qualified Code(s): E03.9 - Hypothyroidism, unspecified Code(s): E03.9 - Hypothyroidism, unspecified Status: Chronic Assessment and Plan: Resume medications Subjective Date/time seen: 07/17/22 11:20 Patient reports feeling tired and cough with yellow sputum Review of Systems Review of Systems: All systems reviewed & are unremarkable except as noted in HPI and below Exam Const: General: cooperative, comfortable and no acute distress Resp: Auscultation: clear to auscultation bilaterally Cardio: Rate: regular rate Rhythm: regular rhythm GI: Inspection: normal to inspection, non-distended and incision GI Palp: Yes abdominal tenderness, Yes Soft to palpation, Yes Tenderness to palpation present (GI), No Guarding due to palpation present (GI) and No Rigid due to palpation Objective Data Vital Signs Vital Signs: Vital Signs - 24 hr 07/16/22 14:46 07/16/22 21:13 07/16/22 21:15 Temperature 97.3 F L Pulse Rate 86 82 82 Respiratory Rate 16 Blood Pressure 109/59 L Pulse Oximetry 98 Oxygen Delivery Oxygen Flow Rate 07/16/22 22:05 07/17/22 05:33 07/17/22 08:05 Temperature 97.5 F L 97 F L Pulse Rate 83 77 Respiratory Rate 18 16 Blood Pressure 156/74 H 162/72 H Pulse Oximetry 100 97 93 Oxygen Delivery Nasal Cannula Oxygen Flow Rate 1 07/17/22 08:16 07/17/22 09:12 07/17/22 09:12 Temperature Pulse Rate 98 98 Respiratory Rate Blood Pressure Pulse Oximetry 92 Oxygen Delivery Room Air Oxygen Flow Rate 07/17/22 09:20 Temperature Pulse Rate Respiratory Rate Blood Pressure Pulse Oximetry 92 Oxygen Delivery Room Air Oxygen Flow Rate Intake/Output Intake/Output: Intake & Output 07/14/22 07/15/22 07/16/22 07/17/22 23:59 23:59 23:59 23:59 Intake Total 1999 / 1999 2150 / 2150 1422 / 1422 480 / 480 Output Total 1200 / 1200 2460 / 860.0 2100 / 2100 900 / 900 Balance 800 / 800 -310 / 1290.0 -678 / -678 -420 / -420 Meds/Results Medications: Active Medications Generic Name Dose Route Start Last Admin Trade Name Freq PRN Reason Stop Dose Admin Amlodipine Besylate 5 mg 07/17/22 09:00 07/17/22 09:13 Amlodipine Besylate 5 Mg Tablet PO 5 mg DAILY NICOL Administration Apixaban 2.5 mg 07/16/22 21:00 07/17/22 09:12 Apixaban 2.5 Mg Tablet PO 2.5 mg Q12HR NICOL Administration Diphenhydramine HCl 25 mg 07/15/22 17:01 07/16/22 21:19 Diphenhydramine Hcl Inj 50 Mg/Ml Vial IV PUSH 25 mg Q6H PRN Administration Itching Flecainide Acetate 100 mg 07/16/22 21:00 07/17/22 09:12 Flecainide Acetate 100 Mg Tablet PO 100 mg
[2022-07-17] MEDS: diphenhydrAMINE HCl INJ 50 MG/ML VIAL 25 MG IV PUSH ×2 (11:28→20:47)
[2022-07-18 05:59] VITALS: BP 136/65; PULSE 71; RESP 16; TEMP 36.4; O2SAT 96
[2022-07-18 08:10] VITALS: PULSE 70
[2022-07-18] MEDS: FLECAINIDE ACETATE 100 MG TABLET PO (08:10)
[2022-07-18] MEDS: amLODIPine BESYLATE 5 MG TABLET PO (08:10)
[2022-07-18 08:11] VITALS: PULSE 70
[2022-07-18] MEDS: METOPROLOL TARTRATE 25 MG TABLET PO (08:11)
[2022-07-18] MEDS: APIXABAN 2.5 MG TABLET PO (08:11)
[2022-07-18] MEDS: hydroCHLOROthiazide 12.5 MG CAPSULE PO (08:11)
[2022-07-18] MEDS: lisinopriL 20 MG TABLET PO (08:11)
[2022-07-18] MEDS: PANTOPRAZOLE 40 MG TABLET PO (08:11)
--- NOTE | 2022-07-18 10:47 | PM.IMPN ---
Progress Note: A&P Assessment and Plan (1) Pneumonia: Code(s): J18.9 - Pneumonia, unspecified organism Status: Acute Assessment and Plan: Patient has cough with yellow sputum. She is afebrile but feels tired. Chest x-ray suggestive of left lower lobe infiltrate. Will start patient on oral Augmentin. She is feeling better today and wants to go home. I will put in a prescription for Augmentin for next 5 days. Patient okay to be discharged medically. Will defer to primary team to help her discharge (2) SBO (small bowel obstruction): Code(s): K56.609 - Unspecified intestinal obstruction, unspecified as to partial versus complete obstruction Status: Acute Assessment and Plan: sp exploratory laparoscopy, lysis of adhesion (3) Chronic kidney disease: Code(s): N18.9 - Chronic kidney disease, unspecified Status: Acute (4) PAF (paroxysmal atrial fibrillation): Code(s): I48.0 - Paroxysmal atrial fibrillation Status: Acute Assessment and Plan: Restart Anti coagulation (5) GERD (gastroesophageal reflux disease): Code(s): K21.9 - Gastro-esophageal reflux disease without esophagitis Status: Acute Assessment and Plan: Will resume home medications (6) Mixed hyperlipidemia: Code(s): E78.2 - Mixed hyperlipidemia Status: Acute Assessment and Plan: Will resume home medications (7) Hypothyroidism: Qualifiers: Hypothyroidism type: unspecified Qualified Code(s): E03.9 - Hypothyroidism, unspecified Code(s): E03.9 - Hypothyroidism, unspecified Status: Chronic Assessment and Plan: Resume medications Subjective Date/time seen: 07/18/22 10:47 Feels much better today, cough is less Review of Systems Review of Systems: All systems reviewed & are unremarkable except as noted in HPI and below Exam Const: General: cooperative, comfortable and no acute distress Resp: Auscultation: clear to auscultation bilaterally Cardio: Rate: regular rate Rhythm: regular rhythm GI: Inspection: normal to inspection, non-distended and incision GI Palp: Yes abdominal tenderness, Yes Soft to palpation, Yes Tenderness to palpation present (GI), No Guarding due to palpation present (GI) and No Rigid due to palpation Objective Data Vital Signs Vital Signs: Vital Signs - 24 hr 07/17/22 14:29 07/17/22 20:00 07/17/22 20:42 Temperature 97.0 F L Pulse Rate 73 104 H Respiratory Rate 20 Blood Pressure 134/61 Pulse Oximetry 98 Oxygen Delivery Room Air 07/17/22 20:43 07/17/22 21:32 07/18/22 05:59 Temperature 98.4 F 97.5 F L Pulse Rate 104 H 104 H 71 Respiratory Rate 16 16 Blood Pressure 139/79 136/65 Pulse Oximetry 93 96 Oxygen Delivery 07/18/22 08:10 07/18/22 08:11 07/18/22 08:00 Temperature Pulse Rate 70 70 Respiratory Rate Blood Pressure Pulse Oximetry Oxygen Delivery Room Air Intake/Output Intake/Output: Intake & Output 07/15/22 07/16/22 07/17/22 07/18/22 23:59 23:59 23:59 23:59 Intake Total 2150 / 2150 1422 / 1422 1560 / 1560 40 / 40 Output Total 2460 / 860.0 2100 / 2100 1300 / 1300 500 / 500 Balance -310 / 1290.0 -678 / -678 260 / 260 -460 / -460 Meds/Results Medications: Active Medications Generic Name Dose Route Start Last Admin Trade Name Freq PRN Reason Stop Dose Admin Amlodipine Besylate 5 mg 07/17/22 09:00 07/18/22 08:10 Amlodipine Besylate 5 Mg Tablet PO 5 mg DAILY NICOL Administration Apixaban 2.5 mg 07/16/22 21:00 07/18/22 08:11 Apixaban 2.5 Mg Tablet PO 2.5 mg Q12HR NICOL Administration Diphenhydramine HCl 25 mg 07/15/22 17:01 07/17/22 20:47 Diphenhydramine Hcl Inj 50 Mg/Ml Vial IV PUSH 25 mg Q6H PRN Administration Itching Flecainide Acetate 100 mg 07/16/22 21:00 07/18/22 08:10 Flecainide Acetate 100 Mg Tablet PO 100 mg Q12HR NICOL Administration Hydrochlorothiazide 12.5 mg
[2022-07-18 11:04] VITALS: O2SAT 93
--- NOTE | 2022-07-18 11:44 | PM.DS ---
DS: Admitting Diagnosis Discharge Date 07/18/2022 Admitting Diagnosis Small-bowel obstruction, status robotic assisted periumbilical incisional hernia repair with mesh, chronic kidney disease DS: Discharge Diagnosis Discharge Diagnosis (1) SBO (small bowel obstruction): Code(s): K56.609 - Unspecified intestinal obstruction, unspecified as to partial versus complete obstruction Status: Acute (2) Chronic kidney disease: Code(s): N18.9 - Chronic kidney disease, unspecified Status: Acute (3) Pneumonia: Code(s): J18.9 - Pneumonia, unspecified organism Status: Acute (4) Incisional hernia: Code(s): K43.2 - Incisional hernia without obstruction or gangrene Status: Acute DS: Summary Hospital Course Reason for hospitalization: Small-bowel obstruction Hospital Course: This is an 82-year-old woman who presented to the emergency department on 07/14/2022 with abdominal pain with nausea and vomiting. She is status post robotic assisted laparoscopic incisional hernia repair with mesh on 07/10/[address] in the emergency department showed evidence of small-bowel obstruction with transition point near the anterior left abdominal wall region. She was admitted for further treatment and NG tube was placed. She underwent a small-bowel follow-through 07/14/2022 which showed complete small bowel obstruction. She then underwent laparoscopic lysis of adhesion and release of small-bowel obstruction on 07/15/2022. She was returned to the surgical floor postoperatively. Hospitalist was consulted for medical management. On postop day 1 her NG tube was clamped and removed later that day. She was started on clear liquids. On postop day 2 she was complaining of a cough with yellow sputum and chest x-ray showed a left lower lobe infiltrate. She was started on oral Augmentin. Her diet was advanced as tolerated. Her bowels began moving. Her cough was improving on postoperative day 3 and she was remaining afebrile. She was tolerating a regular diet and bowels were moving. She remained hemodynamically stable. She was then discharged on 07/18/2022. Status at Discharge Functional status at discharge: independent ambulation Overall status at discharge: patient is progressing back to baseline Time Spent with Patient Time attestation: Total time spent providing and/or coordinating discharge services: Time spent: Less than 30 minutes Exam Const: General: cooperative Orientation/consciousness: patient oriented x3 Resp: Effort & Inspection: normal respiratory effort Auscultation: clear to auscultation bilaterally Cardio: Rate: regular rate Rhythm: abnormal rhythm irregularly irregular Heart sounds: S1 normal heart sound present and S2 normal heart sound present GI: Inspection: non-distended and incision (Intact with glue) GI Palp: Yes Tenderness to palpation present (GI) (Incision) and No Guarding due to palpation present (GI) Percussion: Yes normal to percussion Auscultation: normal bowel sounds DS: Data Imaging Radiologist's impression: ITS Impressions Abdomen/Pelvis CT 07/14/22 11:40 Impression: Small bowel obstruction, as detailed above. Minimal right pleural effusion. Abdomen X-Ray 07/14/22 12:43 IMPRESSION: 1. Nasogastric tube tip in the stomach. 2. Dilated small bowel, consistent with small bowel obstruction. Small Bowel X-Ray 07/14/22 19:32 IMPRESSION: Contrast failed to progress beyond proximal loops of jejunum in 4 hours. This finding may represent complete or partial obstruction. Complete obstruction is favored given these findings and the prior CT findings. Consider follow-up abdominal radiograph, 24 hours post contrast administration (approximately 2:30 PM on 07/15/2022). Abdomen X-Ray 07/15/22 07:57 Impression: Small bowel obstruction, as detailed above. Probable NG tube partially imaged. Chest X-Ray 07/17/22 09:35 Impression:
== END 2022-07-18 12:52 | disposition home or self-care (01) | DRG 335 ==
LOC: ANHED 12:14 → ANH3MEDSUR 15:43
PROVIDERS: Chiropractor; Admitting Provider Surgery; Emergency Provider Emergency Medicine; PCP Emergency Medicine; Referring Provider Surgery; Visit Provider Hospitalist
PROC: 0D1E4Z4 Bypass Large Intestine to Cutaneous, Percutaneous Endoscopic Approach (ICD-10-PCS; principal; 2022-07-15 13:30)
DX: K91.32 Postprocedural complete intestinal obstruction (principal); J18.9 Pneumonia, unspecified organism; E87.1 Hypo-osmolality and hyponatremia; J95.89 Other postprocedural complications and disorders of respiratory system, not elsewhere classified; E87.6 Hypokalemia; I48.0 Paroxysmal atrial fibrillation; I34.1 Nonrheumatic mitral (valve) prolapse; N18.9 Chronic kidney disease, unspecified; E11.9 Type 2 diabetes mellitus without complications; E78.5 Hyperlipidemia, unspecified; E03.9 Hypothyroidism, unspecified; K21.9 Gastro-esophageal reflux disease without esophagitis; M19.90 Unspecified osteoarthritis, unspecified site; F41.9 Anxiety disorder, unspecified; Z96.642 Presence of left artificial hip joint; Z96.652 Presence of left artificial knee joint; Z79.01 Long term (current) use of anticoagulants; Z86.010 Personal history of colon polyps
CPT/HCPCS: 36415; 71046; 74018; 74176; 74250; 80048; 80053; 81001; 83605; 83690; 84132; 85025; 99285; A9270; J0330; J0456; J0690; J0696; J1100; J1200; J2270; J2405; J2704; J3010; J3480; J7030; J7040; J7120

== ENCOUNTER 2022-08-27 08:38 | Outpatient (CLI) | payer MEDICARE, SELFPAY ==
--- NOTE | ~2022-08-27 | CT_ITS ---
EXAMINATION: CT abdomen wo con DATE: 08/27/2022 09:06 INDICATION: Right upper quadrant abdominal pain. Bloating after eating. TECHNIQUE: Computed tomography (CT) of the abdomen and pelvis was performed without intravenous contr ast. Automated exposure control and iterative reconstruction technique were employed. The dose-length product was 207.48 mGy-cm. 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 Cardiomegaly. No pericardial or pleural effusion. Small sliding-type hiatal hernia. Cholecystectomy c lips the gallbladder fossa. 8 mm hepatic cyst. Spleen, pancreas, bilateral adrenal glands and right k idney are normal. 6.8 cm exophytic cyst at the upper pole of the left kidney. Large amount of stool s cattered throughout the visualized colon which could be seen with constipation. No dilated bowel to s uggest obstruction. No pathologically enlarged abdominal lymphadenopathy. There is tract of scarring at the left infracostal anterior abdominal wall likely representing a laparoscopy port which is new s tushar the prior study. 32 degrees thoracolumbar levoscoliosis and 20 degree lumbar dextroscoliosis wit h severe lumbar and moderate lower thoracic spondylosis. IMPRESSION: 1. No acute intra-abdominal/pelvic process. 2. NSIP pattern chronic interstitial lung disease. 3. Large amount of colonic stool which could be seen with constipation. Reviewed, dictated and finalized at location A.
== END 2022-08-27 08:39 | disposition home or self-care (01) ==
PROVIDERS: PCP Emergency Medicine; Visit Provider Surgery
DX: R10.9 Unspecified abdominal pain (principal); J84.9 Interstitial pulmonary disease, unspecified
CPT/HCPCS: 74150

== ENCOUNTER 2022-10-14 08:30 | Outpatient (CLI) | payer MEDICARE, SELFPAY ==
--- NOTE | ~2022-10-14 | XR_ITS ---
EXAMINATION: XR small bowel follow through DATE: 10/14/2022 10:17 INDICATION: Unspecified abdominal pain. TECHNIQUE: Oral contrast was administered, and a time course of radiographs of the abdomen was obtain ed. Fluoroscopy of the small bowel was performed. Fluoroscopy exposure time was 0.3 minutes. The tota l number of images was 11. COMPARISON: Small bowel series 07/15/2022, CT abdomen 08/27/2022 FINDINGS: There is dilated loops of bowel. There is no abnormal mass or stricture. The terminal ileum normal. T ransit time from the stomach to proximal colon was approximately 1 hour. There is a bipolar left hip hemiarthroplasty. IMPRESSION: 1. Normal bowel gas pattern. Reviewed, dictated and finalized at location E.
== END 2022-10-14 08:31 | disposition home or self-care (01) ==
PROVIDERS: PCP Emergency Medicine; Visit Provider Internal Medicine Gastroenterology
DX: R10.9 Unspecified abdominal pain (principal)
CPT/HCPCS: 74250

== ENCOUNTER 2022-10-21 00:22 | Day surgery (SDC) | payer MEDICARE, SELFPAY ==
[2022-10-10 14:45] VITALS: BMI 26.4
[2022-10-21 09:22] VITALS: BP 131/60; PULSE 58; RESP 18; TEMP 36.6; O2SAT 99
[2022-10-21] MEDS: LACTATED RINGERS 1,000 ML 150 ML IV CONT (09:32)
--- NOTE | 2022-10-21 10:12 | WPDANESEPPF ---
Anes - Initial Pre Proc Eval Procedure: Operation Date: 10/21/22 11:15 Proposed Procedures p Esophagogastroduodenoscopy & Colonoscopy - Tai Fine MD Date/Time: 10/21/22 10:12 Surgeon: Tai Fine MD Pre Op Diagnosis: Benign neoplasm of colon, unspecified, abdo.pain Patient Data Age: 82 Gender: F Height: 1.64 m Weight: 71 kg Last Vital Signs Temp 97.8 F 10/21/22 09:22 Pulse 58 L 10/21/22 09:22 Resp 18 10/21/22 09:22 BP 131/60 10/21/22 09:22 Pulse Ox 99 10/21/22 09:22 O2 Del Method Room Air 10/21/22 09:22 Allergies Allergy/AdvReac Type Severity Reaction Status Date / Time acetaminophen [From Tylenol] Allergy Severe Swelling Verified 10/21/22 09:21 ibuprofen Allergy Severe Swelling Verified 10/21/22 09:21 of Lip/Tongue/Throat naproxen [From Aleve] Allergy Severe Swelling Verified 10/21/22 09:21 of Lip/Tongue/Throat strawberry Allergy Severe Swelling Verified 10/21/22 09:21 of Lip/Tongue/Throat adhesive Allergy Mild Rash Verified 10/21/22 09:21 latex Allergy Mild Rash Verified 10/21/22 09:21 influenza virus vaccine tv AdvReac Severe very sick Verified 10/21/22 09:21 2012-(18-49 yrs),rcmb with fever [From Flublok] and myalgia Home Medications Medication Instructions Recorded Confirmed Type vitamins A,C,D-rmmc-tvlttn 2,148 1 tablet PO DAILY 04/01/19 10/10/22 History mcg-113 mg-45 mg-17.4 mg tablet (PreserVision AREDS) biotin 5 mg tablet 5 mg PO DAILY 06/24/19 10/10/22 History vitamin B complex 1 tablet PO DAILY 06/24/19 10/10/22 History atorvastatin 40 mg tablet See Rx Instructions .Route 08/16/21 10/10/22 Rx .COMPLEX #90 tabs levothyroxine 88 mcg tablet See Rx Instructions .Route 08/16/21 10/10/22 Rx .COMPLEX #90 tabs calcium citrate-ergocalciferol 1 tablet PO DAILY 08/29/21 10/10/22 History (vitamin D2) 315 mg-200 unit tablet amitriptyline 25 mg tablet 25 mg PO QHS 03/05/22 10/10/22 History metoprolol tartrate 25 mg tablet 25 mg PO BID #180 tabs 05/22/22 10/21/22 Rx amlodipine 5 mg tablet 5 mg PO DAILY #90 tabs 07/22/22 10/10/22 Rx pantoprazole 40 mg tablet,delayed 40 mg PO QAM #90 tabs 08/27/22 10/10/22 Rx release flecainide 100 mg tablet 100 mg PO Q12H #180 tabs 10/03/22 10/10/22 Rx lisinopril 20 1 tablet PO DAILY 10/10/22 10/10/22 History mg-hydrochlorothiazide 12.5 mg tablet apixaban 2.5 mg tablet (Eliquis) 2.5 mg PO BID #60 tabs 10/13/22 10/21/22 Rx Patient hx anesthesia problems: none Family hx anesthesia problems: none Results Review: All pre-operative results and documents have been reviewed as part of the pre-operative evaluation. [facility] Past Medical History Medical History (Updated 10/02/22 @ 09:59 by Tai Fine MD) Adenomatous colon polyp Adenomatous colon polyp Anxiety Chronic anticoagulation Diet-controlled diabetes mellitus Hemoglobin A1c was 5.5 on March 25, 2019. Gastric AVM GERD (gastroesophageal reflux disease) History of Clostridioides difficile infection History of postoperative nausea and vomiting Hyperlipidemia Hypothyroidism Mitral valve prolapse Osteoarthritis Renal cyst Surgical History Surgical History H/O dilation and curettage x4 H/O hemorrhoidectomy History of bladder suspension procedure History of hip replacement (~06/06/19) left History of incisional hernia repair Robotic assisted repair periumbilical incisional hernia with mesh 07/10/[address] Bee. History of varicose vein ligation and stripping (~1991) right leg Hx of colonoscopy Hx of exploratory laparotomy Exploratory laparoscopy, lysis of adhesion on 07/15/[address] Bee Status post arthroscopy of left knee (~05/04/19) Status post breast biopsy (~1972) Left breast biopsy with benign histology. Status post cardiac catheterization Coronary angiogram March 2014 showed normal coronary ar
--- NOTE | 2022-10-21 10:37 | WPDHPUPDATE1 ---
History and Physical Update Update Date/Time: 10/21/22 10:37 History and Physical has been reviewed, including an updated exam of the patient. There are NO changes in the patient's condition. Risks, benefits, and alternatives have been discussed and questions answered. Patient agrees to proceed with procedure.
--- NOTE | 2022-10-21 10:59 | SUR.OPER ---
EGD: Start 10:48, End 10:51 Colon: Start 10:55, End 11:17
[2022-10-21 11:18] VITALS: BP 151/83; PULSE 68; RESP 18; O2SAT 97
[2022-10-21 11:28] VITALS: BP 150/79; PULSE 67; RESP 18; O2SAT 100
[2022-10-21 11:38] VITALS: BP 150/78; PULSE 67; RESP 18; O2SAT 100
== END 2022-10-21 11:49 | disposition home or self-care (01) ==
PROVIDERS: PCP Emergency Medicine; Visit Provider Internal Medicine Gastroenterology
PROC: 0DJ08ZZ Inspection of Upper Intestinal Tract, Via Natural or Artificial Opening Endoscopic (ICD-10-PCS; CPT 43235; principal; 2022-10-21 11:15)
DX: Z12.11 Encounter for screening for malignant neoplasm of colon (principal); K63.5 Polyp of colon; R10.11 Right upper quadrant pain; R14.0 Abdominal distension (gaseous); K21.9 Gastro-esophageal reflux disease without esophagitis; E78.5 Hyperlipidemia, unspecified; E11.9 Type 2 diabetes mellitus without complications; E03.9 Hypothyroidism, unspecified; I34.1 Nonrheumatic mitral (valve) prolapse; F41.9 Anxiety disorder, unspecified; Z79.01 Long term (current) use of anticoagulants
CPT/HCPCS: 45385; 43239; 88305; J2704; J7120

== ENCOUNTER 2023-01-20 21:56 | Inpatient (IN) | payer MEDICARE, SELFPAY ==
--- NOTE | ~2023-01-20 | XR_ITS ---
Left Knee Technique: AP, lateral, and oblique views were obtained. Clinical History: Pain Findings: No fracture or dislocation is seen. Left knee arthroplasty hardware in place. No hardware c omplication seen. Soft tissues are unremarkable. No joint effusion is seen. Impression: No acute abnormality seen. Left knee arthroplasty hardware in place. Reviewed, dictated and finalized at location . Impression: No acute abnormality seen. Left knee arthroplasty hardware in place.
--- NOTE | ~2023-01-20 | CT_ITS ---
Non-contrast CT scan of the Abdomen and Pelvis Clinical indication: Abdominal pain Technique: 2.5 mm axial scans were obtained through the abdomen and pelvis without intravenous or or al contrast. Dose reduction technique was used on this scan by utilizing automated exposure control a nd iterative reconstruction technique. The dose-length product (DLP) was 569.16 mGy-cm. COMPARISON: 08/27/2022 Findings: Images through the lung bases reveal mild bibasilar chronic interstitial disease and 4 mm fissural nodule at the right lung base. There are additional focal subcentimeter nodules at the right lower lobe (axial image 12). There is no evidence of renal or ureteral calculi. The kidneys and the ureters are nondilated. Large left renal cyst is unchanged. The liver, spleen, pancreas, and adrenals appear normal. Cholecystectomy clips are present. There are atherosclerotic calcifications of the aorta. There is no evidence of bowel obstruction. There is wall thickening and pericolonic stranding involvi ng the descending colon and proximal and mid sigmoid colon. No abscess or free air evident. Images through the pelvis are degraded by streak artifact from left hip arthroplasty. There is no kenneth dence of ascites or lymphadenopathy. Urinary bladder appears unremarkable. No pelvic mass seen. Impression: Findings consistent with infectious/inflammatory colitis involving the descending and sigmoid colon. Ischemic bowel or neoplasm felt to be less likely considerations. Subcentimeter pulmonary nodules, as above, nonspecific. Consider follow-up exam in 6-12 months. Reviewed, dictated and finalized at [facility]. Impression: Findings consistent with infectious/inflammatory colitis involving the descendi ng and sigmoid colon. Ischemic bowel or neoplasm felt to be less likely conside rations. Subcentimeter pulmonary nodules, as above, nonspecific. Consider follow-up exam in 6-12 months.
[2023-01-20 21:59] VITALS: BP 147/77; PULSE 94; RESP 20; TEMP 38; O2SAT 97
[2023-01-20 23:35] VITALS: BP 125/76; PULSE 79; RESP 24; TEMP 37.5; O2SAT 97
[2023-01-20 23:43] LABS: Basophils Percent Auto 0.3 % (0.2-1.2); Eosinophils Absolute Auto 0.1 K/mm3 (0-0.3); Eosinophils Percent Auto 0.5 % (0-4.4); Hematocrit 37.5 % (37.0-47.0); Hemoglobin 12.5 g/dL (12.0-15.0); Immature Granulocyte Absolute 0.07 K/mm3 (0.00-0.031); Immature Granulocyte Percent A 0.4 % (0-0.5); Lymphocytes Absolute Auto 0.38 K/mm3 (0.9-3.2); Lymphocytes Percent Auto 2.4 % (18.3-44.2); Mean Corpuscular HGB Conc 33.3 g/dl (32-36); Mean Corpuscular Hemoglobin 30.2 pg (26-34); Mean Corpuscular Volume 90.6 fl (80-100); Mean Platelet Volume 11.6 fl (7.4-10.4); Monocytes Absolute Auto 0.7 K/mm3 (0.1-0.6); Monocytes Percent Auto 4.1 % (2.6-8.5); Neutrophils Absolute Auto 14.6 K/mm3 (1.3-6.7); Neutrophils Percent Auto 92.3 % (45.5-73.1); Platelet Count Result 195 k/mm3 (150-375); Red Blood Count 4.14 M/mm3 (4.2-5.4); Red Cell Distribution Width 13.4 % (11.5-14.5); White Blood Count 15.8 K/mm3 (4.5-10.0)
[2023-01-20 23:54] LABS: Alanine Aminotransferase 21 U/L (6-35); Alkaline Phosphatase 97 U/L (38-126); Anion Gap 9 mmol/L (8-16); Aspartate Amino Transferase 37 U/L (14-36); Bilirubin,Total 0.7 mg/dL (0.2-1.3); Blood Urea Nitrogen 49 mg/dL (7-17); Carbon Dioxide 21 mmol/L (22-30); Chloride 97 mmol/L (98-107); Estimated CRCL calculation 15 ml/min; Estimated Glomerular Filt Rate 21; Glucose 119 mg/dL (65-110); Lipase 139 U/L (23-300); Potassium 3.5 mmol/L (3.4-5.0); Sodium 127 mmol/L (137-145)
[2023-01-21] VITALS (28 sets, daily range): BP systolic 100–121; BP diastolic 51–62; PULSE 72–91; RESP 16–26; TEMP 36.7–37.4; O2SAT 80–99; BMI 26.4
--- NOTE | 2023-01-21 00:28 | ED.GENADULT ---
HPI - General Adult General Chief complaint: Nausea/Vomiting/Diarrhea <Martin Otero PA-C - Last Filed: 01/21/23 03:48> Stated complaint: nausea, vomiting and diarrhea x 3 days <Martin Otero PA-C - Last Filed: 01/21/23 03:48> Time Seen by Provider: 01/21/23 00:11 <Martin Otero PA-C - Last Filed: 01/21/23 03:48> Source: patient <Martin Otero PA-C - Last Filed: 01/21/23 03:48> Mode of arrival: ambulatory <MATT Carter Last Filed: 01/21/23 03:48> Limitations: no limitations <Martin Otero PA-C - Last Filed: 01/21/23 03:48> History of Present Illness HPI narrative: This is a 82-year-old female who presents to the ED with chief complaint of N/V/D beginning today. Patient reports that this started very shortly after eating dot[employer]. Patient reports that she had shingles shot on Thursday and had a little fever and body aches from that. Reports that she had several episodes of bloody diarrhea prior to arrival. Reports bright red blood. Reports abdominal pain is generalized but feels it started after the vomiting today. Denies any hematemesis. Denies chest pain, shortness of breath, cough, urinary problems. She is on Eliquis regularly <Martin Otero PA-C - Last Filed: 01/21/23 03:48> Related Data Home medications: Home Medications Medication Instructions Recorded Confirmed vitamins A,C,F-fjvl-erexzh 2,148 1 tablet PO DAILY 04/01/19 10/27/22 mcg-113 mg-45 mg-17.4 mg tablet (PreserVision AREDS) biotin 5 mg tablet 5 mg PO DAILY 06/24/19 10/27/22 vitamin B complex 1 tablet PO DAILY 06/24/19 10/27/22 calcium citrate-ergocalciferol 1 tablet PO DAILY 08/29/21 10/27/22 (vitamin D2) 315 mg-200 unit tablet amitriptyline 25 mg tablet 25 mg PO QHS 03/05/22 10/27/22 <Martin Otero PA-C - Last Filed: 01/21/23 03:48> Allergies/adverse reactions: Allergies Allergy/AdvReac Type Severity Reaction Status Date / Time acetaminophen [From Tylenol] Allergy Severe Swelling Verified 01/20/23 21:58 ibuprofen Allergy Severe Swelling Verified 01/20/23 21:58 of Lip/Tongue/Throat naproxen [From Aleve] Allergy Severe Swelling Verified 01/20/23 21:58 of Lip/Tongue/Throat strawberry Allergy Severe Swelling Verified 01/20/23 21:58 of Lip/Tongue/Throat adhesive Allergy Mild Rash Verified 01/20/23 21:58 latex Allergy Mild Rash Verified 01/20/23 21:58 morphine Allergy Hallucinati Verified 01/21/23 01:33 ng influenza virus vaccine tv AdvReac Severe very sick Verified 01/20/23 21:58 2012-(18-49 yrs),rcmb with fever [From Flublok] and myalgia <Martin Otero PA-C - Last Filed: 01/21/23 03:48> Review of Systems Review of Systems: All systems as dictated in HPI <Martin Otero PA-C - Last Filed: 01/21/23 03:48> [facility] Past Medical History Medical History: Medical History Adenomatous colon polyp Adenomatous colon polyp Anxiety Chronic anticoagulation Diet-controlled diabetes mellitus Hemoglobin A1c was 5.5 on March 25, 2019. Gastric AVM GERD (gastroesophageal reflux disease) History of Clostridioides difficile infection History of postoperative nausea and vomiting Hyperlipidemia Hypothyroidism Mitral valve prolapse Osteoarthritis Renal cyst <Martin Otero PA-C - Last Filed: 01/21/23 03:48> Surgical History Surgical History: Surgical History H/O dilation and curettage x4 H/O hemorrhoidectomy History of bladder suspension procedure History of hip replacement (~06/06/19) left History of incisional hernia repair Robotic assisted repair periumbilical incisional hernia with mesh 07/10/[address] Bee. History of varicose vein ligation and stripping (~1991) right leg Hx of colonoscopy Hx of exploratory laparotomy Exploratory laparoscopy, lysis of adhesion on 07/15/[address]
[2023-01-21] MEDS: SODIUM CHLORIDE 0.9% IV 1,000 ML 999 ML IV CONT (01:27)
[2023-01-21] MEDS: ONDANSETRON INJ 4 MG/2 ML VIAL IV PUSH (01:30)
[2023-01-21] MEDS: fentaNYL CITRATE INJ (*CRX) 100 MCG/2 ML VIAL 50 MCG IV PUSH (01:40)
[2023-01-21 02:35] LABS: Lactic Acid Reflex 0.8 mmol/L (0.7-2.0)
[2023-01-21 06:50] LABS: Appearance Urine Cloudy (Clear); Bacteria Urine None Seen /hpf; Bilirubin Urine Negative (Negative); Blood Urine Negative (Negative); Color Urine Yellow (Yellow); Glucose Urine UA Negative (Negative); Ketones Urine Negative (Negative); Leukocyte Esterase Ur Negative LEU/UL (Negative); Nitrate Urine Negative (Negative); Protein Urine 1+ mg/dL (Negative); RBC Urine 0-2 /hpf (0-2); Specific Grav Ur 1.014 (1.001-1.035); Squamous Epithelial Cell Urine None seen /hpf (Few); Urobilinogen Urine 0.2 mg/dL (<2.0); WBC Urine 0-5 /hpf
[2023-01-21 06:51] LABS: Add Urine Microscopic? YES
[2023-01-21] MEDS: metroNIDAZOLE 500 MG/ISO 100ML 500 MG/100 ML BAG 100 MG IVPB (09:52)
--- NOTE | 2023-01-21 11:10 | ADMGEN ---
This patient, Shantel Oates, was admitted to 3 Med Surg Room 323-02 at 1020. Patient/family oriented to hospital policies and general routines including ID bracelet, bed and alarms, visiting hours, pain management, procedures, bathroom and other care routines, personal items, smoking policy, room service/diet, and visiting hours. Information on how to activate the Rapid Response Team has been discussed. Patient/Family are encouraged to report perceived risks to care and to ask questions if they do not understand what they are told or what they should do.
[2023-01-21 13:43] LABS: Toxigenic C. Diff NEGATIVE (NEGATIVE)
[2023-01-21] MEDS: diphenhydrAMINE HCl CAP 25 MG CAPSULE PO (14:41)
[2023-01-21 17:14] LABS: Glucose Point of Care 141 mg/dl (65-105)
--- NOTE | 2023-01-21 17:51 | PM.IMHP ---
H&P: HPI History of Present Illness Date/Time: 01/21/23 17:51 Chief Complaint: N/V/D Narrative: 82-year-old female presents here with nausea, vomiting, fever, diarrhea with past medical history of paroxysmal AFib, c. dif (2017), bloody diarrhea (2019), hypothyroidism, GERD, HTN. Patient began having nausea, vomiting, fever, diarrhea yesterday around 4:30 p.m. Only recent change the patient can identify was receiving her shingles vaccination on Thursday, reported mild fever 100.4F and body aches post-vaccination. Patient reports that shortly after she began having nausea vomiting diarrhea her diarrhea became bloody, bright red and moderate volume per her description. Now concerned she has food poisoning. Most recent colonoscopy was 2 months ago, done by Ward MARTINEZ. She had 4 large polyps removed, benign. Also reports decreased urine output. No current dizziness or lightheadedness, however patient has not been very mobile since symptoms started. No current chest pain or shortness of breath. Review of Systems Review of Systems: All systems reviewed & are unremarkable except as noted in HPI and below PMFSH Past Medical History Medical History Adenomatous colon polyp added to history in Anxiety Chronic anticoagulation Diet-controlled diabetes mellitus Hemoglobin A1c was 5.5 on March 25, 2019. Gastric AVM GERD (gastroesophageal reflux disease) History of Clostridioides difficile infection History of postoperative nausea and vomiting Hyperlipidemia Hypothyroidism Mitral valve prolapse Osteoarthritis Renal cyst Surgical History Surgical History H/O dilation and curettage x4 H/O hemorrhoidectomy History of bladder suspension procedure History of hip replacement (~06/06/19) left History of incisional hernia repair Robotic assisted repair periumbilical incisional hernia with mesh 07/10/[address] Bee. History of varicose vein ligation and stripping (~1991) right leg Hx of colonoscopy Hx of exploratory laparotomy Exploratory laparoscopy, lysis of adhesion on 07/15/[address] Bee Status post arthroscopy of left knee (~05/04/19) Status post breast biopsy (~1972) Left breast biopsy with benign histology. Status post cardiac catheterization Coronary angiogram March 2014 showed normal coronary arteries. Status post cataract extraction (~05/20/16) right Status post cholecystectomy (~2001) Status post hysterectomy (~1970) Status post total left knee replacement (~05/04/19) Family History Family History Father Family history of cardiovascular disease Family history of kidney disease Family history of aortic aneurysm Mother Diabetes mellitus Family history of Alzheimer's disease Family history of malignant neoplasm of brain Grandparent Cerebrovascular accident Other Breast cancer Eye cancer Social History Social History Social History: The patient is [place] outside of [place]. She is a lifelong nonsmoker and denies alcohol and drug use. Children live nearby. She still works 6 days a week at [employer]. She denies alcohol, tobacco, and drug use. The patient's daughter lives with her now. She has 3 children. She is . She is a full code. Her daughter this living with her is a durable power family law attorney for healthcare. Smoking status: Never smoker Second hand tobacco smoke exposure: Yes Alcohol intake: never Substance use: never Substance use type: does not use Lack of Transportation: No Lack of Food: Never True Current Housing: I Have Housing Concerned About Future Housing: No Difficulty Paying Gas/Electric Bills: No Difficulty Paying for Meds: No Currently Unemployed: No Education: High School Diploma/GED Diffi
[2023-01-21] MEDS: FLECAINIDE ACETATE 100 MG TABLET PO (20:15)
[2023-01-21] MEDS: AMITRIPTYLINE HCL 25 MG TABLET PO (20:17)
[2023-01-21 23:18] LABS: Glucose Point of Care 116 mg/dl (65-105)
[2023-01-22] VITALS (14 sets, daily range): BP systolic 103–133; BP diastolic 47–64; PULSE 61–79; RESP 12–20; TEMP 35.6–36.5; O2SAT 95–99
[2023-01-22] MEDS: SODIUM CHLORIDE 0.9% IV 1,000 ML 200 ML IV CONT ×2 (01:56→08:09)
[2023-01-22] MEDS: AZITHROMYCIN 500 MG/NS 250 ML 500 MG/250 ML BAG 250 MG IVPB (01:57)
[2023-01-22] MEDS: LEVOTHYROXINE SODIUM 88 MCG TABLET PO (06:24)
[2023-01-22 08:00] LABS: Glucose Point of Care 88 mg/dl (65-105)
[2023-01-22] MEDS: ATORVASTATIN 40 MG TABLET PO (08:04)
[2023-01-22] MEDS: VITAMIN B COMPLEX CAPSULE 1 CAP PO (08:05)
[2023-01-22] MEDS: METOPROLOL TARTRATE 25 MG TABLET PO ×2 (08:05→20:29)
[2023-01-22] MEDS: FLECAINIDE ACETATE 100 MG TABLET PO ×2 (08:05→20:28)
[2023-01-22] MEDS: OPTI-GEN TAB 1 TABLET PO (08:05)
[2023-01-22] MEDS: PANTOPRAZOLE 40 MG TABLET PO (08:05)
[2023-01-22] MEDS: diphenhydrAMINE HCl CAP 25 MG CAPSULE 50 MG PO ×2 (08:19→20:30)
[2023-01-22] MEDS: ALBUTEROL SULFATE (*SP) AEROSOL 1 PUFF 2 PUFF INHALATION (08:28)
[2023-01-22 09:01] LABS: Basophils Percent Auto 0.3 % (0.2-1.2); Eosinophils Absolute Auto 0.3 K/mm3 (0-0.3); Eosinophils Percent Auto 2.5 % (0-4.4); Hematocrit 29.9 % (37.0-47.0); Hemoglobin 9.5 g/dL (12.0-15.0); Immature Granulocyte Absolute 0.04 K/mm3 (0.00-0.031); Immature Granulocyte Percent A 0.4 % (0-0.5); Immature Platelet Fraction Pct 7.9 % (0.9-11.2); Lymphocytes Absolute Auto 0.89 K/mm3 (0.9-3.2); Lymphocytes Percent Auto 8.4 % (18.3-44.2); Mean Corpuscular HGB Conc 31.8 g/dl (32-36); Mean Corpuscular Hemoglobin 29.7 pg (26-34); Mean Corpuscular Volume 93.4 fl (80-100); Mean Platelet Volume 11.5 fl (7.4-10.4); Monocytes Absolute Auto 1.1 K/mm3 (0.1-0.6); Monocytes Percent Auto 10.6 % (2.6-8.5); Neutrophils Absolute Auto 8.3 K/mm3 (1.3-6.7); Neutrophils Percent Auto 77.8 % (45.5-73.1); Platelet Count Result 135 k/mm3 (150-375); Red Cell Distribution Width 13.7 % (11.5-14.5); White Blood Count 10.6 K/mm3 (4.5-10.0)
[2023-01-22 09:08] LABS: Albumin Level 2.8 g/dL (3.5-5.1); Anion Gap 8 mmol/L (8-16); Blood Urea Nitrogen 39 mg/dL (7-17); Calcium 7.7 mg/dL (8.4-10.2); Carbon Dioxide 23 mmol/L (22-30); Chloride 100 mmol/L (98-107); Estimated CRCL calculation 15 ml/min; Estimated Glomerular Filt Rate 21; Glucose 100 mg/dL (65-110); Phosphorus 3.3 mg/dL (2.5-4.5); Potassium 3.2 mmol/L (3.4-5.0); Sodium 131 mmol/L (137-145)
[2023-01-22] MEDS: PIPERACILLN/TAZ 3.375GM/NS50ML 3.375 GM/50 ML BAG IVPB ×3 (09:08→20:29)
--- NOTE | 2023-01-22 10:47 | PM.IMPN ---
Progress Note: A&P Assessment and Plan (1) Colitis: Code(s): K52.9 - Noninfective gastroenteritis and colitis, unspecified Status: Acute (2) Acute kidney injury superimposed on chronic kidney disease: Code(s): N17.9 - Acute kidney failure, unspecified; N18.9 - Chronic kidney disease, unspecified Status: Acute (3) Nausea and vomiting: Code(s): R11.2 - Nausea with vomiting, unspecified Status: Acute Plan Problem List 1. Colitis continue abx, gi consult blood stool noted, improved from stool she had at home 2. BRONSON superimposed on CKD ivf, monitor 3. nausea and vomiting UA: Cloudy, 1+ protein Reglan 5 mg Q6H PRN for nausea clear liquid diet, advance as tolerated. Chronic Conditions - BP soft, hold amlodipine and lisinopril/HCTZ. - hold home aspirin and Eliquis, current bleeding. - Resume home albuterol, amitriptyline, vitamin-B complex, pantoprazole, metoprolol, levothyroxine, flecainide, Benadryl as needed, calcium /vitamin-D, biotin, and atorvastatin Diet: clear liquid GI Prophylaxis: pantoprazole DVT Prophylaxis: SCDs, bloody diarrhea - pharm contraindicated. Lines: pIV Code Status: Full Code Subjective Date/time seen: 01/22/23 10:47 Interval history: feeling lethargic, slightly better overall bloody stool overnight Exam Narrative: Resting in hospital bed with daughter at bedside. Const: General: comfortable and no acute distress HENMT: Face/Nose/Sinus: Normal nares present Mouth: Yes dry mucous membranes Eyes: General: appearance normal, both eyes and all related structures Sclera: sclerae normal Pupils: Equal, round and reactive pupils present Resp: Effort & Inspection: normal respiratory effort Auscultation: clear to auscultation bilaterally Cardio: Rate: regular rate Rhythm: regular rhythm Other: S1-S2 present without murmur, rub, ectopy GI: Auscultation: abnormal bowel sounds Other: hyperactive BS in all quadrants. Tenderness in LLQ w/some guarding. Skin: General skin exam: normal color and no rashes or lesions noted Wounds: no wounds Neuro: Cranial nerves: Yes Equal, round and reactive pupils present Speech: normal speech Motor exam (neuro): 5/5 motor strength present throughout Sensory Exam: normal sensation Other: A/Ox4 Extrem: General: normal to inspection Psych: Mental Status: mental status grossly normal Affect: normal affect Other: Good insight judgment, pleasant. Objective Data Vital Signs Vital Signs: Vital Signs - 24 hr 01/21/23 12:06 01/21/23 14:00 01/21/23 22:00 Temperature 99.3 F 98.4 F Pulse Rate 91 80 Respiratory Rate 16 18 Blood Pressure 114/60 100/52 L Pulse Oximetry 80 L 96 Oxygen Delivery Room Air 01/22/23 04:00 01/22/23 06:00 01/22/23 08:02 Temperature 96.0 F L 97.0 F L Pulse Rate 61 61 79 Respiratory Rate 12 20 Blood Pressure 103/47 L 132/56 L Pulse Oximetry 95 98 Oxygen Delivery 01/22/23 08:05 01/22/23 08:05 01/22/23 08:29 Temperature Pulse Rate 79 79 78 Respiratory Rate Blood Pressure Pulse Oximetry Oxygen Delivery 01/22/23 08:30 01/22/23 08:00 01/22/23 08:00 Temperature Pulse Rate 78 Respiratory Rate Blood Pressure Pulse Oximetry 99 Oxygen Delivery Room Air Room Air Intake/Output Intake/Output: Intake & Output 01/19/23 01/20/23 01/21/23 01/22/23 23:59 23:59 23:59 23:59 Intake Total 2108 790 Balance 2108 790 Meds/Results Medications: Active Medications Generic Name Dose Route Start Last Admin Trade Name Freq PRN Reason Stop Dose Admin Albuterol 2 puff 01/21/23 17:11 01/22/23 08:28 Albuterol Sulfate (*Sp) Aerosol 1 Puff INHALATION 2 puff Q4H PRN Administration shortness of breath or wheezing Amitriptyline HCl 25 mg 01/21/23 21:00 01/21/23 20:17 Amitriptyline Hcl 25 Mg Tablet PO 25 mg QHS NICOL Administration Atorvastatin Calci
[2023-01-22 11:47] LABS: Glucose Point of Care 88 mg/dl (65-105)
--- NOTE | 2023-01-22 14:32 | WPDGICN ---
Assessment and Plan Assessment and plan (1) Colitis: Code(s): K52.9 - Noninfective gastroenteritis and colitis, unspecified Status: Acute Assessment and Plan: Patient has descending and sigmoid colon colitis by her CT scan imaging. This correlates with her left-sided abdominal pain. She recently had a normal colonoscopy in October of this year. This abrupt change is most consistent with either infectious or ischemic colitis. Ischemic colitis would be expected to improve on its own. But since infectious colitis cannot be excluded would recommend obtaining stool cultures and broad-spectrum antibiotic coverage for 7-10 day course. There should be no need to repeat colonoscopy at this time unless bleeding intensifies. This would be expected to resolve along with resolution of her colitis. Will follow her clinically. Start with a liquid diet and advance slowly. (2) Paroxysmal A-fib: Code(s): I48.0 - Paroxysmal atrial fibrillation Status: Acute (3) Chronic anticoagulation: Code(s): Z79.01 - terminal gauger (current) use of anticoagulants Status: Acute Assessment and Plan: Anticoagulation may need to be held while she has significant colitis is this may contribute to her bleeding. GI Consult Note Consult date/time: 01/22/23 14:32 Reason for consult: Abnormal CT scan, descending colon colitis HPI: Shantel Oates is a 82 year old female I am asked to see because of an abnormal CT scan with descending colon colitis. Patient has a long history of irritable bowel syndrome. In the past she had colon polyps. She has undergone recent evaluation with Dr. Hopper, Dr. Santana, Dr. Corley. Previously followed by myself several years ago. Colonoscopy and EGD performed in October by Dr. Hopper were unremarkable. patient apparently did well until the last 3 or 4 days when she developed nausea vomiting diarrhea. She also has some left-sided abdominal pain. Her stool habits did show some blood in her stools. Upon presenting to the emergency room CT scan was performed revealing significant colitis in the descending colon. Patient had received the shingles vaccine the day prior to this on Thursday. Review of Systems Review of Systems: Review of systems noncontributory. [facility] Past Medical History Medical History Adenomatous colon polyp added to history in Anxiety Chronic anticoagulation Diet-controlled diabetes mellitus Hemoglobin A1c was 5.5 on March 25, 2019. Gastric AVM GERD (gastroesophageal reflux disease) History of Clostridioides difficile infection History of postoperative nausea and vomiting Hyperlipidemia Hypothyroidism Mitral valve prolapse Osteoarthritis Renal cyst Surgical History Surgical History H/O dilation and curettage x4 H/O hemorrhoidectomy History of bladder suspension procedure History of hip replacement (~06/06/19) left History of incisional hernia repair Robotic assisted repair periumbilical incisional hernia with mesh 07/10/[address] Bee. History of varicose vein ligation and stripping (~1991) right leg Hx of colonoscopy Hx of exploratory laparotomy Exploratory laparoscopy, lysis of adhesion on 07/15/[address] Bee Status post arthroscopy of left knee (~05/04/19) Status post breast biopsy (~1972) Left breast biopsy with benign histology. Status post cardiac catheterization Coronary angiogram March 2014 showed normal coronary arteries. Status post cataract extraction (~05/20/16) right Status post cholecystectomy (~2001) Status post hysterectomy (~1970) Status post total left knee replacement (~05/04/19) Family History Family History Father Family history of cardiovascular disease Family history of kidney disease Family history of aortic aneurysm Mo
[2023-01-22 16:49] LABS: Glucose Point of Care 75 mg/dl (65-105)
[2023-01-22] MEDS: AMITRIPTYLINE HCL 25 MG TABLET PO (20:29)
[2023-01-22 20:39] LABS: Glucose Point of Care 105 mg/dl (65-105)
[2023-01-22] MEDS: METOCLOPRAMIDE HCL INJ 10 MG/2 ML VIAL 5 MG IV PUSH (23:24)
[2023-01-23] VITALS: PULSE 64
[2023-01-23 04:00] VITALS: PULSE 67
[2023-01-23] MEDS: PIPERACILLN/TAZ 3.375GM/NS50ML 3.375 GM/50 ML BAG IVPB ×2 (04:01→08:41)
[2023-01-23 05:20] VITALS: BP 106/47; PULSE 64; RESP 12; TEMP 36.7; O2SAT 94
[2023-01-23] MEDS: LEVOTHYROXINE SODIUM 88 MCG TABLET PO (06:03)
[2023-01-23] MEDS: METOCLOPRAMIDE HCL INJ 10 MG/2 ML VIAL 5 MG IV PUSH (06:03)
[2023-01-23 06:32] LABS: Basophils Percent Auto 0.1 % (0.2-1.2); Eosinophils Absolute Auto 0.5 K/mm3 (0-0.3); Eosinophils Percent Auto 5.3 % (0-4.4); Hematocrit 29.3 % (37.0-47.0); Hemoglobin 9.7 g/dL (12.0-15.0); Immature Granulocyte Absolute 0.05 K/mm3 (0.00-0.031); Immature Granulocyte Percent A 0.5 % (0-0.5); Lymphocytes Absolute Auto 0.97 K/mm3 (0.9-3.2); Lymphocytes Percent Auto 10.6 % (18.3-44.2); Mean Corpuscular HGB Conc 33.1 g/dl (32-36); Mean Corpuscular Hemoglobin 30.6 pg (26-34); Mean Corpuscular Volume 92.4 fl (80-100); Mean Platelet Volume 11.8 fl (7.4-10.4); Monocytes Absolute Auto 0.8 K/mm3 (0.1-0.6); Monocytes Percent Auto 8.7 % (2.6-8.5); Neutrophils Absolute Auto 6.8 K/mm3 (1.3-6.7); Neutrophils Percent Auto 74.8 % (45.5-73.1); Platelet Count Result 172 k/mm3 (150-375); Red Blood Count 3.17 M/mm3 (4.2-5.4); Red Cell Distribution Width 13.9 % (11.5-14.5); White Blood Count 9.1 K/mm3 (4.5-10.0)
[2023-01-23 06:50] LABS: Alanine Aminotransferase 21 U/L (6-35); Albumin Level 2.7 g/dL (3.5-5.1); Alkaline Phosphatase 63 U/L (38-126); Anion Gap 5 mmol/L (8-16); Aspartate Amino Transferase 62 U/L (14-36); Bilirubin,Total 0.7 mg/dL (0.2-1.3); Blood Urea Nitrogen 29 mg/dL (7-17); Calcium 8.2 mg/dL (8.4-10.2); Carbon Dioxide 24 mmol/L (22-30); Chloride 107 mmol/L (98-107); Estimated CRCL calculation 17 ml/min; Estimated Glomerular Filt Rate 24; Glucose 86 mg/dL (65-110); Magnesium 1.9 mg/dL (1.6-2.3); Potassium 3.5 mmol/L (3.4-5.0); Sodium 136 mmol/L (137-145)
[2023-01-23 08:39] VITALS: BP 116/56; PULSE 70
[2023-01-23 08:40] VITALS: PULSE 70
[2023-01-23] MEDS: PANTOPRAZOLE 40 MG TABLET PO (08:40)
[2023-01-23] MEDS: FLECAINIDE ACETATE 100 MG TABLET PO (08:40)
[2023-01-23] MEDS: OPTI-GEN TAB 1 TABLET PO (08:40)
[2023-01-23] MEDS: ATORVASTATIN 40 MG TABLET PO (08:40)
[2023-01-23] MEDS: METOPROLOL TARTRATE 25 MG TABLET PO (08:40)
[2023-01-23] MEDS: VITAMIN B COMPLEX CAPSULE 1 CAP PO (08:40)
--- NOTE | 2023-01-23 11:42 | PM.DS ---
DS: Admitting Diagnosis Discharge Date January 23, 2023 Admitting Diagnosis Colitis DS: Discharge Diagnosis Discharge Diagnosis (1) Colitis: Code(s): K52.9 - Noninfective gastroenteritis and colitis, unspecified Status: Acute (2) Acute kidney injury superimposed on chronic kidney disease: Code(s): N17.9 - Acute kidney failure, unspecified; N18.9 - Chronic kidney disease, unspecified Status: Acute (3) Nausea and vomiting: Code(s): R11.2 - Nausea with vomiting, unspecified Status: Acute Plan Problem List 1. Colitis continue abx, gi consult blood stool noted, improved from stool she had at home 2. BRONSON superimposed on CKD ivf, monitor 3. nausea and vomiting UA: Cloudy, 1+ protein Reglan 5 mg Q6H PRN for nausea clear liquid diet, advance as tolerated. Chronic Conditions - BP soft, hold amlodipine and lisinopril/HCTZ. - hold home aspirin and Eliquis, current bleeding. - Resume home albuterol, amitriptyline, vitamin-B complex, pantoprazole, metoprolol, levothyroxine, flecainide, Benadryl as needed, calcium /vitamin-D, biotin, and atorvastatin Diet: clear liquid GI Prophylaxis: pantoprazole DVT Prophylaxis: SCDs, bloody diarrhea - pharm contraindicated. Lines: pIV Code Status: Full Code DS: Summary Hospital Course Hospital Course: Patient came in blood in her stool colitis. GI was consulted no further workup indicated. She is much better and tolerating a diet. No more bleeding. Okay to resume home medications and she will need antibiotics on discharge. Time Spent with Patient Time attestation: Total time spent providing and/or coordinating discharge services: Exam Narrative: Resting in hospital bed with daughter at bedside. Const: General: comfortable and no acute distress HENMT: Face/Nose/Sinus: Normal nares present Mouth: Yes dry mucous membranes Eyes: General: appearance normal, both eyes and all related structures Sclera: sclerae normal Pupils: Equal, round and reactive pupils present Resp: Effort & Inspection: normal respiratory effort Auscultation: clear to auscultation bilaterally Cardio: Rate: regular rate Rhythm: regular rhythm Other: S1-S2 present without murmur, rub, ectopy GI: Auscultation: abnormal bowel sounds Other: hyperactive BS in all quadrants. Tenderness in LLQ w/some guarding. Skin: General skin exam: normal color and no rashes or lesions noted Wounds: no wounds Neuro: Cranial nerves: Yes Equal, round and reactive pupils present Speech: normal speech Motor exam (neuro): 5/5 motor strength present throughout Sensory Exam: normal sensation Other: A/Ox4 Extrem: General: normal to inspection Psych: Mental Status: mental status grossly normal Affect: normal affect Other: Good insight judgment, pleasant. DS: Data Data Completed and Pending Labs on day of discharge: Labs from last 24 hours 01/23/23 01/22/23 01/22/23 06:09 20:18 16:40 WBC 9.1 RBC 3.17 L Hgb 9.7 L Hct 29.3 L MCV 92.4 MCH 30.6 MCHC 33.1 RDW 13.9 Plt Count 172 MPV 11.8 H Immature Gran % (Auto) 0.5 Neut % (Auto) 74.8 H Lymph % (Auto) 10.6 L Baxter % (Auto) 8.7 H Eos % (Auto) 5.3 H Baso % (Auto) 0.1 L Lymph # (Auto) 0.97 Baxter # (Auto) 0.8 H Eos # (Auto) 0.5 H Baso # (Auto) 0.0 Abs Immat Gran (auto) 0.05 H Absolute Neuts (auto) 6.8 H Absolute Nucleated RBC 0.0 Nucleated RBC % 0.0 Sodium 136 L Potassium 3.5 Chloride 107 Carbon Dioxide 24 Anion Gap 5 L BUN 29 H D Creatinine 2.00 H Estim Creat Clear Calc 17 Estimated GFR 24 L Glucose 86 POC Capillary Glucose 105 75 Calcium 8.2 L Magnesium 1.9 Total Bilirubin 0.7 AST 62 H ALT 21 Alkaline Phosphatase 63 Total Protein 6.0 L Albumin 2.7 L 01/22/23 11:39 WBC RBC Hgb Hct MCV MCH MCHC RDW Plt Coun
[2023-01-23 11:50] LABS: Glucose Point of Care 82 mg/dl (65-105)
[2023-01-23 12:00] VITALS: PULSE 67
--- NOTE | 2023-01-23 12:36 | WPDGIPROGNO ---
Progress Note: A&P Assessment and Plan (1) Colitis: Code(s): K52.9 - Noninfective gastroenteritis and colitis, unspecified Status: Acute Assessment and Plan: Patient with left-sided colitis involving the descending and sigmoid colon. Most consistent with infectious colitis. Ischemic colitis cannot definitively be excluded. Recommend conservative management. Broad-spectrum antibiotics should be considered at after discharge for 7-10 days. Patient advised to notify the GI office if diarrhea abdominal pain or bleeding persists beyond this time. Ischemic colitis would heal up conservatively on its own. Hopefully with the antibiotics any possible infection would be covered. Final stool cultures are pending at the time of this dictation. (2) Nausea and vomiting: Code(s): R11.2 - Nausea with vomiting, unspecified Status: Acute Assessment and Plan: Nausea vomiting have resolved. Subjective Date/time seen: 01/23/23 12:36 Interval history: Patient alert comfortable this morning. Denies any ongoing abdominal pain. No additional bleeding noted. Review of Systems Review of Systems: Review of systems noncontributory. Exam Narrative: Physical exam reveals patient be alert. Vital signs stable. HEENT exam is unremarkable. Patient is anicteric. Lungs are clear. Heart without murmur. Abdomen bowel sounds present soft nontender with no organomegaly. Objective Data Vital Signs Vital Signs: Vital Signs - 24 hr 01/22/23 14:00 01/22/23 16:00 01/22/23 20:28 Temperature 97.6 F Pulse Rate 72 66 74 Respiratory Rate 20 Blood Pressure 129/64 Pulse Oximetry 99 Oxygen Delivery 01/22/23 20:29 01/22/23 21:35 01/22/23 20:00 Temperature 97.7 F Pulse Rate 74 72 72 Respiratory Rate 13 Blood Pressure 133/58 L Pulse Oximetry 96 Oxygen Delivery 01/23/23 00:00 01/23/23 05:20 01/23/23 04:00 Temperature 98.1 F Pulse Rate 64 64 67 Respiratory Rate 12 Blood Pressure 106/47 L Pulse Oximetry 94 Oxygen Delivery 01/23/23 08:39 01/23/23 08:40 01/23/23 08:40 Temperature Pulse Rate 70 70 70 Respiratory Rate Blood Pressure 116/56 L Pulse Oximetry Oxygen Delivery 01/23/23 08:00 Temperature Pulse Rate Respiratory Rate Blood Pressure Pulse Oximetry Oxygen Delivery Room Air Intake/Output Intake/Output: Intake & Output 01/20/23 01/21/23 01/22/23 01/23/23 23:59 23:59 23:59 23:59 Intake Total 2108 2210 1090 Balance 8 2210 1090 Meds/Results Medications: Active Medications Generic Name Dose Route Start Last Admin Trade Name Freq PRN Reason Stop Dose Admin Albuterol 2 puff 01/21/23 17:11 01/22/23 08:28 Albuterol Sulfate (*Sp) Aerosol 1 Puff INHALATION 2 puff Q4H PRN Administration shortness of breath or wheezing Amitriptyline HCl 25 mg 01/21/23 21:00 01/22/23 20:29 Amitriptyline Hcl 25 Mg Tablet PO 25 mg QHS NICOL Administration Atorvastatin Calcium 40 mg 01/22/23 09:00 01/23/23 08:40 Atorvastatin 40 Mg Tablet PO 40 mg DAILY NICOL Administration Calcium Citrate 1 tablet 01/22/23 09:00 01/23/23 08:40 Calcium Citrate 315 Mg/Vitamin D 250 Units Tab PO 1 tablet QAM NICOL Administration Diphenhydramine HCl 50 mg 01/21/23 17:11 01/22/23 20:30 Diphenhydramine Hcl Cap 25 Mg Capsule PO 50 mg TID PRN Administration Allergy Symptoms Flecainide Acetate 100 mg 01/21/23 21:00 01/23/23 08:40 Flecainide Acetate 100 Mg Tablet PO 100 mg Q12HR NICOL Administration Piperacillin/Tazobactam/Dextrose 3.375 gm in 50 mls @ 100 mls/hr 01/22/23 09:00 01/23/23 09:11 Zosyn 3.375 Gm/Ns 50 Ml IVPB Infused Q6H NICOL Infusion Levothyroxine Sodium 88 mcg 01/22/23 06:30 01/23/23 06:03 Levothyroxine Sodium 88 Mcg Tablet PO 88 mcg DAILY@0630 NICOL Administration Metoclopramide HCl 5 mg 01/22/23 06:00 01/23/23 11:00 Metoclopramide Hc
== END 2023-01-23 12:35 | disposition home or self-care (01) | DRG 392 ==
LOC: ANHED 01-21 08:55 → ANH3MEDSUR 01-21 09:18
PROVIDERS: Student in an Organized Health Care Education/Training Program; Admitting Provider Chiropractor; Emergency Provider Physician Assistant; PCP Emergency Medicine; Visit Provider Chiropractor
DX: A09 Infectious gastroenteritis and colitis, unspecified (principal); K55.9 Vascular disorder of intestine, unspecified; N17.9 Acute kidney failure, unspecified; K21.9 Gastro-esophageal reflux disease without esophagitis; E78.5 Hyperlipidemia, unspecified; E11.22 Type 2 diabetes mellitus with diabetic chronic kidney disease; I12.9 Hypertensive chronic kidney disease with stage 1 through stage 4 chronic kidney disease, or unspecified chronic kidney disease; N18.9 Chronic kidney disease, unspecified; E03.9 Hypothyroidism, unspecified; M19.90 Unspecified osteoarthritis, unspecified site; I48.0 Paroxysmal atrial fibrillation; Z96.642 Presence of left artificial hip joint; Z96.652 Presence of left artificial knee joint; Z90.49 Acquired absence of other specified parts of digestive tract; Z79.01 Long term (current) use of anticoagulants; Z90.710 Acquired absence of both cervix and uterus
CPT/HCPCS: 36415; 73562; 74176; 80053; 80069; 81001; 82948; 83605; 83690; 83735; 85025; 85055; 86850; 86900; 86901; 87045; 87427; 87449; 87493; 94640; 96361; 96374; 96375; 99285; A9270; J0456; J1836; J2405; J2543; J2765; J3010; J7030

== ENCOUNTER 2023-02-24 20:48 | Observation (INO) | payer MEDICARE, SELFPAY ==
[2023-02-24] VITALS (20 sets, daily range): BP systolic 167–224; BP diastolic 75–96; PULSE 64–80; RESP 14–20; TEMP 36.4; O2SAT 94–99
--- NOTE | ~2023-02-24 | XR_ITS ---
EXAMINATION: XR chest 1V portable Exam Date/Time: 02/24/2023 21:07 TECHNICAL BUSINESS SYSTEMS ANALYST HISTORY: cp Comparison: 07/17/2022; CT abdomen pelvis 01/21/2023. RESULT: Lines, tubes, and devices: None. Lungs and pleura: Moderate diffuse reticular opacities with streaky bibasilar opacities. Cardiomediastinal silhouette: Stable. Other: No acute osseous or upper abdominal finding. IMPRESSION: Mild initial edema, overlying a component of chronic interstitial lung disease and bibasilar scarring . Reviewed, dictated and finalized at location K. NICAL BUSINESS SYSTEMS ANALYST IMPRESSION: Mild initial edema, overlying a component of chronic interstitial lung disease and bibasilar scarring.
--- NOTE | ~2023-02-24 | CT_ITS ---
EXAMINATION: CT brain wo con DATE: 02/24/2023 21:37 INDICATION: headache, hypertension . TECHNIQUE: Computed tomography (CT) of the head was performed without intravenous contrast. The mA wa s adjusted according to patient size. Iterative reconstruction technique was employed. The dose-lengt h product was 605.33 mGy-cm. COMPARISON: 02/11/2022. FINDINGS: No acute intracranial hemorrhage or extra-axial fluid collection. No hydrocephalus, mass, or herniation. No acute ischemic infarct. Unremarkable dural venous sinus attenuation. No acute osseous abnormality. Right inferior frontal cyst/polyp, mild right ethmoid air cell and left sphenoid mucosal thickening a erated spaces are clear. Mild atrophy and chronic white matter change. Atherosclerotic intracranial calcification. Bilateral b yaakov ganglia lacunar infarcts. Bilateral lens replacements. IMPRESSION: No acute intracranial process. Reviewed, dictated and finalized at location K. OWS MIGRATION TECHNICIAN
--- NOTE | 2023-02-24 20:51 | ECG_ITS ---
Measurements Intervals [place] Rate: 80 P: 39 MS: 209 QRS: -26 QRSD: 136 T: 49 QT: 395 QTc: 456 Interpretive Statements SINUS RHYTHM WITH FIRST DEGREE AV BLOCK INTRAVENTRICULAR CONDUCTION DELAY LEFT VENTRICULAR HYPERTROPHY WITH ST-T CHANGE BASELINE WANDER- I, III BORDERLINE ECG COMPARED TO ECG 03/09/2022 23:54:53 NO SIGNIFICANT CHANGES Electronically Signed On 02-24-2023 21:04:03 CHAIN SALES CONSULTANT by Ryan De La Vega D.O.
[2023-02-24 21:00] LABS: Basophils Percent Auto 0.5 % (0.2-1.2); Eosinophils Absolute Auto 0.6 K/mm3 (0-0.3); Eosinophils Percent Auto 7.4 % (0-4.4); Hematocrit 35.6 % (37.0-47.0); Hemoglobin 11.1 g/dL (12.0-15.0); Immature Granulocyte Absolute 0.01 K/mm3 (0.00-0.031); Immature Granulocyte Percent A 0.1 % (0-0.5); Lymphocytes Absolute Auto 1.91 K/mm3 (0.9-3.2); Lymphocytes Percent Auto 25.8 % (18.3-44.2); Mean Corpuscular HGB Conc 31.2 g/dl (32-36); Mean Corpuscular Hemoglobin 29.4 pg (26-34); Mean Corpuscular Volume 94.4 fl (80-100); Mean Platelet Volume 10.9 fl (7.4-10.4); Monocytes Absolute Auto 0.7 K/mm3 (0.1-0.6); Monocytes Percent Auto 9.2 % (2.6-8.5); Neutrophils Absolute Auto 4.2 K/mm3 (1.3-6.7); Platelet Count Result 240 k/mm3 (150-375); Red Blood Count 3.77 M/mm3 (4.2-5.4); White Blood Count 7.4 K/mm3 (4.5-10.0)
--- NOTE | 2023-02-24 21:06 | ED.CHESTPAIN ---
HPI - Chest Pain General Chief Complaint: Chest Pain Stated Complaint: chest pain Time Seen by Provider: 02/24/23 20:56 Source: patient Mode of arrival: ambulatory Limitations: no limitations History of Present Illness HPI narrative: This is a 83 year old female that presents to the ER for back pain. Ongoing over the last week. Worsening today. Reports achy pain. She used Voltaren gel with some relief. Reports today the pain worsened. She also felt as though she might be in atrial fibrillation and took her blood pressure. It was quite elevated which prompted her to be seen. She reported feeling like she was having difficulty breathing and discomfort in her chest. She has also had a headache. Reports she did take her Metoprolol this morning, but has not taken it tonight. Her Amlodipine was recently held. Reports her legs have been swollen. Denies vision changes, vomiting, numbness or weakness. Related Data Home Medications Medication Instructions Recorded Confirmed vitamins A,C,U-mybu-epoazl 2,148 1 tablet PO DAILY 04/01/19 02/03/23 mcg-113 mg-45 mg-17.4 mg tablet (PreserVision AREDS) biotin 5 mg tablet 5 mg PO DAILY 06/24/19 02/03/23 vitamin B complex 1 tablet PO DAILY 06/24/19 02/03/23 calcium citrate-ergocalciferol 1 tablet PO DAILY 08/29/21 02/03/23 (vitamin D2) 315 mg-200 unit tablet amitriptyline 25 mg tablet 25 mg PO QHS 03/05/22 02/03/23 Benadryl 50 mg PO TID PRN Allergy Symptoms 01/21/23 02/03/23 Allergies Allergy/AdvReac Type Severity Reaction Status Date / Time acetaminophen [From Tylenol] Allergy Severe Swelling Verified 02/03/23 10:04 ibuprofen Allergy Severe Swelling Verified 02/03/23 10:04 of Lip/Tongue/Throat naproxen [From Aleve] Allergy Severe Swelling Verified 02/03/23 10:04 of Lip/Tongue/Throat strawberry Allergy Severe Swelling Verified 02/03/23 10:04 of Lip/Tongue/Throat adhesive Allergy Mild Rash Verified 02/03/23 10:04 latex Allergy Mild Rash Verified 02/03/23 10:04 morphine Allergy Hallucinati Verified 02/03/23 10:04 ng influenza virus vaccine tv AdvReac Severe very sick Verified 02/03/23 10:04 2012-14(18-49 yrs),rcmb with fever [From Flublok] and myalgia Review of Systems Review of Systems: CONSTITUTIONAL: Denies fever EYES: Denies visual changes CARDIOVASCULAR: Reports chest pain, palpitations, and edema. RESPIRATORY: Reports dyspnea. GASTROINTESTINAL: Denies nausea, vomiting MUSCULOSKELETAL: Reports back pain, joint pain, and myalgia. NEUROLOGIC: Reports headache. Denies numbness, or weakness. All systems reviewed & are unremarkable except as noted in HPI and below PMFSH Past Medical History Medical History Adenomatous colon polyp added to history in Anxiety Chronic anticoagulation Diet-controlled diabetes mellitus Hemoglobin A1c was 5.5 on March 25, 2019. Gastric AVM GERD (gastroesophageal reflux disease) History of Clostridioides difficile infection History of postoperative nausea and vomiting Hyperlipidemia Hypothyroidism Mitral valve prolapse Osteoarthritis Renal cyst Surgical History Surgical History H/O dilation and curettage x4 H/O hemorrhoidectomy History of bladder suspension procedure History of hip replacement (~06/06/19) left History of incisional hernia repair Robotic assisted repair periumbilical incisional hernia with mesh 07/10/[address] Bee. History of varicose vein ligation and stripping (~1991) right leg Hx of colonoscopy Hx of exploratory laparotomy Exploratory laparoscopy, lysis of adhesion on 07/15/[address] Bee Status post arthroscopy of left knee (~05/04/19) Status post breast biopsy (~1972) Left breast biopsy with benign histology. Status post cardiac catheterization Coronary angiogram March 2014 showed normal coronary arteries. Status post cataract extraction (~05/20
[2023-02-24 21:12] LABS: Alanine Aminotransferase 24 U/L (6-35); Albumin Level 4.2 g/dL (3.5-5.1); Alkaline Phosphatase 96 U/L (38-126); Anion Gap 8 mmol/L (8-16); Aspartate Amino Transferase 40 U/L (14-36); Bilirubin,Total 0.6 mg/dL (0.2-1.3); Blood Urea Nitrogen 19 mg/dL (7-17); Calcium 9.5 mg/dL (8.4-10.2); Carbon Dioxide 29 mmol/L (22-30); Chloride 103 mmol/L (98-107); Estimated CRCL calculation 22 ml/min; Estimated Glomerular Filt Rate 29; Glucose 109 mg/dL (65-110); Lipase 79 U/L (23-300); Potassium 3.6 mmol/L (3.4-5.0); Sodium 140 mmol/L (137-145)
[2023-02-24 21:23] LABS: Troponin I < 0.012 ng/mL (0.000-0.034)
[2023-02-24] MEDS: METOPROLOL TARTRATE 50 MG TAB 25 MG PO (21:48)
[2023-02-24 21:55] LABS: Creatine Kinase 78 U/L (30-135)
[2023-02-24 21:58] LABS: D Dimer 0.77 ug/mL (<0.48)
[2023-02-24 22:01] LABS: NT Pro B Type Natriuretic Pept 5220 pg/mL (19.9-100)
--- NOTE | 2023-02-24 22:39 | PC.NURSE ---
Assumed care of pt. Pt resting quietly per cart in nad at this time. BP improved from initial reading. Will continue to monitor.
[2023-02-25] VITALS (20 sets, daily range): BP systolic 150–213; BP diastolic 66–100; PULSE 67–85; RESP 14–20; TEMP 36.1–36.8; O2SAT 95–98; BMI 27.6
[2023-02-25 00:14] LABS: Troponin I < 0.012 ng/mL (0.000-0.034)
--- NOTE | 2023-02-25 00:34 | PC.NURSE ---
Report to [facility]. RN asking for IV HTN med to be given prior to pt going upstairs. Will ask ERP.
[2023-02-25] MEDS: hydrALAZINE HCL 20 MG/ML VIAL 10 MG IV PUSH ×3 (00:38→16:20)
--- NOTE | 2023-02-25 00:45 | ADMGEN ---
This patient, Shantel Oates, was admitted to Medical Room 250-01. Patient/family oriented to hospital policies and general routines including ID bracelet, bed and alarms, visiting hours, pain management, procedures, bathroom and other care routines, personal items, smoking policy, room service/diet, and visiting hours. Information on how to activate the Rapid Response Team has been discussed. Patient/Family are encouraged to report perceived risks to care and to ask questions if they do not understand what they are told or what they should do.
[2023-02-25] MEDS: lisinopriL 20 MG TABLET 40 MG PO (02:00)
[2023-02-25 04:30] LABS: Troponin I < 0.012 ng/mL (0.000-0.034)
[2023-02-25] MEDS: METOPROLOL TARTRATE 25 MG TABLET PO ×2 (04:31→21:37)
[2023-02-25] MEDS: ALPRAZolam (*CRX) 0.25 MG TABLET PO (04:31)
[2023-02-25] MEDS: diphenhydrAMINE HCl CAP 25 MG CAPSULE 50 MG PO ×2 (08:48→18:11)
[2023-02-25] MEDS: hydroCHLOROthiazide 12.5 MG CAPSULE PO (08:48)
[2023-02-25] MEDS: lisinopriL 20 MG TABLET PO (08:48)
[2023-02-25] MEDS: FLECAINIDE ACETATE 100 MG TABLET PO ×2 (08:48→21:37)
[2023-02-25] MEDS: VITAMIN B COMPLEX CAPSULE 1 CAP PO (08:48)
[2023-02-25] MEDS: APIXABAN 2.5 MG TABLET PO ×2 (08:49→21:37)
[2023-02-25] MEDS: LEVOTHYROXINE SODIUM 88 MCG TABLET PO (08:49)
[2023-02-25] MEDS: PANTOPRAZOLE 40 MG TABLET PO (08:49)
[2023-02-25] MEDS: ATORVASTATIN 40 MG TABLET PO (08:49)
[2023-02-25] MEDS: OPTI-GEN TAB 1 TABLET PO (08:49)
--- NOTE | 2023-02-25 10:10 | PM.IMHP ---
H&P: HPI History of Present Illness Date/Time: 02/25/23 10:10 Chief Complaint: chest pain, SOB, elevated blood pressure Narrative: Patient is a 83 YO female admitted from the ER after reporting some chest pain and SOB last night around 9 pm when sitting down watching television. She also felt as though she might be in atrial fibrillation and took her blood pressure. It was quite elevated, >200 systolic x2. She has also had a headache that lasted most of the day. Her PCP took her off hr Lisinopril, HCTZ and Amlodipine after a recent office follow up post d/c for colitis. Her BP at that time had been running low, however she does not make a habit to check her BP at home so doesn't know what it has been regularly since she has been off of these medications. Reports her legs have been swollen. Denies vision changes, vomiting, numbness or weakness. Denies recent viral illness, but regularly suffers from sinus headaches. She also reports some recent upper back pain. Ongoing over the last week, since she has been working on a large [employer] project requiring upper shoulder movement. Reports achy pain. She used Voltaren gel with some relief. She is not complaining of pain in her shoulders, or radiating pain today. She can tell when he afib is acting up. Her assurance manager insurance is Dr. De La Vega. Review of Systems Review of Systems: All systems reviewed & are unremarkable except as noted in HPI and below PMFSH Past Medical History Medical History Adenomatous colon polyp added to history in Anxiety Chronic anticoagulation Diet-controlled diabetes mellitus Hemoglobin A1c was 5.5 on March 25, 2019. Gastric AVM GERD (gastroesophageal reflux disease) History of Clostridioides difficile infection History of postoperative nausea and vomiting Hyperlipidemia Hypothyroidism Mitral valve prolapse Osteoarthritis Renal cyst Surgical History Surgical History H/O dilation and curettage x4 H/O hemorrhoidectomy History of bladder suspension procedure History of hip replacement (~06/06/19) left History of incisional hernia repair Robotic assisted repair periumbilical incisional hernia with mesh 07/10/[address] Bee. History of varicose vein ligation and stripping (~1991) right leg Hx of colonoscopy Hx of exploratory laparotomy Exploratory laparoscopy, lysis of adhesion on 07/15/[address] Bee Status post arthroscopy of left knee (~05/04/19) Status post breast biopsy (~1972) Left breast biopsy with benign histology. Status post cardiac catheterization Coronary angiogram March 2014 showed normal coronary arteries. Status post cataract extraction (~05/20/16) right Status post cholecystectomy (~2001) Status post hysterectomy (~1970) Status post total left knee replacement (~05/04/19) Family History Family History Father Family history of cardiovascular disease Family history of kidney disease Family history of aortic aneurysm Mother Diabetes mellitus Family history of Alzheimer's disease Family history of malignant neoplasm of brain Grandparent Cerebrovascular accident Other Breast cancer Eye cancer Social History Social History Social History: The patient is and lives on a farm outside of [place]. She is a lifelong nonsmoker and denies alcohol and drug use. Children live nearby. She still works 6 days a week at [employer]. She denies alcohol, tobacco, and drug use. The patient's daughter lives with her now. She has 3 children. She is . She is a full code. Her daughter this living with her is a durable power disability attorney for healthcare. Smoking status: Never smoker Second hand tobacco smoke exposure: Yes Alcohol intake: never Substance use: never Substance use type: does not us
[2023-02-25] MEDS: METOCLOPRAMIDE HCL INJ 10 MG/2 ML VIAL 5 MG IV PUSH ×2 (11:08→16:26)
[2023-02-25] MEDS: FUROSEMIDE INJ 40 MG/4 ML VIAL IV PUSH (12:31)
[2023-02-25] MEDS: amLODIPine BESYLATE 5 MG TABLET PO (12:31)
[2023-02-25] MEDS: AMITRIPTYLINE HCL 25 MG TABLET PO (21:37)
[2023-02-26] VITALS (8 sets, daily range): BP systolic 135–162; BP diastolic 59–72; PULSE 71–89; RESP 16; TEMP 36.7–37.2; O2SAT 95–96
[2023-02-26] MEDS: LEVOTHYROXINE SODIUM 88 MCG TABLET PO (05:41)
[2023-02-26 06:04] LABS: Hematocrit 38.7 % (37.0-47.0); Hemoglobin 12.5 g/dL (12.0-15.0); Mean Corpuscular HGB Conc 32.3 g/dl (32-36); Mean Corpuscular Hemoglobin 29.4 pg (26-34); Mean Corpuscular Volume 91.1 fl (80-100); Platelet Count Result 286 k/mm3 (150-375); Red Blood Count 4.25 M/mm3 (4.2-5.4); Red Cell Distribution Width 14.2 % (11.5-14.5); White Blood Count 15.2 K/mm3 (4.5-10.0)
[2023-02-26 06:14] LABS: Anion Gap 9 mmol/L (8-16); Blood Urea Nitrogen 25 mg/dL (7-17); Calcium 9.3 mg/dL (8.4-10.2); Carbon Dioxide 27 mmol/L (22-30); Chloride 101 mmol/L (98-107); Estimated CRCL calculation 21 ml/min; Estimated Glomerular Filt Rate 27; Glucose 117 mg/dL (65-110); Potassium 3.1 mmol/L (3.4-5.0); Sodium 137 mmol/L (137-145)
[2023-02-26 08:09] LABS: Basophils Percent Auto 0.3 % (0.2-1.2); Eosinophils Absolute Auto 0.1 K/mm3 (0-0.3); Eosinophils Percent Auto 0.4 % (0-4.4); Immature Granulocyte Absolute 0.07 K/mm3 (0.00-0.031); Immature Granulocyte Percent A 0.5 % (0-0.5); Lymphocytes Absolute Auto 1.29 K/mm3 (0.9-3.2); Lymphocytes Percent Auto 8.7 % (18.3-44.2); Monocytes Absolute Auto 1.3 K/mm3 (0.1-0.6); Neutrophils Percent Auto 81.1 % (45.5-73.1)
[2023-02-26] MEDS: POTASSIUM CHLORIDE 20 MEQ PACKET (FOR LIQUID) 40 MEQ PO (08:23)
[2023-02-26] MEDS: hydroCHLOROthiazide 12.5 MG CAPSULE PO (08:24)
[2023-02-26] MEDS: ATORVASTATIN 40 MG TABLET PO (08:24)
[2023-02-26] MEDS: amLODIPine BESYLATE 5 MG TABLET PO (08:24)
[2023-02-26] MEDS: FLECAINIDE ACETATE 100 MG TABLET PO (08:24)
[2023-02-26] MEDS: lisinopriL 20 MG TABLET PO (08:24)
[2023-02-26] MEDS: METOPROLOL TARTRATE 25 MG TABLET PO (08:27)
[2023-02-26] MEDS: APIXABAN 2.5 MG TABLET PO (08:27)
[2023-02-26] MEDS: PANTOPRAZOLE 40 MG TABLET PO (08:27)
[2023-02-26] MEDS: OPTI-GEN TAB 1 TABLET PO (08:27)
[2023-02-26] MEDS: VITAMIN B COMPLEX CAPSULE 1 CAP PO (08:27)
--- NOTE | 2023-02-26 14:31 | PM.DS ---
DS: Admitting Diagnosis Discharge Date 02/26/23 Admitting Diagnosis hypertensive urgency DS: Discharge Diagnosis Discharge Diagnosis (1) Hypertensive urgency: Code(s): I16.0 - Hypertensive urgency Status: Acute Assessment and Plan: Her Lisinopril/HCTZ and Amlodipine were held since January admission for colitis restarted Lisinopril, HCTZ, amlodipine yesterday and will continue at discharge until apt with PCP CBC metabolic panel without concerning findings. Chest x-ray shows mild interstitial edema. s/p 40 mg Lasix x1 EKG without concerning changes in baseline troponin is negative. CT scan of the brain is normal plan for d/c today after afternoon BP recheck if below 145/90 and follow up with PCP Plan Chronic Conditions - Resume home albuterol, amitriptyline, vitamin-B complex, pantoprazole, metoprolol, levothyroxine, flecainide, Benadryl as needed, calcium /vitamin-D, biotin, and atorvastatin DS: Summary Hospital Course Hospital Course: Patient is a 83 YO female admitted from the ER after reporting some chest pain and SOB on 02/24 when sitting down watching television. She also felt as though she might be in atrial fibrillation and took her blood pressure. It was quite elevated, >200 systolic x2. She has also had a headache that lasted most of the day. Her PCP took her off hr Lisinopril, HCTZ and Amlodipine after a recent office follow up post d/c for colitis. Her BP at that time had been running low, however she does not make a habit to check her BP at home so doesn't know what it has been regularly since she has been off of these medications. Reports her legs have been swollen. Denies vision changes, vomiting, numbness or weakness. Denies recent viral illness, but regularly suffers from sinus headaches. She also reports some recent upper back pain. Ongoing over the last week, since she has been working on a large [employer] project requiring upper shoulder movement. Reports achy pain. She used Voltaren gel with some relief. She is not complaining of pain in her shoulders, or radiating pain today. She was given 40 of Lasix yesterday. Headache has resolved this morning. Denies any further nausea or vomiting. After a struggle with hr BP most of yesterday, they started to stabilize overnight and have improved throughout today. Discussed importance of checking BP at home daily and keeping track for her primary as hypertension is a silent killer. Will continue her antihypertensive regimen until she sees her PCP next week who can adjust if appropriate. Plan to d/c this afternoon after a BP check, if remains stable. Status at Discharge Functional status at discharge: independent ambulation Overall status at discharge: patient is back to baseline Time Spent with Patient Time attestation: Total time spent providing and/or coordinating discharge services: Exam Narrative: GENERAL: Elderly, well-nourished, and in no acute distress. HEAD: Normocephalic, atraumatic. EYES: PERRLA and EOMI. ENT: Nares clear, no rhinorrhea or epistaxis. Mucous membranes moist. Oropharynx without tonsillar hypertrophy exudate or other lesions. NECK: Supple. No adenopathy or masses. No JVD CHEST: Clear to auscultation. No respiratory distress. No wheezes rales or rhonchi HEART: RRR. No murmur heard. Normal peripheral pulses. EXTREMITIES: Normal range of motion. Mild, non-pitting edema to the bilateral lower extremities. SKIN: Warm, dry, no rash. NEURO: No focal deficits. Alert and oriented x3. PSYCH: Normal mood and affect DS: Data Data Completed and Pending Labs on day of discharge: Labs from last 24 hours 02/26/23 02/26/23 05:47 05:45 WBC 15.2 H Cancelled RBC 4.25 Cancelled Hgb 12.5 Cancelled Hct 38.7 Cancelled MCV 91.1 Cancelled MCH 29.4 Cancelled MCHC 32.3 Cancelled RDW 14.2 Cancelled Plt Count 286 Cancelled MPV 11.0 H Cancelled Immature Gran % (Auto) 0.5 Cancelled Neut % (Auto) 81.1 H Cancelled
== END 2023-02-26 15:31 | disposition home or self-care (01) ==
LOC: ANHED 23:10 → ANH2MED 02-25 00:34
PROVIDERS: Emergency Medicine; Nurse Practitioner; Admitting Provider Internal Medicine; Emergency Provider Physician Assistant; PCP Emergency Medicine; Visit Provider Internal Medicine
DX: I16.0 Hypertensive urgency (principal); I48.91 Unspecified atrial fibrillation; I10 Essential (primary) hypertension; R51.9 Headache, unspecified; R60.0 Localized edema; F41.9 Anxiety disorder, unspecified; E11.9 Type 2 diabetes mellitus without complications; I45.4 Nonspecific intraventricular block; I44.0 Atrioventricular block, first degree; K21.9 Gastro-esophageal reflux disease without esophagitis; J84.9 Interstitial pulmonary disease, unspecified; R79.89 Other specified abnormal findings of blood chemistry; E78.5 Hyperlipidemia, unspecified; E03.9 Hypothyroidism, unspecified; Z79.01 Long term (current) use of anticoagulants; Z79.51 Long term (current) use of inhaled steroids; Z79.899 Other long term (current) drug therapy; Z82.49 Family history of ischemic heart disease and other diseases of the circulatory system
CPT/HCPCS: 36415; 70450; 71045; 80048; 80053; 82550; 83690; 83880; 84484; 85025; 85027; 85380; 85610; 85730; 93005; 96374; 96375; 96376; 99285; A9270; G0378; J0360; J1940; J2765

== ENCOUNTER 2023-03-21 09:27 | Outpatient (CLI) | payer MEDICARE, SELFPAY ==
--- NOTE | 2023-03-21 09:32 | ECHO_ITS ---
Patient Info Name: Shatnel Oates Age: 83 years : 1940 Gender: Female Ht: 64 in Wt: 155 lbs BSA: 1.80 m2 HR: 67 bpm BP: 121 / 72 mmHg Heart Rhythm: Sinus Rhythm Technical Quality: Good Exam Date: 03/21/2023 9:38 AM Exam Location: Echo Lab Patient Status: Outpatient Admit Date: 03/21/2023 Staff Ordering Physician: Abhijit Erazo MD Machine Bookkeeper: Jaimie Yen CT Attending Provider: Abhijit Erazo MD Referring Physician: Castro BANKS; Exam Type: CA echo doppler color flow Study Info Indications - PAF Complete two-dimensional, color flow and Doppler transthoracic echocardiogram is performed. Summary 1. Complete two-dimensional, color flow and Doppler transthoracic echocardiogram is performed. 2. Left ventricular chamber dimension is mildly enlarged. 3. Left ventricular systolic function is normal, estimated at 55-60%. 4. The left ventricular diastolic function is grade I diastolic dysfunction. 5. E/e' 18 is elevated. 6. Left atrial chamber dimension is moderately enlarged. 7. Right atrial chamber dimension is mildly enlarged. 8. There is moderate mitral valve regurgitation. 9. There is moderate tricuspid valve regurgitation. 10. Mild pulmonary hypertension, estimated pulmonary arterial systolic pressure is 41 mmHg. Left Ventricle E/e' 18 is elevated. Left ventricular chamber dimension is mildly enlarged. Left ventricular systolic function is normal, estimated at 55-60%. The left ventricular diastolic function is grade I diastolic dysfunction. Right Ventricle Right ventricular systolic function is normal and with normal TAPSE 2.8 cm. Right ventricular chamber dimension is normal. Left Atria Left atrial chamber dimension is moderately enlarged. Right Atria Right atrial chamber dimension is mildly enlarged. Aortic Valve The aortic valve is trileaflet. There is no aortic valve stenosis. There is no aortic valve regurgitation. Pulmonic Valve There is no pulmonic regurgitation. Mitral Valve There is no mitral valve stenosis. There is moderate mitral valve regurgitation. Tricuspid Valve There is moderate tricuspid valve regurgitation. Mild pulmonary hypertension, estimated pulmonary arterial systolic pressure is 41 mmHg. Pericardium/Pleural There is no pericardial effusion. Inferior Vena Cava Normal inferior vena cava with >50% collapse upon inspiration consistent with normal right atrial pressure, 5 mmHg. Aorta The aortic root size at the sinus of Valsalva is normal. Left Ventricular Outflow Tract Name Value Normal LVOT 2D LVOT Diameter 2.2 cm LVOT Doppler LVOT Peak Gradient 4 mmHg LVOT Mean Gradient 2 mmHg LVOT VTI 26 cm LVOT VTI/AV VTI Ratio 0.7 LVOT Stroke Volume 98 ml LVOT CO 5.3 l/min LVOT CI 2.9 l/min/m2 Pulmonic Valve Name Value Normal RVOT Doppler
== END 2023-03-21 09:28 | disposition home or self-care (01) ==
LOC: ANHCARD 09:29
PROVIDERS: PCP Emergency Medicine; Visit Provider Emergency Medicine
DX: I48.0 Paroxysmal atrial fibrillation (principal); I50.9 Heart failure, unspecified; R93.1 Abnormal findings on diagnostic imaging of heart and coronary circulation; I34.0 Nonrheumatic mitral (valve) insufficiency; I07.1 Rheumatic tricuspid insufficiency; I27.20 Pulmonary hypertension, unspecified
CPT/HCPCS: 93306

== ENCOUNTER 2023-05-20 13:46 | Outpatient (CLI) | payer MEDICARE, SELFPAY ==
--- NOTE | ~2023-05-20 | XR_ITS ---
Right Knee Technique: AP, lateral, and sunrise views were obtained. Clinical History: Pain Findings: No fracture or dislocation is seen. Osseous alignment is anatomic. There is minimal patella r spurring. Soft tissues are unremarkable. No joint effusion is seen. Impression: Minimal patellar spurring. Reviewed, dictated and finalized at [facility]. INSPECTOR Impression: Minimal patellar spurring.
--- NOTE | ~2023-05-20 | XR_ITS ---
Left Knee Technique: AP, lateral, and sunrise views were obtained. Clinical History: Pain Findings: No fracture or dislocation is seen. Left knee arthroplasty in place, without hardware compl ication. Soft tissues are unremarkable. No joint effusion is seen. Impression: No acute abnormality. Left knee arthroplasty. Reviewed, dictated and finalized at [facility]. EUR/MASSEUSE Impression: No acute abnormality. Left knee arthroplasty.
== END 2023-05-20 13:47 ==
PROVIDERS: PCP Emergency Medicine; Visit Provider Emergency Medicine
DX: M25.761 Osteophyte, right knee (principal); M25.562 Pain in left knee; Z96.652 Presence of left artificial knee joint; W19.XXXA Unspecified fall, initial encounter
CPT/HCPCS: 73562

== ENCOUNTER → 2023-05-22 11:22 | Outpatient (CLI) | payer MEDICARE, SELFPAY ==
--- NOTE | ~2023-05-22 | MR_ITS ---
EXAMINATION: MR knee LT wo con DATE: 05/22/2023 12:33 INDICATION: Left lower leg injury TECHNIQUE: Magnetic resonance imaging (MRI) of the left knee was performed without intravenous contra st. Sequences included coronal PD-weighted FSE, coronal PD-weighted FS FSE, sagittal T2-weighted FSE , sagittal PD-weighted FS FSE and axial PD weighted fat saturated FSE. COMPARISON: None. FINDINGS: There is a large amount of metallic magnetic field artifact associated with a left total knee arthrop lasty with patellar resurfacing which obscures the immediately adjacent bone and soft tissues. Moderate sized left knee joint effusion. There is a moderate-sized Israel's cyst. There is some feathe ry muscular edema at the proximal medial head of the gastrocnemius muscle belly. There is subcutaneou s varicosities are mildly posterior to the knee. The visualized portions of the tendons are normal. T he non obscured marrow signal appears normal with no evident fracture, reactive edema or pathologic m arrow replacing process. IMPRESSION: 1. Left total knee arthroplasty with patellar resurfacing of the left knee which results magnetic fie ld artifact which obscures significant portions of the immediately adjacent bone and soft tissues. 2. Moderate-sized left knee joint effusion. 3. Feathery edema in the proximal medial head of the left gastric increased muscle without definite d iscrete tear consistent with low-grade strain. 4. Moderate-sized Israel's cyst. Reviewed, dictated and finalized at location A. TATION TRUCK DRIVER IMPRESSION: 1. Left total knee arthroplasty with patellar resurfacing of the left knee whic h results magnetic field artifact which obscures significant portions of the im mediately adjacent bone and soft tissues. 2. Moderate-sized left knee joint effusion. 3. Feathery edema in the proximal medial head of the left gastric increased mus christian without definite discrete tear consistent with low-grade strain. 4. Moderate-sized Israel's cyst.
== END ==
PROVIDERS: PCP Emergency Medicine; Visit Provider Emergency Medicine
DX: M25.462 Effusion, left knee (principal); M71.22 Synovial cyst of popliteal space [Baker], left knee; Z96.652 Presence of left artificial knee joint; X58.XXXA Exposure to other specified factors, initial encounter
CPT/HCPCS: 73721

== ENCOUNTER 2023-05-29 21:30 | Emergency (ER) | payer MEDICARE, SELFPAY ==
--- NOTE | ~2023-05-29 | CT_ITS ---
EXAMINATION: CT brain wo con DATE: 05/29/2023 22:48 INDICATION: Numbness behind right ear. TECHNIQUE: Computed tomography (CT) of the head was performed without intravenous contrast. The mA wa s adjusted according to patient size. Iterative reconstruction technique was employed. The dose-lengt h product was 681.00 mGy-cm. COMPARISON: Head CT 02/24/2023 FINDINGS: There are scattered areas of low attenuation in the cerebral white matter, which is within normal limits for the patient's age. There is no intracranial hemorrhage, acute infarction, or abnorm al intracranial mass lesion. The ventricles are normal in size. There are likely changes of ocular le ns replacement surgeries. There is mild mucosal thickening in the paranasal sinuses. The mastoid air cells are normal. IMPRESSION: 1. Normal aging brain. Reviewed, dictated and finalized at location E. S REPRESENTATIVE WOMENS HEALTH IMPRESSION: 1. Normal aging brain.
--- NOTE | ~2023-05-29 | XR_ITS ---
EXAMINATION: XR chest 2V DATE: 05/29/2023 22:50 INDICATION: Shortness of breath. TECHNIQUE: Frontal and lateral views of the chest were obtained. COMPARISON: Chest single view 02/24/2023, CT abdomen and pelvis 01/21/2023 FINDINGS: There are chronic reticular opacities in the mid and lower lung zones with a peripheral pre dominance. No pleural effusion or pneumothorax. The heart size is normal. Calcified right hilar lymph nodes are consistent with old granulomatous disease. IMPRESSION: 1. Stable mild chronic interstitial lung disease. Reviewed, dictated and finalized at location E. E WORK CHECKER
[2023-05-29 21:32] VITALS: BP 158/82; PULSE 72; RESP 16; TEMP 36.4; O2SAT 100
--- NOTE | 2023-05-29 21:33 | ECG_ITS ---
Measurements Intervals [place] Rate: 75 P: 11 AR: 130 QRS: -14 QRSD: 136 T: 61 QT: 393 QTc: 440 Interpretive Statements SINUS RHYTHM BASELINE ARTIFACT INTRAVENTRICULAR CONDUCTION DELAY [130+ ms QRS DURATION] POSSIBLE LEFT VENTRICULAR HYPERTROPHY [VOLTAGE CRITERIA PLUS LAE OR QRS WIDENING] BORDERLINE ECG COMPARED TO ECG 02/24/2023 20:53:37 NO SIGNIFICANT CHANGES Electronically Signed On 05-30-2023 14:39:11 PITTING MACHINE OPERATOR by Terry Vazquez M.D.
--- NOTE | 2023-05-29 21:58 | PC.NURSE ---
Pt during triage had reported that symptoms had resolved. During EKG reports that symptoms of tremors and sob have returned, as well as numbness to behind right ear and neck. Bilateral cyber security architect equal and weak, but seems to be due to tremors. No speech changes, facial droop or other concerns. Spoke with Dr Fritz who does not recommend stroke work up at this time. Does want cardiac work up with head CT non con.
[2023-05-29 22:09] LABS: Basophils Percent Auto 0.4 % (0.2-1.2); Eosinophils Absolute Auto 0.3 K/mm3 (0-0.3); Eosinophils Percent Auto 6.5 % (0-4.4); Hemoglobin 10.3 g/dL (12.0-15.0); Immature Granulocyte Absolute 0.01 K/mm3 (0.00-0.031); Immature Granulocyte Percent A 0.2 % (0-0.5); Lymphocytes Absolute Auto 1.69 K/mm3 (0.9-3.2); Lymphocytes Percent Auto 32.2 % (18.3-44.2); Mean Corpuscular HGB Conc 33.2 g/dl (32-36); Mean Corpuscular Hemoglobin 29.3 pg (26-34); Mean Corpuscular Volume 88.1 fl (80-100); Mean Platelet Volume 10.2 fl (7.4-10.4); Monocytes Absolute Auto 0.4 K/mm3 (0.1-0.6); Monocytes Percent Auto 8.4 % (2.6-8.5); Neutrophils Absolute Auto 2.8 K/mm3 (1.3-6.7); Neutrophils Percent Auto 52.3 % (45.5-73.1); Platelet Count Result 379 k/mm3 (150-375); Red Blood Count 3.52 M/mm3 (4.2-5.4); Red Cell Distribution Width 14.1 % (11.5-14.5); White Blood Count 5.3 K/mm3 (4.5-10.0)
[2023-05-29 22:19] LABS: Alanine Aminotransferase 22 U/L (6-35); Albumin Level 3.9 g/dL (3.5-5.1); Alkaline Phosphatase 162 U/L (38-126); Anion Gap 9 mmol/L (8-16); Aspartate Amino Transferase 43 U/L (14-36); Bilirubin,Total 0.4 mg/dL (0.2-1.3); Blood Urea Nitrogen 42 mg/dL (7-17); Calcium 9.7 mg/dL (8.4-10.2); Carbon Dioxide 22 mmol/L (22-30); Chloride 104 mmol/L (98-107); Estimated CRCL calculation 21 ml/min; Estimated Glomerular Filt Rate 25; Glucose 107 mg/dL (65-110); Potassium 4.2 mmol/L (3.4-5.0); Sodium 135 mmol/L (137-145)
[2023-05-29 22:52] LABS: Troponin I < 0.012 ng/mL (0.000-0.034)
--- NOTE | 2023-05-30 07:49 | ED.GENADULT ---
HPI - General Adult General Chief complaint: Shortness of Breath/Dyspnea Stated complaint: SOB/shaking Time Seen by Provider: 05/30/23 07:08 History of Present Illness HPI narrative: 83-year-old female presented to the emergency department for evaluation of tremor. Patient states last night she had onset arm and leg shaking. Patient denies any other symptoms with this. Patient reports the leg shaking has resolved. Patient reports that she did feeling she was having some rapid heart rate last night prior to getting her metoprolol. Patient's vital signs stable here in the emergency department. Related Data Home Medications Medication Instructions Recorded Confirmed vitamins A,C,R-[id number] 2,148 1 tablet PO DAILY 04/01/19 04/28/23 mcg-113 mg-45 mg-17.4 mg tablet (PreserVision AREDS) biotin 5 mg tablet 5 mg PO DAILY 06/24/19 04/28/23 vitamin B complex 1 tablet PO DAILY 06/24/19 04/28/23 calcium citrate-ergocalciferol 1 tablet PO DAILY 08/29/21 04/28/23 (vitamin D2) 315 mg-200 unit tablet Benadryl 50 mg PO TID PRN Allergy Symptoms 01/21/23 04/28/23 Allergies Allergy/AdvReac Type Severity Reaction Status Date / Time acetaminophen [From Tylenol] Allergy Severe Swelling Verified 05/20/23 14:41 ibuprofen Allergy Severe Swelling Verified 05/20/23 14:41 of Lip/Tongue/Throat naproxen [From Aleve] Allergy Severe Swelling Verified 05/20/23 14:41 of Lip/Tongue/Throat strawberry Allergy Severe Swelling Verified 05/20/23 14:41 of Lip/Tongue/Throat adhesive Allergy Mild Rash Verified 05/20/23 14:41 latex Allergy Mild Rash Verified 05/20/23 14:41 morphine Allergy Hallucinati Verified 05/20/23 14:41 ng influenza virus vaccine tv AdvReac Severe very sick Verified 05/20/23 14:41 2012-(18-49 yrs),rcmb with fever [From Flublok] and myalgia Review of Systems Review of Systems: All systems reviewed & are unremarkable except as noted in HPI and below PMFSH Past Medical History Medical History Adenomatous colon polyp added to history in , Anxiety Chronic anticoagulation Diet-controlled diabetes mellitus Hemoglobin A1c was 5.5 on March 25, 2019. Gastric AVM GERD (gastroesophageal reflux disease) History of Clostridioides difficile infection History of postoperative nausea and vomiting Hyperlipidemia Hypothyroidism Mitral valve prolapse Osteoarthritis Renal cyst Surgical History Surgical History H/O dilation and curettage x4 H/O hemorrhoidectomy History of bladder suspension procedure History of hip replacement (~06/06/19) left History of incisional hernia repair Robotic assisted repair periumbilical incisional hernia with mesh 07/10/[address] Bee. History of varicose vein ligation and stripping (~1991) right leg Hx of colonoscopy Hx of exploratory laparotomy Exploratory laparoscopy, lysis of adhesion on 07/15/[address] Bee Status post arthroscopy of left knee (~05/04/19) Status post breast biopsy (~1972) Left breast biopsy with benign histology. Status post cardiac catheterization Coronary angiogram March 2014 showed normal coronary arteries. Status post cataract extraction (~05/20/16) right Status post cholecystectomy (~2001) Status post hysterectomy (~1970) Status post total left knee replacement (~05/04/19) Family History Family History Father Family history of cardiovascular disease Family history of kidney disease Family history of aortic aneurysm Mother Diabetes mellitus Family history of Alzheimer's disease Family history of malignant neoplasm of brain Grandparent Cerebrovascular accident Other Breast cancer Eye cancer Social History Social History Social History: The patient is [place]
[2023-05-30] MEDS: SODIUM CHLORIDE 0.9% IV 1,000 ML 999 ML IV CONT (07:58)
[2023-05-30] MEDS: LORazepam INJ (*CRX) 2 MG/ML VIAL 0.5 MG IV PUSH (07:59)
[2023-05-30 08:00] VITALS: O2SAT 100
[2023-05-30 08:01] VITALS: BP 165/89; PULSE 78; RESP 20; O2SAT 100
[2023-05-30 09:02] VITALS: BP 144/71; PULSE 75; RESP 15; O2SAT 100
[2023-05-30 09:47] VITALS: BP 131/61; PULSE 76; RESP 13; O2SAT 100
[2023-05-30 10:02] VITALS: BP 129/71; PULSE 76; RESP 17; O2SAT 97
[2023-05-30 10:17] LABS: Influenza A QL RT-PCR Negative (Negative); Influenza B QL RT-PCR Negative (Negative); RSV RNA, RT-PCR Negative (Negative); SARS-CoV-2 RNA PCR Negative (Negative)
== END 2023-05-30 10:24 | disposition home or self-care (01) ==
PROVIDERS: Emergency Medicine; Emergency Provider Emergency Medicine; PCP Emergency Medicine
DX: R25.1 Tremor, unspecified (principal); R00.0 Tachycardia, unspecified; Z20.822 Contact with and (suspected) exposure to COVID-19; E11.9 Type 2 diabetes mellitus without complications; I34.1 Nonrheumatic mitral (valve) prolapse; K21.9 Gastro-esophageal reflux disease without esophagitis; E78.5 Hyperlipidemia, unspecified; E03.9 Hypothyroidism, unspecified; M19.90 Unspecified osteoarthritis, unspecified site; Z96.642 Presence of left artificial hip joint; Z96.652 Presence of left artificial knee joint; Z86.010 Personal history of colon polyps; Z98.41 Cataract extraction status, right eye; Z90.49 Acquired absence of other specified parts of digestive tract; Z90.710 Acquired absence of both cervix and uterus; Z79.01 Long term (current) use of anticoagulants; J84.9 Interstitial pulmonary disease, unspecified; I45.9 Conduction disorder, unspecified; R94.31 Abnormal electrocardiogram [ECG] [EKG]
CPT/HCPCS: 36415; 70450; 71046; 80053; 84484; 85025; 87637; 93005; 96361; 96374; 99284; J2060; J7030

== ENCOUNTER 2023-07-03 13:40 | Emergency (ER) | payer MEDICARE, SELFPAY ==
--- NOTE | 2023-07-03 13:42 | ED.SOB ---
HPI - SOB/Dyspnea General Chief Complaint: Dizziness Stated Complaint: SOB Time Seen by Provider: 07/03/23 13:50 Source: patient and RN notes reviewed Mode of arrival: ambulatory Limitations: no limitations History of Present Illness HPI Narrative: 83-year-old female presents with concern for 3 day history of shortness of breath, productive cough, dizziness, headache, reports it feels like something is squeezing her head. She denies fever, body aches, chills, sweats. MD elicited complaint: shortness of breath Related Data Home Medications Medication Instructions Recorded Confirmed vitamins A,C,Y-oswv-cdhtys 2,148 1 tablet PO DAILY 04/01/19 06/10/23 mcg-113 mg-45 mg-17.4 mg tablet (PreserVision AREDS) biotin 5 mg tablet 5 mg PO DAILY 06/24/19 06/10/23 vitamin B complex 1 tablet PO DAILY 06/24/19 06/10/23 calcium citrate-ergocalciferol 1 tablet PO DAILY 08/29/21 06/10/23 (vitamin D2) 315 mg-200 unit tablet Benadryl 50 mg PO TID PRN Allergy Symptoms 01/21/23 06/10/23 Allergies Allergy/AdvReac Type Severity Reaction Status Date / Time acetaminophen [From Tylenol] Allergy Severe Swelling Verified 06/25/23 13:06 ibuprofen Allergy Severe Swelling Verified 06/25/23 13:06 of Lip/Tongue/Throat naproxen [From Aleve] Allergy Severe Swelling Verified 06/25/23 13:06 of Lip/Tongue/Throat strawberry Allergy Severe Swelling Verified 06/25/23 13:06 of Lip/Tongue/Throat adhesive Allergy Mild Rash Verified 06/25/23 13:06 latex Allergy Mild Rash Verified 06/25/23 13:06 morphine Allergy Hallucinati Verified 06/25/23 13:06 ng influenza virus vaccine tv AdvReac Severe very sick Verified 06/25/23 13:06 2013-14(18-49 yrs),mb with fever [From Flublok] and myalgia Review of Systems Review of Systems: CONSTITUTIONAL: Reports malaise. Denies chills, sweats, or fever. CARDIOVASCULAR: Denies chest pain, palpitations, or edema. RESPIRATORY: Reports productive cough. Reports dyspnea. GASTROINTESTINAL: Denies abdominal pain, nausea, vomiting, diarrhea SKIN: Denies rash or itching. MUSCULOSKELETAL: Denies myalgia. NEUROLOGIC: Reports headache, dizziness. All systems reviewed & are unremarkable except as noted in HPI and below PMFSH Past Medical History Medical History Adenomatous colon polyp added to history in Anxiety Chronic anticoagulation Diet-controlled diabetes mellitus Hemoglobin A1c was 5.5 on March 25, 2019. Gastric AVM GERD (gastroesophageal reflux disease) History of Clostridioides difficile infection History of postoperative nausea and vomiting Hyperlipidemia Hypothyroidism Mitral valve prolapse Osteoarthritis Renal cyst Surgical History Surgical History H/O dilation and curettage x4 H/O hemorrhoidectomy History of bladder suspension procedure History of hip replacement (~06/06/19) left History of incisional hernia repair Robotic assisted repair periumbilical incisional hernia with mesh 07/10/[address] Bee. History of varicose vein ligation and stripping (~1991) right leg Hx of colonoscopy Hx of exploratory laparotomy Exploratory laparoscopy, lysis of adhesion on 07/15/[address] Bee Status post arthroscopy of left knee (~05/04/19) Status post breast biopsy (~1972) Left breast biopsy with benign histology. Status post cardiac catheterization Coronary angiogram March 2014 showed normal coronary arteries. Status post cataract extraction (~05/20/16) right Status post cholecystectomy (~2001) Status post hysterectomy (~1970) Status post total left knee replacement (~05/04/19) Family History Family History Father Family history of cardiovascular disease Family history of kidney disease Family history of aortic aneurysm Mother Diabetes mellitus Family history of Alzheimer's dise
[2023-07-03 13:50] VITALS: PULSE 50
[2023-07-03 13:54] VITALS: BP 136/83; PULSE 52; RESP 20; TEMP 36.6; O2SAT 100
--- NOTE | 2023-07-03 14:31 | ECG_ITS ---
Measurements Intervals [place] Rate: 50 P: 52 UT: 223 QRS: -20 QRSD: 150 T: 19 QT: 482 QTc: 443 Interpretive Statements SINUS BRADYCARDIA WITH FIRST DEGREE AV BLOCK INTRAVENTRICULAR CONDUCTION DELAY LEFT VENTRICULAR HYPERTROPHY WITH ST-T CHANGE BORDERLINE T WAVE ABNORMALITY- ANTERIOR LEADS BASELINE ARTIFACT- I, II, III, AVR, AVL, AVF BORDERLINE ECG COMPARED TO ECG 05/29/2023 21:42:54 SINUS BRADYCARDIA NOW PRESENT FIRST DEGREE AV BLOCK NOW PRESENT Electronically Signed On 07-05-2023 19:39:51 CDT by Ryan De La Vega D.O.
== END 2023-07-03 14:00 | disposition short-term general hospital (02) ==
PROVIDERS: Emergency Provider Nurse Practitioner; PCP Emergency Medicine
DX: R06.02 Shortness of breath (principal); E11.9 Type 2 diabetes mellitus without complications; K21.9 Gastro-esophageal reflux disease without esophagitis; E78.5 Hyperlipidemia, unspecified; E03.9 Hypothyroidism, unspecified; I34.1 Nonrheumatic mitral (valve) prolapse; M19.90 Unspecified osteoarthritis, unspecified site; Z96.642 Presence of left artificial hip joint; Z96.652 Presence of left artificial knee joint
CPT/HCPCS: 93005; 99213; G0463

== ENCOUNTER 2023-07-03 14:19 | Emergency (ER) | payer MEDICARE, SELFPAY ==
--- NOTE | ~2023-07-03 | XR_ITS ---
EXAMINATION: XR chest 1V DATE: 07/03/2023 16:44 INDICATION: Bradycardia. Cough. Shortness of breath. TECHNIQUE: A single frontal view of the chest was obtained. COMPARISON: Chest 2 views 05/29/2023 FINDINGS: There is chronic mild elevation of right hemidiaphragm. There are peripheral interstitial o pacities in the lungs with a lower lung predominance. No pleural effusion or pneumothorax. The heart size is normal. Surgical clips in the right upper quadrant are likely from cholecystectomy. IMPRESSION: 1. Stable mild chronic interstitial lung disease. Reviewed, dictated and finalized at location A.
[2023-07-03 14:27] VITALS: BP 124/58; PULSE 52; RESP 18; TEMP 36; O2SAT 94
--- NOTE | 2023-07-03 14:30 | ECG_ITS ---
Measurements Intervals [place] Rate: 50 P: 80 LA: 227 QRS: -24 QRSD: 165 T: 10 QT: 493 QTc: 450 Interpretive Statements SINUS BRADYCARDIA WITH FIRST DEGREE AV BLOCK INTRAVENTRICULAR CONDUCTION DELAY BORDERLINE T WAVE ABNORMALITY- ANT/INF LEADS BASELINE ARTIFACT- I, II, III, AVR, AVL, AVF, V1-V6 BORDERLINE ECG COMPARED TO ECG 05/29/2023 21:42:54 SINUS BRADYCARDIA NOW PRESENT FIRST DEGREE AV BLOCK NOW PRESENT Electronically Signed On 07-03-2023 14:35:08 CDT by Ryan De La Vega D.O.
[2023-07-03 14:44] LABS: Basophils Percent Auto 0.3 % (0.2-1.2); Eosinophils Absolute Auto 0.4 K/mm3 (0-0.3); Hematocrit 32.3 % (37.0-47.0); Hemoglobin 10.6 g/dL (12.0-15.0); Immature Granulocyte Absolute 0.07 K/mm3 (0.00-0.031); Immature Granulocyte Percent A 0.9 % (0-0.5); Lymphocytes Absolute Auto 1.35 K/mm3 (0.9-3.2); Lymphocytes Percent Auto 17.8 % (18.3-44.2); Mean Corpuscular HGB Conc 32.8 g/dl (32-36); Mean Corpuscular Hemoglobin 29.5 pg (26-34); Mean Platelet Volume 11.2 fl (7.4-10.4); Monocytes Absolute Auto 0.5 K/mm3 (0.1-0.6); Monocytes Percent Auto 7.1 % (2.6-8.5); Neutrophils Absolute Auto 5.2 K/mm3 (1.3-6.7); Neutrophils Percent Auto 68.9 % (45.5-73.1); Platelet Count Result 231 k/mm3 (150-375); Red Blood Count 3.59 M/mm3 (4.2-5.4); Red Cell Distribution Width 14.6 % (11.5-14.5); White Blood Count 7.6 K/mm3 (4.5-10.0)
[2023-07-03 15:16] LABS: Alanine Aminotransferase 40 U/L (6-35); Alkaline Phosphatase 95 U/L (38-126); Anion Gap 8 mmol/L (4-12); Aspartate Amino Transferase 57 U/L (14-36); Bilirubin,Total 0.7 mg/dL (0.2-1.3); Blood Urea Nitrogen 47 mg/dL (7-17); Calcium 9.1 mg/dL (8.4-10.2); Carbon Dioxide 24 mmol/L (22-30); Chloride 94 mmol/L (98-107); Estimated CRCL calculation 15 ml/min; Estimated Glomerular Filt Rate 21; Glucose 104 mg/dL (65-110); Sodium 126 mmol/L (137-145)
[2023-07-03 16:25] VITALS: BP 165/65; PULSE 56; RESP 17; TEMP 36.5; O2SAT 100
[2023-07-03] MEDS: LACTATED RINGERS 1,000 ML 999 ML IV CONT (16:30)
[2023-07-03 17:15] LABS: Influenza A QL RT-PCR Negative (Negative); Influenza B QL RT-PCR Negative (Negative); RSV RNA, RT-PCR Negative (Negative); SARS-CoV-2 RNA PCR Negative (Negative)
[2023-07-03 17:20] VITALS: BP 166/64; PULSE 56; RESP 14; O2SAT 98
--- NOTE | 2023-07-03 17:37 | ED.DIZZY ---
HPI - Dizziness General Chief Complaint: Dizziness Stated Complaint: dizziness, shortness of breath Time Seen by Provider: 07/03/23 16:23 History of Present Illness HPI Narrative: Patient states 2 days ago she started feeling unwell, with cough, slight shortness of breath, and some nausea and lightheadedness, has not been drinking or eating as much. Contracted COVID a year ago and lungs have not been the same since. Related Data Home Medications Medication Instructions Recorded Confirmed vitamins A,C,G-nwxk-gllvjf 2,148 1 tablet PO DAILY 04/01/19 06/10/23 mcg-113 mg-45 mg-17.4 mg tablet (PreserVision AREDS) biotin 5 mg tablet 5 mg PO DAILY 06/24/19 06/10/23 vitamin B complex 1 tablet PO DAILY 06/24/19 06/10/23 calcium citrate-ergocalciferol 1 tablet PO DAILY 08/29/21 06/10/23 (vitamin D2) 315 mg-200 unit tablet Benadryl 50 mg PO TID PRN Allergy Symptoms 01/21/23 06/10/23 Allergies Allergy/AdvReac Type Severity Reaction Status Date / Time acetaminophen [From Tylenol] Allergy Severe Swelling Verified 07/03/23 14:20 ibuprofen Allergy Severe Swelling Verified 07/03/23 14:20 of Lip/Tongue/Throat naproxen [From Aleve] Allergy Severe Swelling Verified 07/03/23 14:20 of Lip/Tongue/Throat strawberry Allergy Severe Swelling Verified 07/03/23 14:20 of Lip/Tongue/Throat adhesive Allergy Mild Rash Verified 07/03/23 14:20 latex Allergy Mild Rash Verified 07/03/23 14:20 morphine Allergy Hallucinati Verified 07/03/23 14:20 ng influenza virus vaccine tv AdvReac Severe very sick Verified 07/03/23 14:20 2012-(18-49 yrs),rcmb with fever [From Flublok] and myalgia Review of Systems Review of Systems: CONST: No fever. HEENT: No sore throat C/V: No chest pain RESP: Cough and slight shortness of breath GI: Mild nausea and loss of appetite : No dysuria. M/S: No joint pain. SKIN: No rash. NEURO: Lightheadedness without focal numbness or weakness PSYCH: [No depression] [facility] Past Medical History Medical History Adenomatous colon polyp added to history in Anxiety Chronic anticoagulation Diet-controlled diabetes mellitus Hemoglobin A1c was 5.5 on March 25, 2019. Gastric AVM GERD (gastroesophageal reflux disease) History of Clostridioides difficile infection History of postoperative nausea and vomiting Hyperlipidemia Hypothyroidism Mitral valve prolapse Osteoarthritis Renal cyst Surgical History Surgical History H/O dilation and curettage x4 H/O hemorrhoidectomy History of bladder suspension procedure History of hip replacement (~06/06/19) left History of incisional hernia repair Robotic assisted repair periumbilical incisional hernia with mesh 07/10/[address] Bee. History of varicose vein ligation and stripping (~1991) right leg Hx of colonoscopy Hx of exploratory laparotomy Exploratory laparoscopy, lysis of adhesion on 07/15/[address] Bee Status post arthroscopy of left knee (~05/04/19) Status post breast biopsy (~1972) Left breast biopsy with benign histology. Status post cardiac catheterization Coronary angiogram March 2014 showed normal coronary arteries. Status post cataract extraction (~05/20/16) right Status post cholecystectomy (~2001) Status post hysterectomy (~1970) Status post total left knee replacement (~05/04/19) Family History Family History Father Family history of cardiovascular disease Family history of kidney disease Family history of aortic aneurysm Mother Diabetes mellitus Family history of Alzheimer's disease Family history of malignant neoplasm of brain Grandparent Cerebrovascular accident Other Breast cancer Eye cancer Social History Social History Social History: The patient is wido
[2023-07-03 17:48] VITALS: BP 175/68; PULSE 62; RESP 15; O2SAT 100
== END 2023-07-03 18:03 | disposition home or self-care (01) ==
PROVIDERS: Emergency Provider Emergency Medicine; PCP Emergency Medicine
DX: B34.9 Viral infection, unspecified (principal); Z20.822 Contact with and (suspected) exposure to COVID-19; I34.1 Nonrheumatic mitral (valve) prolapse; E11.9 Type 2 diabetes mellitus without complications; E78.5 Hyperlipidemia, unspecified; E03.9 Hypothyroidism, unspecified; K21.9 Gastro-esophageal reflux disease without esophagitis; M19.90 Unspecified osteoarthritis, unspecified site; Z96.642 Presence of left artificial hip joint; Z96.652 Presence of left artificial knee joint; Z86.16 Personal history of COVID-19; Z86.010 Personal history of colon polyps; Z98.41 Cataract extraction status, right eye; Z90.710 Acquired absence of both cervix and uterus; Z79.01 Long term (current) use of anticoagulants; R00.1 Bradycardia, unspecified; I45.9 Conduction disorder, unspecified; I44.0 Atrioventricular block, first degree
CPT/HCPCS: 36415; 71045; 80053; 85025; 87637; 93005; 96360; 99284; J7120

== ENCOUNTER 2023-07-14 11:58 | Outpatient (CLI) | payer MEDICARE, SELFPAY ==
--- NOTE | ~2023-07-14 | XR_ITS ---
Clinical Indication: Dyspnea PA and lateral views of the chest: Comparison: 07/03/2023 Findings: The lungs are clear, without evidence of focal consolidation or pleural effusion. Cardiome diastinal silhouette is within normal limits. Bones and soft tissues are unremarkable. Impression: Normal chest. Reviewed, dictated and finalized at location . Impression: Normal chest.
== END 2023-07-14 11:59 ==
PROVIDERS: PCP Emergency Medicine; Visit Provider Emergency Medicine
DX: R06.00 Dyspnea, unspecified (principal)
CPT/HCPCS: 71046

== ENCOUNTER 2023-07-14 12:31 | Outpatient (CLI) | payer MEDICARE, SELFPAY ==
[2023-07-14 20:19] LABS: Alanine Aminotransferase 25 U/L (6-35); Albumin Level 4.2 g/dL (3.5-5.1); Alkaline Phosphatase 86 U/L (38-126); Anion Gap 7 mmol/L (4-12); Aspartate Amino Transferase 55 U/L (14-36); Bilirubin,Total 0.7 mg/dL (0.2-1.3); Blood Urea Nitrogen 33 mg/dL (7-17); Carbon Dioxide 27 mmol/L (22-30); Chloride 100 mmol/L (98-107); Estimated Glomerular Filt Rate 22; Glucose 90 mg/dL (65-110); Potassium 4.7 mmol/L (3.4-5.0); Sodium 134 mmol/L (137-145)
== END 2023-07-14 12:32 | disposition home or self-care (01) ==
LOC: ANHGOSHLAB 12:33
PROVIDERS: PCP Emergency Medicine; Visit Provider Emergency Medicine
DX: R06.00 Dyspnea, unspecified (principal)
CPT/HCPCS: 36415; 80053

== ENCOUNTER 2023-08-20 14:53 | Emergency (ER) | payer MEDICARE, SELFPAY ==
--- NOTE | ~2023-08-20 | CT_ITS ---
EXAMINATION: CT brain wo con DATE: 08/20/2023 15:23 INDICATION: Head injury. Headache. TECHNIQUE: Computed tomography (CT) of the head was performed without intravenous contrast. The mA wa s adjusted according to patient size. Iterative reconstruction technique was employed. The dose-lengt h product was 681.00 mGy-cm. COMPARISON: Head CT 05/29/2023 FINDINGS: There are scattered areas of low attenuation in the cerebral white matter, which is within normal limits for the patient's age. There is no intracranial hemorrhage, acute infarction, or abnorm al intracranial mass lesion. The ventricles are normal in size. There is mild mucosal thickening in t he paranasal sinuses. The mastoid air cells are normal. There are likely changes of ocular lens repla cement surgeries. IMPRESSION: 1. Normal aging brain. Reviewed, dictated and finalized at location E. IMPRESSION: 1. Normal aging brain.
--- NOTE | ~2023-08-20 | CT_ITS ---
EXAMINATION: CT cervical spine wo con DATE: 08/20/2023 15:24 INDICATION: Head injury. Neck pain. TECHNIQUE: Computed tomography (CT) of the cervical spine was performed without intravenous contrast. Automated exposure control and iterative reconstruction technique were employed. The dose-length pro duct was 254.85 mGy-cm. COMPARISON: CT cervical spine 11/07/2020 FINDINGS: There is 7 degrees levocurvature of lumbar spine. There is kyphosis of cervical spine. Vert ebral body heights are normal. There is mildly decreased disc height at C4-C5 and severely decreased disc height at C5-C6 and C6-C7. The following disc levels are specifically discussed: C2-C3: There is no uncovertebral joint osteoarthritis. There is mild bilateral facet joint osteoarthr itis. There is no neural foraminal stenosis. There is no central canal stenosis. C3-C4: There is no uncovertebral joint osteoarthritis. There is mild right facet joint osteoarthritis . There is no neural foraminal stenosis. There is no central canal stenosis. C4-C5: There is mild bilateral uncovertebral joint osteoarthritis. There is severe right and mild lef t facet joint osteoarthritis. There is no neural foraminal stenosis. There is no central canal stenos is. C5-C6: There is severe bilateral uncovertebral joint osteoarthritis. There is mild bilateral facet dae int osteoarthritis. There is mild bilateral neural foraminal stenosis. There is mild central canal st enosis. C6-C7: There is severe bilateral uncovertebral joint osteoarthritis. There is moderate right and mild left facet joint osteoarthritis. There is mild bilateral neural foraminal stenosis. There is no cent ral canal stenosis. C7-T1: There is no uncovertebral joint osteoarthritis. There is severe bilateral facet joint osteoart hritis. There is mild bilateral neural foraminal stenosis. There is no central canal stenosis. IMPRESSION: 1. No fracture. 2. Severe cervical spondylosis. Reviewed, dictated and finalized at location E.
[2023-08-20 14:57] VITALS: BP 157/83; PULSE 67; RESP 17; TEMP 36.9; O2SAT 98
--- NOTE | 2023-08-20 15:13 | ED.GENADULT ---
HPI - General Adult General Chief complaint: Headache Stated complaint: Headache Time Seen by Provider: 08/20/23 14:56 History of Present Illness HPI narrative: 83 old female presenting to the emergency department for evaluation for headache after a head injury. Patient reports on 08/08 she stood up from getting something the refrigerator struck her head on the freezer door, patient denies a loss consciousness with this. Patient states she did this twice that day. Patient states she has not take anything for pain control because she has underlying allergies to acetaminophen ibuprofen. patient states he has had some intermittent dizziness. Patient denies any other falls or injuries. Patient is on Eliquis. Related Data Home Medications Medication Instructions Recorded Confirmed vitamins A,C,H-pytw-wrwhzq 2,148 1 tablet PO DAILY 04/01/19 07/28/23 mcg-113 mg-45 mg-17.4 mg tablet (PreserVision AREDS) biotin 5 mg tablet 5 mg PO DAILY 06/24/19 07/28/23 vitamin B complex 1 tablet PO DAILY 06/24/19 07/28/23 calcium citrate-ergocalciferol 1 tablet PO DAILY 08/29/21 07/28/23 (vitamin D2) 315 mg-200 unit tablet Benadryl 50 mg PO TID PRN Allergy Symptoms 01/21/23 07/28/23 Allergies Allergy/AdvReac Type Severity Reaction Status Date / Time acetaminophen [From Tylenol] Allergy Severe Swelling Verified 07/28/23 10:53 ibuprofen Allergy Severe Swelling Verified 07/28/23 10:53 of Lip/Tongue/Throat naproxen [From Aleve] Allergy Severe Swelling Verified 07/28/23 10:53 of Lip/Tongue/Throat strawberry Allergy Severe Swelling Verified 07/28/23 10:53 of Lip/Tongue/Throat adhesive Allergy Mild Rash Verified 07/28/23 10:53 latex Allergy Mild Rash Verified 07/28/23 10:53 morphine Allergy Hallucinati Verified 07/28/23 10:53 ng influenza virus vaccine tv AdvReac Severe very sick Verified 07/28/23 10:53 2012-(18-49 yrs),rcmb with fever [From Flublok] and myalgia Review of Systems Review of Systems: All systems reviewed & are unremarkable except as noted in HPI and below PMFSH Past Medical History Medical History Adenomatous colon polyp added to history in Anxiety Chronic anticoagulation Diet-controlled diabetes mellitus Hemoglobin A1c was 5.5 on March 25, 2019. Gastric AVM GERD (gastroesophageal reflux disease) History of Clostridioides difficile infection History of postoperative nausea and vomiting Hyperlipidemia Hypothyroidism Mitral valve prolapse Osteoarthritis Renal cyst Surgical History Surgical History H/O dilation and curettage x4 H/O hemorrhoidectomy History of bladder suspension procedure History of hip replacement (~06/06/19) left History of incisional hernia repair Robotic assisted repair periumbilical incisional hernia with mesh 07/10/[address] Bee. History of varicose vein ligation and stripping (~1991) right leg Hx of colonoscopy Hx of exploratory laparotomy Exploratory laparoscopy, lysis of adhesion on 07/15/[address] Bee Status post arthroscopy of left knee (~05/04/19) Status post breast biopsy (~1972) Left breast biopsy with benign histology. Status post cardiac catheterization Coronary angiogram March 2014 showed normal coronary arteries. Status post cataract extraction (~05/20/16) right Status post cholecystectomy (~2001) Status post hysterectomy (~1970) Status post total left knee replacement (~05/04/19) Family History Family History Father Family history of cardiovascular disease Family history of kidney disease Family history of aortic aneurysm Mother Diabetes mellitus Family history of Alzheimer's disease Family history of malignant neoplasm of brain Grandparent Cerebrovascular accident Other Breast cancer Eye cancer Social History Social History (Revi
[2023-08-20 16:16] VITALS: BP 149/82; PULSE 71; RESP 18; TEMP 36.8; O2SAT 100
== END 2023-08-20 16:18 | disposition home or self-care (01) ==
PROVIDERS: Emergency Provider Emergency Medicine; PCP Emergency Medicine
DX: R51.9 Headache, unspecified (principal); I34.1 Nonrheumatic mitral (valve) prolapse; E11.9 Type 2 diabetes mellitus without complications; E78.5 Hyperlipidemia, unspecified; E03.9 Hypothyroidism, unspecified; K21.9 Gastro-esophageal reflux disease without esophagitis; M19.90 Unspecified osteoarthritis, unspecified site; Z96.642 Presence of left artificial hip joint; Z96.652 Presence of left artificial knee joint; Z98.41 Cataract extraction status, right eye; Z86.010 Personal history of colon polyps; Z90.710 Acquired absence of both cervix and uterus; Z77.22 Contact with and (suspected) exposure to environmental tobacco smoke (acute) (chronic); M47.812 Spondylosis without myelopathy or radiculopathy, cervical region; W22.8XXA Striking against or struck by other objects, initial encounter; Z79.01 Long term (current) use of anticoagulants
CPT/HCPCS: 70450; 72125; 99284

== ENCOUNTER 2023-09-16 08:54 | Outpatient (CLI) | payer MEDICARE, SELFPAY ==
--- NOTE | ~2023-09-16 | CT_ITS ---
CT Scan of the Chest without Contrast: Clinical Indication: Dyspnea Technique: Contiguous sections were acquired throughout the chest without intravenous contrast. Dose reduction technique was used on this scan by utilizing automated exposure control and iterative recon struction technique. The dose-length product (DLP) was 127.76 mGy-cm. COMPARISON: 03/09/2020 Findings: There is no evidence of any significant mediastinal, hilar or axillary lymphadenopathy. The mediastin al soft tissues appear normal. There is no evidence of pleural or pericardial effusion. There is mild chronic interstitial disease, peripheral interstitial thickening and subpleural reticul ation. No suspicious pulmonary nodule seen. Images through the upper abdomen reveal no abnormalities. Impression: Mild chronic interstitial pulmonary disease, similar to prior exam. Reviewed, dictated and finalized at [facility]. Impression: Mild chronic interstitial pulmonary disease, similar to prior exam.
--- NOTE | 2023-09-16 12:39 | WPDPFTINT ---
PFT Procedure Performed PFT Procedure Performed Spirometry with Pre/Post Bronchodilator Plethysmography (Lung Vol) Diffusing Cap (DLCO) Flow Vol Loop PFT Interpretation This is a pulmonary function test with pre and post-bronchodilator spirometry, plethysmography and diffusing capacity. The test was performed and results interpreted in accordance with the 2019 and 2005 ATS/ERS Task Force guidelines respectively using the Global Lung Function Initiative-2012 reference equations. Patient demonstrated good effort and cooperation. Reproducibility criteria were met. The quality of the pre bronchodilator spirometry maneuver was Grade A and post bronchodilator spirometry maneuver was Grade A. Findings: Spirometry: The contour the inspiratory and expiratory flow tracing are normal. The pre bronchodilator FVC is 1.98 L, 88% predicted. The pre bronchodilator FEV1 is 1.86 L, 109% predicted. The pre bronchodilator FEV1: FVC ratio is 94%. The post bronchodilator FVC is 1.98 L, representing no change. The post bronchodilator FEV1 is 1.80 L, representing a 3% decrease. The post bronchodilator FEV1: FVC ratio is 91%. Plethysmography: The total lung capacity is 5.38 L, 114% predicted. The functional residual capacity is 2.01 L, 74% predicted. The residual volume is 1.99 L, 84% predicted. Diffusing capacity: The diffusing capacity unadjusted for hemoglobin and carboxyhemoglobin is 11.4, 63% predicted. The diffusing capacity adjusted for alveolar volume is 3.22, 77% predicted. Impression: The spirometry is normal without evidence of an obstructive abnormality. There is no significant improvement after inhaling a single dose of albuterol. The lung volumes are normal. The diffusing capacity unadjusted for hemoglobin and carboxyhemoglobin is mildly decreased and normalizes when adjusted for alveolar volume. There are no prior studies for comparison
--- NOTE | 2023-09-16 12:41 | WPDSIXMINUTE ---
Six Minute Walk Procedure Procedure Performed Pulmonary Stress Test (6 min walk) Six Minute Walk Six Minute Walk: This is a 6 minute walk test. The test was performed and interpreted in accordance with the 2014 ERS/ATS task force guidelines. Findings: The patient's resting room air oxygen saturation measured by pulse oximetry was 97% and heart rate was 61 bpm. Patient ambulated for 183 meters and oxygen saturation remained 94%. Heart rate at the end of the study was 68 bpm. The patient did not qualify for supplemental oxygen at rest or with ambulation. There are no prior studies for comparison.
== END 2023-09-16 08:55 | disposition home or self-care (01) ==
PROVIDERS: PCP Emergency Medicine; Visit Provider Physician Assistant
DX: R06.00 Dyspnea, unspecified (principal); J84.9 Interstitial pulmonary disease, unspecified
CPT/HCPCS: 71250; 94060; 94618; 94726; 94729

== ENCOUNTER 2023-11-02 09:48 | Outpatient (CLI) | payer MEDICARE, SELFPAY ==
--- NOTE | ~2023-11-02 | DEXA_ITS ---
Bone Density Report Name: MAIDA WINSLOW Age: 83 Sex: Female Ethnicity: White Date of : 1940 Indication: postmenopausal; screening for osteoporosis; inflammatory bowel disease; prior fracture; cancer; end stage renal disease; hysterectomy; rheumatoid arthritis; secondary osteoporosis; Referring Provider: BILL, JAMES Romero Study: Bone densitometry was performed. Exam Date: November 02, 2023 Accession number: [id number] Bone Density: Region BMD T-score Z-score Classification AP Spine(L1-L4) 1.049 0.0 2.9 Normal Femoral Neck (Right) 0.650 -1.8 0.7 Osteopenia Total Hip (Right) 0.760 -1.5 0.8 Osteopenia World Health Organization criteria for BMD impression classify patients as: Normal (T-score at or above -1.0), Osteopenia (T-score between -1.0 and -2.5), or Osteoporosis (T-score at or below -2.5). Clinical Information Provided by Patient: Have had a previous hip or vertebral fracture Has had a low trauma fracture Has rheumatoid arthritis Has secondary osteoporosis Is being treated for osteoporosis Has used the following medications: Vitamin D, Calcium Has the following medical conditions: Cancer, End stage renal disease, Inflammatory bowel diseases, Hysterectomy Patient maximum height was 65 Menopause Age: 32 No regular weight bearing exercise Drinks caffeinated beverages Onset of menses at age 10 Number of children 3 Impression: The patient has low bone mass, based on the Right Femoral Neck T-score. The patient has risk factors, including: previous fracture. Discussion: It is important to ask patients whether they are taking their medications and to encourage continued and appropriate compliance with their osteoporosis therapies to reduce fracture risk. It is also important to review their risk factors and encourage appropriate calcium and vitamin D intakes, exercise, fall prevention and other lifestyle measures. Follow-Up: Consider a repeat BMD and Vertebral Fracture Assessment (VFA) exam in 2 years or sooner if medically necessary, to reassess this patient's status. Reported by: DILMA on 11/02/2023 11:15:00 AM. Reviewed, dictated and finalized at location [facility] BOYD
== END 2023-11-02 09:49 | disposition home or self-care (01) ==
PROVIDERS: PCP Emergency Medicine; Visit Provider Internal Medicine
DX: M81.0 Age-related osteoporosis without current pathological fracture (principal); M85.89 Other specified disorders of bone density and structure, multiple sites; M12.30 Palindromic rheumatism, unspecified site; M45.0 Ankylosing spondylitis of multiple sites in spine; R76.8 Other specified abnormal immunological findings in serum; K58.9 Irritable bowel syndrome, unspecified; Z13.820 Encounter for screening for osteoporosis
CPT/HCPCS: 77080

== ENCOUNTER 2023-11-16 14:33 | Outpatient (CLI) | payer MEDICARE, SELFPAY ==
--- NOTE | ~2023-11-16 | XR_ITS ---
XR hip RT 2V w AP pelvis Ordering provider: DESI VillelaC History: . fall 3 days ago severe pain right groin . Comparison: None. FINDINGS: BONES: Fracture of the right superior and inferior pubic rami. Possibility of bony fragment near to t he right ischium is not excluded. Follow-up advised. HIP JOINT SPACES: Left hip arthroplasty. Mild to moderate right hip osteoarthritic changes. SACROILIAC JOINT SPACES/LUMBAR SPINE: The sacroiliac joint spaces shows bilateral sacroiliitis Levosc oliosis. Mild degenerative changes of the visualized lower lumbar spine. PUBIC SYMPHYSIS: Pubic symphysitis. SOFT TISSUES: Normal. IMPRESSION: Fracture of the right superior and inferior pubic rami. Possible chip fracture near to the right isch ium. Reviewed, dictated and finalized at location A. IMPRESSION: Fracture of the right superior and inferior pubic rami. Possible chip fracture near to the right ischium.
--- NOTE | ~2023-11-16 | XR_ITS ---
XR femur RT min 2V Ordering provider: NAS Villela-C History: . fall 3 days ago severe pain right groin . Comparison: None. FINDINGS: BONES: No fracture of the right superior and left inferior pubic rami. Possible old chip fracture abhishek r to the right ischium. No definite femoral fractures. JOINT SPACES: Left knee arthroplasty. Left hip arthroplasty. Moderate right hip osteoarthritic change s. SOFT TISSUES: Normal. IMPRESSION: Fracture of the right superior and inferior pubic rami. Chip fracture near to the right ischium. Reviewed, dictated and finalized at location A. IMPRESSION: Fracture of the right superior and inferior pubic rami. Chip fracture near to t he right ischium.
== END 2023-11-16 14:34 ==
LOC: GOSHIMG 14:35
PROVIDERS: PCP Emergency Medicine; Visit Provider Nurse Practitioner Family
DX: S32.591A Other specified fracture of right pubis, initial encounter for closed fracture (principal); W19.XXXA Unspecified fall, initial encounter
CPT/HCPCS: 73502; 73552

== ENCOUNTER 2023-11-16 16:06 | Emergency (ER) | payer MEDICARE, SELFPAY ==
--- NOTE | ~2023-11-16 | CT_ITS ---
EXAMINATION: CT pelvis wo con DATE: 11/16/2023 19:36 INDICATION: Fall, injury TECHNIQUE: Computed tomography (CT) of the pelvis was performed without intravenous contrast. Automat ed exposure control and iterative reconstruction technique were employed. The dose-length product was 330.63 mGy-cm. COMPARISON: X-ray right hip with pelvis, same date FINDINGS: Decreased mineralization. Severe degenerative changes in the lower lumbar spine. Mild degen erative change in the bilateral SI joints and right hip. Uncomplicated left hip arthroplasty hardware . Minimally displaced, mildly comminuted fractures of the right superior pubic ramus extending into t he pubic bone. Minimally displaced fracture of the inferior pubic ramus on the right. Right ischial e nthesopathy, likely accounting for the previously described possible ossific fragment. No lytic or bl astic lesion. No osseous erosion or periosteal change. IMPRESSION: Minimally displaced right obturator ring fractures. Reviewed, dictated and finalized at location K.
[2023-11-16 16:42] VITALS: BP 177/70; PULSE 70; RESP 15; TEMP 36.4; O2SAT 100
--- NOTE | 2023-11-16 18:01 | ED.GENADULT ---
HPI - General Adult General Chief complaint: Recheck/Abnormal Lab/Rx <Jacqueline Moore APRN - Last Filed: 11/18/23 17:00> Stated complaint: fractured pelvis <Jacqueline Moore APRN - Last Filed: 11/18/23 17:00> Time Seen by Provider: 11/16/23 18:01 <Jacqueline Moore APRN - Last Filed: 11/18/23 17:00> Focused HPI: Pt is a 83-year-old female who presents to the ER with a fractured pelvic. She fell outside on on her R hip. Pt has been able to ambulate with a walker, but it's painful. Pt presented to her PCP this morning who did and x-ray and confirmed a fracture. She did not hit her head and denies LOC. GENERAL: Well-appearing, well-nourished, and in no acute distress. HEAD: Normocephalic, atraumatic. CHEST: Clear to auscultation. ?No respiratory distress. HEART: Regular rate and rhythm.? NEURO: ?Alert and oriented x3. Patient screened in triage and initial orders placed.? ?Additional care and disposition to be based upon?diagnostic testing and treatment. <Jacqueline Moore APRN - Last Filed: 11/18/23 17:00> Focused HPI: Pt is a 83-year-old female who presents to the ER with a fractured pelvis. She fell outside on on her R hip. Pt has been able to ambulate with a walker, but it's painful. Pt presented to her PCP this morning who did and x-ray and confirmed a fracture. She did not hit her head and denies LOC. GENERAL: Well-appearing, well-nourished, and in no acute distress. HEAD: Normocephalic, atraumatic. CHEST: Clear to auscultation. ?No respiratory distress. HEART: Regular rate and rhythm.? NEURO: ?Alert and oriented x3. Patient screened in triage and initial orders placed.? ?Additional care and disposition to be based upon?diagnostic testing and treatment. <Kenisha Hung PA-C - Last Filed: 11/16/23 21:12> Related Data Home medications: Home Medications Medication Instructions Recorded Confirmed vitamins A,C,O-mdes-eekomh 2,148 1 tablet PO DAILY 04/01/19 11/18/23 mcg-113 mg-45 mg-17.4 mg tablet (PreserVision AREDS) biotin 5 mg tablet 5 mg PO DAILY 06/24/19 11/18/23 calcium citrate-ergocalciferol 1 tablet PO DAILY 08/29/21 11/18/23 (vitamin D2) 315 mg-200 unit tablet Benadryl 50 mg PO TID PRN Allergy Symptoms 01/21/23 11/18/23 metoprolol tartrate 25 mg tablet 12.5 mg PO DAILY 09/29/23 11/18/23 multivitamin (One-A-Day Essential 1 tablet PO DAILY 11/10/23 11/18/23 tablet) tramadol 50 mg tablet 50 mg PO DAILY 11/10/23 11/18/23 <Jacqueline Moore, CARROT BUNCHER - Last Filed: 11/18/23 17:00> Allergies/adverse reactions: Allergies Allergy/AdvReac Type Severity Reaction Status Date / Time acetaminophen [From Tylenol] Allergy Severe Swelling Verified 11/18/23 15:23 ibuprofen Allergy Severe Swelling Verified 11/18/23 15:23 of Lip/Tongue/Throat naproxen [From Aleve] Allergy Severe Swelling Verified 11/18/23 15:23 of Lip/Tongue/Throat strawberry Allergy Severe Swelling Verified 11/18/23 15:23 of Lip/Tongue/Throat adhesive Allergy Mild Rash Verified 11/18/23 15:23 latex Allergy Mild Rash Verified 11/18/23 15:23 morphine Allergy Hallucinati Verified 11/18/23 15:23 ng influenza virus vaccine tv AdvReac Severe very sick Verified 11/18/23 15:23 2012-([age] yrs),[facility] with fever [From Flublok] and myalgia <Jacqueline Moore, CHARIS - Last Filed: 11/18/23 17:00> Review of Systems Review of Systems: CONSTITUTIONAL: Denies fever, MUSCULOSKELETAL: Reports joint pain, myalgia. NEUROLOGIC: Denies numbness, or weakness. <Kenisha Hung PA-C - Last Filed: 11/16/23 21:12> All systems reviewed & are unremarkable except as noted in HPI and below <Kenisha Hung PA-C - Last Filed: 11/16/23 21:12> [facility] Past Medical History Medical History: Medical History Adenomatous colon polyp added to history in ', Anxiety Chronic anticoa
[2023-11-16 20:16] VITALS: BP 158/76; PULSE 69; RESP 18; O2SAT 98
[2023-11-16] MEDS: traMADol HCL (*CRX) 25 MG TABLET PO (20:18)
--- NOTE | 2023-11-16 20:35 | ED.RECABL ---
HPI - Recheck/Abnormal Lab/Rx General Chief Complaint: Recheck/Abnormal Lab/Rx Stated Complaint: fractured pelvis Time Seen by Provider: 11/16/23 18:01 Related Data Home Medications Medication Instructions Recorded Confirmed vitamins A,C,Y-smgf-dagtvn 2,148 1 tablet PO DAILY 04/01/19 11/10/23 mcg-113 mg-45 mg-17.4 mg tablet (PreserVision AREDS) biotin 5 mg tablet 5 mg PO DAILY 06/24/19 11/10/23 calcium citrate-ergocalciferol 1 tablet PO DAILY 08/29/21 11/10/23 (vitamin D2) 315 mg-200 unit tablet Benadryl 50 mg PO TID PRN Allergy Symptoms 01/21/23 11/10/23 metoprolol tartrate 25 mg tablet 12.5 mg PO DAILY 09/29/23 11/10/23 multivitamin (One-A-Day Essential 1 tablet PO DAILY 11/10/23 11/10/23 tablet) tramadol 50 mg tablet 50 mg PO DAILY 11/10/23 11/10/23 Allergies Allergy/AdvReac Type Severity Reaction Status Date / Time acetaminophen [From Tylenol] Allergy Severe Swelling Verified 11/10/23 13:11 ibuprofen Allergy Severe Swelling Verified 11/10/23 13:11 of Lip/Tongue/Throat naproxen [From Aleve] Allergy Severe Swelling Verified 11/10/23 13:11 of Lip/Tongue/Throat strawberry Allergy Severe Swelling Verified 11/10/23 13:11 of Lip/Tongue/Throat adhesive Allergy Mild Rash Verified 11/10/23 13:11 latex Allergy Mild Rash Verified 11/10/23 13:11 morphine Allergy Hallucinati Verified 11/10/23 13:11 ng influenza virus vaccine tv AdvReac Severe very sick Verified 11/10/23 13:11 2012-14(18-49 yrs),[facility] with fever [From Flublok] and myalgia PMFSH Past Medical History Medical History Adenomatous colon polyp added to history in Anxiety Chronic anticoagulation Diet-controlled diabetes mellitus Hemoglobin A1c was 5.5 on March 25, 2019. Gastric AVM GERD (gastroesophageal reflux disease) History of Clostridioides difficile infection History of postoperative nausea and vomiting Hyperlipidemia Hypothyroidism Mitral valve prolapse Osteoarthritis Renal cyst Surgical History Surgical History H/O dilation and curettage x4 H/O hemorrhoidectomy History of bladder suspension procedure History of hip replacement (~06/06/19) left History of incisional hernia repair Robotic assisted repair periumbilical incisional hernia with mesh 07/10/[address] Bee. History of varicose vein ligation and stripping (~1991) right leg Hx of colonoscopy Hx of exploratory laparotomy Exploratory laparoscopy, lysis of adhesion on 07/15/[address] eBe Status post arthroscopy of left knee (~05/04/19) Status post breast biopsy (~1972) Left breast biopsy with benign histology. Status post cardiac catheterization Coronary angiogram March 2014 showed normal coronary arteries. Status post cataract extraction (~05/20/16) right Status post cholecystectomy (~2001) Status post hysterectomy (~1970) Status post total left knee replacement (~05/04/19) Family History Family History Father Family history of cardiovascular disease Family history of kidney disease Family history of aortic aneurysm Mother Diabetes mellitus Family history of Alzheimer's disease Family history of malignant neoplasm of brain Grandparent Cerebrovascular accident Other Breast cancer Eye cancer Social History Social History Social History: The patient is and [place] outside of [place]. She is a lifelong nonsmoker and denies alcohol and drug use. Children live nearby. She still works 6 days a week at [employer]. She denies alcohol, tobacco, and drug use. The patient's daughter lives with her now. She has 3 children. She is . She is a full code. Her daughter this living with her is a durable power [employer] attorney for healthcare. Smoking status: Never smoker Second hand t
[2023-11-16 21:08] VITALS: BP 143/66; PULSE 68; RESP 17; O2SAT 96
== END 2023-11-16 21:25 | disposition home or self-care (01) ==
PROVIDERS: Emergency Provider Physician Assistant; PCP Emergency Medicine
DX: S32.810A Multiple fractures of pelvis with stable disruption of pelvic ring, initial encounter for closed fracture (principal); I34.1 Nonrheumatic mitral (valve) prolapse; E11.9 Type 2 diabetes mellitus without complications; E78.5 Hyperlipidemia, unspecified; E03.9 Hypothyroidism, unspecified; K21.9 Gastro-esophageal reflux disease without esophagitis; M19.90 Unspecified osteoarthritis, unspecified site; F41.9 Anxiety disorder, unspecified; Z96.642 Presence of left artificial hip joint; Z96.652 Presence of left artificial knee joint; Z86.010 Personal history of colon polyps; Z98.41 Cataract extraction status, right eye; Z90.49 Acquired absence of other specified parts of digestive tract; Z90.710 Acquired absence of both cervix and uterus; Z79.899 Other long term (current) drug therapy; W19.XXXA Unspecified fall, initial encounter
CPT/HCPCS: 72192; 99284; A9270

== ENCOUNTER 2023-11-18 14:55 | Outpatient (CLI) | payer MEDICARE, SELFPAY ==
[2023-11-18 20:32] LABS: Bacteria Urine None Seen /hpf; Need Manual Microscopic Reviewed; Non Pathogenic Casts 0-2; RBC Urine >100 /hpf (0-2); Squamous Epithelial Cell Urine Occasional /hpf (Few)
[2023-11-18 20:33] LABS: Add Urine Microscopic? YES; Appearance Urine Turbid (Clear); Bilirubin Urine 1+ (Negative); Blood Urine 3+ (Negative); Color Urine Red (Yellow); Glucose Urine UA Negative (Negative); Ketones Urine Negative (Negative); Leukocyte Esterase Ur 1+ LEU/UL (Negative); Nitrate Urine Negative (Negative); Protein Urine 3+ mg/dL (Negative); Specific Grav Ur 1.012 (1.001-1.035); Urobilinogen Urine 0.2 mg/dL (<2.0); pH Urine 5.5 (5.0-9.0)
== END 2023-11-18 14:56 | disposition home or self-care (01) ==
LOC: ANHGOSHLAB 14:56
PROVIDERS: PCP Emergency Medicine; Visit Provider Emergency Medicine
DX: R31.9 Hematuria, unspecified (principal)
CPT/HCPCS: 81001; 87086; 87088

== ENCOUNTER 2024-03-14 09:30 | Outpatient (CLI) | payer MEDICARE, SELFPAY ==
--- NOTE | ~2024-03-14 | US_ITS ---
Abdominal wall ULTRASOUND Ordering provider: Rosalva Mccoy APRN History: . R19.00 - Intra-abdominal and pelvic swelling, mass and jose... . Comparison: None. FINDINGS/impression: No masses seen. Reviewed, dictated and finalized at location A. NG CARPENTER
== END 2024-03-14 09:31 | disposition home or self-care (01) ==
LOC: GOSHIMG 09:31
PROVIDERS: PCP Nurse Practitioner Family; Visit Provider Nurse Practitioner Family
DX: R19.00 Intra-abdominal and pelvic swelling, mass and lump, unspecified site (principal)
CPT/HCPCS: 76705

== ENCOUNTER 2024-06-01 09:44 | Outpatient (CLI) | payer MEDICARE, SELFPAY ==
--- NOTE | ~2024-06-01 | MR_ITS ---
EXAMINATION: MR brain/brain stem wo con DATE: 06/01/2024 10:37 INDICATION: Other giant cell arteritis. Left face pain. TECHNIQUE: Magnetic resonance imaging (MRI) of the brain and brainstem was performed without intraven ous contrast. COMPARISON: Head CT 08/20/2023 FINDINGS: There are scattered areas of nonspecific increased T2-weighted signal intensity in the cere bral white matter, which is within normal limits for the patient's age. There is no intracranial hemo rrhage, acute infarction, or abnormal intracranial mass lesion. Arteries abut the root entry zones of the trigeminal nerves bilaterally. The ventricles are normal in size. There is mucosal thickening in the paranasal sinuses. There are likely changes of ocular lens replacement surgeries. The mastoid ai r cells are normal. IMPRESSION: 1. Arteries abut the root entry zones of the trigeminal nerves bilaterally, which may be seen with va scular loop compression syndrome. Reviewed, dictated and finalized at location A. T PROBATION OFFICER IMPRESSION: 1. Arteries abut the root entry zones of the trigeminal nerves bilaterally, whi ch may be seen with vascular loop compression syndrome.
== END 2024-06-01 09:45 | disposition home or self-care (01) ==
LOC: GOSHIMG 09:44
PROVIDERS: PCP Nurse Practitioner Family; Visit Provider Nurse Practitioner Family
DX: R93.89 Abnormal findings on diagnostic imaging of other specified body structures (principal); M31.6 Other giant cell arteritis; R51.9 Headache, unspecified; H57.9 Unspecified disorder of eye and adnexa; R76.8 Other specified abnormal immunological findings in serum; R68.84 Jaw pain; R42 Dizziness and giddiness
CPT/HCPCS: 70551

== ENCOUNTER 2024-06-03 11:00 | Emergency (ER) | payer MEDICARE, SELFPAY ==
[2024-06-03 11:26] VITALS: BP 122/73; PULSE 65; RESP 16; TEMP 36.4; O2SAT 100
[2024-06-03 12:39] VITALS: BP 147/69; PULSE 63; RESP 20; TEMP 36.6; O2SAT 98
[2024-06-03 15:00] VITALS: BP 159/76; PULSE 61; RESP 12; O2SAT 99
[2024-06-03 16:11] VITALS: BP 151/63; PULSE 61; RESP 220; O2SAT 98
[2024-06-03 17:09] LABS: Basophils Percent Auto 0.3 % (0.2-1.2); Hematocrit 36.4 % (37.0-47.0); Hemoglobin 12.1 g/dL (12.0-15.0); Immature Granulocyte Absolute 0.04 K/mm3 (0.00-0.031); Immature Granulocyte Percent A 0.6 % (0-0.5); Lymphocytes Absolute Auto 0.76 K/mm3 (0.9-3.2); Lymphocytes Percent Auto 10.9 % (18.3-44.2); Mean Corpuscular HGB Conc 33.2 g/dl (32-36); Mean Corpuscular Hemoglobin 30.3 pg (26-34); Mean Platelet Volume 11.3 fl (7.4-10.4); Monocytes Absolute Auto 0.4 K/mm3 (0.1-0.6); Neutrophils Absolute Auto 5.8 K/mm3 (1.3-6.7); Neutrophils Percent Auto 83.2 % (45.5-73.1); Platelet Count Result 194 k/mm3 (150-375); Red Cell Distribution Width 13.2 % (11.5-14.5)
[2024-06-03 17:23] LABS: Alanine Aminotransferase 25 U/L (6-35); Albumin Level 3.8 g/dL (3.5-5.1); Alkaline Phosphatase 87 U/L (38-126); Anion Gap 7 mmol/L (4-12); Aspartate Amino Transferase 31 U/L (14-36); Bilirubin,Total 0.5 mg/dL (0.2-1.3); Blood Urea Nitrogen 26 mg/dL (7-17); CRP < 0.5 mg/dL (<1.0); Calcium 9.2 mg/dL (8.4-10.2); Carbon Dioxide 27 mmol/L (22-30); Chloride 98 mmol/L (98-107); Estimated CRCL calculation 26 ml/min; Estimated Glomerular Filt Rate 39; Glucose 111 mg/dL (65-110); Potassium 4.2 mmol/L (3.4-5.0); Sodium 132 mmol/L (137-145)
[2024-06-03 17:52] LABS: Erythrocyte Sedimentation Rate 22 mm/hr (0-20)
[2024-06-03 18:54] VITALS: BP 182/80; PULSE 60; RESP 11; O2SAT 97
--- NOTE | 2024-06-03 18:59 | ED.GENADULT ---
HPI - General Adult General Chief complaint: Recheck/Abnormal Lab/Rx Stated complaint: sent by PCP after MRI Time Seen by Provider: 06/03/24 12:36 History of Present Illness HPI narrative: This is an 84-year-old female presenting with 1 month of left-sided facial pain, eye pain, and blurry vision. Patient is being worked up on an outpatient basis. She has seen her metaphysics teacher who had cleared her from their perspective. However they suggested this may be due to temporal arteritis. Primary care physician and ordered inflammatory markers and obtained an MRI which showed arteries at the root entry zone of the trigeminal nerves bilaterally which may be seen with vascular the compression syndrome. The primary care physician then sent her to ED to be evaluated. This time patient is complaining of pain to her left eye, left forehead jaw neck and back of head. It is worse with light touch. She also has blurry vision in left eye. Patient has macular degeneration vision of left eye is worse than her right. Related Data Home Medications ?Medication ?Instructions ?Recorded ?Confirmed ?Last Taken ?Type vitamins A,C,D-eski-hpxwuo 2,148 1 tablet PO DAILY 04/01/19 05/26/24 10/20/22 History mcg-113 mg-45 mg-17.4 mg tablet (PreserVision AREDS) biotin 5 mg tablet 5 mg PO DAILY 06/24/19 05/26/24 10/20/22 History calcium 315 mg (as 1 tablet PO DAILY 08/29/21 05/26/24 10/20/22 History citrate)-ergocalciferol (vit D2) 200 unit tablet Benadryl 50 mg PO TID PRN Allergy Symptoms 01/21/23 05/26/24 Unknown History multivitamin (One-A-Day Essential 1 tablet PO DAILY 11/10/23 05/26/24 Unknown History tablet) Allergies Allergy/AdvReac Type Severity Reaction Status Date / Time acetaminophen (From Tylenol) Allergy Severe Swelling Verified 06/03/24 12:42 ibuprofen Allergy Severe Swelling Verified 06/03/24 12:42 of Lip/Tongue/Throat naproxen (From Aleve) Allergy Severe Swelling Verified 06/03/24 12:42 of Lip/Tongue/Throat strawberry Allergy Severe Swelling Verified 06/03/24 12:42 of Lip/Tongue/Throat adhesive Allergy Mild Rash Verified 06/03/24 12:42 latex Allergy Mild Rash Verified 06/03/24 12:42 morphine Allergy Hallucinati Verified 06/03/24 12:42 ng influenza virus vaccine tv AdvReac Severe very sick Verified 06/03/24 12:42 2013-14(18-49 yrs),rcmb with fever (From Flublok) and myalgia PMFSH Past Medical History Medical History Candidal intertrigo Rheumatoid arthritis Pelvis fracture COVID-19 long hauler manifesting chronic dyspnea Dyspnea Skin lesion of face Injury of knee, left Labile blood pressure Hypertensive urgency Nausea and vomiting Acute kidney injury superimposed on chronic kidney disease Colitis Adenomatous colon polyp added to history in Right sided abdominal pain Encounter for surgical aftercare following surgery on the digestive system Encounter for follow-up examination after completed treatment for conditions other than malignant neoplasm Pneumonia SBO (small bowel obstruction) Incisional hernia Umbilical hernia Abdominal hernia Irregular heart beat Hypokalemia Hyponatremia COVID-19 Hypertensive urgency CKD (chronic kidney disease) stage 4, GFR 15-29 ml/min Paroxysmal A-fib Frequent falls Wrist pain, right Thumb pain Hip pain Contusion of multiple sites of right hand and fingers Back pain Gastric AVM Bilateral inguinal hernia Muscle spasm Right renal mass Renal cyst Closed displaced midcervical fracture of femur (~06/06/19) Osteoarthritis of left knee Chronic anticoagulation GERD (gastroesophageal reflux disease) Diet-controlled diabetes mellitus Hemoglobin A1c was 5.5 on March 25, 2019. History of Clostridioides difficile infection Mitral valve prolapse Hyperlipidemia Osteoarthritis Hypothyroidism Anxiety History of postoperative nausea and vomiting Latex allergy status Nonrheumatic mitral valve disorder Primary osteoarthritis of left knee Surgical History Surgical History History of incisional hernia repair Robotic assisted repair periumbilical incisional hernia with mesh 07/10/[address] Bee. H/O abdominal surgery Hx of exploratory laparotomy Exploratory laparoscopy, lysis of adhesion on 07/15/[address] Bee H/O dilation and curettage x4 Hx of colonoscopy H/O hemorrhoidectomy History of hip replacement (~06/06/19) left Status post total left knee replacement (~05/04/19) Status post arthroscopy of left knee (~05/04/19) History of bladder suspension procedure Status post breast biopsy (~1972) Left breast biopsy with benign histology. Status post cholecystectomy (~2001) Status post cataract extraction (~05/20/16) right History of varicose vein ligation and stripping (~1991) right leg Status post cardiac catheterization Coronary angiogram March 2014 showed normal coronary arteries. Status post hysterectomy (~1970) Family History Family History Father Family history of cardiovascular disease Family history of kidney disease Family history of aortic aneurysm Mother Diabetes mellitus Family history of Alzheimer's disease Family history of malignant neoplasm of brain Grandparent Cerebrovascular accident Other Breast cancer Eye cancer Social History Social History Social History: The [place] is [place] outside of [place] She is a lifelong nonsmoker and denies alcohol and drug use. Children live nearby. She still works 6 days a week at [employer]. She denies alcohol, tobacco, and drug use. The patient's daughter lives with her now. She has 3 children. She is . She is a full code. Her daughter this living with her is a durable power immigration attorney for healthcare. Smoking status: Never smoker Second hand tobacco smoke exposure: Yes Alcohol intake: never Substance use: never Substance use type: does not use Do You Feel Safe in your Home?: Yes Lack of Transportation: No Lack of Food: Never True Current Housing: I Have Housing Concerned About Future Housing: No Difficulty Paying Gas/Electric Bills: No Difficulty Paying for Meds: No Currently Unemployed: No Education: High School Diploma/GED Difficulty w/ Childcare or Family Care: No Living arrangements: with family Additional living arrangements comments: Ludyther lives with Shantel Occupation/Education: retired 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 Head: atraumatic. EYES: EOMI, NOSE: Atraumatic NECK: Trachea midline RESPIRATORY: No increased rate of breathing clear to auscultation CARDIOVASCULAR: RRR, ABDOMINAL: Non-distended MUSCULOSKELETAl: No obvious deformities NEURO: Alert. Moving 4/4 extremities SKIN: Pain to light touch over the left latter-day and behind the ear PSYCHIATRIC: Normal affect Visual acuity: L 20/70 R 20/40, fluorescein exam is negative without corneal abrasion or Angel sign. IOP 16 bilaterally. Course Vital Signs Vital signs: Vital Signs Temperature 97.5 F L 06/03/24 11:26 Pulse Rate 65 06/03/24 11:26 Respiratory Rate 16 06/03/24 11:26 Blood Pressure 122/73 06/03/24 11:26 Pulse Oximetry 100 06/03/24 11:26 Oxygen Delivery Room Air 06/03/24 11:26 Temperature 98 F 06/03/24 19:52 Pulse Rate 64 06/03/24 19:52 Respiratory Rate 13 06/03/24 19:52 Blood Pressure 183/77 H 06/03/24 19:52 Pulse Oximetry 96 06/03/24 19:52 Oxygen Delivery Room Air 06/03/24 12:39 Medical Decision Making MDM Narrative Medical decision making narrative: -Course: This is a 84-year-old woman presenting to the with chief complaint of left-sided facial pain, left eye pain and decreased visual acuity. I reach out to the [facility] transfer are not spoke with their neurosurgeon on-call Dr. Noble. We discussed the patient's imaging and presentation and he believes her symptoms are due to trigeminal neuralgia. There were some concerns about giant cell arteritis from her metaphysics teacher and primary care physician. The patient has negative inflammatory markers, her pain is on light touch as opposed to jaw claudication and she does not have any flu-like symptoms. She is worse vision in left eye but she also has macular degeneration and always has worse vision on that side My intention was still to transfer her to [facility] to have a temporal arteritis workup performed as that cannot be performed at our hospital. However the patient does not want to be transferred. She preferred follow-up an outpatient basis. I have discussed the risks of going home including loss of vision and the patient has verbalized understanding and accepts the risks. Patient will be discharged AMA. Given primary care follow-up. Given return precautions. -DDX includes but is not limited to: GCA, trigeminal neuralgia, cluster headache, tension headache, migraine Vital Signs Vital Signs: Vital Signs Temperature 97.5 F L 06/03/24 11:26 Pulse Rate 65 06/03/24 11:26 Respiratory Rate 16 06/03/24 11:26 Blood Pressure 122/73 06/03/24 11:26 Pulse Oximetry 100 06/03/24 11:26 Oxygen Delivery Room Air 06/03/24 11:26 Temperature 98 F 06/03/24 19:52 Pulse Rate 64 06/03/24 19:52 Respiratory Rate 13 06/03/24 19:52 Blood Pressure 183/77 H 06/03/24 19:52 Pulse Oximetry 96 06/03/24 19:52 Oxygen Delivery Room Air 06/03/24 12:39 Lab Data 06/03/24 17:04 06/03/24 17:04 Labs: Lab Results 06/03/24 Range/Units 17:04 WBC 7.0 (4.5-10.0) K/mm3 RBC 4.00 L (4.2-5.4) M/mm3 Hgb 12.1 (12.0-15.0) g/dL Hct 36.4 L (37.0-47.0) % MCV 91.0 (80-100) fl MCH 30.3 (26-34) pg MCHC 33.2 (32-36) g/dl RDW 13.2 (11.5-14.5) % Plt Count 194 (150-375) k/mm3 MPV 11.3 H (7.4-10.4) fl Immature Gran % (Auto) 0.6 H (0-0.5) % Neut % (Auto) 83.2 H (45.5-73.1) % Lymph % (Auto) 10.9 L (18.3-44.2) % [place] % (Auto) 5.0 (2.6-8.5) % Eos % (Auto) 0.0 (0-4.4) % Baso % (Auto) 0.3 (0.2-1.2) % Lymph # (Auto) 0.76 L (0.9-3.2) K/mm3 [place] # (Auto) 0.4 (0.1-0.6) K/mm3 Eos # (Auto) 0.0 (0-0.3) K/mm3 Baso # (Auto) 0.0 (0.0-0.1) K/mm3 Abs Immat Gran (auto) 0.04 H (0.00-0.031) K/mm3 Absolute Neuts (auto) 5.8 (1.3-6.7) K/mm3 Absolute Nucleated RBC 0.000 (0.0-0.012) K/mm3 Nucleated RBC % 0.0 (0.0-0.2) % ESR 22 H (0-20) mm/hr Sodium 132 L (137-145) mmol/L Potassium 4.2 (3.4-5.0) mmol/L Chloride 98 (98-107) mmol/L Carbon Dioxide 27 (22-30) mmol/L Anion Gap 7 (4-12) mmol/L BUN 26 H (7-17) mg/dL Creatinine 1.30 H (0.7-1.0) mg/dL Estim Creat Clear Calc 26 ml/min Estimated GFR 39 L (59 - ) Glucose 111 H (65-110) mg/dL Calcium 9.2 (8.4-10.2) mg/dL Total Bilirubin 0.5 (0.2-1.3) mg/dL AST 31 (14-36) U/L ALT 25 (6-35) U/L Alkaline Phosphatase 87 (38-126) U/L C-Reactive Protein < 0.5 (<1.0) mg/dL Total Protein 7.0 (6.3-8.2) g/dL Albumin 3.8 (3.5-5.1) g/dL Discharge Plan Discharge Clinical Impression: Left-sided trigeminal neuralgia Patient Disposition: Home, Self-Care Condition: Stable Instructions: Antibiotic Form, Trigeminal Neuralgia (ED) Additional Instructions: You were seen in the emergency department for trigeminal neuralgia. Please take the medications prescribed by her primary care physician for further management. We were not able to rule out giant cell arteritis. You declined transfer to [facility] for further workup. Please contact your primary care physician for further management. If you develop worsening vision in eye or increased pain please return to the ED for re-evaluation. [facility] Neurosurgery will reach out to you to schedule outpatient follow-up for trigeminal neuralgia. Patient Language: Citizen Of [place] Prescriptions: No Action calcium citrate-vitamin D2 315-200 mg-unit tablet 1 tablet PO DAILY Eliquis 2.5 mg tablet See Rx Instructions .ROUTE .COMPLEX Qty: 60 5RF Dose Instruction: TAKE ONE TABLET BY MOUTH TWICE A DAY Rx Instructions: TAKE ONE TABLET BY MOUTH TWICE A DAY atorvastatin 40 mg tablet 40 mg PO DAILY Qty: 90 3RF levothyroxine 88 mcg tablet See Rx Instructions .ROUTE .COMPLEX Qty: 90 1RF Dose Instruction: TAKE ONE TABLET BY MOUTH DAILY Rx Instructions: TAKE ONE TABLET BY MOUTH DAILY flecainide 50 mg tablet 50 mg PO Q12H Qty: 60 5RF biotin 5 mg tablet 5 mg PO DAILY multivitamin [One-A-Day Essential] Tablet 1 tablet PO DAILY PreserVision AREDS [id number],160-113-100 [id number] Tablet 1 tablet PO DAILY Benadryl 50 mg PO TID PRN (Reason: Allergy Symptoms) (DME) Space Chamber Spacer See Rx Instructions .Route Qty: 1 0RF Rx Instructions: As directed metoprolol tartrate 25 mg tablet See Rx Instructions .ROUTE .COMPLEX Qty: 90 2RF Dose Instruction: TAKE ONE TABLET BY MOUTH TWICE A DAY Rx Instructions: TAKE 1/2 TABLET BY MOUTH DAILY amlodipine 5 mg tablet See Rx Instructions .ROUTE .COMPLEX Qty: 90 2RF Dose Instruction: TAKE ONE TABLET BY MOUTH ONCE DAILY Rx Instructions: TAKE ONE TABLET BY MOUTH ONCE DAILY amitriptyline 25 mg tablet See Rx Instructions .ROUTE .COMPLEX Qty: 90 3RF Dose Instruction: TAKE ONE TABLET BY MOUTH AT BEDTIME Rx Instructions: TAKE ONE TABLET BY MOUTH AT BEDTIME lisinopril 40 mg tablet See Rx Instructions .ROUTE .COMPLEX Qty: 90 2RF Dose Instruction: TAKE ONE TABLET BY MOUTH DAILY Rx Instructions: TAKE ONE TABLET BY MOUTH DAILY budesonide-formoterol [Symbicort] 160-4.5 mcg/actuation HFA aerosol inhaler See Rx Instructions .ROUTE .COMPLEX Qty: 10.2 3RF Dose Instruction: INHALE TWO (2) PUFFS BY MOUTH EVERY 12 HOURS RINSE MOUTH OUT AFTER EACH USE Rx Instructions: INHALE TWO (2) PUFFS BY MOUTH EVERY 12 HOURS RINSE MOUTH OUT AFTER EACH USE paroxetine HCl 20 mg tablet 20 mg PO DAILY Qty: 90 1RF tramadol 50 mg tablet 50 mg PO Q8H PRN (Reason: pain) Qty: 60 4RF pantoprazole 40 mg tablet,delayed release (DR/EC) 40 mg PO QAM Qty: 90 1RF oxcarbazepine 300 mg tablet 300 mg PO BID Qty: 60 0RF Follow-up/Referrals: Rosalva Mccoy APRN [Primary Care Provider] -
[2024-06-03 19:52] VITALS: BP 183/77; PULSE 64; RESP 13; TEMP 36.6; O2SAT 96
== END 2024-06-03 20:34 | disposition left against medical advice (07) ==
PROVIDERS: Emergency Provider Emergency Medicine; PCP Nurse Practitioner Family
DX: G50.0 Trigeminal neuralgia (principal); I12.9 Hypertensive chronic kidney disease with stage 1 through stage 4 chronic kidney disease, or unspecified chronic kidney disease; E11.22 Type 2 diabetes mellitus with diabetic chronic kidney disease; N18.4 Chronic kidney disease, stage 4 (severe); I34.1 Nonrheumatic mitral (valve) prolapse; E03.9 Hypothyroidism, unspecified; H35.30 Unspecified macular degeneration; K21.9 Gastro-esophageal reflux disease without esophagitis; M06.9 Rheumatoid arthritis, unspecified; M17.12 Unilateral primary osteoarthritis, left knee; Z96.652 Presence of left artificial knee joint; Z96.642 Presence of left artificial hip joint; Z87.01 Personal history of pneumonia (recurrent); Z86.0101 Personal history of adenomatous and serrated colon polyps; Z90.49 Acquired absence of other specified parts of digestive tract; Z98.41 Cataract extraction status, right eye; Z90.710 Acquired absence of both cervix and uterus; Z77.22 Contact with and (suspected) exposure to environmental tobacco smoke (acute) (chronic); Z79.01 Long term (current) use of anticoagulants; Z79.899 Other long term (current) drug therapy
CPT/HCPCS: 36415; 80053; 85025; 85652; 86140; 99283

== ENCOUNTER 2024-11-18 10:02 | Emergency (ER) | payer MEDICARE, SELFPAY ==
--- NOTE | ~2024-11-18 | XR_ITS ---
EXAMINATION: XR forearm RT 2V, XR wrist RT min 3V DATE: 11/18/2024 INDICATION: Ulnar-sided right wrist and forearm pain post fall TECHNIQUE: 1. Posteroanterior, ulnar deviation, oblique, and lateral views of the right wrist were obtained. 2. Anteroposterior and lateral views of the right forearm were obtained. COMPARISON: none FINDINGS: Bone alignment is normal. No fracture. Chondrocalcinosis in the region of the triangular fibrocartila ge complex. Polyarticular osteoarthritis, severe at the first carpometacarpal, metacarpophalangeal dae ints and interphalangeal joints, moderate severity at the triscaphe and fifth distal interphalangeal joints and mild at the elbow, wrist and several of the remaining metacarpophalangeal and interphalang eal joints. No right elbow joint effusion. There is soft tissue swelling posterior to the mid right f orearm. IMPRESSION: 1. 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 No acu te osseous adenopathy. Reviewed, dictated and finalized at location A. IMPRESSION: 1. Polyarticular osteoarthritis at the right elbow, wrist and hand, severe at t he right thumb. No acute osseous adenopathy.
[2024-11-18 10:15] VITALS: BP 118/62; PULSE 63; RESP 18; TEMP 36.7; O2SAT 99
--- NOTE | 2024-11-18 10:42 | ED_ITS ---
HPI - Extremity Injury (Upper) General Stated Complaint: FALL Time Seen by Provider: 11/18/24 10:42 Source: patient and RN notes reviewed Mode of arrival: ambulatory Limitations: no limitations History of Present Illness HPI narrative: 84-year-old female presents with concern for right wrist and arm pain. Reports she had a fall yesterday, she slipped while pulling weeds, cough herself with her forearms and hit her head. She reports she then slid causing a bruise to her chin. She denies loss of consciousness. She denies any subsequent nausea, vomiting, headache. Reports tenderness to the right lutheran where she hit her head. Patient does take a blood thinner. She denies any intervention for her wrist or arm pain. She denies decreased strength, sensation, range of motion in the extremity. MD complaint: injury to: right and wrist Related Data Home Medications ?Medication ?Instructions ?Recorded ?Confirmed ?Last Taken ?Type vitamins A,C,V-cqiv-dmihbh 2,148 1 tablet PO DAILY 04/01/19 11/09/24 10/20/22 History mcg-113 mg-45 mg-17.4 mg tablet (PreserVision AREDS) biotin 5 mg tablet 5 mg PO DAILY 06/24/19 11/09/24 10/20/22 History calcium 315 mg (as 1 tablet PO DAILY 08/29/21 11/09/24 10/20/22 History citrate)-ergocalciferol (vit D2) 200 unit tablet Benadryl 50 mg PO TID PRN Allergy Symptoms 01/21/23 11/09/24 Unknown History multivitamin (One-A-Day Essential 1 tablet PO DAILY 11/10/23 11/09/24 Unknown History tablet) Allergies Allergy/AdvReac Type Severity Reaction Status Date / Time acetaminophen (From Tylenol) Allergy Severe Swelling Verified 11/09/24 11:28 ibuprofen Allergy Severe Swelling Verified 11/09/24 11:28 of Lip/Tongue/Throat naproxen (From Aleve) Allergy Severe Swelling Verified 11/09/24 11:28 of Lip/Tongue/Throat strawberry Allergy Severe Swelling Verified 11/09/24 11:28 of Lip/Tongue/Throat adhesive Allergy Mild Rash Verified 11/09/24 11:28 latex Allergy Mild Rash Verified 11/09/24 11:28 morphine Allergy Hallucinati Verified 11/09/24 11:28 ng influenza virus vaccine tv AdvReac Severe very sick Verified 11/09/24 11:28 2013-14(18-49 yrs),rcmb with fever (From Flublok) and myalgia Review of Systems Review of Systems: CONSTITUTIONAL: Denies malaise, chills, sweats, or fever. EYES: Denies visual changes GASTROINTESTINAL: Denies nausea, vomiting SKIN: Denies open skin. Reports some scattered bruising on the chin and arms. MUSCULOSKELETAL: Reports right forearm and wrist pain NEUROLOGIC: Denies numbness, weakness, or headache. All systems reviewed & are unremarkable except as noted in HPI and below PMFSH Past Medical History Medical History Candidal intertrigo Rheumatoid arthritis Pelvis fracture COVID-19 long hauler manifesting chronic dyspnea Dyspnea Skin lesion of face Injury of knee, left Labile blood pressure Hypertensive urgency Nausea and vomiting Acute kidney injury superimposed on chronic kidney disease Colitis Adenomatous colon polyp added to history in , Right sided abdominal pain Encounter for surgical aftercare following surgery on the digestive system Encounter for follow-up examination after completed treatment for conditions other than malignant neoplasm Pneumonia SBO (small bowel obstruction) Incisional hernia Umbilical hernia Abdominal hernia Irregular heart beat Hypokalemia Hyponatremia COVID-19 Hypertensive urgency CKD (chronic kidney disease) stage 4, GFR 15-29 ml/min Paroxysmal A-fib Frequent falls Wrist pain, right Thumb pain Hip pain Contusion of multiple sites of right hand and fingers Back pain Gastric AVM Bilateral inguinal hernia Muscle spasm Right renal mass Renal cyst Closed displaced midcervical fracture of femur (~06/06/19) Osteoarthritis of left knee Chronic anticoagulation GERD (gastroesophageal reflux disease) Diet-controlled diabetes mellitus Hemoglobin A1c was 5.5 on March 25, 2019. History of Clostridioides difficile infection Mitral valve prolapse Hyperlipidemia Osteoarthritis Hypothyroidism Anxiety History of postoperative nausea and vomiting Latex allergy status Nonrheumatic mitral valve disorder Primary osteoarthritis of left knee Surgical History Surgical History History of incisional hernia repair Robotic assisted repair periumbilical incisional hernia with mesh 07/10/[address] Bee. H/O abdominal surgery Hx of exploratory laparotomy Exploratory laparoscopy, lysis of adhesion on 07/15/[address] Bee H/O dilation and curettage x4 Hx of colonoscopy H/O hemorrhoidectomy History of hip replacement (~06/06/19) left Status post total left knee replacement (~05/04/19) Status post arthroscopy of left knee (~05/04/19) History of bladder suspension procedure Status post breast biopsy (~1972) Left breast biopsy with benign histology. Status post cholecystectomy (~2001) Status post cataract extraction (~05/20/16) right History of varicose vein ligation and stripping (~1991) right leg Status post cardiac catheterization Coronary angiogram March 2014 showed normal coronary arteries. Status post hysterectomy (~1970) Family History Family History Father Family history of cardiovascular disease Family history of kidney disease Family history of aortic aneurysm Mother Diabetes mellitus Family history of Alzheimer's disease Family history of malignant neoplasm of brain Grandparent Cerebrovascular accident Other Breast cancer Eye cancer Social History Social History Social History: The patient is [place] outside of [place]. She is a lifelong nonsmoker and denies alcohol and drug use. Children live nearby. She still works 6 days a week at [employer]. She denies alcohol, tobacco, and drug use. The patient's daughter lives with her now. She has 3 children. She is . She is a full code. Her daughter this living with her is a durable power family law attorney for healthcare. Smoking status: Never smoker Second hand tobacco smoke exposure: Yes Alcohol intake: never Substance use: never Substance use type: does not use Do You Feel Safe in your Home?: Yes Lack of Transportation: No Lack of Food: Never True Current Housing: I Have Housing Concerned About Future Housing: No Difficulty Paying Gas/Electric Bills: No Difficulty Paying for Meds: No Currently Unemployed: No Education: High School Diploma/GED Difficulty w/ Childcare or Family Care: No Living arrangements: with family Additional living arrangements comments: Richieugther lives with Shantel Occupation/Education: retired 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 There is no relevant family history pertinent to the presenting complaint Exam Narrative: GENERAL: Well-appearing, well-nourished, and in no acute distress. HEAD: Normocephalic, atraumatic. EYES: PERRLA, sclera clear, and EOMI. No nystagmus. ENT: Nares clear, turbinates pink, no rhinorrhea or epistaxis. Mucous membranes moist. TM pearly espino with sharp light reflex bilaterally; no tragal tenderness. Oropharynx without erythema or lesions. Tonsils not enlarged and without exudate. NECK: Supple. No lymphadenopathy. No jugular venous distension, thyromegaly, or carotid bruits. Carotids were easily palpable bilaterally. CHEST: No respiratory distress. Clear to auscultation. No bony deformities, no asymmetry. Speaks in full sentences. HEART: Regular rate and rhythm. No murmur heard. Normal peripheral pulses. ABDOMEN: Soft, nontender, nondistended, normal active bowel sounds, no palpable masses. EXTREMITIES: Right forearm, wrist, hand, digits have grossly normal strength and sensation, grossly normal range of motion. No edema, scattered small areas of ecchymosis on both upper extremities. 5/5 strength with wrist and digit flexion and extension. Normal sensation with sensitivity to light touch and pain. General forearm and wrist tenderness. No open wounds, no skin tenting, no devitalized tissue or atrophy, no trophic changes, no obvious deformity, alignment normal, nearby joints and structures intact. Distal pulses palpable and equal bilaterally, skin warm, dry, pink. Capillary refill les SKIN: Warm, dry, no visible rash. NEURO: Alert and oriented x3. No focal deficits. Cranial nerves II through XII grossly intact PSYCH: Normal mood and affect Course Course Emergency Course: My advise patient transferred to the emergency room is important due to her her head injury, advanced age and being on a blood thinner. Patient is refusing transfer to the emergency room, stating that she was has to wait too long when she is in the emergency room. Patient asked about alternatives and I said the less desirable alternative would be for her to call her primary doctor who may be willing to prescribe an outpatient order, however that may not be willing to do so. 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 Nurses in the room to witness this decision. I advised patient that if she is unable to get the order from her doctor she needs to go to the emergency room or if her symptoms change at all she needs to the emergency room. Anticipatory guidance given. Patient is aware of reasons to seek care at the emergency department. Portions of this record may have been created with voice recognition software Level of Care: [facility] Visit Vital Signs Vital signs: Vital Signs Temperature 98.1 F 11/18/24 10:15 Pulse Rate 63 11/18/24 10:15 Respiratory Rate 18 11/18/24 10:15 Blood Pressure 118/62 11/18/24 10:15 Pulse Oximetry 99 11/18/24 10:15 Oxygen Delivery Room Air 11/18/24 10:15 Temperature 98.1 F 11/18/24 10:15 Pulse Rate 63 11/18/24 10:15 Respiratory Rate 18 11/18/24 10:15 Blood Pressure 118/62 11/18/24 10:15 Pulse Oximetry 99 11/18/24 10:15 Oxygen Delivery Room Air 11/18/24 10:15 Reviewed. MDM - Extremity Injury (Upper) MDM Narrative Medical decision making narrative: I evaluated this patient in [facility]. History is obtained from patient who is an independent historian and physical exam was performed.? Available medical records were reviewed. ? Exam findings and relevant testing show no acute concerns or changes; patient is non-toxic appearing and is in no distress. ? Differential diagnosis and treatment plan were discussed with the patient. Patient agrees with discussion and after shared medical decision making agrees with plan of care. All questions were answered to the patient's satisfaction. Patient is appropriate for outpatient treatment and follow-up. Differential Diagnosis Differential diagnosis: Likely sprain and strain of wrist, fracture of wrist and other (Head injury) Imaging Data My impression: Images reviewed, interpreted by radiologist, agree, see report. Radiologist's impression: EXAMINATION: XR forearm RT 2V, XR wrist RT min 3V DATE: 11/18/2024 INDICATION: Ulnar-sided right wrist and forearm pain post fall TECHNIQUE: 1. Posteroanterior, ulnar deviation, oblique, and lateral views of the right wrist were obtained. 2. Anteroposterior and lateral views of the right forearm were obtained. COMPARISON: none FINDINGS: Bone alignment is normal. No fracture. Chondrocalcinosis in the region of the triangular fibrocartilage complex. Polyarticular osteoarthritis, severe at the first carpometacarpal, metacarpophalangeal joints and interphalangeal joints, moderate severity at the triscaphe and fifth distal interphalangeal joints and mild at the elbow, wrist and several of the remaining metacarpophalangeal and interphalangeal joints. No right elbow joint effusion. There is soft tissue swelling posterior to the mid right forearm. IMPRESSION: 1. 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 No acute osseous adenopathy. Critical Care Time Critical Care Time Critical Care Time: No Discharge Plan Discharge Clinical Impression: Sprain of right wrist, Head injury Patient Disposition: Home Condition: Stable Instructions: Wrist Sprain (ED) Additional Instructions: It is my advice that you go to the emergency room for evaluation of your head injury. At your age, and being on a blood thinner, you are at high risk for head injury. Since you are on willing to go to the ER at this time, please call your doctor right away to discuss an outpatient order for CT scan. If they are unable to do that you need to go to the emergency room for evaluation. Wrist sprain: Avoid activities that cause pain until the pain subsides. Ice to the area 20-30 minutes 4-6 times a day Elevate above heart Elastic wrap as directed for comfort for the next 5-7 days Tylenol for pain Follow up with your primary care provider if the condition is not improving within 1 week. If the condition worsens with numbness, tingling, decrease sensation with weakness seek treatment in the emergency room immediately. Patient Language: Russian Prescriptions: No Action calcium citrate-vitamin D2 315-200 mg-unit tablet 1 tablet PO DAILY atorvastatin 40 mg tablet 40 mg PO DAILY Qty: 90 3RF levothyroxine 88 mcg tablet See Rx Instructions .ROUTE .COMPLEX Qty: 90 1RF Dose Instruction: TAKE ONE TABLET BY MOUTH DAILY Rx Instructions: TAKE ONE TABLET BY MOUTH DAILY albuterol sulfate 90 mcg/actuation HFA aerosol inhaler 1 - 2 puff inhalation Q4-6H PRN (Reason: shortness of breath or wheezing) Qty: 8.5 2RF biotin 5 mg tablet 5 mg PO DAILY multivitamin [One-A-Day Essential] Tablet 1 tablet PO DAILY PreserVision AREDS 7,160-113-100 [id number] Tablet 1 tablet PO DAILY Benadryl 50 mg PO TID PRN (Reason: Allergy Symptoms) (DME) Space Chamber Spacer See Rx Instructions .Route Qty: 1 0RF Rx Instructions: As directed metoprolol tartrate 25 mg tablet See Rx Instructions .ROUTE .COMPLEX Qty: 90 2RF Dose Instruction: TAKE ONE TABLET BY MOUTH TWICE A DAY Rx Instructions: TAKE 1/2 TABLET BY MOUTH DAILY amitriptyline 25 mg tablet See Rx Instructions .ROUTE .COMPLEX Qty: 90 3RF Dose Instruction: TAKE ONE TABLET BY MOUTH AT BEDTIME Rx Instructions: TAKE ONE TABLET BY MOUTH AT BEDTIME lisinopril 40 mg tablet See Rx Instructions .ROUTE .COMPLEX Qty: 90 2RF Dose Instruction: TAKE ONE TABLET BY MOUTH DAILY Rx Instructions: TAKE ONE TABLET BY MOUTH DAILY paroxetine HCl 20 mg tablet 20 mg PO DAILY Qty: 90 1RF tramadol 50 mg tablet 50 mg PO Q8H PRN (Reason: pain) Qty: 60 4RF pantoprazole 40 mg tablet,delayed release (DR/EC) 40 mg PO QAM Qty: 90 1RF gabapentin 100 mg capsule 100 mg PO TID Qty: 90 0RF budesonide-formoterol [Symbicort] 160-4.5 mcg/actuation HFA aerosol inhaler See Rx Instructions .ROUTE .COMPLEX Qty: 10.2 3RF Dose Instruction: INHALE TWO PUFFS BY MOUTH EVERY 12 HOURS RINSE MOUTH OUT AFTER EACH USE Rx Instructions: INHALE TWO PUFFS BY MOUTH EVERY 12 HOURS RINSE MOUTH OUT AFTER EACH USE Eliquis 2.5 mg tablet See Rx Instructions .ROUTE .COMPLEX Qty: 60 5RF Dose Instruction: TAKE ONE TABLET BY MOUTH TWICE A DAY Rx Instructions: TAKE ONE TABLET BY MOUTH TWICE A DAY flecainide 50 mg tablet 50 mg PO Q12H Qty: 60 1RF amlodipine 5 mg tablet See Rx Instructions .ROUTE .COMPLEX Qty: 90 1RF Dose Instruction: TAKE ONE TABLET BY MOUTH ONCE DAILY Rx Instructions: TAKE ONE TABLET BY MOUTH ONCE DAILY Follow-up/Referrals: Rosalva Mccoy APRN [Primary Care Provider] - Time of Disposition: 10:53
== END 2024-11-18 11:13 | disposition home or self-care (01) ==
PROVIDERS: Emergency Provider Nurse Practitioner; PCP Nurse Practitioner Family
DX: S63.501A Unspecified sprain of right wrist, initial encounter (principal); S09.90XA Unspecified injury of head, initial encounter; W01.0XXA Fall on same level from slipping, tripping and stumbling without subsequent striking against object, initial encounter; E11.22 Type 2 diabetes mellitus with diabetic chronic kidney disease; N18.4 Chronic kidney disease, stage 4 (severe); M06.9 Rheumatoid arthritis, unspecified; I48.0 Paroxysmal atrial fibrillation; M17.12 Unilateral primary osteoarthritis, left knee; I34.1 Nonrheumatic mitral (valve) prolapse; E03.9 Hypothyroidism, unspecified; Z96.652 Presence of left artificial knee joint; Z96.642 Presence of left artificial hip joint; Z98.41 Cataract extraction status, right eye
CPT/HCPCS: 73090; 73110; 99213; G0463

== ENCOUNTER 2024-11-18 11:40 | Emergency (ER) | payer MEDICARE, SELFPAY ==
--- NOTE | ~2024-11-18 | CT_ITS ---
EXAMINATION: CT cervical spine wo con DATE: 11/18/2024 13:05 INDICATION: Fall. TECHNIQUE: Computed tomography (CT) of the cervical spine was performed without intravenous contrast. COMPARISON: None FINDINGS: No compression fracture in the cervical spine. Slight reversal of the normal cervical lordosis. Grade 1 anterolisthesis of C3 on C4 and C4 on C5. Moderate joint space narrowing at the C5-C6 and C6-C7 levels. Predental space is within normal limits. No prevertebral soft tissue swelling. Lateral dental interva ls are within normal limits. Mild biapical scarring. Evaluation of the spinal canal contents and bila teral neuroforamen is limited due to CT technique. IMPRESSION: No compression fracture in the cervical spine. Slight reversal of the normal cervical lordosis. Grade 1 anterolisthesis of C3 on C4 and C4 on C5. Moderate joint space narrowing at the C5-C6 and C6-C7 levels. If symptoms persist or worsen, consider an MRI of the cervical spine for further assessment. Reviewed, dictated and finalized at location A. IMPRESSION: No compression fracture in the cervical spine. Slight reversal of the normal cervical lordosis. Grade 1 anterolisthesis of C3 on C4 and C4 on C5. Moderate joint space narrowing at the C5-C6 and C6-C7 levels. If symptoms persist or worsen, consider an MRI of the cervical spine for furthe r assessment.
--- NOTE | ~2024-11-18 | CT_ITS ---
EXAMINATION: CT brain wo con DATE: 11/18/2024 13:04 INDICATION: Fall. TECHNIQUE: Computed tomography (CT) of the head was performed without intravenous contrast. The dose- length product was 605.33 mGy-cm. COMPARISON: None FINDINGS: No acute intracranial hemorrhage. No mass effect. No midline shift. No hydrocephalus. Parti al opacification of the paranasal sinuses. Mastoid air cells are grossly clear. No skull fracture laura ntified. Probable chronic ischemic white matter change. Cerebral atrophy appropriate for the patient' s age. IMPRESSION: 1. No acute intracranial hemorrhage. No mass effect. 2. Probable chronic ischemic white matter change. 3. Cerebral atrophy appropriate for the patient's age. Reviewed, dictated and finalized at location A.
[2024-11-18 11:41] VITALS: BP 127/71; PULSE 66; RESP 16; TEMP 36.8; O2SAT 99
--- OUTSIDE RECORDS SUMMARY | 2024-11-18 11:43 | XMS_ITS | Encounter Summary ---
Author Organization [facility] Facility Care Team Providers Care Babysitter Name Role Phone Tanvir Awad MD Primary Care Provider [phone] Abhijit Erazo MD Primary Care Provider [phone] Rosalva Mccoy NP Primary Care Provider [phone] Encounter Details Date Type Department Care Team (Latest Contact Info) Description 03/20/2017 Orders Only [facility] ProviderKush MD [address] [place] [id number] Social History Tobacco Use Types Packs/Day Years Used Date Smoking Tobacco: Never Assessed Alcohol Use Standard Drinks/Week Comments No 0 (1 standard drink = 0.6 oz pur e alcohol) Comments Unknown Sex and Gender Information Value Date Recorded Sex Assigned at Not on file 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 us Historical Provider Final Res ult documented in this encounter Visit Diagnoses Not on filedocumented in this encounter Care Teams Babysitter Relationship Specialty Start Date End Date Tanvir Awad MD [address] [place] [address] PCP - General 01/15/12 06/02/23 Abhijit Erazo MD [address] [facility] [place] [address] PCP - General Family Medicine 06/03/23 06/13/24 Rosavla Mccoy, DOMITILA [address] [place] [address] PCP - General Family Medicine 06/14/24 documented as of this encounter
--- OUTSIDE RECORDS SUMMARY | 2024-11-18 11:43 | XMS_ITS | Clinical Summary ---
Author Organization [facility] [address] Address [address] [place] [address] Care Team Providers Care Account Developer Name Role Phone Rosalva Mccoy NP Primary Care Provider [phone] Allergies Active Allergy Reactions Criticality Noted Date Comments Acetaminophen Swelling,Other (See comments) Medium 04/13/2019 Tongue swelling Adhesive Tape-Silicones Rash Medium 08/04/2021 Haemophilus Influenzae Type B Fever Medium 08/04/2021 Ibuprofen Swelling,Rash Medium 04/12/2020 Morphine Anxiety,Delusions,Lacey llucinations,Headach e Medium 07/13/2024 Naproxen Swelling,Rash Medium 04/13/2019 [place] Itching,Rash,Shortne ss of breath,Swelling High 05/05/1999 Medications lisinopril-hydr oCHLOROthiazide (ZESTORETIC) 10-12.5 mg per tabletIndicatio ns:hypertension Take 1 tablet by mouth daily Active flecainide (TAMBOCOR) 100 mg tablet Take 1 tablet (100 mg total) by mouth 2 (two) times a day Active levothyroxine (SYNTHROID) 88 mcg tablet Take 1 tablet (88 mcg total) by mouth 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 Active diazePAM (VALIUM) 2 mg tablet Take 1 tablet (2 mg total) by mouth every 6 (six) hours as needed for anxiety Active pantoprazole DR (PROTONIX) 40 mg EC tablet Take 1 tablet (40 mg total) by mouth daily Active metoprolol (LOPRESSOR) 25 mg tablet Take 1 tablet (25 mg total) by mouth 2 (two) times a day 9 Active omega-3 fatty acids 1,000 mg capsule Take by mouth Active vitamin B complex capsule Take 1 capsule by mouth daily Active amitriptyline (ELAVIL) 25 mg tablet Take 1 tablet (25 mg total) by mouth nightly Active atorvastatin (LIPITOR) 40 mg tablet Take 1 tablet (40 mg total) by mouth daily 9 Active vit C,U-Bh-atqhf-jose tein-zeaxan 988-346-24-1 pe-jrxx-ka-mg capsule Take by mouth Active apixaban (ELIQUIS) 5 mg tablet Take 1 tablet (5 mg total) by mouth 2 (two) times a day 60 tablet 2 0 Active lisinopriL (PRINIVIL,ZESTR IL) 40 mg tablet 5 Active OXcarbazepine (TRILEPTAL) 300 mg tablet 5 Active amLODIPine (NORVASC) 5 mg tablet 5 Active Symbicort 160-4.5 mcg/actuation inhaler 5 Active amlodipine-ator vastatin (CADUET) 5-10 mg per tablet 3 Active ferrous sulfate 325 mg (65 mg of elemental iron) tablet daily Active omeprazole (PriLOSEC) 20 mg capsule 2 Active omeprazole (PriLOSEC) 40 mg capsule Take 1 capsule (40 mg total) by mouth daily Active PARoxetine (PAXIL) 20 mg tablet 5 Active predniSONE (DELTASONE) 20 mg tablet 5 Active traMADoL 100 mg tablet 5 Active Eliquis 2.5 mg tablet 5 Active flecainide (TAMBOCOR) 50 mg tablet 5 Active gabapentin (NEURONTIN) 300 mg capsule Take 1 capsule (300 mg total) by mouth 3 (three) times a day 270 capsule 1 5 02/29/20 25 Active Active Problems Problem Noted Date Diagnosed Date Renal lesion 06/09/2023 Encounters Date Type Department Care Team Description 09/01/2024 11:30 AM CDT Office Visit [facility] Neurology [address] [facility] [address] [place] [phone] Eyad Potts Si, MD 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 Surgical History Surgery Date Site/Laterality Comments HYSTERECTOMY BREAST BIOPSY HEMORRHOID SURGERY VARICOSE VEIN SURGERY CARDIAC CATHETERIZATION CHOLECYSTECTOMY CATARACT EXTRACTION Medical History Medical History Date Comments Hypertension Hypertension Thyroid disease Anxiety Depression Arthritis GERD (gastroesophageal reflux disease) 0 Chronic kidney disease 2021 Family History Medical History Relation Name Comments Cerebral aneurysm Father Diabetes Mother Clemencia Earl Pneumonia Mother Clemencia Earl Cancer Mother's Brother Wilmer Mendoza omas Cancer Mother's Sister Cathie Subramanian, Cheryle Bryant, Shantel Richardson Blood Clot Sister 1 Mary Oates Clotting disorder Sister 1 Mary Rigginsnipetra Hyperlipidemia Sister 1 Mary Oates Emphysema Sister 2 Relation Name Status Comments Brother Alive Father (Age 62) Mother Clemencia Earl (Age 80) Mother's Brother Colton Christensen, Wilmer Christensen Alive Mother's Sister Cathie Subramanian, Iwona Byrant, Shantel Richardson Alive Sister 1 Mary Oates (Age 75) Sister 2 (Age 68) Social History Tobacco Use Types Packs/Day Years Used Date Smoking Tobacco: Never Smokeless Tobacco: Never Alcohol Use Standard Drinks/Week Comments No 0 (1 standard drink = 0.6 oz pur e alcohol) Comments Unknown Sex and Gender Information Value Date Recorded Sex Assigned at Not on file 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 Gender Identity Not on file Sexual Orientation Not on file Obstetrics History Last Filed Vital Signs Vital Sign Reading Time Taken Comments Blood Pressure 110/62 09/01/2024 11:16 AM CDT Pulse 60 09/01/2024 11:16 AM CDT Temperature - - Respiratory Rate 18 09/01/2024 11:16 AM CDT Oxygen Saturation 97% 09/01/2024 11:16 AM CDT Inhaled Oxygen Concentration - - Weight 68 kg (150 lb) 09/01/2024 11:16 AM CDT Height 157.5 cm (5' 2) 09/01/2024 11:16 AM CDT Body Mass Index 27.44 09/01/2024 11:16 AM CDT Plan of Treatment Health Maintenance Due Date Last Done Comments Depression Screening 1940 Fall Risk Assessment 1940 Osteoporosis Screening-Bone Density Scan 1939 DTaP/Tdap/Td Vaccine (1 - Tdap) 1950 Hepatitis B Screening 1957 Pneumococcal vaccine 65+ (1 of 1 - PCV) 1989 Zoster Vaccine (1 of 2) 1989 Well Visit 65+ 02/19/2004 Covid-19 Vaccine (8 - 2023-2 5 season) 2023 10/29/2021, 04/26/2021, 01/14/2021, Additional history exists Influenza Vaccine (#1) 2024 Medical Devices Implanted Type Area Dressage Judge Device Identifier Shelf Expiration Date Model / Serial / Lot Knee Replacement Knee Hip Replacement Hip Insurance [employer] MEDICARE HMO Care Teams Account Developer Relationship Specialty Start Date End Date Rosalva Mccoy NP [address] [place] [address] PCP - General Family Medicine 06/14/24
--- OUTSIDE RECORDS SUMMARY | 2024-11-18 11:43 | XMS_ITS | Encounter Summary ---
Author Organization [facility] Facility Care Team Providers Care Section Leader And Machine Setter Name Role Phone Tanvir Awad MD Primary Care Provider [phone] Abhijit Erazo MD Primary Care Provider [phone] Rosalva Mccoy NP Primary Care Provider [phone] Encounter Details Date Type Department Care Team (Latest Contact Info) Description 01/29/2017 Orders Only [facility] CLINCON[facility] ProviderKush MD [address] [place] [address] Social History Tobacco Use Types Packs/Day Years Used Date Smoking Tobacco: Never Assessed Alcohol Use Standard Drinks/Week Comments No 0 (1 standard drink = 0.6 oz pur e alcohol) Comments Unknown Sex and Gender Information Value Date Recorded Sex Assigned at Not on file 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 Historical Provider Final Res ult documented in this encounter Visit Diagnoses Not on filedocumented in this encounter Care Teams Section Leader And Machine Setter Relationship Specialty Start Date End Date Tanvir Awad MD [address] [place] [address] PCP - General 01/15/12 06/02/23 Abhijit Erazo MD [address] [place] [address] PCP - General Family Medicine 06/03/23 06/13/24 Rosalva Mccoy, DOMITILA [address] [place] [address] PCP - General Family Medicine 06/14/24 documented as of this encounter
--- OUTSIDE RECORDS SUMMARY | 2024-11-18 11:43 | XMS_ITS | Clinical Summary ---
Author Organization [facility] Address [address] [address] Phone Care Team Providers Care Oil Refinery Operator Name Role Phone Calvin Awad MD Primary Care Provider [phone] Allergies Active Allergy Reactions Criticality Noted Date Comments Ibuprofen Rash 04/12/2020 Naproxen Rash 04/12/2020 Acetaminophen Other (see Comments) 04/12/2020 Tongue swelling Medications levothyroxine (SYNTHROID) 88 MCG Tablet Take 88 mcg by mouth daily. Active B Complex Vitamins Capsule Take 1 Cap by mouth. Active diazePAM (VALIUM) 2 MG Tablet Take 2 mg by mouth. Active flecainide (TAMBOCOR) 100 MG Tablet Take 100 mg by mouth 2 times daily. Active metoprolol Succinate (TOPROL-XL) 25 MG TABLET SR 24 HR Take 25 mg by mouth daily. Active biotin 300 MCG Tablet Take 300 mcg by mouth daily. Active omeprazole (PriLOSEC) 40 MG CAPSULE DELAYED RELEASE Take 40 mg by mouth daily. Active metoprolol tartrate (LOPRESSOR) 25 MG Tablet Take 25 mg by mouth 2 times daily. Active atorvastatin (LIPITOR) 40 MG Tablet Take 40 mg by mouth daily. Active amitriptyline (ELAVIL) 25 MG Tablet Take 25 mg by mouth nightly. Active Active Problems No known active problems Social History Tobacco Use Types Packs/Day Years Used Date Smoking Tobacco: Never Smokeless Tobacco: Never Alcohol Use Standard Drinks/Week Comments Not Currently 0 (1 standard drink = 0.6 oz pur e alcohol) Sexually Active Control Partners Comments Not Currently Comments No Sex and Gender Information Value Date Recorded Sex Assigned at Not on file Legal Sex Female 11:05 AM CAREER BASED INTERVENTION COORDINATOR Gender Identity Not on file Sexual Orientation Not on file Last Filed Vital Signs Vital Sign Reading Time Taken Comments Blood Pressure 120/72 04/12/2020 1:42 PM CAREER BASED INTERVENTION COORDINATOR Pulse 59 04/12/2020 1:42 PM CAREER BASED INTERVENTION COORDINATOR Temperature 36.1 C (97 F) 04/12/2020 1:42 PM CAREER BASED INTERVENTION COORDINATOR Respiratory Rate - - Oxygen Saturation 97% 04/12/2020 1:42 PM CAREER BASED INTERVENTION COORDINATOR Inhaled Oxygen Concentration - - Weight 71.9 kg (158 lb 9.6 oz) 04/12/2020 1:42 P M CAREER BASED INTERVENTION COORDINATOR Height 162.6 cm (5' 4) 04/12/2020 1:42 PM CAREER BASED INTERVENTION COORDINATOR Body Mass Index 27.22 04/12/2020 1:42 PM CAREER BASED INTERVENTION COORDINATOR Plan of Treatment Health Maintenance Due Date Last Done Comments Hepatitis C Virus (HCV) Screening 1940 TdaP Immunization 1940 Cologuard 02/19/1984 Immunochemical Fecal Occult Blood 02/19/1984 Pneumococcal Immunization (50+ years) (1 of 1 - PCV) 1989 Zoster Immunization (1 of 2) 1989 Respiratory Syncytial Virus (RSV) Immunization (Adult) (1 - 1-dose 75+ series) 2014 SARS-COV-2 Immunization (5 - season) 2023 10/29/2021, 04/26/2021, 07/22/2020, Additional history exists Influenza Immunization (#1) 2024 Colonoscopy 05/17/2030 05/17/2020 Colorectal Cancer Screening 05/17/2030 Hepatitis B Immunization Aged Out No longer eligible based on patient's age to complete this topic Human Papillomavirus (HPV) Immunization Aged Out No longer eligible based on patient's age to complete this topic Meningococcal Immunization (ACWY) Aged Out No longer eligible based on patient's age to complete this topic Rotavirus Immunization Aged Out No lo nger eligible based on patient's age to complete this topic Procedures Procedure Name Priority Date/Time Associated Diagnosis Comments COLONOSCOPY Routine 05/17/2020 from Last 3 Months or Most Recently Relevant to Health Maintenance Results * HM COLONOSCOPY (05/17/2020) Kwesi Corley DO PROCEDURE/MINOR SURGICAL ORDERA BLES Final Result from Last 3 Months or Most Recently Relevant to Health Maintenance Insurance MEDICARE C HUMANA Care Teams Oil Refinery Operator Relationship Specialty Start Date End Date Calvin Awad MD [address] [place] [address] PCP - General Family Medicine 03/16/20
--- OUTSIDE RECORDS SUMMARY | 2024-11-18 11:43 | XMS_ITS | Encounter Summary ---
Author Organization [facility] Address [address] [place] [address] Care Team Providers Care Backroom Associate Name Role Phone Tanvir Awad MD Primary Care Provider [phone] Abhijit Erazo MD Primary Care Provider [phone] Rosalva Mccoy NP Primary Care Provider [phone] Encounter Details Date Type Department Care Team (Late st Contact Info) Description 10/15/2008 Orders Only [facility] Health Information Management [address] [place] [address] Scanning, Provider Social History Tobacco Use Types Packs/Day Years Used Date Smoking Tobacco: Never Assessed Comments Unknown Sex and Gender Information Value Date Recorded Sex Assigned at Not on file 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 Sex Female 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 Gender Identity Not on file Sexual Orientation Not on file documented as of this encounter Plan of Treatment Not on file documented as of this encounter Procedures Procedure Name Priority Date/Time Associated Diagnosis Comments CARDIOLOGY DOCUMENT SCAN 10/15/2008 documented in this encounter Results * SCAN - CARDIOLOGY (10/15/2008) Anatomical Region Laterality Modality Other us Provider Scanning CV CARDIAC SERVICES PROCEDURES Final Result documented in this encounter Visit Diagnoses Not on filedocumented in this encounter Care Teams Backroom Associate Relationship Specialty Start Date End Date Tanvir Awad MD [address] [place] [address] PCP - General 01/15/12 06/02/23 Abhijit Erazo MD [address] [facility] [place] [address] PCP - General Family Medicine 06/03/23 06/13/24 Rosalva Mccoy NP [address] [facility] [place] [address] PCP - General Family Medicine 06/14/24 documented as of this encounter
--- OUTSIDE RECORDS SUMMARY | 2024-11-18 11:43 | XMS_ITS | Clinical Summary ---
Author Organization [facility] Address [address] [place] [address] Care Team Providers Care Hose Coupling Joiner Name Role Phone Unavailable Primary Care Provider Unavailabl e Social History Tobacco Use Types Packs/Day Years Used Date Smoking Tobacco: Never Assessed Comments Unknown Sex and Gender Information Value Date Recorded Sex Assigned at Not on file Legal Sex Female 5:48 PM CDT Gender Identity Not on file Sexual Orientation Not on file Plan of Treatment Health Maintenance Due Date Last Done Comments DTaP, Tdap and Td Vaccines ( 1 - Tdap) 1958 Pneumococcal Vaccine: 50+ Ye ars (1 of 1 - PCV) 1989 Zoster Vaccines (1 of 2) 1989 RSV Immunization or 60+ Years (1 - 1-dose 75+ series) 2014 COVID-19 Vaccine (2023-2 5 season) 2023 Meningococcal B Vaccine Aged Out No l onger eligible based on patient's age to complete this topic Meningococcal Vaccine Aged Out No maria teresa nahed eligible based on patient's age to complete this topic RSV Immunizations Under 20 Months Aged Out No longer eligible based on patient's age to complete this topic Additional Health Concerns Infection Onset 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
--- OUTSIDE RECORDS SUMMARY | 2024-11-18 11:43 | XMS_ITS | Encounter Summary ---
Author Organization [facility] Medical [facility] Address [address] [place] [address] Care Team Providers Care Cellulose Insulation Helper Name Role Phone Tanvir Awad MD Primary Care Provider [phone] Abhijit Erazo MD Primary Care Provider [phone] Rosalva Mccoy NP Primary Care Provider [phone] Encounter Details Date Type Department Care Team (Late st Contact Info) Description 03/27/2014 Orders Only [facility] Health Information Management [address] [place] [address] Scanning, Provider Social History Tobacco Use Types Packs/Day Years Used Date Smoking Tobacco: Never Assessed Alcohol Use Standard Drinks/Week Comments No 0 (1 standard drink = 0.6 oz pur e alcohol) Comments Unknown Sex and Gender Information Value Date Recorded Sex Assigned at Not on file 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 Sex Female 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 WATER AEROBICS INSTRUCTOR Gender Identity Not on file Sexual Orientation Not on file documented as of this encounter Plan of Treatment Not on file documented as of this encounter Procedures Procedure Name Priority Date/Time Associated Diagnosis Comments CARDIOLOGY DOCUMENT SCAN 03/27/2014 documented in this encounter Results * SCAN - CARDIOLOGY (03/27/2014) Anatomical Region Laterality Modality Other us Provider Scanning CV CARDIAC SERVICES PROCEDURES Final Result documented in this encounter Visit Diagnoses Not on filedocumented in this encounter Care Teams Cellulose Insulation Helper Relationship Specialty Start Date End Date Tanvir Awad MD [address] [place] [address] PCP - General 01/15/12 06/02/23 Abhijit Erazo MD [address] [facility] [place] [address] PCP - General Family Medicine 06/03/23 06/13/24 Rosalva Mccoy NP [address] [place] [address] PCP - General Family Medicine 06/14/24 documented as of this encounter
--- OUTSIDE RECORDS SUMMARY | 2024-11-18 11:43 | XMS_ITS | Encounter Summary ---
Author Organization [facility] Facility Care Team Providers Care Manager Proposal Name Role Phone Tanvir Awad MD Primary Care Provider [phone] Abhijit Erazo MD Primary Care Provider [phone] Rosalva Mccoy NP Primary Care Provider [phone] Encounter Details Date Type Department Care Team (Latest Contact Info) Description 12/25/2016 Orders Only [facility] CLINCONV ProviderKsuh MD [address] [place] [address] Social History Tobacco Use Types Packs/Day Years Used Date Smoking Tobacco: Never Assessed Alcohol Use Standard Drinks/Week Comments No 0 (1 standard drink = 0.6 oz pur e alcohol) Comments Unknown Sex and Gender Information Value Date Recorded Sex Assigned at Not on file Legal Sex Female 11:05 AM NET SOFTWARE ARCHITECT Gender Identity Not on file Sexual Orientation Not on file documented as of this encounter Plan of Treatment Not on file documented as of this encounter Procedures Procedure Name Priority Date/Time Associated Diagnosis Comments PROCEDURE - RESULT 12/12/2016 12 :00 AM CDT documented in this encounter Results * PROCEDURE - RESULT (12/12/2016 12:00 AM CDT) Narrative 12/12/2016 12:00 AM CDT Ordered by an unspecified provider. Historical Provider Final Res ult documented in this encounter Visit Diagnoses Not on filedocumented in this encounter Care Teams Manager Proposal Relationship Specialty Start Date End Date Tanvir Awad MD [address] [place] [address] PCP - General 01/15/12 06/02/23 Abhijit Erazo MD [address] [place] [address] PCP - General Family Medicine 06/03/23 06/13/24 Rosalva Mccoy, DOMITILA [address] [place] [address] PCP - General Family Medicine 06/14/24 documented as of this encounter
--- OUTSIDE RECORDS SUMMARY | 2024-11-18 11:43 | XMS_ITS | Encounter Summary ---
Author Organization [facility] Medical [facility] Address [address] [place] [address] Care Team Providers Care Pot Lining Supervisor Name Role Phone Tanvir Awad MD Primary Care Provider Abhijit Erazo MD Primary Care Provider Rosalva Mccoy NP Primary Care Provider [phone] Encounter Details Date Type Department Care Team (Late st Contact Info) Description 07/01/[address] 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 Gender Identity Not on file Sexual Orientation Not on file documented as of this encounter Plan of Treatment Not on file documented as of this encounter Procedures Procedure Name Priority Date/Time Associated Diagnosis Comments CARDIOLOGY DOCUMENT SCAN 07/01/2013 documented in this encounter Results * SCAN - CARDIOLOGY (07/01/2013) Anatomical Region Laterality Modality Other us Provider Scanning CV CARDIAC SERVICES PROCEDURES Final Result documented in this encounter Visit Diagnoses Not on filedocumented in this encounter Care Teams Pot Lining Supervisor Relationship Specialty Start Date End Date Tanvir Awad MD [address] [place] [address] PCP - General 01/15/12 06/02/23 Abhijit Erazo MD [address] [facility] [place] [address] PCP - General Family Medicine 06/03/23 06/13/24 Rosalva Mccoy NP [address] [place] [address] PCP - General Family Medicine 06/14/24 documented as of this encounter
--- OUTSIDE RECORDS SUMMARY | 2024-11-18 13:14 | XMS_ITS | Encounter Summary ---
Author Organization [facility] Address [address] [place] [address] Care Team Providers Care Electrophysiology Technician Name Role Phone Tanvir Awad MD Primary Care Provider Abhijit Erazo MD Primary Care Provider [phone] Rosalva Mccoy NP Primary Care Provider [phone] Encounter Details Date Type Department Care Team (Late st Contact Info) Description 07/01/2013 Orders Only [facility] Health Information Management [address] [place] [address] Scanning, Provider Social History Tobacco Use Types Packs/Day Years Used Date Smoking Tobacco: Never Assessed Alcohol Use Standard Drinks/Week Comments No 0 (1 standard drink = 0.6 oz pur e alcohol) Comments Unknown Sex and Gender Information Value Date Recorded Sex Assigned at Not on file 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
--- OUTSIDE RECORDS SUMMARY | 2024-11-18 13:14 | XMS_ITS | Encounter Summary ---
Author Organization [facility] Facility Care Team Providers Care Sand Mixer Machine Name Role Phone Tanvir Awad MD Primary Care Provider [phone] Abhijit Erazo MD Primary Care Provider [phone] Rosalva Mccoy NP Primary Care Provider [phone] Encounter Details Date Type Department Care Team (Latest Contact Info) Description 03/20/2017 Orders Only [facility] CLINCONV ProviderKush MD [address] [place] [address] Social History Tobacco Use Types Packs/Day Years Used Date Smoking Tobacco: Never Assessed Alcohol Use Standard Drinks/Week Comments No 0 (1 standard drink = 0.6 oz pur e alcohol) Comments Unknown Sex and Gender Information Value Date Recorded Sex Assigned at Not on file Legal Sex Female 11:05 AM CARE MANAGER Gender Identity Not on file Sexual [...] on filedocumented in this encounter Care Teams Sand Mixer Machine Relationship Specialty Start Date End Date Tanvir Awad MD [address] [place] [address] PCP - General 01/15/12 06/02/23 Abhijit Erazo MD [address] [facility] [place] [address] PCP - General Family Medicine 06/03/23 06/13/24 Rosalva Mccoy, DOMITILA [address] [place] [address] PCP - General Family Medicine 06/14/24 documented as of this encounter
--- OUTSIDE RECORDS SUMMARY | 2024-11-18 13:14 | XMS_ITS | Clinical Summary ---
Author Organization [facility] [address] Address [address] [place] [address] Care Team Providers Care Gang Head Saw Operator Name Role Phone Rosalva Mccoy NP Primary Care Provider [phone] Allergies Active Allergy Reactions Criticality Noted Date Comments Acetaminophen Swelling,Other (See comments) Medium 04/13/2019 Tongue swelling Adhesive Tape-Silicones Rash Medium 08/04/2021 Haemophilus Influenzae Type B Fever Medium 08/04/2021 Ibuprofen Swelling,Rash Medium 04/12/2020 Morphine Anxiety,Delusions,Lacey llucinations,Headach e Medium 07/13/2024 Naproxen Swelling,Rash Medium 04/13/2019 [place] Itching,Rash,Shortne ss of breath,Swelling High 05/05/1999 Medications lisinopril-hydr oCHLOROthiazide (ZESTORETIC) 10-12.5 mg per tabletIndicatio ns:hypertension Take 1 tablet by mouth daily Active flecainide (TAMBOCOR) 100 mg tablet Take 1 tablet (100 mg total) by mouth 2 (two) times a day Active levothyroxine (SYNTHROID) 88 mcg tablet Take 1 tablet (88 mcg total) by mouth architect marine before breakfast Active diazePAM (VALIUM) 2 mg [...] total) by mouth daily 9 Active vit C,E-Ma-ekhxo-jose tein-zeaxan [id number] mg-lrma-nr-mg capsule Take by mouth Active apixaban (ELIQUIS) [...] Description 09/01/2024 11:30 AM CDT Office Visit [facility] Neurology [address] 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
--- OUTSIDE RECORDS SUMMARY | 2024-11-18 13:14 | XMS_ITS | Encounter Summary ---
Author Organization [facility] Facility Care Team Providers Care Water Rights Specialist Name Role Phone Tanvir Awad MD Primary Care Provider [phone] Abhijit Erazo MD Primary Care Provider [phone] Rosalva Mccoy NP Primary Care Provider [phone] Encounter Details Date Type Department Care Team (Latest Contact Info) Description 12/25/2016 Orders Only [facility] CLINCONV ProviderKush MD [address] [place] [address] Social History Tobacco Use Types Packs/Day Years Used Date Smoking Tobacco: Never Assessed Alcohol Use Standard Drinks/Week Comments No 0 (1 standard drink = 0.6 oz pur e alcohol) Comments Unknown Sex and Gender Information Value Date Recorded Sex Assigned at Not on file Legal Sex Female 11: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 [place] [address] PCP - General Family Medicine 06/03/23 06/13/24 Rosalva Mccoy, DOMITILA [address] [place] [address] PCP - General Family Medicine 06/14/24 documented as of this encounter
--- OUTSIDE RECORDS SUMMARY | 2024-11-18 13:14 | XMS_ITS | Encounter Summary ---
Author Organization [facility] Facility Care Team Providers Care Market Stall Vendor Name Role Phone Tanvir Awad MD Primary Care Provider [phone] Abhijit Erazo MD Primary Care Provider [phone] Rosalva Mccoy NP Primary Care Provider [phone] Encounter Details Date Type Department Care Team (Latest Contact Info) Description 01/29/2017 Orders Only [facility] CLINCONV ProviderKush MD [address] [place] [address] Social History Tobacco Use Types Packs/Day Years Used Date Smoking Tobacco: Never Assessed Alcohol Use Standard Drinks/Week Comments No 0 (1 standard drink = 0.6 oz pur e alcohol) Comments Unknown Sex and Gender Information Value Date Recorded Sex Assigned at Not on file Legal Sex Female 11:05 AM JAVA SWING DEVELOPER Gender Identity Not on file Sexual Orientation [...] on filedocumented in this encounter Care Teams Market Stall Vendor Relationship Specialty Start Date End Date Tanvir Awad MD [address] [place] [address] PCP - General 01/15/12 06/02/23 Abhijit Erazo MD [address] [facility] [place] [address] PCP - General Family Medicine 06/03/23 06/13/24 Rosalva Mccoy, DOMITILA [address] [place] [address] PCP - General Family Medicine 06/14/24 documented as of this encounter
--- OUTSIDE RECORDS SUMMARY | 2024-11-18 13:15 | XMS_ITS | Clinical Summary ---
Author Organization [facility] Address [address] [address] Phone Care Team Providers Care Kitchen Bath Designer Name Role Phone Calvin Awad MD Primary Care Provider [phone] Allergies Active Allergy Reactions Criticality Noted Date [...] on file Legal Sex Female 11:05 AM HOUSE MOVING SUPERVISOR Gender Identity Not on file Sexual Orientation Not on file Last Filed Vital Signs Vital Sign Reading Time Taken Comments Blood Pressure 120/72 04/12/2020 1:42 PM HOUSE MOVING SUPERVISOR Pulse 59 04/12/2020 1:42 PM HOUSE MOVING SUPERVISOR Temperature 36.1 C (97 F) 04/12/2020 1:42 PM HOUSE MOVING SUPERVISOR Respiratory Rate - - Oxygen Saturation 97% 04/12/2020 1:42 PM HOUSE MOVING SUPERVISOR Inhaled Oxygen Concentration - - Weight 71.9 kg (158 lb 9.6 oz) 04/12/2020 1:42 P M HOUSE MOVING SUPERVISOR Height 162.6 cm (5' 4) 04/12/2020 1:42 PM HOUSE MOVING SUPERVISOR Body Mass Index 27.22 04/12/2020 1:42 PM HOUSE MOVING SUPERVISOR Plan of Treatment Health Maintenance Due Date [...] Maintenance Insurance MEDICARE C HUMANA Care Teams Kitchen Bath Designer Relationship Specialty Start Date End Date Calvin Awad MD [address] [place] [address] PCP - General Family Medicine 03/16/20
--- OUTSIDE RECORDS SUMMARY | 2024-11-18 13:15 | XMS_ITS | Encounter Summary ---
Author Organization [facility] Medical Group Address [address] [place] [address] Care Team Providers Care Medication Reconciliation Technician Name Role Phone Tanvir Awad MD Primary Care Provider [phone] Abhijit Erazo MD Primary Care Provider [phone] Rosalva Mccoy NP Primary Care Provider [phone] Encounter Details Date Type Department Care Team (Late st Contact Info) Description 03/27/2014 Orders Only [facility] Health Information Management [address] [place] [address] Scanning, Provider Social History Tobacco Use Types Packs/Day Years Used Date Smoking Tobacco: Never Assessed Alcohol Use Standard Drinks/Week Comments No 0 (1 standard drink = 0.6 oz pur e alcohol) Comments Unknown Sex and Gender Information Value Date Recorded Sex Assigned at Not on file Legal Sex Female 11:05 AM TURN SUPERVISOR Gender Identity Not on file Sexual [...] on filedocumented in this encounter Care Teams Medication Reconciliation Technician Relationship Specialty Start Date End Date Tanvir Awad MD [address] [place] [address] PCP - General 01/15/12 06/02/23 Abhijit Erazo MD [address] [facility] [place] [address] PCP - General Family Medicine 06/03/23 06/13/24 Rosalva Mccoy NP [address] [place] [address] PCP - General Family Medicine 06/14/24 documented as of this encounter
--- OUTSIDE RECORDS SUMMARY | 2024-11-18 13:15 | XMS_ITS | Clinical Summary ---
Author Organization [facility] Address [address] [place] [address] Care Team Providers Care Project Portfolio Analyst Name Role Phone Unavailable Primary Care Provider [...]
--- OUTSIDE RECORDS SUMMARY | 2024-11-18 13:15 | XMS_ITS | Clinical Summary ---
Author Organization [facility] Address [address] [place] [id number] Phone Care Team Providers Care Labor Trainer Name Role Phone Yoni Awad MD Primary Care Provider [phone] Allergies Active Allergy Reactions Criticality Noted Date Comments Acetaminophen Other (see comments),Swelling Medium 04/13/2019 Tongue swelling Ibuprofen Rash,Swelling Medium 04/12/2020 Influenza Virus Vaccine Fever 08/04/2021 Naproxen Rash,Swelling Medium 04/13/2019 [place] Extract 08/04/2021 Wound Dressing Adhesive Rash Low 08/04/2021 Medications amitriptyline (ELAVIL) 25 MG tablet 06/17/2021 Active atorvastatin (LIPITOR) 40 MG tablet 06/03/2021 Active b complex vitamins capsule Take 1 capsule by mouth Active biotin 300 MCG tablet tablet Take 300 mcg by mouth daily Active diazePAM (VALIUM) 2 MG tablet 06/29/2021 Active ferrous sulfate 325 (65 Fe) MG tablet daily Active flecainide (TAMBOCOR) 100 MG tablet 06/29/2021 Active levothyroxine (SYNTHROID) 88 MCG tablet 06/03/2021 Active lisinopril-hydr oCHLOROthiazide (PRINZIDE) 10-12.5 MG per tablet 06/29/2021 Active metoprolol tartrate (LOPRESSOR) 25 MG tablet 06/17/2021 Active omeprazole (PriLOSEC) [address] capsule 06/17/2021 Activ e Active Problems Problem Noted Date Diagnosed Date 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 Current tear of lateral cartilage AND/OR meniscu s of knee 08/04/2021 Current tear of medial cartilage AND/OR meniscus of knee 08/04/2021 History of total hip arthroplasty 06/21/2019 Osteoarthritis of knee 05/17/2019 History of left total knee replacement 0 Arthritis of left knee 03/24/2019 Immunizations Immunization Administration Dates Next Due Sars-cov-2, Unspecified 01/14/2021,07/15/2020, Family History Medical History Relation Comments Aortic aneurysm Father Heart disease Father Kidney disease Father Alzheimer's disease Mother Brain cancer Mother Diabetes mellitus Mother Relation Status Comments Father Mother Social History Tobacco Use Types Packs/Day Years Used Date Smoking Tobacco: Never Smokeless Tobacco: Never Alcohol Use Standard Drinks/Week Comments Never 0 (1 standard drink = 0.6 oz pur e alcohol) Comments Unknown Sex and Gender Information Value Date Recorded Sex Assigned at Not on file Legal Sex Female 10:53 AM MDT Gender Identity Not on file Sexual Orientation Not on file Last Filed Vital Signs Vital Sign Reading Time Taken Comments Blood Pressure 184/88 07/15/2021 9:54 AM CDT Pulse - - Temperature 36.4 C (97.6 F) 07/15/2021 9:54 AM CDT Respiratory Rate 18 07/15/2021 9:54 AM CDT Oxygen Saturation - - Inhaled Oxygen Concentration - - Weight 74.4 kg (164 lb) 07/15/2021 9:54 AM CDT Height 157.5 cm (5' 2) 07/15/2021 9:54 AM CDT Body Mass Index 30 07/15/2021 9:54 AM CDT Plan of Treatment Health Maintenance Due Date Last Done Comments Pneumococcal PPSV23/PCV13 65 + Years / Low and Medium Risk (1 of 2 - PCV) 1989 Influenza Vaccine (#1) 2024 Insurance MEDICARE ADVANTAGE Care Teams Labor Trainer Relationship Specialty Start Date End Date Yoni Awad MD [address] [place] [address] PCP - General Internal Medicine 06/24/21
--- OUTSIDE RECORDS SUMMARY | 2024-11-18 13:15 | XMS_ITS | Encounter Summary ---
Author Organization [facility] Medical Group Address [address] [place] [address] Care Team Providers Care Machine Tool Builder Name Role Phone Tanvir Awad MD Primary Care Provider [phone] Abhijit Erazo MD Primary Care Provider [phone] Rosalva Mccoy NP Primary Care Provider [phone] Encounter Details Date Type Department Care Team (Late st Contact Info) Description 10/15/2008 Orders Only [facility] Health Information Management [address] [place] [address] Scanning, Provider Social History Tobacco Use Types Packs/Day Years Used Date Smoking Tobacco: Never Assessed Comments Unknown Sex and Gender Information Value Date Recorded Sex Assigned at Not on file Legal Sex Female 11:05 AM BLOOD TESTER Gender Identity Not on file Sexual Orientation [...] on filedocumented in this encounter Care Teams Machine Tool Builder Relationship Specialty Start Date End Date Tanvir Awad MD [address] [place] [address] PCP - General 01/15/12 06/02/23 Abhijit Erazo MD [address] [facility] [place] [address] PCP - General Family Medicine 06/03/23 06/13/24 Rosalva Mccoy NP [address] [facility] [place] [address] PCP - General Family Medicine 06/14/24 documented as of this encounter
--- NOTE | 2024-11-18 14:29 | ED.GENADULT ---
HPI - General Adult General Chief complaint: Fall Stated complaint: fall, requesting ct scan-eliquis Time Seen by Provider: 11/18/24 12:37 History of Present Illness HPI narrative: This is an 84-year-old female on Eliquis presenting after a fall. She was gardening when she tipped over and struck her head on the ground. She went to an urgent care where they evaluated her wrist and diagnosed with a wrist sprain. However as she had head trauma and is on Eliquis she was sent to the ED for evaluation. She is asymptomatic and has no complaints. Related Data Home Medications ?Medication ?Instructions ?Recorded ?Confirmed ?Last Taken ?Type biotin 5 mg tablet 5 mg PO DAILY 06/24/19 11/09/24 10/20/22 History calcium 315 mg (as 1 tablet PO DAILY 08/29/21 11/09/24 10/20/22 History citrate)-ergocalciferol (vit D2) 200 unit tablet Benadryl 50 mg PO TID PRN Allergy Symptoms 01/21/23 11/09/24 Unknown History multivitamin (One-A-Day Essential 1 tablet PO DAILY 11/10/23 11/09/24 Unknown History tablet) Allergies Allergy/AdvReac Type Severity Reaction Status Date / Time acetaminophen (From Tylenol) Allergy Severe Swelling Verified 11/18/24 11:03 ibuprofen Allergy Severe Swelling Verified 11/18/24 11:03 of Lip/Tongue/Throat naproxen (From Aleve) Allergy Severe Swelling Verified 11/18/24 11:03 of Lip/Tongue/Throat strawberry Allergy Severe Swelling Verified 11/09/24 11:28 of Lip/Tongue/Throat adhesive Allergy Mild Rash Verified 11/18/24 11:03 latex Allergy Mild Rash Verified 11/18/24 11:03 morphine Allergy Hallucinati Verified 11/18/24 11:03 ng influenza virus vaccine tv AdvReac Severe very sick Verified 11/18/24 11:03 2013-14(18-49 yrs),rcmb with fever (From Flublok) and myalgia PMFSH Past Medical History Medical History Candidal intertrigo Rheumatoid arthritis Pelvis fracture COVID-19 long hauler manifesting chronic dyspnea Dyspnea Skin lesion of face Injury of knee, left Labile blood pressure Hypertensive urgency Nausea and vomiting Acute kidney injury superimposed on chronic kidney disease Colitis Adenomatous colon polyp added to history in , Right sided abdominal pain Encounter for surgical aftercare following surgery on the digestive system Encounter for follow-up examination after completed treatment for conditions other than malignant neoplasm Pneumonia SBO (small bowel obstruction) Incisional hernia Umbilical hernia Abdominal hernia Irregular heart beat Hypokalemia Hyponatremia COVID-19 Hypertensive urgency CKD (chronic kidney disease) stage 4, GFR 15-29 ml/min Paroxysmal A-fib Frequent falls Wrist pain, right Thumb pain Hip pain Contusion of multiple sites of right hand and fingers Back pain Gastric AVM Bilateral inguinal hernia Muscle spasm Right renal mass Renal cyst Closed displaced midcervical fracture of femur (~06/06/19) Osteoarthritis of left knee Chronic anticoagulation GERD (gastroesophageal reflux disease) Diet-controlled diabetes mellitus Hemoglobin A1c was 5.5 on March 25, 2019. History of Clostridioides difficile infection Mitral valve prolapse Hyperlipidemia Osteoarthritis Hypothyroidism Anxiety History of postoperative nausea and vomiting Latex allergy status Nonrheumatic mitral valve disorder Primary osteoarthritis of left knee Surgical History Surgical History History of incisional hernia repair Robotic assisted repair periumbilical incisional hernia with mesh 07/10/[address] Bee. H/O abdominal surgery Hx of exploratory laparotomy Exploratory laparoscopy, lysis of adhesion on 07/15/[address] Bee H/O dilation and curettage x4 Hx of colonoscopy H/O hemorrhoidectomy History of hip replacement (~06/06/19) left Status post total left knee replacement (~05/04/19) Status post arthroscopy of left knee (~05/04/19) History of bladder suspension procedure Status post breast biopsy (~1972) Left breast biopsy with benign histology. Status post cholecystectomy (~2001) Status post cataract extraction (~05/20/16) right History of varicose vein ligation and stripping (~1991) right leg Status post cardiac catheterization Coronary angiogram March 2014 showed normal coronary arteries. Status post hysterectomy (~1970) Family History Family History Father Family history of cardiovascular disease Family history of kidney disease Family history of aortic aneurysm Mother Diabetes mellitus Family history of Alzheimer's disease Family history of malignant neoplasm of brain Grandparent Cerebrovascular accident Other Breast cancer Eye cancer Social History Social History Social History: The patient is [place] of [place]. She is a lifelong nonsmoker and denies alcohol and drug use. Children live nearby. She still works 6 days a week at [employer]. She denies alcohol, tobacco, and drug use. The patient's daughter lives with her now. She has 3 children. She is . She is a full code. Her daughter this living with her is a durable power contracts attorney for healthcare. Smoking status: Never smoker Second hand tobacco smoke exposure: Yes Alcohol intake: never Substance use: never Substance use type: does not use Do You Feel Safe in your Home?: Yes Lack of Transportation: No Lack of Food: Never True Current Housing: I Have Housing Concerned About Future Housing: No Difficulty Paying Gas/Electric Bills: No Difficulty Paying for Meds: No Currently Unemployed: No Education: High School Diploma/GED Difficulty w/ Childcare or Family Care: No Living arrangements: with family Additional living arrangements comments: Ludyther lives with Shantel Occupation/Education: retired 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 Head: atraumatic. EYES: EOMI, NOSE: Atraumatic NECK: Trachea midline RESPIRATORY: No increased rate of breathing clear to auscultation CARDIOVASCULAR: RRR, ABDOMINAL: Non-distended MUSCULOSKELETAl: No obvious deformities NEURO: Alert. Cranial nerves 2-12 grossly intact. Sensation light touch, motor function cerebellar function intact for 4 extremities. Gait exam was normal. SKIN:: Warm, dry. Normal color PSYCHIATRIC: Normal affect Course Vital Signs Vital signs: Vital Signs Temperature 98.3 F 11/18/24 11:41 Pulse Rate 66 11/18/24 11:41 Respiratory Rate 16 11/18/24 11:41 Blood Pressure 127/71 11/18/24 11:41 Pulse Oximetry 99 11/18/24 11:41 Temperature 98.3 F 11/18/24 11:41 Pulse Rate 66 11/18/24 11:41 Respiratory Rate 16 11/18/24 11:41 Blood Pressure 127/71 11/18/24 11:41 Pulse Oximetry 99 08/15/25 11:41 Medical Decision Making [facility] Narrative Medical decision making narrative: -Course: A 4-year-old female presenting after ground level fall. No evidence of trauma on exam. Neurologic exam is normal. CT imaging negative for acute injury. Patient discharged. -DDX includes but is not limited to: Concussion, intracranial hemorrhage Vital Signs Vital Signs: Vital Signs Temperature 98.3 F 11/18/24 11:41 Pulse Rate 66 11/18/24 11:41 Respiratory Rate 16 11/18/24 11:41 Blood Pressure 127/71 11/18/24 11:41 Pulse Oximetry 99 11/18/24 11:41 Temperature 98.3 F 11/18/24 11:41 Pulse Rate 66 11/18/24 11:41 Respiratory Rate 16 11/18/24 11:41 Blood Pressure 127/71 11/18/24 11:41 Pulse Oximetry 99 11/18/24 11:41 Discharge Plan Discharge Clinical Impression: Fall Patient Disposition: Home Condition: Stable Instructions: Antibiotic Form, Head Injury (ED) Additional Instructions: Thankfully the CT of your head and neck was negative for acute injury. Please follow-up with your primary care physician as needed. Return if you develop any new or worsening symptoms. Patient Language: Hebrew Prescriptions: No Action calcium citrate-vitamin D2 315-200 mg-unit tablet 1 tablet PO DAILY atorvastatin 40 mg tablet 40 mg PO DAILY Qty: 90 3RF levothyroxine 88 mcg tablet See Rx Instructions .ROUTE .COMPLEX Qty: 90 1RF Dose Instruction: TAKE ONE TABLET BY MOUTH DAILY Rx Instructions: TAKE ONE TABLET BY MOUTH DAILY albuterol sulfate 90 mcg/actuation HFA aerosol inhaler 1 - 2 puff inhalation Q4-6H PRN (Reason: shortness of breath or wheezing) Qty: 8.5 2RF biotin 5 mg tablet 5 mg PO DAILY multivitamin [One-A-Day Essential] Tablet 1 tablet PO DAILY Benadryl 50 mg PO TID PRN (Reason: Allergy Symptoms) (DME) Space Chamber Spacer See Rx Instructions .Route Qty: 1 0RF Rx Instructions: As directed metoprolol tartrate 25 mg tablet See Rx Instructions .ROUTE .COMPLEX Qty: 90 2RF Dose Instruction: TAKE ONE TABLET BY MOUTH TWICE A DAY Rx Instructions: TAKE 1/2 TABLET BY MOUTH DAILY amitriptyline 25 mg tablet See Rx Instructions .ROUTE .COMPLEX Qty: 90 3RF Dose Instruction: TAKE ONE TABLET BY MOUTH AT BEDTIME Rx Instructions: TAKE ONE TABLET BY MOUTH AT BEDTIME lisinopril 40 mg tablet See Rx Instructions .ROUTE .COMPLEX Qty: 90 2RF Dose Instruction: TAKE ONE TABLET BY MOUTH DAILY Rx Instructions: TAKE ONE TABLET BY MOUTH DAILY paroxetine HCl 20 mg tablet 20 mg PO DAILY Qty: 90 1RF tramadol 50 mg tablet 50 mg PO Q8H PRN (Reason: pain) Qty: 60 4RF pantoprazole 40 mg tablet,delayed release (DR/EC) 40 mg PO QAM Qty: 90 1RF gabapentin 100 mg capsule 100 mg PO TID Qty: 90 0RF budesonide-formoterol [Symbicort] 160-4.5 mcg/actuation HFA aerosol inhaler See Rx Instructions .ROUTE .COMPLEX Qty: 10.2 3RF Dose Instruction: INHALE TWO PUFFS BY MOUTH EVERY 12 HOURS RINSE MOUTH OUT AFTER EACH USE Rx Instructions: INHALE TWO PUFFS BY MOUTH EVERY 12 HOURS RINSE MOUTH OUT AFTER EACH USE Eliquis 2.5 mg tablet See Rx Instructions .ROUTE .COMPLEX Qty: 60 5RF Dose Instruction: TAKE ONE TABLET BY MOUTH TWICE A DAY Rx Instructions: TAKE ONE TABLET BY MOUTH TWICE A DAY flecainide 50 mg tablet 50 mg PO Q12H Qty: 60 1RF amlodipine 5 mg tablet See Rx Instructions .ROUTE .COMPLEX Qty: 90 1RF Dose Instruction: TAKE ONE TABLET BY MOUTH ONCE DAILY Rx Instructions: TAKE ONE TABLET BY MOUTH ONCE DAILY Follow-up/Referrals: Rosalva Mccoy APRN [Primary Care Provider] -
[2024-11-18 14:46] VITALS: BP 125/75; PULSE 64; RESP 16; TEMP 36.9; O2SAT 98
== END 2024-11-18 14:47 | disposition home or self-care (01) ==
PROVIDERS: Emergency Provider Emergency Medicine; PCP Nurse Practitioner Family
DX: S09.90XA Unspecified injury of head, initial encounter (principal); S63.501A Unspecified sprain of right wrist, initial encounter; I12.9 Hypertensive chronic kidney disease with stage 1 through stage 4 chronic kidney disease, or unspecified chronic kidney disease; E11.22 Type 2 diabetes mellitus with diabetic chronic kidney disease; N18.4 Chronic kidney disease, stage 4 (severe); I48.0 Paroxysmal atrial fibrillation; I34.1 Nonrheumatic mitral (valve) prolapse; E03.9 Hypothyroidism, unspecified; M06.9 Rheumatoid arthritis, unspecified; M17.12 Unilateral primary osteoarthritis, left knee; F41.9 Anxiety disorder, unspecified; Z96.642 Presence of left artificial hip joint; Z96.652 Presence of left artificial knee joint; Z86.0101 Personal history of adenomatous and serrated colon polyps; Z87.01 Personal history of pneumonia (recurrent); Z90.49 Acquired absence of other specified parts of digestive tract; Z90.710 Acquired absence of both cervix and uterus; Z98.41 Cataract extraction status, right eye; Z77.22 Contact with and (suspected) exposure to environmental tobacco smoke (acute) (chronic); Z79.899 Other long term (current) drug therapy; Z79.01 Long term (current) use of anticoagulants; M48.02 Spinal stenosis, cervical region; W01.0XXA Fall on same level from slipping, tripping and stumbling without subsequent striking against object, initial encounter
CPT/HCPCS: 70450; 72125; 73090; 73110; 99284

== ENCOUNTER 2024-12-22 16:12 | Outpatient (CLI) | payer MEDICARE, SELFPAY ==
--- NOTE | ~2024-12-22 | XR_ITS ---
[XR ribs LT 2V w CXR 2V ] INDICATION: Status post recent fall. Left rib pain. TECHNIQUE: Frontal projection of the upper left ribs, frontal projection of the lower left ribs, oblique projection of all the left ribs, frontal inspiratory chest x-ray for interpretation. FINDINGS: There are no displaced rib fractures identified. There are no soft tissue abnormality seen. There are coarse interstitial changes peripherally in both lungs, likely chronic interstitial fibrosis. Elevated right diaphragm. There is scoliosis. IMPRESSION: 1:No acute displaced rib fractures. Reviewed, dictated and finalized at location O.
--- OUTSIDE RECORDS SUMMARY | 2024-12-22 16:15 | XMS_ITS | Encounter Summary ---
Author Organization [facility] Medical Group Address [address] [place] [address] Care Team Providers Care Kettle Firer Name Role Phone Tanvir Awad MD Primary Care Provider [phone] Abhijit Erazo MD Primary Care Provider [phone] Rosalva Mccoy NP Primary Care Provider [phone] Encounter Details Date Type Department Care Team (Late st Contact Info) Description 03/27/2014 Orders Only [facility] Health Information Management [address] [place] [address] Scanning, Provider Social History Tobacco Use Types Packs/Day Years Used Date Smoking Tobacco: Never Assessed Alcohol Use Standard Drinks/Week Comments No 0 (1 standard drink = 0.6 oz pur e alcohol) Comments Unknown Sex and Gender Information Value Date Recorded Sex Assigned at Not on file Legal Sex Female 11:05 AM ELEVATOR BUILDER Gender Identity Not on file Sexual Orientation [...] on filedocumented in this encounter Care Teams Kettle Firer Relationship Specialty Start Date End Date Tanvir Awad MD [address] [place] [address] PCP - General 01/15/12 06/02/23 Abhijit Erazo MD [address] [facility] [place] [address] PCP - General Family Medicine 06/03/23 06/13/24 Rosalva Mccoy NP [address] [place] [address] PCP - General Family Medicine 06/14/24 documented as of this encounter
--- OUTSIDE RECORDS SUMMARY | 2024-12-22 16:15 | XMS_ITS | Clinical Summary ---
Author Organization [facility] Address [address] [address] Phone Care Team Providers Care Oyster Shucker Name Role Phone Calvin Awad MD Primary Care Provider [phone] Allergies Active Allergy Reactions Criticality Noted Date [...] on file Legal Sex Female 11:05 AM RULES EXAMINER Gender Identity Not on file Sexual Orientation Not on file Last Filed Vital Signs Vital Sign Reading Time Taken Comments Blood Pressure 120/72 04/12/2020 1:42 PM RULES EXAMINER Pulse 59 04/12/2020 1:42 PM RULES EXAMINER Temperature 36.1 C (97 F) 04/12/2020 1:42 PM RULES EXAMINER Respiratory Rate - - Oxygen Saturation 97% 04/12/2020 1:42 PM RULES EXAMINER Inhaled Oxygen Concentration - - Weight 71.9 kg (158 lb 9.6 oz) 04/12/2020 1:42 P M RULES EXAMINER Height 162.6 cm (5' 4) 04/12/2020 1:42 PM RULES EXAMINER Body Mass Index 27.22 04/12/2020 1:42 PM RULES EXAMINER Plan of Treatment Health Maintenance Due Date Last Done Comments Hepatitis C Virus (HCV) Screening 1940 TdaP Immunization 1940 Cologuard 02/19/1984 Immunochemical Fecal Occult Blood 02/19/1984 Pneumococcal Immunization (50+ years) (1 of 1 - PCV) 1989 Zoster Immunization (1 of 2) 1989 Respiratory Syncytial Virus (RSV) Immunization (Adult) (1 - 1-dose 75+ series) 2014 Influenza Immunization (#1) 2024 SARS-COV-2 Immunization ( season) 2024 10/29/2021, 04/26/2021, 07/22/2020, Additional history exists Colonoscopy 05/17/2030 05/17/2020 Colorectal Cancer Screening 05/17/2030 [...] Maintenance Insurance MEDICARE C HU[employer] Care Teams Oyster Shucker Relationship Specialty Start Date End Date Calvin Awad MD [address] [place] [address] PCP - General Family Medicine 03/16/20
--- OUTSIDE RECORDS SUMMARY | 2024-12-22 16:15 | XMS_ITS | Encounter Summary ---
Author Organization [facility] Facility Care Team Providers Care Wellness Coach Name Role Phone Tanvir Awad MD Primary Care Provider [phone] Abhijit Erazo MD Primary Care Provider [phone] Rosalva Mccoy NP Primary Care Provider [phone] Encounter Details Date Type Department Care Team (Latest Contact Info) Description 01/29/2017 Orders Only [facility] CLINCONV ProviderKush MD [address] [place] [id number] Social History Tobacco Use Types Packs/Day Years Used Date Smoking Tobacco: Never Assessed Alcohol Use Standard Drinks/Week Comments No 0 (1 standard drink = 0.6 oz pur e alcohol) Comments Unknown Sex and Gender Information Value Date Recorded Sex Assigned at Not on file Legal Sex Female 11:05 AM MEDICAL LEADER Gender Identity Not on file Sexual Orientation [...] on filedocumented in this encounter Care Teams Wellness Coach Relationship Specialty Start Date End Date Tanvir Awad MD [address] [place] [address] PCP - General 01/15/12 06/02/23 Abhijit Erazo MD [address] [facility] [place] [address] PCP - General Family Medicine 06/03/23 06/13/24 Rosalva Mccoy, DOMITILA [address] [place] [address] PCP - General Family Medicine 06/14/24 documented as of this encounter
--- OUTSIDE RECORDS SUMMARY | 2024-12-22 16:15 | XMS_ITS | Clinical Summary ---
Author Organization [facility] Address [address] [place] [id number] Care Team Providers Care Snow Remover Name Role Phone Unavailable Primary Care Provider [...] series) 2014 COVID-19 Vaccine (2023-2 5 season) 2024 Meningococcal B Vaccine Aged Out No l [...]
--- OUTSIDE RECORDS SUMMARY | 2024-12-22 16:15 | XMS_ITS | Clinical Summary ---
Author Organization [facility] Address [address] [place] [address] Phone Care Team Providers Care Flatbed Stitcher Name Role Phone Yoni Awad MD Primary Care Provider [phone] Allergies Active Allergy Reactions Criticality Noted Date Comments Acetaminophen Other (see comments),Swelling Medium 04/13/2019 Tongue swelling Ibuprofen Rash,Swelling Medium 04/12/2020 Influenza Virus Vaccine Fever 08/04/2021 Naproxen Rash,Swelling Medium 04/13/2019 [place] Extract 08/04/2021 Wound Dressing Adhesive Rash Low [...] (#1) 2024 Insurance MEDICARE ADVANTAGE Care Teams Flatbed Stitcher Relationship Specialty Start Date End Date Yoni Awad MD [address] [place] [address] PCP - General Internal Medicine 06/24/21
--- OUTSIDE RECORDS SUMMARY | 2024-12-22 16:15 | XMS_ITS | Encounter Summary ---
Author Organization [facility] Facility Care Team Providers Care Catering Administrative Assistant Name Role Phone Tanvir Awad MD Primary Care Provider [phone] Abhijit Erazo MD Primary Care Provider [phone] Rosalva Mccoy NP Primary Care Provider [phone] Encounter Details Date Type Department Care Team (Latest Contact Info) Description 03/20/2017 Orders Only [facility] CLINCONV ProviderKush MD [address] [place] [address] Social History Tobacco Use Types Packs/Day Years Used Date Smoking Tobacco: Never Assessed Alcohol Use Standard Drinks/Week Comments No 0 (1 standard drink = 0.6 oz pur e alcohol) Comments Unknown Sex and Gender Information Value Date Recorded Sex Assigned at Not on file 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
--- OUTSIDE RECORDS SUMMARY | 2024-12-22 16:15 | XMS_ITS | Encounter Summary ---
Author Organization [facility] Address [address] [place] [address] Care Team Providers Care Horizontal Resaw Operator Name Role Phone Tanvir Awad MD Primary Care Provider [phone] Abhijit Erazo MD Primary Care Provider [phone] Rosalva Mccoy NP Primary Care Provider [phone] Encounter Details Date Type Department Care Team (Late st Contact Info) Description 07/01/2013 Orders Only [facility] Health Information Management [address] [place] [address] Scanning, Provider Social History Tobacco Use Types Packs/Day Years Used Date Smoking Tobacco: Never Assessed Alcohol Use Standard Drinks/Week Comments No 0 (1 standard drink = 0.6 oz pur e alcohol) Comments Unknown Sex and Gender Information Value Date Recorded Sex Assigned at Not on file 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
--- OUTSIDE RECORDS SUMMARY | 2024-12-22 16:15 | XMS_ITS | Encounter Summary ---
Author Organization [facility] Address [address] [facility] [address] [place] [address] Care Team Providers Care Plant Physiologist Name Role Phone Tanvir Awad MD Primary Care Provider [phone] Abhijit Erazo MD Primary Care Provider [phone] Rosalva Mccoy NP Primary Care Provider [phone] Encounter Details Date Type Department Care Team (Late st Contact Info) Description 10/15/2008 Orders Only [facility] Health Information Management [address] [place] [address] Scanning, Provider Social History Tobacco Use Types Packs/Day Years Used Date Smoking Tobacco: Never Assessed Comments Unknown Sex and Gender Information Value Date Recorded Sex Assigned at Not on file 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
--- OUTSIDE RECORDS SUMMARY | 2024-12-22 16:15 | XMS_ITS | Encounter Summary ---
Author Organization [facility] Facility Care Team Providers Care Gas Compressor Turbine Operator Name Role Phone Tanvir Awad MD Primary Care Provider [phone] Abhijit Erazo MD Primary Care Provider [phone] Rosalva Mccoy NP Primary Care Provider [phone] Encounter Details Date Type Department Care Team (Latest Contact Info) Description 12/25/2016 Orders Only [facility] CLINCONV ProviderKush MD [address] [place] [address] Social History Tobacco Use Types Packs/Day Years Used Date Smoking Tobacco: Never Assessed Alcohol Use Standard Drinks/Week Comments No 0 (1 standard drink = 0.6 oz pur e alcohol) Comments Unknown Sex and Gender Information Value Date Recorded Sex Assigned at Not on file 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
== END 2024-12-22 16:13 | disposition home or self-care (01) ==
PROVIDERS: PCP Nurse Practitioner Family; Visit Provider Nurse Practitioner Family
DX: R07.81 Pleurodynia (principal); W19.XXXA Unspecified fall, initial encounter
CPT/HCPCS: 71046; 71100

== ENCOUNTER 2025-01-12 07:21 | Outpatient (CLI) | payer MEDICARE, SELFPAY ==
--- NOTE | ~2025-01-12 | NM_ITS ---
EXAMINATION: NM stress w perfusion DATE: 01/12/2025 09:36 INDICATION: Chest pain. TECHNIQUE: Rest images were obtained following intravenous administration of 11.0 mCi Tc99m tetrofosmin (Myoview). The patient was infused intravenously with Lexiscan (regadenoson). Then, 34.3 mCi Tc99m tetrofosmin (Myoview) was administered intravenously, and stress images were obtained. Data was stevo nstructed into short axis and horizontal and vertical long axis SPECT images. Gated SPECT images were also obtained. COMPARISON: Myocardial perfusion imaging 07/01/2013 FINDINGS: There is no definite reversible or fixed perfusion abnormality to suggest ischemia or infarction. There is no segmental wall motion abnormality. Left ventricular ejection fraction measures 67%. IMPRESSION: 1. No definite ischemia or infarct. 2. Normal left ventricular ejection fraction measuring 67%. Reviewed, dictated and finalized at location E.
--- NOTE | 2025-01-12 07:47 | EST_ITS ---
Patient Info Name: Shantel Oates Age: 84 years : 1940 Gender: Female Ht: 62 in Wt: 160 lbs BSA: 1.81 m2 HR: 54 bpm BP: 138 / 57 mmHg Exam Date: 01/12/2025 7:47 AM Patient Status: O Admit Date: 01/12/2025 Exam Type: CA stress w NM A regadenoson stress test was performed. Staff Referring Physician: Ryan De La Vega DO Attending Provider: Ryan De La Vega DO Exercise Technologist: Mary Robert Exercise Physician: Ryan De La Vega DO Summary 1. 1. Negative lexiscan stress test for ischemic ST changes by ECG criteria. 2. 2. Stable hemodynamics throughout the test. 3. 3. Nuclear scan to follow and will be reported separately. Please correlate with it. 4. 4. Patient informed of the above results. Protocol: Lexiscan Stress ECG Details Stage: REST Duration (min): 2 min : 10 sec HR (bpm): 55 SBP (mmHg): 138 DBP (mmHg): 57 Stage: REST Duration (min): 7 min : 16 sec HR (bpm): 56 SBP (mmHg): 138 DBP (mmHg): 57 Stage: STAGE 1 Duration (min): 1 min : 0 sec HR (bpm): 63 SBP (mmHg): 137 DBP (mmHg): 76 Stage: RECOVERY Duration (min): 1 min : 0 sec HR (bpm): 68 SBP (mmHg): 137 DBP (mmHg): 76 Stage: RECOVERY Duration (min): 2 min : 0 sec HR (bpm): 67 SBP (mmHg): 137 DBP (mmHg): 76 Stage: RECOVERY Duration (min): 3 min : 0 sec HR (bpm): 67 SBP (mmHg): 143 DBP (mmHg): 77 Stage: RECOVERY Duration (min): 4 min : 0 sec HR (bpm): 66 SBP (mmHg): 143 DBP (mmHg): 77 Stage: RECOVERY Duration (min): 5 min : 0 sec HR (bpm): 65 SBP (mmHg): 144 DBP (mmHg): 76 Stage: RECOVERY Duration (min): 6 min : 0 sec HR (bpm): 64 SBP (mmHg): 144 DBP (mmHg): 76 Stage: RECOVERY Duration (min): 7 min : 0 sec HR (bpm): 65 SBP (mmHg): 137 DBP (mmHg): 76 Stage: RECOVERY Duration (min): 7 min : 14 sec HR (bpm): 63 SBP (mmHg): 137 DBP (mmHg): 76 Rest HR: 56 bpm Peak HR: 69 bpm Rest Sys BP: 138 mmHg Peak Sys BP: 144 mmHg Max Pred HR: 135 bpm % Max Pred HR: 51 % Target HR: 115 bpm Max RPP: 9,936 bpm*mmHg Termination Reason: Completed protocol Cardiac Symptoms: Shortness of breath Total Time: 1 min : 0 sec Rest Chapa BP: 57 mmHg Peak Chapa BP: 76 mmHg Total Dose: 0.4 mg Resting ECG Sinus bradycardia, RBBB. Stress ECG No ST changes. Arrhythmias None. Report Signatures
== END 2025-01-12 07:22 | disposition home or self-care (01) ==
PROVIDERS: PCP Nurse Practitioner Family; Visit Provider Internal Medicine Cardiovascular Disease
DX: R07.9 Chest pain, unspecified (principal)
CPT/HCPCS: 78452; 93017; A9502; J2785

== ENCOUNTER 2025-01-26 11:29 | Outpatient (CLI) | payer MEDICARE, SELFPAY ==
--- NOTE | ~2025-01-26 | MMUS_ITS ---
EXAMINATION: MM diagnostic feliberto BI w rafal, US breast LT limited INDICATION: 84-year old female; Evaluation of left breast palpable lump she felt for 2 weeks. COMPARISON: 01/23/2022 through 05/08/2015. TECHNIQUE: Digital breast tomosynthesis CC and MLO views of BILATERAL breast and True lateral and exaggerated CC of the LEFT breast were obtained with computer- aided detection to assist in interpretation of the study. A radiopaque skin marker was placed over the area of LEFT breast palpable lump. FINDINGS: There are scattered areas of fibroglandular density. There are no suspicious masses, calcifications, architectural distortion or any other abnormality in either breast. No suspicious mammographic abnormality correlates to the radiopaque skin marker. LEFT BREAST ULTRASOUND FINDINGS: Targeted sonographic evaluation of the palpable lump area was completed. At 2:00, 6 cm FN, corresponding to the palpable area, there is a 4.6 mm hypoechoic lesion with surrounding hyperechoic halo located within the subcutaneous fat layer. This finding is compatible with an area of fat necrosis. In addition there is a 0.3 cm anechoic lesion in the subdermal region at 2:00, 4 cm FN. This finding may represent a sebaceous cyst. IMPRESSION: Probable benign left breast hypoechoic lesion that correlates to the palpable lump. Most likely represent an area of fat necrosis. Short-term follow-up is advised. No mammographic evidence of malignancy in the right breast. RECOMMENDATIONS: 6 month follow-up left breast ultrasound Clinical management of patient's palpable lump. BI-RADS 3, PROBABLY BENIGN Reviewed, dictated and finalized at location B. IMPRESSION: Probable benign left breast hypoechoic lesion that correlates to the palpable l ump. Most likely represent an area of fat necrosis. Short-term follow-up is adv ised. No mammographic evidence of malignancy in the right breast. RECOMMENDATIONS: 6 month follow-up left breast ultrasound Clinical management of patient's palpable lump. BI-RADS 3, PROBABLY BENIGN
== END 2025-01-26 11:30 | disposition home or self-care (01) ==
PROVIDERS: PCP Nurse Practitioner Family; Visit Provider Nurse Practitioner Family
DX: N63.21 Unspecified lump in the left breast, upper outer quadrant (principal); R92.8 Other abnormal and inconclusive findings on diagnostic imaging of breast
CPT/HCPCS: 76642; 77062; 77066; G0279

== ENCOUNTER 2025-02-08 22:57 | Emergency (ER) | payer MEDICARE, SELFPAY ==
--- NOTE | ~2025-02-08 | XR_ITS ---
Examination: XR ankle RT min 3V, XR foot RT min 3V Clinical History: Fall Pain Comparison: None Technique: 3 views right ankle, 4 views right foot Findings/impression: Right ankle: 1. No fracture or dislocation. Right foot: 1. No fracture or dislocation. Reviewed, dictated and finalized at location R. ICAL ROLL OPERATOR
[2025-02-08 22:58] VITALS: BP 168/83; PULSE 63; RESP 20; TEMP 36.7; O2SAT 99
--- NOTE | 2025-02-09 00:40 | ED.GENADULT ---
HPI - General Adult General Chief complaint: Extremity Injury, Lower Stated complaint: FALL, RIGHT ANKLE PAIN Time Seen by Provider: 02/08/25 23:10 History of Present Illness HPI narrative: This is an 84-year-old female presenting with right ankle pain. Patient was pulled over by her dog earlier today. She was able ambulate that time however the pain got worse as time went on. Now she has too much pain to wait. She has not taken anything for pain control. She did not strike her head or suffer any other injuries in the fall. Related Data Home Medications ?Medication ?Instructions ?Recorded ?Confirmed ?Last Taken ?Type biotin 5 mg tablet 5 mg PO DAILY 06/24/19 02/07/25 10/20/22 History calcium 315 mg (as 1 tablet PO DAILY 08/29/21 02/07/25 10/20/22 History citrate)-ergocalciferol (vit D2) 200 unit tablet Benadryl 50 mg PO TID PRN Allergy Symptoms 01/21/23 02/07/25 Unknown History multivitamin (One-A-Day Essential 1 tablet PO DAILY 11/10/23 02/07/25 Unknown History tablet) Allergies Allergy/AdvReac Type Severity Reaction Status Date / Time acetaminophen (From Tylenol) Allergy Severe Swelling Verified 12/22/24 15:08 ibuprofen Allergy Severe Swelling Verified 12/22/24 15:08 of Lip/Tongue/Throat naproxen (From Aleve) Allergy Severe Swelling Verified 12/22/24 15:08 of Lip/Tongue/Throat strawberry Allergy Severe Swelling Verified 12/22/24 15:08 of Lip/Tongue/Throat adhesive Allergy Mild Rash Verified 12/22/24 15:08 latex Allergy Mild Rash Verified 12/22/24 15:08 morphine Allergy Hallucinati Verified 12/22/24 15:08 ng influenza virus vaccine tv AdvReac Severe very sick Verified 12/22/24 15:08 2013-14(18-49 yrs),rcmb with fever (From Flublok) and myalgia PMFSH Past Medical History Medical History Candidal intertrigo Rheumatoid arthritis Pelvis fracture COVID-19 long hauler manifesting chronic dyspnea Dyspnea Skin lesion of face Injury of knee, left Labile blood pressure Hypertensive urgency Nausea and vomiting Acute kidney injury superimposed on chronic kidney disease Colitis Adenomatous colon polyp added to history in Right sided abdominal pain Encounter for surgical aftercare following surgery on the digestive system Encounter for follow-up examination after completed treatment for conditions other than malignant neoplasm Pneumonia SBO (small bowel obstruction) Incisional hernia Umbilical hernia Abdominal hernia Irregular heart beat Hypokalemia Hyponatremia COVID-19 Hypertensive urgency CKD (chronic kidney disease) stage 4, GFR 15-29 ml/min Paroxysmal A-fib Frequent falls Wrist pain, right Thumb pain Hip pain Contusion of multiple sites of right hand and fingers Back pain Gastric AVM Bilateral inguinal hernia Muscle spasm Right renal mass Renal cyst Closed displaced midcervical fracture of femur (~06/06/19) Osteoarthritis of left knee Chronic anticoagulation GERD (gastroesophageal reflux disease) Diet-controlled diabetes mellitus Hemoglobin A1c was 5.5 on March 25, 2019. History of Clostridioides difficile infection Mitral valve prolapse Hyperlipidemia Osteoarthritis Hypothyroidism Anxiety History of postoperative nausea and vomiting Latex allergy status Nonrheumatic mitral valve disorder Primary osteoarthritis of left knee Surgical History Surgical History History of incisional hernia repair Robotic assisted repair periumbilical incisional hernia with mesh 07/10/[address] Bee. H/O abdominal surgery Hx of exploratory laparotomy Exploratory laparoscopy, lysis of adhesion on 07/15/[address] Bee H/O dilation and curettage x4 Hx of colonoscopy H/O hemorrhoidectomy History of hip replacement (~06/06/19) left Status post total left knee replacement (~05/04/19) Status post arthroscopy of left knee (~05/04/19) History of bladder suspension procedure Status post breast biopsy (~1972) Left breast biopsy with benign histology. Status post cholecystectomy (~2001) Status post cataract extraction (~05/20/16) right History of varicose vein ligation and stripping (~1991) right leg Status post cardiac catheterization Coronary angiogram March 2014 showed normal coronary arteries. Status post hysterectomy (~1970) Family History Family History Father Family history of cardiovascular disease Family history of kidney disease Family history of aortic aneurysm Mother Diabetes mellitus Family history of Alzheimer's disease Family history of malignant neoplasm of brain Grandparent Cerebrovascular accident Other Breast cancer Eye cancer Social History Social History Social History: The patient is [place] of [place]. She is a lifelong nonsmoker and denies alcohol and drug use. Children live nearby. She still works 6 days a week at [employer]. She denies alcohol, tobacco, and drug use. The patient's daughter lives with her now. She has 3 children. She is . She is a full code. Her daughter this living with her is a durable power disability attorney for healthcare. 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 Head: atraumatic. EYES: EOMI, NOSE: Atraumatic NECK: Trachea midline RESPIRATORY: No increased rate of breathing CARDIOVASCULAR: RRR, ABDOMINAL: Non-distended MUSCULOSKELETAl: Focal exam of the right ankle showed some mild swelling. Mild bruising along the anterior ankle. Tenderness along the ATFL. No tenderness along the posterior malleoli base of the 5th metatarsal NEURO: Alert. Moving 4/4 extremities SKIN:: Warm, dry. Normal color PSYCHIATRIC: Normal affect Course Vital Signs Vital signs: Vital Signs Temperature 98.0 F 02/08/25 22:58 Pulse Rate 63 02/08/25 22:58 Respiratory Rate 20 02/08/25 22:58 Blood Pressure 168/83 H 02/08/25 22:58 Pulse Oximetry 99 02/08/25 22:58 Oxygen Delivery Room Air 02/08/25 22:58 Temperature 98.0 F 02/08/25 22:58 Pulse Rate 63 02/08/25 22:58 Respiratory Rate 20 02/08/25 22:58 Blood Pressure 168/83 H 02/08/25 22:58 Pulse Oximetry 99 02/08/25 22:58 Oxygen Delivery Room Air 02/08/25 22:58 Medical Decision Making [facility] Narrative Medical decision making narrative: -Course: 84-year-old female presented ankle pain after being pulled over by her dog. X-rays interpreted by myself did not reveal any obvious displaced fracture. Official read will occur in the morning. Patient was offered tramadol and decline. Placed in Hernandez bandage wrap. She is able to ambulate with walker which is what she uses at home. She will be discharged follow-up with her primary care physician. Over read of the x-rays walker the morning. -DDX includes but is not limited to: Ankle sprain, ankle fracture Vital Signs Vital Signs: Vital Signs Temperature 98.0 F 02/08/25 22:58 Pulse Rate 63 02/08/25 22:58 Respiratory Rate 20 02/08/25 22:58 Blood Pressure 168/83 H 02/08/25 22:58 Pulse Oximetry 99 02/08/25 22:58 Oxygen Delivery Room Air 02/08/25 22:58 Temperature 98.0 F 02/08/25 22:58 Pulse Rate 63 02/08/25 22:58 Respiratory Rate 20 02/08/25 22:58 Blood Pressure 168/83 H 02/08/25 22:58 Pulse Oximetry 99 02/08/25 22:58 Oxygen Delivery Room Air 02/08/25 22:58 Discharge Plan Discharge Clinical Impression: Ankle sprain Patient Disposition: Home Condition: Stable Instructions: Antibiotic Form, Ankle Sprain (DC) Additional Instructions: You were seen in the emergency department for ankle pain. Please use tramadol for pain. Please follow-up with your primary care physician over the next 3-5 days. If her pain becomes severe is getting worse please return to the ED for re-evaluation. Patient Language: Russian Prescriptions: No Action calcium citrate-vitamin D2 315-200 mg-unit tablet 1 tablet PO DAILY atorvastatin 40 mg tablet 40 mg PO DAILY Qty: 90 3RF albuterol sulfate 90 mcg/actuation HFA aerosol inhaler 1 - 2 puff inhalation Q4-6H PRN (Reason: shortness of breath or wheezing) Qty: 8.5 2RF flecainide 100 mg tablet 100 mg PO Q12H Qty: 60 5RF biotin 5 mg tablet 5 mg PO DAILY multivitamin [One-A-Day Essential] Tablet 1 tablet PO DAILY amitriptyline 25 mg tablet See Rx Instructions .ROUTE .COMPLEX Qty: 90 3RF Dose Instruction: TAKE ONE TABLET BY MOUTH AT BEDTIME Rx Instructions: TAKE ONE TABLET BY MOUTH AT BEDTIME Benadryl 50 mg PO TID PRN (Reason: Allergy Symptoms) (DME) Space Chamber Spacer See Rx Instructions .Route Qty: 1 0RF Rx Instructions: As directed metoprolol tartrate 25 mg tablet See Rx Instructions .ROUTE .COMPLEX Qty: 90 2RF Dose Instruction: TAKE ONE TABLET BY MOUTH TWICE A DAY Rx Instructions: TAKE 1/2 TABLET BY MOUTH DAILY lisinopril 40 mg tablet See Rx Instructions .ROUTE .COMPLEX Qty: 90 2RF Dose Instruction: TAKE ONE TABLET BY MOUTH DAILY Rx Instructions: TAKE ONE TABLET BY MOUTH DAILY paroxetine HCl 20 mg tablet 20 mg PO DAILY Qty: 90 1RF tramadol 50 mg tablet 50 mg PO Q8H PRN (Reason: pain) Qty: 60 4RF Eliquis 2.5 mg tablet See Rx Instructions .ROUTE .COMPLEX Qty: 60 5RF Dose Instruction: TAKE ONE TABLET BY MOUTH TWICE A DAY Rx Instructions: TAKE ONE TABLET BY MOUTH TWICE A DAY amlodipine 5 mg tablet See Rx Instructions .ROUTE .COMPLEX Qty: 90 1RF Dose Instruction: TAKE ONE TABLET BY MOUTH ONCE DAILY Rx Instructions: TAKE ONE TABLET BY MOUTH ONCE DAILY pantoprazole 40 mg tablet,delayed release (DR/EC) 40 mg PO QAM Qty: 90 1RF levothyroxine 88 mcg tablet See Rx Instructions .ROUTE .COMPLEX Qty: 90 1RF Dose Instruction: TAKE ONE TABLET BY MOUTH DAILY Rx Instructions: TAKE ONE TABLET BY MOUTH DAILY budesonide-formoterol [Symbicort] 160-4.5 mcg/actuation HFA aerosol inhaler See Rx Instructions .ROUTE .COMPLEX Qty: 10.2 5RF Dose Instruction: INHALE TWO PUFFS BY MOUTH EVERY 12 HOURS RINSE MOUTH OUT AFTER EACH USE Rx Instructions: INHALE TWO PUFFS BY MOUTH EVERY 12 HOURS RINSE MOUTH OUT AFTER EACH USE Follow-up/Referrals: Rosalva Mccoy APRN [Primary Care Provider, Internal Medicine] - 3 Days
[2025-02-09 01:05] VITALS: BP 152/82; PULSE 71; RESP 16; O2SAT 97
--- OUTSIDE RECORDS SUMMARY | 2025-02-09 15:55 | XMS_ITS | Encounter Summary ---
Author Organization [facility] Address [address] [place] [address] Care Team Providers Care Biomechanical Engineer Name Role Phone Tanvir Awad MD Primary Care Provider [phone] Abhijit Erazo MD Primary Care Provider [phone] Rosalva Mccoy NP Primary Care Provider [phone] Encounter Details Date Type Department Care Team (Late st Contact Info) Description 03/27/2014 Orders Only [facility] Health Information Management [address] [place] [address] Scanning, Provider Social History Tobacco Use Types Packs/Day Years Used Date Smoking Tobacco: Never Assessed Alcohol Use Standard Drinks/Week Comments No 0 (1 standard drink = 0.6 oz pur e alcohol) Comments Unknown Sex and Gender Information Value Date Recorded Sex Assigned at Not on file 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 [place] [address] PCP - General Family Medicine 06/03/23 06/13/24 Rosalva Mccoy NP [address] [place] [address] PCP - General Family Medicine 06/14/24 documented as of this encounter
--- OUTSIDE RECORDS SUMMARY | 2025-02-09 15:55 | XMS_ITS | Encounter Summary ---
Author Organization [facility] Address [address] [place] [address] Care Team Providers Care Power Tool Repair Technician Name Role Phone Tanvir Awad MD Primary Care Provider [phone] Abhijit Erazo MD Primary Care Provider [phone] Rosalva Mccoy NP Primary Care Provider [phone] Encounter Details Date Type Department Care Team (Late st Contact Info) Description 07/01/2013 Orders Only [facility] Health Information Management [address] [place] [address] Scanning, Provider Social History Tobacco Use Types Packs/Day Years Used Date Smoking Tobacco: Never Assessed Alcohol Use Standard Drinks/Week Comments No 0 (1 standard drink = 0.6 oz pur e alcohol) Comments Unknown Sex and Gender Information Value Date Recorded Sex Assigned at Not on file 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
--- OUTSIDE RECORDS SUMMARY | 2025-02-09 15:55 | XMS_ITS | Clinical Summary ---
Author Organization [facility] [address] Address [address] [place] [address] Care Team Providers Care Mechanic Welder Name Role Phone Rosalva Mccoy NP Primary Care Provider [phone] Allergies Active Allergy Reactions Criticality Noted Date Comments Acetaminophen Swelling,Other (See comments) Medium 04/13/2019 Tongue swelling Adhesive Tape-Silicones Rash Medium 08/04/2021 Haemophilus Influenzae Type B Fever Medium 08/04/2021 Ibuprofen Swelling,Rash Medium 04/12/2020 Morphine Anxiety,Delusions,Lacey llucinations,Headach e Medium 07/13/2024 Naproxen Swelling,Rash Medium 04/13/2019 [place] Itching,Rash,Shortne ss of breath,Swelling High 05/05/1999 Medications lisinopril-hydr oCHLOROthiazide (ZESTORETIC) 10-12.5 mg per tabletIndicatio ns:hypertension Take 1 tablet by mouth daily Active flecainide (TAMBOCOR) 100 mg tablet Take 1 tablet (100 mg total) by mouth 2 (two) times a day Active levothyroxine (SYNTHROID) 88 mcg tablet Take 1 tablet (88 mcg total) by mouth 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 Active diazePAM (VALIUM) 2 mg [...] total) by mouth daily 9 Active vit C,N-Ex-cqfpv-jose tein-zeaxan 297-215-56-1 tk-zwdg-am-mg capsule Take by mouth Active apixaban (ELIQUIS) [...] flecainide (TAMBOCOR) 50 mg tablet 5 Active topiramate (TOPAMAX) 25 mg capsule Take 1 capsule (25 mg total) by mouth nightly 30 capsule 5 5 07/10/19 26 Active Active Problems Problem Noted Date Diagnosed Date Renal lesion 06/09/2023 Encounters Date Type Department Care Team Description 01/10/2025 Orders Only [facility] Neurology [facility] [address] [address] KatlynEyad virgen Si, MD 01/09/2025 Telephone [facility] Neurology [facility] [address] [place] [phone] KatlynEyad virgen Si, MD Med Management 12/23/2024 Orders Only [facility] Neurology [address] [place] [address] [address] [place] [address] Eyad Potts Si, MD 12/23/2024 Telephone [facility] Neurology [address] [place] [address] [place] [phone] Katlyn, Eyad Bee MD Med Management from Last 3 Months Surgical History Surgery [...] Brother Wilmer Mendoza omas Cancer Mother's Sister [place] Cheryle Subramanian Dorothy Schiber Blood Clot Sister 1 Mary Oates Clotting disorder Sister 1 Mary Rigginsnipetra Hyperlipidemia Sister 1 Mary Oates Emphysema Sister 2 Relation Name Status Comments Brother Alive Father (Age 62) Mother Clemencia Earl (Age 80) Mother's Brother Colton Christensen, Wilmer Christensen Alive Mother's Sister Iwona Adam, Shantel Richardson Alive Sister 1 Mary Oates [...] on file 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 Gender Identity Not on file Sexual Orientation [...] Screening 1958 Pneumococcal vaccine 65+ (1 of 2 - PCV) 1958 Zoster Vaccine (1 of 2) 1989 Well Visit 65+ 02/19/2004 Covid-19 Vaccine (2024-2 6 season) 2024 10/29/2021, 04/26/2021, 01/14/2021, Additional history exists Influenza Vaccine (#1) 2024 Medical Devices Implanted Type Area Maternal Fetal Physician Device Identifier Shelf Expiration Date Model / Serial / Lot Knee Replacement Knee Hip Replacement Hip Insurance [employer] MEDICARE HMO Care Teams Mechanic Welder Relationship Specialty Start Date End Date Rosalva Mccoy NP [address] [place], [place] [id number] PCP - General Family Medicine 06/14/24
--- OUTSIDE RECORDS SUMMARY | 2025-02-09 15:55 | XMS_ITS | Encounter Summary ---
Author Organization [facility] Facility Care Team Providers Care Neck Skewer Name Role Phone Tanvir Awad MD Primary Care Provider [phone] Abhijit Erazo MD Primary Care Provider [phone] Rosalva Mccoy NP Primary Care Provider [phone] Encounter Details Date Type Department Care Team (Latest Contact Info) Description 01/29/2017 Orders Only [facility] ProviderKush MD [address] [place] [id number] Social History Tobacco Use Types Packs/Day Years Used Date Smoking Tobacco: Never Assessed Alcohol Use Standard Drinks/Week Comments No 0 (1 standard drink = 0.6 oz pur e alcohol) Comments Unknown Sex and Gender Information Value Date Recorded Sex Assigned at Not on file 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
--- OUTSIDE RECORDS SUMMARY | 2025-02-09 15:55 | XMS_ITS | Encounter Summary ---
Author Organization [facility] Facility Care Team Providers Care Exhibitions And Collections Manager Name Role Phone Tanvir Awad MD Primary Care Provider [phone] Abhijit Erazo MD Primary Care Provider [phone] Rosalva Mccoy NP Primary Care Provider [phone] Encounter Details Date Type Department Care Team (Latest Contact Info) Description 03/20/2017 Orders Only [facility] ProviderKush MD [address] [place] [address] Social History Tobacco Use Types Packs/Day Years Used Date Smoking Tobacco: Never Assessed Alcohol Use Standard Drinks/Week Comments No 0 (1 standard drink = 0.6 oz pur e alcohol) Comments Unknown Sex and Gender Information Value Date Recorded Sex Assigned at Not on file 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
--- OUTSIDE RECORDS SUMMARY | 2025-02-09 15:55 | XMS_ITS | Clinical Summary ---
Author Organization [facility] Address [address] [place] [address] Care Team Providers Care Working Supervisor Name Role Phone Unavailable Primary Care Provider [...] - 1-dose 75+ series) 2014 COVID-19 Vaccine (2024-2 6 season) 2024 Influenza Adult (#1) 2025 Hepatitis A Vaccines Aged Out No long er eligible based on patient's age to complete this topic Meningococcal B Vaccine Aged Out No l [...]
--- OUTSIDE RECORDS SUMMARY | 2025-02-09 15:55 | XMS_ITS | Encounter Summary ---
Author Organization [facility] Facility Care Team Providers Care Greenhouse Transplanter Name Role Phone Tanvir Awad MD Primary Care Provider [phone] Abhijit Erazo MD Primary Care Provider [phone] Rosalva Mccoy NP Primary Care Provider [phone] Encounter Details Date Type Department Care Team (Latest Contact Info) Description 12/25/2016 Orders Only [facility] ProviderKush MD [address] [place] [address] Social History Tobacco Use Types Packs/Day Years Used Date Smoking Tobacco: Never Assessed Alcohol Use Standard Drinks/Week Comments No 0 (1 standard drink = 0.6 oz pur e alcohol) Comments Unknown Sex and Gender Information Value Date Recorded Sex Assigned at Not on file 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
--- OUTSIDE RECORDS SUMMARY | 2025-02-09 15:55 | XMS_ITS | Clinical Summary ---
Author Organization [facility] Address [address] [address] Phone Care Team Providers Care Stereo Map Plotter Operator Name Role Phone Calvin Awad MD Primary Care Provider [phone] Allergies Active Allergy Reactions Criticality Noted Date [...] on file Legal Sex Female 11:05 AM PROPERTY MANAGER Gender Identity Not on file Sexual Orientation Not on file Last Filed Vital Signs Vital Sign Reading Time Taken Comments Blood Pressure 120/72 04/12/2020 1:42 PM PROPERTY MANAGER Pulse 59 04/12/2020 1:42 PM PROPERTY MANAGER Temperature 36.1 C (97 F) 04/12/2020 1:42 PM PROPERTY MANAGER Respiratory Rate - - Oxygen Saturation 97% 04/12/2020 1:42 PM PROPERTY MANAGER Inhaled Oxygen Concentration - - Weight 71.9 kg (158 lb 9.6 oz) 04/12/2020 1:42 P M PROPERTY MANAGER Height 162.6 cm (5' 4) 04/12/2020 1:42 PM PROPERTY MANAGER Body Mass Index 27.22 04/12/2020 1:42 PM PROPERTY MANAGER Plan of Treatment Health Maintenance Due Date Last Done Comments Hepatitis C Virus (HCV) Screening 1940 TdaP Immunization 1940 Cologuard 02/19/1984 Immunochemical Fecal Occult Blood 02/19/1984 Pneumococcal Immunization (50+ years) (1 of 1 - PCV) 1989 Zoster Immunization (1 of 2) 1989 Respiratory Syncytial Virus (RSV) Immunization (Adult) (1 - 1-dose 75+ series) 2014 Medicare Initial AWV [id number] 04/06/2019 Influenza Immunization (#1) 2024 SARS-COV-2 Immunization ( [...] Recently Relevant to Health Maintenance Results * COLONOSCOPY (05/17/2020) Kwesi Christopher Jory DO PROCEDURE/MINOR SURGICAL ORDERA BLES Final Result from Last 3 Months or Most Recently Relevant to Health Maintenance Insurance MEDICARE C [employer] Care Teams Stereo Map Plotter Operator Relationship Specialty Start Date End Date Calvin Awad MD [address] [place] [address] PCP - General Family Medicine 03/16/20
--- OUTSIDE RECORDS SUMMARY | 2025-02-09 15:55 | XMS_ITS | Encounter Summary ---
Author Organization [facility] Address [address] [place] [address] Care Team Providers Care Actuarial Science Teacher Name Role Phone Tanvir Awad MD Primary Care Provider [phone] Abhijit Erazo MD Primary Care Provider [phone] Rosalva Mccoy NP Primary Care Provider [phone] Encounter Details Date Type Department Care Team (Late st Contact Info) Description 10/15/2008 [place] Only [facility] [place] Information Management [address] [place] [address] Scanning, Provider Social History Tobacco Use Types Packs/Day Years Used Date Smoking Tobacco: Never Assessed Comments Unknown Sex and Gender Information Value Date Recorded Sex Assigned at Not on file 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
--- OUTSIDE RECORDS SUMMARY | 2025-02-09 15:55 | XMS_ITS | Clinical Summary ---
Author Organization [facility] Address [address] [place] [id number] Phone Care Team Providers Care Seed Analyst Name Role Phone Yoni Awad MD Primary Care Provider [phone] Allergies Active Allergy Reactions Criticality Noted Date Comments Acetaminophen Other (see comments),Swelling Medium 04/13/2019 Tongue swelling Ibuprofen Rash,Swelling Medium 04/12/2020 Influenza Virus Vaccine Fever 08/04/2021 Naproxen Rash,Swelling Medium 04/13/2019 [place] Extract 08/04/2021 Wound Dressing Adhesive Rash Low [...] (#1) 2024 Insurance MEDICARE ADVANTAGE Care Teams Seed Analyst Relationship Specialty Start Date End Date Yoni Awad MD [address] [place] [address] PCP - General Internal Medicine 06/24/21
== END 2025-02-09 01:05 | disposition home or self-care (01) ==
PROVIDERS: Emergency Provider Emergency Medicine; PCP Nurse Practitioner Family
DX: S93.401A Sprain of unspecified ligament of right ankle, initial encounter (principal); I12.9 Hypertensive chronic kidney disease with stage 1 through stage 4 chronic kidney disease, or unspecified chronic kidney disease; E11.22 Type 2 diabetes mellitus with diabetic chronic kidney disease; N18.4 Chronic kidney disease, stage 4 (severe); I34.1 Nonrheumatic mitral (valve) prolapse; I34.89 Other nonrheumatic mitral valve disorders; K21.9 Gastro-esophageal reflux disease without esophagitis; E78.5 Hyperlipidemia, unspecified; E03.9 Hypothyroidism, unspecified; M06.9 Rheumatoid arthritis, unspecified; M17.12 Unilateral primary osteoarthritis, left knee; F41.9 Anxiety disorder, unspecified; Z96.642 Presence of left artificial hip joint; Z96.652 Presence of left artificial knee joint; Z86.0101 Personal history of adenomatous and serrated colon polyps; Z90.49 Acquired absence of other specified parts of digestive tract; Z90.710 Acquired absence of both cervix and uterus; Z98.41 Cataract extraction status, right eye; Z77.22 Contact with and (suspected) exposure to environmental tobacco smoke (acute) (chronic); Z79.899 Other long term (current) drug therapy; Z79.01 Long term (current) use of anticoagulants; W54.8XXA Other contact with dog, initial encounter
CPT/HCPCS: 73610; 73630; 99283